=== PATIENT | female | born 1945 | race Caucasian/White ===

== ENCOUNTER 2019-05-30 10:25 | Inpatient (IN) | payer MEDICARE, SELFPAY ==
[2019-05-30] VITALS (12 sets, daily range): BP systolic 164–225; BP diastolic 81–156; PULSE 69–80; RESP 16–30; TEMP 36.3–36.6; O2SAT 94–100; BMI 28.5; BMI 28.8
--- NOTE | ~2019-05-30 | XR_ITS ---
EXAMINATION: XR chest 2V EXAM DATE: 05/30/2019 11:03 INDICATION: Shortness of breath. TECHNIQUE: Frontal and lateral projections of the chest obtained and reviewed. Comparison is made to prior examination from 11/21/2014. FINDINGS: Interval development of small left pleural effusion and bibasilar indistinct reticulation w hich could be pulmonary edema or possibly developing pneumonia. Please clinically correlate. The card iomediastinal silhouette is prominent but magnified on this AP technique. There is no pneumothorax [place] spected. There are no osseous abnormalities identified. IMPRESSION: 1. Findings consistent with mild CHF exacerbation. 2. Basilar pneumonia not excludable. Reviewed, dictated and finalized at location A. ERCIAL MORTGAGE BROKER
--- NOTE | ~2019-05-30 | CT_ITS ---
EXAMINATION: CT brain wo con DATE: 05/31/2019 12:20 INDICATION: Persistent headache after hypertensive episode. TECHNIQUE: Computed tomography (CT) of the head was performed without intravenous contrast. The dose- length product was 605.33 mGy-cm. The mA was adjusted according to patient size. Iterative reconstruc tion technique was employed. COMPARISON: CT dated 11/22/2014 FINDINGS: There are scattered mild periventricular and subcortical white matter changes, most likely related to small vessel ischemic disease (microangiopathy). No acute intracranial hemorrhage, infarct ion, mass or mass effect. No ventriculomegaly or midline shift. Basilar cisterns are patent. Paranasa l sinuses and mastoids are pneumatized. Midline sagittal images are unremarkable. IMPRESSION: 1. No acute intracranial abnormality. 2: Chronic age-related findings. Reviewed, dictated and finalized at location A. LANCE OPERATOR
--- NOTE | ~2019-05-30 | CT_ITS ---
EXAMINATION: CTA chest PE protocol EXAM DATE: 05/30/2019 12:18 INDICATION: Short of breath for 2 weeks. Epigastric pain. TECHNIQUE: Spiral CTA of the chest (pulmonary arteries) was performed with 100 cc Omnipaque 350 intr avenous contrast injection. Images were acquired during the pulmonary arterial phase. Coronal maxi mum intensity projection 3D-reconstructions were created by the technologist on dedicated workstation . Axial, coronal and sagittal reformatted images were reviewed. The dose-length product (DLP) for t his examination was 471.74 mGy-cm. The exposure was tailored according to patient size (auto mA exp osure control), and iterative reconstruction (ASIR) was used as additional dose reduction technique. There is no prior study for comparison. FINDINGS: Pulmonary arteries are well opacified and without intraluminal filling defects. No thora cic aortic dissection. Moderate right, small to moderate left pleural effusions which are nonlocula radhika given they were relatively inconspicuous for size on the chest x-ray obtained same date in subpul karly location. There is adjacent right lower lobe segmental, left lower lobe subsegmental atelectasi s. No confluent consolidation. Tracheobronchial tree is patent. There is no mediastinal, hilar or axillary lymphadenopathy. There is no pneumothorax. There is cardiomegaly. There is mild coronar y arterial calcification, arterial sclerosis. There is 1.5 cm left adrenal gland adenoma. There is thoracic spondylosis without osteoblastic or osteolytic lesions identified. IMPRESSION: 1. Cardiomegaly, moderate right and small to moderate left pleural effusions. Adjacent atelectasis. 2. No pulmonary emboli. Reviewed, dictated and finalized at location A. RWRITING INTERN
--- NOTE | 2019-05-30 10:38 | ECG_ITS ---
Measurements Intervals Baker Rate: 73 P: GA: 0 QRS: 59 QRSD: 89 T: 62 QT: 421 QTc: 466 Interpretive Statements SINUS RHYTHM BORDERLINE T WAVE ABNORMALITY- LATERAL LEADS BASELINE ARTIFACT- I, II, III, AVR, AVL, AVF, V4-V6 BORDERLINE ECG Electronically Signed On 05-30-2019 10:57:31 CHLORINE CELL TENDER by Marlon Baca D.O.
[2019-05-30 10:48] LABS: Basophils Absolute Auto 0.1 K/mm3 (0.0-0.1); Basophils Percent Auto 0.6 % (0.2-1.2); Eosinophils Percent Auto 0.3 % (0-4.4); Hematocrit 37.2 % (37.0-47.0); Hemoglobin 11.8 g/dL (12.0-15.0); Immature Granulocyte Absolute 0.03 K/mm3 (0.00-0.031); Immature Granulocyte Percent A 0.3 % (0-0.5); Lymphocytes Absolute Auto 3.32 K/mm3 (0.9-3.2); Lymphocytes Percent Auto 28.9 % (18.3-44.2); Mean Corpuscular HGB Conc 31.7 g/dl (32-36); Mean Corpuscular Hemoglobin 30.5 pg (26-34); Mean Corpuscular Volume 96.1 fl (80-100); Mean Platelet Volume 10.2 fl (7.4-10.4); Monocytes Absolute Auto 0.6 K/mm3 (0.1-0.6); Monocytes Percent Auto 5.3 % (2.6-8.5); Neutrophils Absolute Auto 7.4 K/mm3 (1.3-6.7); Neutrophils Percent Auto 64.6 % (45.5-73.1); Platelet Count Result 371 k/mm3 (150-375); Red Blood Count 3.87 M/mm3 (4.2-5.4); Red Cell Distribution Width 12.6 % (11.5-14.5); White Blood Count 11.5 K/mm3 (4.5-10.0)
--- NOTE | 2019-05-30 10:50 | ED.SOB ---
HPI - SOB/Dyspnea General Chief Complaint: Shortness of Breath/Dyspnea Stated Complaint: SOB Time Seen by Provider: 05/30/19 10:38 Source: patient and RN notes reviewed Mode of arrival: ambulatory Limitations: no limitations History of Present Illness HPI Narrative: Pt is a 73 y/o female presenting to the ED c/o SOB. Pt reports she started experiencing severe SOB over a month ago that recently worsened. Pt states her SOB is worsened with exertion and is alleviated with pursed lip breathing. Pt also reports back pain for 2 weeks, diaphoresis, mild cough, and occasional CP, but denies fever. Pt states she has not experienced any CP today. Pt notes she tried to see her PCP, Dr. Quiñones, about her SOB but he is on vacation. Pt notes she is prescribed Metoprolol, Olmesartan, and Benicar, but states she is not always compliant with these medications. Onset (ago): month(s) Severity: severe Exacerbating factors: exertion Relieving factors: other (Pursed lip breathing) Associated symptoms: chest pain (Occasional, none currently), cough (Mild), diaphoresis and other (Back pain) Related Data Home Medications Medication Instructions Recorded Confirmed alprazolam 05/30/19 bimatoprost [Lumigan] 05/30/19 hydrochlorothiazide 05/30/19 hydrocodone-acetaminophen 05/30/19 metoprolol tartrate 50 mg PO DAILY 05/30/19 05/30/19 olmesartan 05/30/19 Allergies Allergy/AdvReac Type Severity Reaction Status Date / Time No Known Allergies Allergy Verified 05/30/19 10:47 Review of Systems Review of Systems: Narrative: Constitutional: Negative for fever. Respiratory: Positive for dyspnea and mild cough. Cardiovascular: Positive for occasional chest pain, none currently and diaphoresis. Musculoskeletal: Positive for back pain. All systems reviewed & are unremarkable except as noted in HPI and below PMFSH Past Medical History Medical History Anemia Anxiety Arthritis Diverticulitis Diverticulosis Fibromyalgia History of blood transfusion HLD (hyperlipidemia) HTN (hypertension) Kidney stone Shingles Spinal stenosis TIA (transient ischemic attack) Ulcer UTI (urinary tract infection) Surgical History Surgical History H/O cardiac catheterization History of appendectomy History of cholecystectomy Social History Social History Smoking status: Unknown if ever smoked Gender identity (if verbalized by the patient): Female Exam Narrative: Exam Narrative: Constitutional: Appears well-developed. No distress. Nose: Nose normal. Eyes: Conjunctiva are normal. Neck: Normal range of motion. Neck supple. Cardiovascular: Normal rate and regular rhythm. Pulmonary/Chest: Tachypneic. Mild respiratory distress. Diminished breath sounds. Abdominal: Soft. There is no tenderness. Musculoskeletal: Normal range of motion. No edema. Neurological: Alert and oriented to person, place, and time. Skin: Skin is warm. No pallor. Psychiatric: Normal mood and affect. Course Consultations Consultation #1: Discussed case with Hospitalist NAIF Ott. Accepted the pt for admission. Date: 05/30/19 Time: 12:56 Vital Signs Vital signs: Vital Signs Temperature 36.3 C L 05/30/19 10:39 Pulse Rate 80 05/30/19 10:39 Respiratory Rate 30 H 05/30/19 10:39 Blood Pressure 225/138 H 05/30/19 10:39 Pulse Oximetry 97 05/30/19 10:39 Temperature 36.3 C L 05/30/19 10:39 Pulse Rate 69 05/30/19 12:48 Respiratory Rate 16 05/30/19 12:48 Blood Pressure 174/101 H 05/30/19 12:48 Pulse Oximetry 100 05/30/19 12:48 MDM - SOB/Dyspnea Lab Data Result diagrams: 05/30/19 10:43 05/30/19 10:43 Labs: Lab Results 05/30/19 05/30/19 05/30/19 Range/Units 10:41 10:41 10:43 WBC 11.5 H (4.5-10.0) K/mm3 RBC 3.87 L (4.2-5.4) M/mm3 Hgb 11.8 L (12.0-15.
[2019-05-30 10:59] LABS: Blood Urea Nitrogen 10 mg/dL (7-17); Calcium 9.6 mg/dL (8.4-10.2); Carbon Dioxide 22 mmol/L (22-30); Chloride 101 mmol/L (98-107); Estimated Glomerular Filt Rate > 60; Glucose 127 mg/dL (65-105); Potassium 3.9 mmol/L (3.4-5.0); Sodium 137 mmol/L (137-145)
[2019-05-30] MEDS: FUROSEMIDE INJ 40 MG/4 ML VIAL IV PUSH ×2 (11:26→22:37)
[2019-05-30] MEDS: LABETALOL HCL INJ 100 MG/20 ML VIAL 20 MG IV PUSH (11:27)
[2019-05-30 11:30] LABS: D Dimer 1.37 ug/mL (<0.48)
[2019-05-30 11:39] LABS: NT Pro B Type Natriuretic Pept 9910 PG/ML (5-100); Troponin I 0.052 ng/mL (0.000-0.034)
[2019-05-30] MEDS: AMLODIPINE BESYLATE 5 MG TABLET 10 MG PO (12:25)
[2019-05-30] MEDS: hydrALAZINE HCL 20 MG/ML VIAL IV PUSH (12:48)
--- NOTE | 2019-05-30 13:40 | ECHO_ITS ---
Patient Info Name: Karla Green Age: 73 years : 1945 Gender: Female Ht: 66 in Wt: 191 lbs BSA: 2.04 m2 HR: 75 bpm BP: 171 / 82 mmHg Heart Rhythm: Sinus Rhythm Technical Quality: Good Exam Date: 05/30/2019 2:17 PM Exam Location: [facility] Pulmonary Patient Status: Inpatient Admit Date: 05/30/2019 Staff Ordering Physician: Melissa Ott PA-C Warehouse Assembly Worker: Wilmer Burroughs RDCS Attending Provider: Robin Orozco MD Referring Physician: Namrata GAMINO; Exam Type: CA echo dop color flow w con Study Info Indications I51.7 - Cardiomegaly Complete two-dimensional, color flow and Doppler transthoracic echocardiogram is performed with contrast to opacify the left ventrical and to improve the deliniation of the left ventrical endocarial boarders. Contrast/Agitated Saline Contrast/Ag. Saline: Definity Amount: 2.00 ml Administered By: Pato Salmon RN History/Risk Factors Cardiomegaly, SOB, HTN, elevated trops, BNP 9910, CAD. Summary 1. Left ventricular chamber dimension is normal. 2. Left ventricular systolic function is normal, estimated at 55-60%. 3. There is moderate concentric increased left ventricular wall thickness. 4. There is mild aortic valve sclerosis. 5. There is mild posterior leaflet prolapse and mild MR. Left Ventricle Left ventricular chamber dimension is normal. Left ventricular systolic function is normal, estimated at 55-60%. There is moderate concentric increased left ventricular wall thickness. The left ventricular diastolic function is grade I diastolic dysfunction. Right Ventricle Right ventricular chamber dimension is normal. Left Atria Left atrial chamber dimension is mildly enlarged. Right Atria Right atrial chamber dimension is normal. Aortic Valve The aortic valve is trileaflet. There is mild aortic valve sclerosis. Pulmonic Valve The pulmonic valve is not well visualized. Mitral Valve The mitral valve has normal leaflets and posterior prolapse. There is mild mitral valve regurgitation. There is mild posterior leaflet prolapse and mild MR. Tricuspid Valve The tricuspid valve leaflets are normal. There is mild tricuspid valve regurgitation. Pericardium/Pleural The pericardium appears normal. Aorta The aortic root size at the sinus of Valsalva is normal. Left Ventricular Outflow Tract Name Value Normal LVOT 2D LVOT Diameter 1.80 cm LVOT Doppler LVOT VTI 20.50 cm LVOT VTI/AV VTI Ratio 0.68 LVOT Stroke Volume 52.14 ml Mitral Valve Name Value Normal MV Diastolic Function MV E Peak Velocity 1.15 cm/s MV A Peak Velocity 1.00 cm/s MV E/A 1.15 MV Annular TD
[2019-05-30 14:47] LABS: Troponin I 0.051 ng/mL (0.000-0.034)
--- NOTE | 2019-05-30 15:43 | ADMGEN ---
This patient, Karla Green, was admitted to IMU Room 206-01. Patient/family oriented to hospital policies and general routines including ID bracelet, bed and alarms, visiting hours, pain management, procedures, bathroom and other care routines, personal items, smoking policy, room service/diet, and visiting hours. Valuables list has been completed. Information on how to activate the Rapid Response Team has been discussed. Patient/Family are encouraged to report perceived risks to care and to ask questions if they do not understand what they are told or what they should do.
[2019-05-30 17:46] LABS: Troponin I 0.053 ng/mL (0.000-0.034)
--- NOTE | 2019-05-30 18:08 | PM.CNCAR ---
Assessment and Plan Additional Plan 73-year-old lady with chronic longstanding essential hypertension with the recent echocardiogram in our office demonstrating hypertensive heart disease with LVH, good systolic contractility and no significant valvular disease. She is normally on a 3 drug regimen for her hypertension and because she was feeling poorly for for 5 days stopped all of her medications resulting in significant hypertension upon presentation. Troponins were sampled for reasons that are not clear. As I mentioned above angiographically the this lady is known not to have any coronary artery disease. I would recommend resuming the Olmesartan, , metoprolol and amlodipine. I do not perceive there to be any clinical evidence to suggest an acute coronary problem and I do not believe an ischemic workup is necessary. As I mentioned above she has had a negative angiogram few years ago History of Present Illness History of Present Illness Consult date/time: Date of service: 05/30/19 18:08 Consult reason: hypertension Reason For Visit: CHF, Hypertensive Urgency Narrative: This 73-year-old lady apparently known to Dr. Travis of our practice with a longstanding history of hypertension. She entered the hospital through the emergency room earlier today reporting symptoms of coughing and wheezing for about 5 or 6 days. She does not describe any significant fever or sputum production. She does not have any history of shaking or chills. Because she was feeling poorly she indicates that she did not take any of her blood pressure medication for at least 3 possibly 4 days for reasons that were not logically explained. When she was seen in the emergency room for that reason she was markedly hypertensive she was given intravenous medications in the emergency room to urgently treat her blood pressure which was exceedingly high. For reasons that are not readily evident troponin levels were sampled and they are slightly elevated at 0.05 and for this reason we are prompted to see her in consultation. The patient is seated in her bed in room 206 and appears to be comfortable and I came in to see her. She states her only complaint currently is that of a throbbing headache and also she would like hydrocodone prescribed for this. The patient does not have any chest pain symptoms. 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 She states that she is aware that she sees Dr. daniel of our practice but can't really remember what sort of cardiac problem she might have had. I did go down to the office and retrieve the last office visit. The patient was seen by our office in February of 2019 and is apparently being seen at 6 month intervals for assistance with hypertension and left ventricular hypertrophy. She is not known to have any valvular heart disease nor any coronary disease she did have a negative coronary angiogram back in 2014 when my partner for saw the patient. Review of Systems Constitutional: Constitutional: Reports no additional constitutional complaints Eyes: Eyes: Reports no additional eye complaints ENT: Reports system reviewed and no additional complaints, except as documented Cardiovascular: Cardiovascular: Reports no additional cardiovascular complaints Respiratory: Respiratory: Reports chest congestion, Reports cough and Reports wheezing Gastrointestinal: Gastrointestinal: Reports no additional gastrointestinal complaints Genitourinary: Genitourinary: Reports no additional female genitourinary complaints Musculoskeletal: Musculoskeletal: Reports no additional musculoskeletal complaints Neurologic: Reports headache(s) Comments: Reports a history of migraine headaches currently having a significant throbbing headache as she describes above Ps
--- NOTE | 2019-05-30 20:00 | PM.IMHP ---
H&P: HPI History of Present Illness Chief complaint: Shortness of breath. Narrative: Karla Green is a 73 year old female with hypertension who presented to the emergency department earlier this morning from home for evaluation of shortness of breath. For about a week and a half she has had symptoms that she initially attributed to a cold or sinus infection, including rhinorrhea, cough rarely productive of clear sputum, shortness of breath with exertion, and wheezing. Her shortness of breath seemed to be worse over last couple of days, and wanted her to come in yesterday for evaluation but she declined as she had a routine appoint with Dr. Quiñones this afternoon. This morning, however, she appeared ?ashen and she seemed more short of breath and her insisted that she come in for evaluation. Blood pressure was 225/138 on arrival to the emergency department, and she appeared to be in respiratory distress, speaking in 1 to 2 word sentences with audible wheezing. SpO2 was 90% on room air. Chest CT was negative for pulmonary embolism but did show moderately sized bilateral pleural effusions. The patient admits that she is not always compliant with her antihypertensives for unclear reasons. 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 The only complaint she has at the time my evaluation is of a pounding headache, mainly in the occipital region. She denies having chest pain today but a couple of days ago she had left anterior chest discomfort radiating to the left arm. She was not active when this occurred, it did not seem to last too long. She has not had ongoing issues with chest pain. She denies pleuritic pain racing heart. No lower extremity edema, calf pain, or history of venous thromboembolism. She has slept on 2 pillows for many years, and this is unchanged. She denies dysphagia and concerns for aspiration. No fever or chills. Of note, patient did have a cardiac catheterization done in [place] [address] Cameron. No significant coronary artery disease was noted, with preserved left ventricular systolic function ejection fraction of 60 to 65%. Some tortuosity and minor luminal irregularities were noted. Left ventricular end-diastolic pressure was elevated 27 millimeters of mercury. Review of Systems Review of Systems: All systems reviewed & are unremarkable except as noted in HPI and below [facility] Past Medical History Medical History (Updated 05/30/19 @ 21:11 by Melissa Ott PA-C) Anemia Anxiety Arthritis Chronic back pain Diverticulitis Diverticulosis Fibromyalgia History of blood transfusion HLD (hyperlipidemia) HTN (hypertension) Kidney stone Shingles Short-term memory loss Spinal stenosis TIA (transient ischemic attack) Ulcer UTI (urinary tract infection) Surgical History Surgical History (Updated 05/30/19 @ 21:06 by Melissa Ott PA-C) H/O cardiac catheterization History of appendectomy History of cardiac catheterization cardiac catheterization done in November [address] Cameron. No significant coronary artery disease was noted, with preserved left ventricular systolic function ejection fraction of 60 to 65%. Some tortuosity and minor luminal irregularities were noted. Left ventricular end-diastolic pressure was elevated 27 millimeters of mercury. History of cholecystectomy Family History Family History (Updated 05/30/19 @ 21:07 by Melissa Ott PA-C) Mother Parkinsons Dementia Hypertension Father Congestive heart failure Cerebrovascular accident Sibling Acute myocardial infarction Social History Social History (Updated 05/30/19 @ 21:08 by Melissa Ott PA-C) Social History: The patient is lives with her in [place]. 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 She designates her , Jovani, as her surrogate decision maker and she wishes to be a full code. She is a former smoker an
[2019-05-30] MEDS: METOPROLOL TARTRATE 50 MG TAB PO (21:38)
[2019-05-30] MEDS: ALPRAZOLAM 0.5 MG TABLET PO (21:38)
[2019-05-31] VITALS (10 sets, daily range): BP systolic 139–161; BP diastolic 76–96; PULSE 63–90; RESP 16–18; TEMP 36.3–36.8; O2SAT 92–97
[2019-05-31 05:14] LABS: Hematocrit 39.2 % (37.0-47.0); Hemoglobin 13.1 g/dL (12.0-15.0); Mean Corpuscular HGB Conc 33.4 g/dl (32-36); Mean Corpuscular Hemoglobin 30.7 pg (26-34); Mean Corpuscular Volume 91.8 fl (80-100); Mean Platelet Volume 10.3 fl (7.4-10.4); Platelet Count Result 378 k/mm3 (150-375); Red Blood Count 4.27 M/mm3 (4.2-5.4); Red Cell Distribution Width 12.4 % (11.5-14.5); White Blood Count 12.2 K/mm3 (4.5-10.0)
[2019-05-31 05:26] LABS: Blood Urea Nitrogen 13 mg/dL (7-17); Carbon Dioxide 32 mmol/L (22-30); Chloride 88 mmol/L (98-107); Estimated CRCL calculation 44 ml/min; Estimated Glomerular Filt Rate 49; Glucose 99 mg/dL (65-105); Potassium 2.9 mmol/L (3.4-5.0); Sodium 137 mmol/L (137-145)
[2019-05-31] MEDS: METOPROLOL TARTRATE 50 MG TAB PO (05:27)
[2019-05-31] MEDS: ALPRAZOLAM 0.5 MG TABLET PO (05:28)
[2019-05-31 09:09] LABS: Blood Urea Nitrogen 14 mg/dL (7-17); Calcium 10.1 mg/dL (8.4-10.2); Carbon Dioxide 31 mmol/L (22-30); Chloride 87 mmol/L (98-107); Estimated CRCL calculation 48 ml/min; Estimated Glomerular Filt Rate 54; Glucose 116 mg/dL (65-105); Magnesium 1.7 mg/dL (1.6-2.3); Potassium 3.1 mmol/L (3.4-5.0); Sodium 137 mmol/L (137-145)
--- NOTE | 2019-05-31 10:44 | PM.IMPN ---
Progress Note: A&P Assessment and Plan (1) CHF exacerbation: Qualifiers: Heart failure type: diastolic Qualified Code(s): I50.33 - Acute on chronic diastolic (congestive) heart failure Code(s): I50.9 - Heart failure, unspecified Status: Acute Assessment and Plan: Patient with bilateral pleural effusions, right > left. Reduce furosemide to daily Replace KCL To medical floor PT/OT D/w pt and spouse importance of taking meds as directed with simplified regimen (2) Elevated troponin: Code(s): R79.89 - Other specified abnormal findings of blood chemistry Status: Acute Assessment and Plan: Likely due to uncontrolled hypertension. Flat response (3) Hypertensive urgency: Code(s): I16.0 - Hypertensive urgency Status: Acute Assessment and Plan: Due to essential HBP and medication noncompliance (4) Cognitive impairment: Code(s): R41.89 - Other symptoms and signs involving cognitive functions and awareness Status: Acute Assessment and Plan: Would likely benefit from complete neurocognitive evaluation Suspect that she may have early dementia (5) Hypokalemia: Code(s): E87.6 - Hypokalemia Status: Acute Assessment and Plan: Oral KCL Reduce furosemide F/u BMP, Mag (6) Headache: Qualifiers: Headache type: unspecified Headache chronicity pattern: acute headache Intractability: intractable Qualified Code(s): R51 - Headache Code(s): R51 - Headache Status: Acute Assessment and Plan: Neck is supple hx migraines CT brain w/o Subjective Date/time seen: 05/31/19 10:44 Interval history: Headache. Bitemporal. No weakness or numbness. Much less sob. Chronic LBP with DDD and lumbar spinal stenosis better with bedrest. Only mild now. No cp. No edema. No gi/gu c/o. Review of Systems Review of Systems: All systems reviewed & are unremarkable except as noted in HPI and below Exam Narrative: Exam Narrative: HEENT: EOMI, PERRL, pharyngeal mucosa pink and intact NECK: No JVD CHEST: Clear to auscultation. Normal effort. HEART: NL S1/S2, regular, no murmur ABDOMEN: BS+, soft, nontender, no mass, no bruits EXTREMITIES: No cyanosis, edema, or clubbing NEUROLOGIC: CN intact and symmetric to inspection. MUSCULOSKELETAL: Tone and strength symmetric. PSYCH: Alert. Oriented to person, place, but not to time (did not know year and thought month was September) Objective Data Vital Signs Vital Signs: Vital Signs - 24 hr 05/30/19 11:27 05/30/19 11:33 05/30/19 12:48 Temperature Pulse Rate 78 73 69 Respiratory Rate 25 H 20 16 Blood Pressure 203/156 H 182/140 H 174/101 H Pulse Oximetry 95 94 100 05/30/19 14:33 05/30/19 14:53 05/30/19 15:20 Temperature 97.3 F L Pulse Rate 69 69 72 Respiratory Rate 16 16 22 H Blood Pressure 164/91 H 172/81 H Pulse Oximetry 98 98 97 05/30/19 16:00 05/30/19 18:00 05/30/19 20:00 Temperature 98 F Pulse Rate 80 74 77 Respiratory Rate 16 Blood Pressure 172/82 H Pulse Oximetry 96 05/30/19 21:38 05/30/19 22:00 05/31/19 00:00 Temperature 97.4 F L Pulse Rate 73 79 70 Respiratory Rate 18 Blood Pressure 154/86 H Pulse Oximetry 95 05/31/19 02:00 05/31/19 04:00 05/31/19 05:27 Temperature 97.9 F Pulse Rate 63 67 69 Respiratory Rate 16 Blood Pressure 155/96 H Pulse Oximetry 92 05/31/19 06:00 05/31/19 07:50 Temperature 98.3 F Pulse Rate 63 64 Respiratory Rate 16 Blood Pressure 161/80 H Pulse Oximetry 95 Intake/Output Intake/Output: Intake & Output 05/28/19 05/29/19 05/30/19 05/31/19 23:59 23:59 23:59 23:59 Intake Total 250 500 Output Total 7827 1300 Balance -1008 -869 Meds/Results Medications: Active Medications Generic Name Dose Route Start Last Admin Trade Name Freq PRN Reason Stop Dose Admin Hydrocodone Bitart/Acetaminophen 1 tab 05/30/19 22:00 0
--- NOTE | 2019-05-31 11:53 | PM.PNCARD ---
Progress Note: A&P Additional Plan 73-year-old female with chronic longstanding essential hypertension with the recent echocardiogram in our office demonstrating hypertensive heart disease with LVH, good systolic contractility and no significant valvular disease. Patient presented with acute on chronic CHF with preserved ejection fraction in the setting of uncontrolled hypertension. Nonspecific troponin elevation in the setting of elevated blood pressure and CHF. Continue optimal blood pressure control. Continue amlodipine, beta-santana, ARB. Patient will need maintenance diuresis with furosemide. Start furosemide 40 mg p.o. daily. Patient was advised to monitor blood pressure at home and bring the blood pressure readings on her follow-up visit with her primary animal rehabilitator-Dr. Travis. Will sign off. Subjective Date/time seen: 05/31/19 11:53 Patient reports improvement in her shortness of breath. Denies any chest pain or palpitations. No lower extremity swelling. Interval history: Improvement in dyspnea Exam Const: General: no acute distress and uncomfortable Other: Pleasant somewhat overweight lady in mild distress because of a his significant headache. HENMT: Mouth: Yes moist mucous membranes Eyes: Sclera: sclerae normal Pupils: Equal, round and reactive pupils present Neck: Neck: supple and no JVD Thyroid: thyroid normal Resp: Effort & Inspection: normal respiratory effort Auscultation: clear to auscultation bilaterally Cardio: Rate: regular rate Rhythm: regular rhythm Other: No murmur S4 gallop is evident GI: Auscultation: normal bowel sounds Skin: General skin exam: normal color Neuro: Cranial nerves: Yes Equal, round and reactive pupils present Extrem: General: normal to inspection Objective Data Vital Signs Vital Signs: Vital Signs - 24 hr 05/30/19 12:48 05/30/19 14:33 05/30/19 14:53 Temperature Pulse Rate 69 69 69 Respiratory Rate 16 16 16 Blood Pressure 174/101 H 164/91 H Pulse Oximetry 100 98 98 05/30/19 15:20 05/30/19 16:00 05/30/19 18:00 Temperature 36.3 C L Pulse Rate 72 80 74 Respiratory Rate 22 H Blood Pressure 172/81 H Pulse Oximetry 97 05/30/19 20:00 05/30/19 21:38 05/30/19 22:00 Temperature 36.6 C Pulse Rate 77 73 79 Respiratory Rate 16 Blood Pressure 172/82 H Pulse Oximetry 96 05/31/19 00:00 05/31/19 02:00 05/31/19 04:00 Temperature 36.3 C L 36.6 C Pulse Rate 70 63 67 Respiratory Rate 18 16 Blood Pressure 154/86 H 155/96 H Pulse Oximetry 95 92 05/31/19 05:27 05/31/19 06:00 05/31/19 07:50 Temperature 36.8 C Pulse Rate 69 63 64 Respiratory Rate 16 Blood Pressure 161/80 H Pulse Oximetry 95 05/31/19 08:00 Temperature Pulse Rate 64 Respiratory Rate 16 Blood Pressure Pulse Oximetry 95 Intake/Output Intake/Output: Intake & Output 05/28/19 05/29/19 05/30/19 05/31/19 23:59 23:59 23:59 23:59 Intake Total 250 500 Output Total 2375 1300 Balance -8100 -800 Meds/Results Medications: Active Medications Generic Name Dose Route Start Last Admin Trade Name Freq PRN Reason Stop Dose Admin Hydrocodone Bitart/Acetaminophen 1 tab 05/30/19 22:00 05/31/19 05:28 [place] 7.5-325 Mg PO 1 tab Q8HR RHEA Administration Alprazolam 0.5 mg 05/31/19 11:01 Xanax PO Q8HR PRN Anxiety Amlodipine Besylate 10 mg 05/31/19 11:01 Norvasc PO QAM RHEA Furosemide 40 mg 06/01/19 09:00 Lasix Tablet PO DAILY RHEA Hydrochlorothiazide 25 mg 05/31/19 11:01 Hydrochlorothiazide PO DAILY [facility] Latanoprost 1 drop 05/30/19 21:00 05/30/19 21:39 Xalatan EACH EYE Not Given HS RHEA Losartan Potassium 100 mg 06/01/19 09:00 Cozaar PO DAILY RHEA Metoprolol Succinate 100 mg 05/31/19 18:00 Toprol Xl PO QPM RHEA Potassium Chloride 40 meq 05/31/19 12:00 Kcl Powder (For Liquid) PO 05/31/19 12:01 ONCE ONE Radiology Results: ITS Impress
--- NOTE | 2019-05-31 12:26 | PCOTNOTE ---
Patient of room for CT, will attempt tomorrow
[2019-05-31] MEDS: POTASSIUM CHLORIDE 20 MEQ PACKET (FOR LIQUID) 40 MEQ PO (13:21)
[2019-05-31] MEDS: AMLODIPINE BESYLATE 5 MG TABLET 10 MG PO (13:22)
[2019-05-31] MEDS: LOSARTAN POTASSIUM 100 MG TABLET PO (13:22)
[2019-05-31] MEDS: hydroCHLOROthiazide 25 MG TABLET PO (13:22)
--- NOTE | 2019-05-31 14:08 | PC.NURSE ---
This patient, Karla Green, was received from [[facility]] on 05/31/19 at 1405. Personal belongings list checked and signed. Patient/family oriented to unit policies and routines
[2019-05-31 15:22] LABS: Blood Urea Nitrogen 16 mg/dL (7-17); Calcium 9.6 mg/dL (8.4-10.2); Carbon Dioxide 30 mmol/L (22-30); Chloride 89 mmol/L (98-107); Estimated CRCL calculation 48 ml/min; Estimated Glomerular Filt Rate 54; Glucose 95 mg/dL (65-105); Magnesium 1.7 mg/dL (1.6-2.3); Potassium 3.7 mmol/L (3.4-5.0); Sodium 135 mmol/L (137-145)
[2019-05-31] MEDS: METOPROLOL SUCCINATE EXT REL 100 MG TABCR PO (18:56)
[2019-05-31] MEDS: LATANOPROST 0.005% OP SOLN 2.5 ML BTL 1 DROP EACH EYE (21:50)
[2019-06-01 06:00] VITALS: BP 137/78; PULSE 84; RESP 18; TEMP 36.7; O2SAT 94
[2019-06-01 08:40] VITALS: O2SAT 96
[2019-06-01 09:08] VITALS: O2SAT 92
[2019-06-01 09:56] VITALS: BP 153/78; PULSE 71; RESP 18; O2SAT 100
[2019-06-01] MEDS: AMLODIPINE BESYLATE 5 MG TABLET 10 MG PO (09:58)
[2019-06-01 10:34] LABS: Blood Urea Nitrogen 17 mg/dL (7-17); Calcium 9.6 mg/dL (8.4-10.2); Carbon Dioxide 30 mmol/L (22-30); Chloride 88 mmol/L (98-107); Estimated CRCL calculation 48 ml/min; Estimated Glomerular Filt Rate 54; Glucose 94 mg/dL (65-105); Magnesium 1.9 mg/dL (1.6-2.3); Potassium 3.3 mmol/L (3.4-5.0); Sodium 135 mmol/L (137-145)
--- NOTE | 2019-06-01 10:48 | PM.DS ---
DS: Diagnosis Admitting Diagnosis Admitting Diagnosis: Heart failure, unspecified Discharge Diagnosis (1) CHF exacerbation: Qualifiers: Heart failure type: diastolic Qualified Code(s): I50.33 - Acute on chronic diastolic (congestive) heart failure Code(s): I50.9 - Heart failure, unspecified Status: Acute Assessment and Plan: Patient with bilateral pleural effusions, right > left. D/w pt and spouse importance of taking meds as directed with simplified regimen Echo with EF 55%, mild MR (2) Elevated troponin: Code(s): R79.89 - Other specified abnormal findings of blood chemistry Status: Acute Assessment and Plan: Likely due to uncontrolled hypertension. Flat response (3) Hypertensive urgency: Code(s): I16.0 - Hypertensive urgency Status: Acute Assessment and Plan: Due to essential HBP and medication noncompliance (4) Cognitive impairment: Code(s): R41.89 - Other symptoms and signs involving cognitive functions and awareness Status: Acute Assessment and Plan: Would likely benefit from complete neurocognitive evaluation Suspect that she may have early dementia (5) Hypokalemia: Code(s): E87.6 - Hypokalemia Status: Acute Assessment and Plan: resolved (6) Headache: Qualifiers: Headache type: unspecified Headache chronicity pattern: acute headache Intractability: intractable Qualified Code(s): R51 - Headache Code(s): R51 - Headache Status: Acute Assessment and Plan: Neck is supple hx migraines CT brain w/o negative 06/01 resolved DS: Summary Hospital Course Reason for hospitalization: Dyspnea Hospital Course: Presented to emergency department with dyspnea. Found to have blood pressure to 20s over 130s. Treated with IV hydralazine. Furosemide. Was not compliant with medications. Seem to have significant memory issues. Was intermittently disoriented to time during hospitalization. Patient and spouse admitted to significant short-term memory issues at home. By day of discharge she was up and about without difficulty. Tolerating diet. Blood pressure 130s over 80s. Asymptomatic. Time Spent with Patient Time attestation: Total time spent providing and/or coordinating discharge services: 36 min Exam Narrative: Exam Narrative: HEENT: EOMI, PERRL, pharyngeal mucosa pink and intact NECK: No JVD CHEST: Clear to auscultation. Normal effort. HEART: NL S1/S2, regular, no murmur ABDOMEN: BS+, soft, nontender, no mass, no bruits EXTREMITIES: No cyanosis, edema, or clubbing NEUROLOGIC: CN intact and symmetric to inspection. MUSCULOSKELETAL: Tone and strength symmetric. PSYCH: Alert. Oriented to person, place DS: Data Data Completed and Pending Labs on day of discharge: Labs from last 24 hours 06/01/19 05/31/19 09:54 15:02 Sodium 135 L 135 L Potassium 3.3 L 3.7 Chloride 88 L 89 L Carbon Dioxide 30 30 BUN 17 16 Creatinine 1.00 1.00 Estim Creat Clear Calc 48 48 Estimated GFR 54 L 54 L Glucose 94 95 Calcium 9.6 9.6 Magnesium 1.9 1.7 Discharge Plan Discharge Attending physician on discharge: Francisco Talamantes Consulting providers: León Zapata Discharging Clinician: Francisco Talamantes Patient Disposition: Home, Self-Care Activity: no driving and as tolerated Diet: low sodium Patient Instructions: Antibiotic Form Stand Alone Forms: General Discharge Information Follow-up/Referrals: Ishmael,Ta Andrade MD [Primary Care Provider] - 1 Week (F/u BP. Consider cognitive evaluation. Consider reduction of benzodiazepine and opioid. ) Discharge Medications: New metoprolol succinate [Toprol XL] 100 mg Tablet Extended Release 24 Hr 100 mg PO QPM Qty: 30 RF: 0 hydrochlorothiazide 25 mg Tablet 25 mg PO DAILY Qty: 30 RF: 0 amlodipine 10 mg tablet 10 mg PO DAILY Qty: 30 RF: 0
[2019-06-01] MEDS: hydroCHLOROthiazide 25 MG TABLET PO (12:19)
[2019-06-01] MEDS: LOSARTAN POTASSIUM 100 MG TABLET PO (12:19)
--- NOTE | 2019-06-01 14:23 | PC.NURSE ---
Patient discharged @1310. Patient IV line removed, Patient discharge medications reviewed and family verbalized understanding of these medications. Patient left via wheel chair and POV.
== END 2019-06-01 13:10 | disposition home or self-care (01) | DRG 293 ==
LOC: ANHED 13:48 → ANHIMU 13:59 → ANH3MEDSUR 06-01 10:54 → ANHIMU 06-04 13:12
PROVIDERS: Physician Assistant; Admitting Provider Internal Medicine; Emergency Provider Emergency Medicine; PCP Internal Medicine; Visit Provider Internal Medicine
DX: I11.0 Hypertensive heart disease with heart failure (principal); I50.33 Acute on chronic diastolic (congestive) heart failure; I16.0 Hypertensive urgency; M79.7 Fibromyalgia; Z90.49 Acquired absence of other specified parts of digestive tract; R41.89 Other symptoms and signs involving cognitive functions and awareness; E87.6 Hypokalemia; R51 Headache; Z91.14 Patient's other noncompliance with medication regimen
CPT/HCPCS: 36415; 70450; 71046; 71275; 80048; 83735; 83880; 84484; 85025; 85027; 85380; 87804; 93005; 96374; 96375; 97161; 97165; 97535; 99285; A9270; C8929; J0360; J1940; Q9957; Q9967

== ENCOUNTER 2020-03-05 23:10 | Inpatient (IN) | payer MEDICARE, SELFPAY ==
--- NOTE | ~2020-03-05 | XR_ITS ---
EXAMINATION: XR hip RT 2V w AP pelvis DATE: 03/05/2020 23:47 INDICATION: Right hip pain. Fall. TECHNIQUE: An anteroposterior view of the pelvis and 2 views of right hip were obtained. COMPARISON: Pelvis CT 03/05/2020 FINDINGS: Bone alignment is normal. There is a nondisplaced subcapital fracture of right femoral neck . There is moderate right hip osteoarthritis and mild left hip osteoarthritis. There is severe lower lumbar spondylosis. IMPRESSION: 1. Subcapital fracture of right femoral neck. 2. Moderate right hip osteoarthritis and mild left hip osteoarthritis. Reviewed, dictated and finalized at location A. TIC TOY INVENTOR
--- NOTE | ~2020-03-05 | XR_ITS ---
EXAMINATION: XR shoulder LT min 2V DATE: 03/05/2020 23:47 INDICATION: Left shoulder pain. Fall. TECHNIQUE: 4 views of left shoulder were obtained. COMPARISON: None. FINDINGS: Bone alignment is normal. No fracture. Glenohumeral joint is normal. There is mild acromioc lavicular joint osteoarthritis. IMPRESSION: 1. Mild left acromioclavicular joint osteoarthritis. Reviewed, dictated and finalized at location A. TER DECORATOR
--- NOTE | ~2020-03-05 | CT_ITS ---
EXAMINATION: CT pelvis wo con DATE: 03/05/2020 23:49 INDICATION: Pelvis injury. TECHNIQUE: Computed tomography (CT) of the pelvis was performed without intravenous contrast. Automat ed exposure control and iterative reconstruction technique were employed. The dose-length product was 428.20 mGy-cm. COMPARISON: CT abdomen and pelvis 11/21/2014 FINDINGS: There are no pathologically enlarged lymph nodes. There is no ascites. There is a nondispla mery subcapital fracture of right femoral neck. There is moderate right hip osteoarthritis and mild le ft hip osteoarthritis. IMPRESSION: 1. Subcapital fracture of right femoral neck. 2. Moderate right hip osteoarthritis and mild left hip osteoarthritis. Reviewed, dictated and finalized at location A. LLER
--- NOTE | ~2020-03-05 | XR_ITS ---
XR surgery orthopedic DATE: 03/06/2020 13:00 INDICATION: Right hip fracture pinning TECHNIQUE: AP and lateral spot C-arm images 56.1 seconds fluoroscopy time 27.27 mGy COMPARISON: None FINDINGS: 3 pins are noted extending through the intertrochanteric area and femoral neck into the rig ht femoral head. There is anatomic position and alignment at the very subtle right subcapital femoral neck fracture. IMPRESSION: ORIF subtle nondisplaced right subcapital femoral neck fracture Reviewed, dictated and finalized at Location A. Reviewed, dictated and finalized at location A. ASSISTANT
--- NOTE | ~2020-03-05 | CT_ITS ---
EXAMINATION: CT lumbar spine wo con DATE: 03/05/2020 23:49 INDICATION: Low back pain. Fall. TECHNIQUE: Computed tomography (CT) of the lumbar spine was performed without intravenous contrast. A utomated exposure control and iterative reconstruction technique were employed. The dose-length produ ct was 805.56 mGy-cm. COMPARISON: None FINDINGS: There is 8 degrees dextrocurvature of lumbar spine. There is 3 mm anterolisthesis of L2 on L3 and L3 on L4 and 5 mm anterolisthesis of L4 on L5. There is 4 mm retrolisthesis of L5 on S1. Verte bral body heights are normal. There is mildly decreased disc height from L1-L2 through L3-L4 and sheri rely decreased disc height at L5-S1. There is interbody fusion at L5-S1. The following disc levels ar e specifically discussed: L1-L2: The disc is bulging. There is severe right and moderate left facet joint osteoarthritis. There is mild bilateral neural foraminal stenosis. There is mild central canal stenosis. L2-L3: The disc is bulging. There is severe bilateral facet joint osteoarthritis. There is mild bilat eral neural foraminal stenosis. There is mild central canal stenosis. L3-L4: The disc is bulging. There is severe bilateral facet joint osteoarthritis. There is mild bilat eral neural foraminal stenosis. There is mild central canal stenosis. L4-L5: The disc is bulging. There is severe bilateral facet joint osteoarthritis. There is mild bilat eral neural foraminal stenosis. There is mild central canal stenosis. L5-S1: There is severe bilateral facet joint osteoarthritis. There is moderate bilateral neural can inal stenosis. There is mild central canal stenosis. IMPRESSION: 1. No fracture. 2. Moderate lumbar spondylosis. Reviewed, dictated and finalized at location A. ER CUTTER
[2020-03-05 23:07] VITALS: BP 107/87; PULSE 88; RESP 17; TEMP 37.6; O2SAT 97
[2020-03-05 23:49] LABS: Basophils Absolute Auto 0.1 K/mm3 (0.0-0.1); Basophils Percent Auto 0.4 % (0.2-1.2); Eosinophils Absolute Auto 0.1 K/mm3 (0-0.3); Eosinophils Percent Auto 0.4 % (0-4.4); Hematocrit 36.7 % (37.0-47.0); Hemoglobin 12.6 g/dL (12.0-15.0); Immature Granulocyte Percent A 0.5 % (0-0.5); Lymphocytes Absolute Auto 3.05 K/mm3 (0.9-3.2); Lymphocytes Percent Auto 15.7 % (18.3-44.2); Mean Corpuscular HGB Conc 34.3 g/dl (32-36); Mean Corpuscular Hemoglobin 30.2 pg (26-34); Mean Platelet Volume 9.7 fl (7.4-10.4); Monocytes Absolute Auto 1.1 K/mm3 (0.1-0.6); Monocytes Percent Auto 5.5 % (2.6-8.5); Neutrophils Absolute Auto 15.1 K/mm3 (1.3-6.7); Neutrophils Percent Auto 77.5 % (45.5-73.1); Platelet Count Result 305 k/mm3 (150-375); Red Blood Count 4.17 M/mm3 (4.2-5.4); Red Cell Distribution Width 12.2 % (11.5-14.5); White Blood Count 19.4 K/mm3 (4.5-10.0)
[2020-03-06] VITALS (11 sets, daily range): BP systolic 124–150; BP diastolic 68–94; PULSE 84–117; RESP 15–18; TEMP 36.9–37.6; O2SAT 93–97; BMI 28.3
[2020-03-06 00:03] LABS: Alanine Aminotransferase 18 U/L (4-35); Albumin Level 4.5 g/dL (3.5-5.1); Alkaline Phosphatase 108 U/L (38-126); Anion Gap 12 mmol/L (8-16); Aspartate Amino Transferase 33 U/L (14-36); Bilirubin,Total 0.4 mg/dL (0.2-1.3); Blood Urea Nitrogen 14 mg/dL (7-17); Calcium 9.7 mg/dL (8.4-10.2); Carbon Dioxide 32 mmol/L (22-30); Chloride 95 mmol/L (98-107); Estimated Glomerular Filt Rate 40; Glucose 115 mg/dL (65-105); Sodium 139 mmol/L (137-145)
[2020-03-06] MEDS: MORPHINE SULFATE (*CRX) 4 MG/ML INJ IV PUSH (00:22)
[2020-03-06] MEDS: ONDANSETRON INJ 4 MG/2 ML VIAL IV PUSH (00:23)
--- NOTE | 2020-03-06 00:52 | ED.FALL ---
HPI - Fall General Chief Complaint: Fall Stated Complaint: fall/ hip pain Time Seen by Provider: 03/05/20 23:14 History of Present Illness HPI Narrative: Patient is a 74-year-old female who presents emerge department chief complaint of right hip pain. Patient reports that she got up and fell to the ground she had no loss of the lumbar spine area denies loss of consciousness denies head injury. Patient states pain is worse with movement and improved with rest Related Data Home Medications Medication Instructions Recorded Confirmed Lumigan 1 drp OPHTHALMIC (EYE) HS 05/30/19 05/30/19 hydrocodone-acetaminophen 1 tablet PO TID 05/30/19 05/30/19 Allergies Allergy/AdvReac Type Severity Reaction Status Date / Time No Known Allergies Allergy Verified 05/30/19 10:47 Review of Systems Review of Systems: Narrative: CONSTITUTIONAL: Denies fever, chills, or sweats. EYES: Denies visual changes, redness, or discharge. ENT: Denies rhinorrhea, congestion, sore throat, or otalgia. CARDIOVASCULAR: Denies chest pain, palpitations, or edema. RESPIRATORY: Denies cough or dyspnea. GASTROINTESTINAL: Denies abdominal pain, nausea, vomiting, or diarrhea. GENITOURINARY: Denies dysuria or hematuria. SKIN: Denies rash or itching. MUSCULOSKELETAL: Denies back pain, joint pain, or myalgia. NEUROLOGIC: Denies headache, numbness, or weakness. PSYCHIATRIC: Denies anxiety or depression. A 10 system review of systems was completed on the patient and is negative except for what is stated in the HPI. Nursing and ancillary documentation was reviewed. [facility] Past Medical History Medical History Anemia Anxiety Arthritis Chronic back pain Cognitive impairment Diverticulitis Diverticulosis Fibromyalgia History of blood transfusion HLD (hyperlipidemia) HTN (hypertension) Kidney stone Shingles Short-term memory loss Spinal stenosis TIA (transient ischemic attack) Ulcer UTI (urinary tract infection) Surgical History Surgical History H/O cardiac catheterization History of appendectomy History of cardiac catheterization cardiac catheterization done in November [address] Cameron. No significant coronary artery disease was noted, with preserved left ventricular systolic function ejection fraction of 60 to 65%. Some tortuosity and minor luminal irregularities were noted. Left ventricular end-diastolic pressure was elevated 27 millimeters of mercury. History of cholecystectomy Family History Family History Mother Parkinsons Dementia Hypertension Father Congestive heart failure Cerebrovascular accident Sibling Acute myocardial infarction Social History Social History Social History: The patient is lives with her in [place]. 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 She designates her , Jovani, as her surrogate decision maker and she wishes to be a full code. She is a former smoker and quit in the early . She denies alcohol and drug abuse. Smoking packs per day: 0.5 Smoking cigarettes per day: 10.0 Years smoked: 10 Smoking pack-years: 5.00 Smoking status: Former smoker Tobacco type: cigarettes Smoking end date: 04/09/84 Alcohol intake: never Substance use: never Gender identity (if verbalized by the patient): Female Spiritual care concerns: No Agree to blood products: Yes Exam Narrative: Exam Narrative: GENERAL: Well-appearing, well-nourished, and in no acute distress. HEAD: Normocephalic, atraumatic. EYES: PERRLA and EOMI. ENT: Nares clear, no rhinorrhea or epistaxis. Mucous membranes moist. NECK: Supple. CHEST: Clear to auscultation. No respiratory distress. HEART: Regular rate and rhythm. No murmur heard. Normal periphe
[2020-03-06 01:01] LABS: Add Urine Microscopic? YES; Appearance Urine Clear (Clear); Bilirubin Urine Negative (Negative); Blood Urine Negative (Negative); Color Urine Straw (Yellow); Glucose Urine UA Negative (Negative); Ketones Urine Negative (Negative); Leukocyte Esterase Ur Trace LEU/UL (Negative); Nitrate Urine Negative (Negative); Protein Urine Negative (Negative); RBC Urine 0-2 /hpf (0-2); Squamous Epithelial Cell Urine Occasional /hpf (Few); Urobilinogen Urine Negative mg/dL (<2.0); WBC Urine 0-3 /hpf
[2020-03-06] MEDS: HYDROmorphone HCL INJ (*CRX) 1 MG/ML SYR IV PUSH (01:04)
--- NOTE | 2020-03-06 02:03 | ADMGEN ---
This patient, Karla Green, was admitted to Medical Room [facility][id number] at 0200. Patient/family oriented to hospital policies and general routines including ID bracelet, bed and alarms, visiting hours, pain management, procedures, bathroom and other care routines, personal items, smoking policy, room service/diet, and visiting hours. Information on how to activate the Rapid Response Team has been discussed. Patient/Family are encouraged to report perceived risks to care and to ask questions if they do not understand what they are told or what they should do.
[2020-03-06] MEDS: SODIUM CHLORIDE 0.9% IV 1,000 ML 125 ML IV CONT (03:11)
--- NOTE | 2020-03-06 03:18 | PM.IMHP ---
H&P: HPI History of Present Illness Date/Time: 03/06/20 03:18 Chief complaint: right sub cap femur fracture Narrative: Karla Green is a 74 year old female with PMHx significant for HTN, Hyperlipidemia, TIA, Spinal stenosis, Anxiety, Chronic back pain, Fibromyalgia. Patient has been in her usual state of health up until last night when she had a fall while going up stairs landing on her R side was unable to get up, called 911 and she was brought to ED where she was found to have R hip fx. Patient denies any LOC, no n/v/abdominal pain, no fevers, rigors, or chills, no dizziness, no chest pain, no syncope or near syncope. Preliminary work up was significant for R hip fx. Review of Systems Review of Systems: Narrative: Patient had fall when going up stairs. Constitutional: Comments: no fevers, no rigors, no chills. Eyes: Comments: no vision changes. ENT: Comments: no ear ache, no nasal discharge or congestion. Cardiovascular: Comments: no chest pain. Respiratory: Comments: no sob, n cough, no sputum production. Gastrointestinal: Comments: no n/v/abdominal pain. Musculoskeletal: Comments: Fall, R hip pain with movement. Integumentary/Breasts: Comments: no rashes. Neurologic: Comments: no sensory motor deficit. [facility] Past Medical History Medical History Anemia Anxiety Arthritis Chronic back pain Cognitive impairment Diverticulitis Diverticulosis Fibromyalgia History of blood transfusion HLD (hyperlipidemia) HTN (hypertension) Kidney stone Shingles Short-term memory loss Spinal stenosis TIA (transient ischemic attack) Ulcer UTI (urinary tract infection) Surgical History Surgical History H/O cardiac catheterization History of appendectomy History of cardiac catheterization cardiac catheterization done in November [address] Cameron. No significant coronary artery disease was noted, with preserved left ventricular systolic function ejection fraction of 60 to 65%. Some tortuosity and minor luminal irregularities were noted. Left ventricular end-diastolic pressure was elevated 27 millimeters of mercury. History of cholecystectomy Family History Family History Mother Parkinsons Dementia Hypertension Father Congestive heart failure Cerebrovascular accident Sibling Acute myocardial infarction Social History Social History Social History: The patient is lives with her in [place]. 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 She designates her , Jovani, as her surrogate decision maker and she wishes to be a full code. She is a former smoker and quit in the early . She denies alcohol and drug abuse. Smoking packs per day: 0.5 Smoking cigarettes per day: 10.0 Years smoked: 10 Smoking pack-years: 5.00 Smoking status: Former smoker Tobacco type: cigarettes Smoking end date: 04/09/84 Alcohol intake: never Substance use: never Substance use type: does not use Gender identity (if verbalized by the patient): Female Spiritual care concerns: No Agree to blood products: Yes Meds Home Medications and Allergies Home Medications Medication Instructions Recorded Confirmed Type Lumigan 1 drp OPHTHALMIC (EYE) HS 05/30/19 03/06/20 History hydrocodone-acetaminophen 1 tablet PO TID 05/30/19 03/06/20 History alprazolam 0.5 mg PO TID PRN #0 tablet 06/01/19 03/06/20 Rx amlodipine 10 mg PO DAILY #30 tablet 06/01/19 03/06/20 Rx hydrochlorothiazide 25 mg PO DAILY #30 tablet 06/01/19 03/06/20 Rx losartan 100 mg PO DAILY #30 tablet 06/01/19 03/06/20 Rx metoprolol succinate [Toprol XL] 100 mg PO QPM #30 tablet 06/01/19 03/06/20 Rx Allergies Allergy/AdvReac Type Severity Reaction Status Date / Time No
[2020-03-06] MEDS: HYDROmorphone HCL INJ (*CRX) 1 MG/ML SYR 0.5 MG IV PUSH ×2 (06:09→10:32)
--- NOTE | 2020-03-06 08:05 | PM.CNOR ---
Assessment and Plan Assessment and plan (1) Subcapital fracture of neck of right femur: Qualifiers: Encounter type: initial encounter Fracture type: closed Qualified Code(s): S72.011A - Unspecified intracapsular fracture of right femur, initial encounter for closed fracture Code(s): S72.011A - Unspecified intracapsular fracture of right femur, initial encounter for closed fracture Status: Acute Assessment and Plan: 74-year-old female with a right subcapital femoral neck fracture. This is nondisplaced. I discussed with her the rationale for surgical stabilization with pinning in situ.Risks and potential complications were discussed in detail and questions answered. Plan on proceeding today. Thank you for the consultation. History of Present Illness HPI Consult date: 03/06/20 Consult reason: fracture Chief complaint: right sub cap femur fracture Narrative: 74-year-old female who fell yesterday suffering a nondisplaced right subcapital femoral neck fracture. No other significant injuries with this occurrence. She is complaining of pain in her right groin area. Review of Systems Review of Systems: All systems reviewed & are unremarkable except as noted in HPI and below PMFSH Past Medical History Medical History Anemia Anxiety Arthritis Chronic back pain Cognitive impairment Diverticulitis Diverticulosis Fibromyalgia History of blood transfusion HLD (hyperlipidemia) HTN (hypertension) Kidney stone Shingles Short-term memory loss Spinal stenosis TIA (transient ischemic attack) Ulcer UTI (urinary tract infection) Surgical History Surgical History H/O cardiac catheterization History of appendectomy History of cardiac catheterization cardiac catheterization done in November [address] Cameron. No significant coronary artery disease was noted, with preserved left ventricular systolic function ejection fraction of 60 to 65%. Some tortuosity and minor luminal irregularities were noted. Left ventricular end-diastolic pressure was elevated 27 millimeters of mercury. History of cholecystectomy Family History Family History Mother Parkinsons Dementia Hypertension Father Congestive heart failure Cerebrovascular accident Sibling Acute myocardial infarction Social History Social History Social History: The patient is lives with her in [place]. 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 She designates her , Jovani, as her surrogate decision maker and she wishes to be a full code. She is a former smoker and quit in the early . She denies alcohol and drug abuse. Smoking packs per day: 0.5 Smoking cigarettes per day: 10.0 Years smoked: 10 Smoking pack-years: 5.00 Smoking status: Former smoker Tobacco type: cigarettes Smoking end date: 04/09/84 Alcohol intake: never Substance use: never Substance use type: does not use Gender identity (if verbalized by the patient): Female Spiritual care concerns: No Agree to blood products: Yes Meds Home Medications and Allergies Home Medications Medication Instructions Recorded Confirmed Type Krystal 1 drp OPHTHALMIC (EYE) HS 05/30/19 03/06/20 History hydrocodone-acetaminophen 1 tablet PO TID 05/30/19 03/06/20 History alprazolam 0.5 mg PO TID PRN #0 tablet 06/01/19 03/06/20 Rx amlodipine 10 mg PO DAILY #30 tablet 06/01/19 03/06/20 Rx hydrochlorothiazide 25 mg PO DAILY #30 tablet 06/01/19 03/06/20 Rx losartan 100 mg PO DAILY #30 tablet 06/01/19 03/06/20 Rx metoprolol succinate [Toprol XL] 100 mg PO QPM #30 tablet 06/01/19 03/06/20 Rx Allergies Allergy/AdvReac Type Severity Reaction Status Date / Time No Known Allergies Allergy Verified 05/30/19 10:47 Vital Signs
[2020-03-06 10:35] LABS: Basophils Absolute Auto 0.1 K/mm3 (0.0-0.1); Basophils Percent Auto 0.5 % (0.2-1.2); Eosinophils Absolute Auto 0.3 K/mm3 (0-0.3); Eosinophils Percent Auto 2.6 % (0-4.4); Hematocrit 40.2 % (37.0-47.0); Hemoglobin 13.4 g/dL (12.0-15.0); Immature Granulocyte Absolute 0.04 K/mm3 (0.00-0.031); Immature Granulocyte Percent A 0.3 % (0-0.5); Lymphocytes Absolute Auto 1.97 K/mm3 (0.9-3.2); Mean Corpuscular HGB Conc 33.3 g/dl (32-36); Mean Corpuscular Hemoglobin 29.9 pg (26-34); Mean Corpuscular Volume 89.7 fl (80-100); Mean Platelet Volume 9.8 fl (7.4-10.4); Monocytes Absolute Auto 0.8 K/mm3 (0.1-0.6); Monocytes Percent Auto 6.4 % (2.6-8.5); Neutrophils Absolute Auto 9.2 K/mm3 (1.3-6.7); Neutrophils Percent Auto 74.2 % (45.5-73.1); Platelet Count Result 305 k/mm3 (150-375); Red Blood Count 4.48 M/mm3 (4.2-5.4); Red Cell Distribution Width 12.2 % (11.5-14.5); White Blood Count 12.4 K/mm3 (4.5-10.0)
--- NOTE | 2020-03-06 10:39 | WPDANESEPPF ---
Anes - Initial Pre Proc Eval Procedure: Operation Date: 03/06/20 10:30 Proposed Procedures p Intertrochanteric Nail(Right) - Reuben Thakkar MD Date/Time: 03/06/20 10:39 Surgeon: WILTON Fitzpatrick Pre Op Diagnosis: right sub cap femur fracture Patient Data Age: 74 Gender: F Height: 1.7 m Weight: 82 kg Last Vital Signs Temp 37.1 C 03/06/20 06:00 Pulse 85 03/06/20 06:00 Resp 18 03/06/20 06:00 BP 135/78 03/06/20 06:00 Pulse Ox 96 03/06/20 06:00 Allergies Allergy/AdvReac Type Severity Reaction Status Date / Time No Known Allergies Allergy Verified 05/30/19 10:47 Home Medications Medication Instructions Recorded Confirmed Type Lum[place] 1 drp OPHTHALMIC (EYE) HS 05/30/19 03/06/20 History hydrocodone-acetaminophen 1 tablet PO TID 05/30/19 03/06/20 History alprazolam 0.5 mg PO TID PRN #0 tablet 06/01/19 03/06/20 Rx amlodipine 10 mg PO DAILY #30 tablet 06/01/19 03/06/20 Rx hydrochlorothiazide 25 mg PO DAILY #30 tablet 06/01/19 03/06/20 Rx losartan 100 mg PO DAILY #30 tablet 06/01/19 03/06/20 Rx metoprolol succinate [Toprol XL] 100 mg PO QPM #30 tablet 06/01/19 03/06/20 Rx Laboratory Tests 03/05/20 03/05/20 03/06/20 23:24 23:24 00:26 WBC 19.4 K/mm3 H K/mm3 (4.5-10.0) RBC 4.17 M/mm3 L M/mm3 (4.2-5.4) Hgb 12.6 g/dL g/dL (12.0-15.0) Hct 36.7 % L % (37.0-47.0) MCV 88.0 fl fl (80-100) MCH 30.2 pg pg (26-34) MCHC 34.3 g/dl g/dl (32-36) RDW 12.2 % % (11.5-14.5) Plt Count 305 k/mm3 k/mm3 (150-375) MPV 9.7 fl fl (7.4-10.4) Immature Gran % (Auto) 0.5 % % (0-0.5) Neut % (Auto) 77.5 % H % (45.5-73.1) Lymph % (Auto) 15.7 % L % (18.3-44.2) [place] % (Auto) 5.5 % % (2.6-8.5) Eos % (Auto) 0.4 % % (0-4.4) Baso % (Auto) 0.4 % % (0.2-1.2) Lymph # (Auto) 3.05 K/mm3 K/mm3 (0.9-3.2) [place] # (Auto) 1.1 K/mm3 H K/mm3 (0.1-0.6) Eos # (Auto) 0.1 K/mm3 K/mm3 (0-0.3) Baso # (Auto) 0.1 K/mm3 K/mm3 (0.0-0.1) Abs Immat Gran (auto) 0.10 K/mm3 H K/mm3 (0.00-0.031) Absolute Neuts (auto) 15.1 K/mm3 H K/mm3 (1.3-6.7) Absolute Nucleated RBC 0.0 K/mm3 K/mm3 (0.0-0.012) Nucleated RBC % 0.0 % % (0.0-0.2) Sodium 139 mmol/L mmol/L (137-145) Potassium 3.0 mmol/L L mmol/L (3.4-5.0) Chloride 95 mmol/L L mmol/L (98-107) Carbon Dioxide 32 mmol/L H mmol/L (22-30) Anion Gap 12 mmol/L mmol/L (8-16) BUN 14 mg/dL mg/dL (7-17) Creatinine 1.30 mg/dL H mg/dL (0.7-1.0) Estim Creat Clear Calc Not Reportable Estimated GFR 40 L (59 - ) Glucose 115 mg/dL H mg/dL (65-105) Calcium 9.7 mg/dL mg/dL (8.4-10.2) Magnesium Total Bilirubin 0.4 mg/dL mg/dL (0.2-1.3) AST 33 U/L U/L (14-36) ALT 18 U/L U/L (4-35) Alkaline Phosphatase 108 U/L U/L (38-126) Total Protein 8.0 g/dL g/dL (6.3-8.2) Albumin 4.5 g/dL g/dL (3.5-5.1) Urine Color Straw (Yellow) Urine Appearance Clear (Clear) Urine pH 6.0 (5.0-9.0) Ur Specific [place] 1.010 (1.001-1.035) Urine Protein Negative mg/dL mg/dL (Negative) Urine Glucose (UA) Negative mg/dL mg/dL (Negative) Urine Ketones Negative mg/dL mg/dL (Negative) Ur Blood (Man) Negative (Negative) Urine Nitrate Negative (Negative) Urine Bilirubin Negative (Negative) Urine Urobilinogen Negative mg/dL mg/dL (<2.0) Leukocyte Esterase Rfl Trace JORY/UL H JORY/UL (Negative) Urine RBC 0-2 /hpf /hpf (0-2) Urine WBC 0-3 /hpf /hpf Ur Squamous Epith Cells Occasional /hpf /hpf
[2020-03-06 10:47] LABS: Anion Gap 8 mmol/L (8-16); Blood Urea Nitrogen 12 mg/dL (7-17); Calcium 9.6 mg/dL (8.4-10.2); Carbon Dioxide 34 mmol/L (22-30); Chloride 97 mmol/L (98-107); Estimated CRCL calculation 43 ml/min; Estimated Glomerular Filt Rate 48; Glucose 98 mg/dL (65-105); Potassium 3.2 mmol/L (3.4-5.0); Sodium 139 mmol/L (137-145)
--- NOTE | 2020-03-06 11:06 | PC.NURSE ---
To OR per bed, IV intact. Report given to JOE Rios.
[2020-03-06] MEDS: ceFAZolin 2 GM/D5W 50 ML 2 GM/50 ML BAG IVPB (11:48)
[2020-03-06] MEDS: LACTATED RINGERS 1,000 ML 30 ML IV CONT (13:01)
--- NOTE | 2020-03-06 13:19 | SUR.PHASEI ---
1301-PT AWAKE, YELLING, CURSING, WANTING B/P CUFF AND MONITORS REMOVED, UNCOOPERATIVE, UNABLE TO REASON WITH PT X SALES SECRETARY AND RN. 1315-REMAINS AGITATED, REMOVING AND THROWING B/P CUFF AND MONITOR LEADS. YELLING DON'T YOU TOUCH ME, I DON'T WANT THESE ON, I WILL ESTRELLA YOU, LEAVE ME ALONE UNABLE TO OBTAIN VS. COLOR PINK, RESPIRATIONS EVEN/NONLABORED.
--- NOTE | 2020-03-06 13:25 | PM.PROC ---
Procedure Note - Detailed Date of procedure: 03/06/20 Pre-op diagnosis: right sub cap femur fracture Post-op diagnosis: same Procedure performed: Pinning in situ right femoral neck fracture Description of procedure: The patient was identified and proper site identified. She was taken back to the operating room and transferred over to the fracture table position her supine taking care to pad her torso and extremities. She was administered IV sedation. The right hip and thigh area was prepped and draped in usual sterile fashion. 30 cc of 0.25% Marcaine and epinephrine solution was injected into the subcutaneous tissue all way down to the periosteum over the proximal aspect of the right femur. A short incision was made adjacent to the proximal femur. Subcutaneous tissue sharply dissected to the ITB band which was divided in line with the incision. Through this three 6.5 mm cannulated screws were placed over pins which had been position fluoroscopically and after the screws were in place, the pins were removed. The position was assessed fluoroscopically in the AP and lateral views and noted to be satisfactory. The wound was irrigated with sterile antibiotic solution. ITB band was reapproximated with 0 Vicryl suture as was the deeper layers of the subcu. Skin reapproximated with three 0 Monocryl and mirella. Sterile dressing was applied. She tolerated the procedure well was taken back to the recovery area in stable condition. There were no known intraoperative complications. Estimated blood loss was 10 mL. She received perioperative antibiotics. Anesthesia: MAC and local Surgeon: Reuben Thakkar MD Estimated blood loss (mL): 10 Drains: No Packing: No Pathology: none sent Complications: No immediate complications Condition: stable Disposition: PACU
--- NOTE | 2020-03-06 13:36 | SUR.PHASEI ---
1330-PT REMAINS UNCOOPERATIVE, ATTEMPTING TO PULL CATHETER OUT, CONTINUES TO YELL AT STAFF, UNABLE TO OBTAIN VS. DRESSING REMAINS DRY.
--- NOTE | 2020-03-06 13:50 | PC.NURSE ---
Returned from OR per bed. Report received from JOE Rios.
--- NOTE | 2020-03-06 14:44 | PM.IMPN ---
Progress Note: A&P Assessment and Plan (1) Closed fracture of right hip: Qualifiers: Encounter type: initial encounter Qualified Code(s): S72.001A - Fracture of unspecified part of neck of right femur, initial encounter for closed fracture Code(s): S72.001A - Fracture of unspecified part of neck of right femur, initial encounter for closed fracture Status: Deleted Assessment and Plan: XR showed subcapital fracture right femoral neck after a mechanical fall at home. Orthopedic surgery following - appreciate Dr Thakkar's recommendations. She is POD#0 s/p pinning R fem fracture this morning by Dr Thakkar. Wound care, pain control, DVT prophylaxis per Orthopedic surgery. (2) HTN (hypertension): Qualifiers: Hypertension type: unspecified Qualified Code(s): I10 - Essential (primary) hypertension Code(s): I10 - Essential (primary) hypertension Status: Acute Assessment and Plan: BP reasonably controlled, last 139/69. Resume her home antihypertensive regimen in AM to include Norvasc, metoprolol, losartan. Hold HCTZ in light of mild Cr elevation. (3) Hypokalemia: Code(s): E87.6 - Hypokalemia Status: Acute Assessment and Plan: Potassium 3.2 and replaced. Magnesium 2.0. Monitor and replace as needed. (4) CHF (congestive heart failure): Qualifiers: Heart failure chronicity: unspecified Heart failure type: unspecified Qualified Code(s): I50.9 - Heart failure, unspecified Code(s): I50.9 - Heart failure, unspecified Status: Chronic Assessment and Plan: Chronic diastolic CHF, appears well compensated at this time. Continue beta blockade and ARB. (5) KIRA (acute kidney injury): Code(s): N17.9 - Acute kidney failure, unspecified Status: Acute Assessment and Plan: Mild and already improved. Cr 1.1 this AM. Hold HCTZ and monitor renal function. Monitor urine output. Subjective Date/time seen: 03/06/20 14:00 Interval history: Ms. Green is a 74yo F admitted for right subcapital femoral neck fracture seen in follow-up this afternoon s/p pinning by Dr. Thakkar. She denies any chest pain, shortness of breath, palpitations, nausea, or vomiting. She has not yet eaten since coming back from PACU not long ago. She is anxious to get urinary catheter removed otherwise offers no complaints at this time. Review of Systems Review of Systems: All systems reviewed & are unremarkable except as noted in HPI and below Exam Narrative: Exam Narrative: General: Female resting supine in bed in no acute distress. HEENT: Normocephalic, EOMI, oral mucosa moist. Cardiovascular: Rate and rhythm are regular. Respiratory: Lungs clear to auscultation all patterson. Respirations even and nonlabored. Tolerating room air. Abdomen: Soft, non-tender, non-distended, bowel sounds present. Extremities: Peripheral pulses intact. Right hip dressing is clean, dry, intact. Right lower extremity is neurovascularly intact distal to the surgical site, no significant edema. Neuro: No focal neurological deficits noted. Speech is clear. Notified by nursing that she was a bit agitated coming out of anesthesia however she is cooperative from my exam. Hutton catheter intact draining clear yellow urine. Objective Data Vital Signs Vital Signs: Last Vital Signs Temp 98.5 F 03/06/20 14:15 Pulse 87 03/06/20 14:15 Resp 18 03/06/20 14:15 BP 139/69 03/06/20 14:15 Pulse Ox 93 03/06/20 14:15 Intake/Output Intake/Output: Intake & Output 11/25/03/04/20 03/05/20 03/06/20 23:59 23:59 23:59 23:59 Intake Total 125 Output Total 450 Balance -325 Meds/Results Medications: Active Medications Generic Name
[2020-03-06] MEDS: HYDROcodone/acetaminophen (*CRX) 5-325 MG TABLET 1 TAB PO (15:20)
[2020-03-06] MEDS: POTASSIUM CHLORIDE 20 MEQ TABLET 40 MEQ PO (16:09)
[2020-03-06] MEDS: HYDROcodone/acetaminophen (*CRX) 5-325 MG TABLET 2 TAB PO ×2 (18:00→23:57)
[2020-03-06] MEDS: ALPRAZolam (*CRX) 0.5 MG TABLET PO (18:00)
[2020-03-06] MEDS: DOCUSATE SODIUM 100 MG CAPSULE PO (18:41)
[2020-03-06] MEDS: ASPIRIN 325 MG ENTERIC TABLET PO (20:40)
[2020-03-06] MEDS: FAMOTIDINE 20 MG TABLET PO (20:40)
[2020-03-07 00:07] VITALS: BP 148/78; PULSE 91; RESP 16; TEMP 37.1; O2SAT 93
[2020-03-07] MEDS: ALPRAZolam (*CRX) 0.5 MG TABLET PO (02:44)
[2020-03-07] MEDS: HYDROcodone/acetaminophen (*CRX) 5-325 MG TABLET 2 TAB PO (05:40)
[2020-03-07 06:00] VITALS: BP 152/69; PULSE 99; RESP 16; TEMP 37.2; O2SAT 95
[2020-03-07 06:06] LABS: Basophils Absolute Auto 0.1 K/mm3 (0.0-0.1); Basophils Percent Auto 0.4 % (0.2-1.2); Eosinophils Absolute Auto 0.1 K/mm3 (0-0.3); Eosinophils Percent Auto 0.8 % (0-4.4); Hematocrit 35.5 % (37.0-47.0); Hemoglobin 11.9 g/dL (12.0-15.0); Immature Granulocyte Absolute 0.05 K/mm3 (0.00-0.031); Immature Granulocyte Percent A 0.3 % (0-0.5); Mean Corpuscular HGB Conc 33.5 g/dl (32-36); Mean Corpuscular Hemoglobin 29.5 pg (26-34); Mean Corpuscular Volume 88.1 fl (80-100); Monocytes Absolute Auto 0.7 K/mm3 (0.1-0.6); Monocytes Percent Auto 5.1 % (2.6-8.5); Neutrophils Absolute Auto 11.8 K/mm3 (1.3-6.7); Neutrophils Percent Auto 80.4 % (45.5-73.1); Red Blood Count 4.03 M/mm3 (4.2-5.4); Red Cell Distribution Width 12.3 % (11.5-14.5); White Blood Count 14.6 K/mm3 (4.5-10.0)
--- NOTE | 2020-03-07 07:19 | P.PNAN_ITS ---
Anes - Prog Note Post-Op Date/Time: 03/07/20 07:19 Cardiovascular status: normal Respiratory status: normal Airway patency: baseline Mental status: baseline (confused, baseline for patient) Post-Op hydration status: normal Vital Signs: Last Vital Signs Temp 37.1 C 03/07/20 00:07 Pulse 91 03/07/20 00:07 Resp 16 03/07/20 00:07 BP 148/78 H 03/07/20 00:07 Pulse Ox 93 03/07/20 00:07 Pain Score (VAS): 0 I/O: Intake & Output 03/06/20 03/06/20 03/07/20 15:59 23:59 07:59 Intake Total 625 880 50 Output Total 300 Balance 325 880 50 03/06/20 03/06/20 03/07/20 09:31 09:31 05:10 WBC 12.4 H Pending RBC 4.48 Pending Hgb 13.4 Pending Hct 40.2 Pending MCV 89.7 Pending MCH 29.9 Pending MCHC 33.3 Pending RDW 12.2 Pending Plt Count 305 Pending MPV 9.8 Pending Immature Gran % (Auto) 0.3 Pending Neut % (Auto) 74.2 H Pending Lymph % (Auto) 16.0 L Pending [place] % (Auto) 6.4 Pending Eos % (Auto) 2.6 Pending Baso % (Auto) 0.5 Pending Lymph # (Auto) 1.97 Pending [place] # (Auto) 0.8 H Pending Eos # (Auto) 0.3 Pending Baso # (Auto) 0.1 Pending Abs Immat Gran (auto) 0.04 H Pending Absolute Neuts (auto) 9.2 H Pending Absolute Nucleated RBC 0.0 Pending Nucleated RBC % 0.0 Pending Sodium 139 Potassium 3.2 L Chloride 97 L Carbon Dioxide 34 H Anion Gap 8 BUN 12 Creatinine 1.10 H Estim Creat Clear Calc 43 Estimated GFR 48 L Glucose 98 Calcium 9.6 Magnesium 2.0 03/07/20 05:10 WBC RBC Hgb Hct MCV MCH MCHC RDW Plt Count MPV Immature Gran % (Auto) Neut % (Auto) Lymph % (Auto) [place] % (Auto) Eos % (Auto) Baso % (Auto) Lymph # (Auto) [place] # (Auto) Eos # (Auto) Baso # (Auto) Abs Immat Gran (auto) Absolute Neuts (auto) Absolute Nucleated RBC Nucleated RBC % Sodium Pending Potassium Pending Chloride Pending Carbon Dioxide Pending Anion Gap Pending BUN Pending Creatinine Pending Estim Creat Clear Calc Pending Estimated GFR Pending Glucose Pending Calcium Pending Magnesium Post-procedural complaints: none Patient Feedback: Patient satisfied with anesthetic care.
--- NOTE | 2020-03-07 08:08 | PM.PNORT ---
Progress Note: A&P Assessment and Plan (1) Subcapital fracture of neck of right femur: Qualifiers: Encounter type: initial encounter Fracture type: closed Qualified Code(s): S72.011A - Unspecified intracapsular fracture of right femur, initial encounter for closed fracture Code(s): S72.011A - Unspecified intracapsular fracture of right femur, initial encounter for closed fracture Status: Acute Assessment and Plan: 74-year-old female postop day one right hip pinning in situ for subcapital femoral neck fracture. Overnight uneventful however she is confused this morning. We will try to decrease narcotics and treat mainly with scheduled Tylenol. Following. Subjective Subjective Date/Time Seen: 03/07/20 08:08 Post Op day: 1 Principal diagnosis: Right subcapital femoral neck fracture Interval history: 74-year-old female postop day one pinning in situ right subcapital femoral neck fracture. She does express that she has pain in her right hip and thigh. She is somewhat confused this morning. Review of Systems Cardiovascular: Cardiovascular: Denies chest pain Respiratory: Respiratory: Reports no additional respiratory complaints Gastrointestinal: Gastrointestinal: Denies abdominal pain Exam Const: General: cooperative, no acute distress and alert Nutritional Appearance: overweight and other HENMT: Head: normal to inspection Ears: hearing grossly normal bilaterally Face and sinus: face symmetric Mouth: Yes moist mucous membranes Teeth and gingiva: fair dentition Eyes: Alignment and Position: alignment normal and position normal Sclera: sclerae normal Neck: Neck: normal visual inspection and nontender Chest: Chest palpation & inspection: normal inspection of the chest Resp: Effort & Inspection: normal respiratory effort and able to speak in complete sentences GI: Inspection: other (Nondistended) Skin: General skin exam: normal color Rashes: no rashes Neuro: General: patient oriented x3 Cognition (Neuro): normal cognition Speech: normal speech Sensory Exam: normal sensation Extrem: General: normal to inspection and other Other: Exam of the right hip and thigh reveals dry incision. Minimal swelling in the thigh. Grossly motor and sensory function right upper extremity is intact but exam limited secondary to discomfort. Psych: Appearance: grossly normal Mental Status: mental status grossly normal Objective Data Vital Signs Vital Signs: Vital Signs - 24 hr 03/06/20 13:01 03/06/20 13:30 03/06/20 13:45 Temperature 99.6 F 99.2 F 99.1 F Pulse Rate 84 94 92 Respiratory Rate 16 18 18 Blood Pressure 132/89 136/68 150/77 H Pulse Oximetry 97 93 93 03/06/20 14:15 03/06/20 18:00 03/06/20 20:44 Temperature 98.5 F 98.8 F 98.7 F Pulse Rate 87 98 117 H Respiratory Rate 18 18 18 Blood Pressure 139/69 145/70 H 148/78 H Pulse Oximetry 93 95 95 03/07/20 00:07 03/07/20 06:00 Temperature 98.8 F 99.0 F Pulse Rate 91 99 Respiratory Rate 16 16 Blood Pressure 148/78 H 152/69 H Pulse Oximetry 93 95 Intake/Output Intake/Output: Intake & Output 03/04/20 03/05/20 03/06/20 03/07/20 23:59 23:59 23:59 23:59 Intake Total 1605 / 1605 50 / 50 Output Total 750 / 575.0 Balance 855 / 1030.0 50 / 50 Meds/Results Medications: Active Medications Generic Name Dose Route Start Last Admin Trade Name Freq PRN Reason Stop Dose Admin Hydrocodone Bitart/Acetaminophen 1 tab 03/06/20 13:49 03/06/20 15:20 Hydrocodone/Acetaminophen (*Crx) 5-325 Mg Tablet PO 1 tab Q3H PRN Administration Pain Rated 4-6 Hydrocodone Bitart/Acetaminophen 2 tab 03/06/20 13:49 03/07/20 05:40 Hydrocodone/Acetaminophen (*Crx) 5-325 Mg Tablet PO 03/07/20 13:50 2 tab Q6H PRN Administration Pain Rated 7-10 Alprazolam 0.5 mg 03/06/20 17:32 03/07/20 02:44 Alprazolam (*Crx) 0.5 Mg Tablet PO 0.5 mg TID PRN Administration Anxiety Amlodipine Besylate 10 mg 03/07/20
[2020-03-07] MEDS: ACETAMINOPHEN 325 MG TABLET 650 MG PO ×3 (09:41→21:39)
[2020-03-07] MEDS: ASPIRIN 325 MG ENTERIC TABLET PO ×2 (09:42→21:39)
[2020-03-07] MEDS: amLODIPine BESYLATE 5 MG TABLET 10 MG PO (09:42)
[2020-03-07] MEDS: LOSARTAN POTASSIUM 100 MG TABLET PO (09:42)
[2020-03-07] MEDS: FAMOTIDINE 20 MG TABLET PO ×2 (09:42→21:39)
[2020-03-07] MEDS: DOCUSATE SODIUM 100 MG CAPSULE PO ×2 (09:45→16:38)
[2020-03-07 09:57] VITALS: BP 136/72; PULSE 106; RESP 18; TEMP 36.7; O2SAT 97
[2020-03-07 10:52] LABS: Anion Gap 11 mmol/L (8-16); Blood Urea Nitrogen 11 mg/dL (7-17); Carbon Dioxide 30 mmol/L (22-30); Chloride 95 mmol/L (98-107); Estimated CRCL calculation 47 ml/min; Estimated Glomerular Filt Rate 54; Glucose 125 mg/dL (65-105); Potassium 3.7 mmol/L (3.4-5.0); Sodium 136 mmol/L (137-145)
--- NOTE | 2020-03-07 12:59 | PM.IMPN ---
Progress Note: A&P Assessment and Plan (1) Subcapital fracture of neck of right femur: Qualifiers: Encounter type: initial encounter Fracture type: closed Qualified Code(s): S72.011A - Unspecified intracapsular fracture of right femur, initial encounter for closed fracture Code(s): S72.011A - Unspecified intracapsular fracture of right femur, initial encounter for closed fracture Status: Acute Assessment and Plan: XR showed subcapital fracture right femoral neck after a mechanical fall at home. Orthopedic surgery following - appreciate recommendations. She is POD#1 s/p pinning R fem fracture 03/06/[address] Thakkar. Wound care, pain control, DVT prophylaxis per Orthopedic surgery. (2) HTN (hypertension): Qualifiers: Hypertension type: unspecified Qualified Code(s): I10 - Essential (primary) hypertension Code(s): I10 - Essential (primary) hypertension Status: Acute Assessment and Plan: BP reasonably controlled, last 140/83. Resume her home antihypertensive regimen in AM to include Norvasc, metoprolol, losartan. Resume HCTZ. Monitor BP and adjust treatment as needed. (3) Hypokalemia: Code(s): E87.6 - Hypokalemia Status: Acute Assessment and Plan: K+ stable today at 3.7. Monitor and replace as needed. (4) CHF (congestive heart failure): Qualifiers: Heart failure chronicity: unspecified Heart failure type: unspecified Qualified Code(s): I50.9 - Heart failure, unspecified Code(s): I50.9 - Heart failure, unspecified Status: Chronic Assessment and Plan: Chronic diastolic CHF, appears well compensated at this time. Continue beta blockade and ARB. (5) KIRA (acute kidney injury): Code(s): N17.9 - Acute kidney failure, unspecified Status: Resolved Assessment and Plan: Resolved. Monitor renal function and urine output. (6) Cognitive impairment: Code(s): R41.89 - Other symptoms and signs involving cognitive functions and awareness Status: Chronic Assessment and Plan: She is able to answer most questions appropriately but clearly has evidence of short term memory deficits. She describes she has known she'd had short term memory loss for quite some time. This is likely now exacerbated by hospital environment, surgery, and narcotic pain control. Avoid narcotics as possible and monitor. Subjective Date/time seen: 03/07/20 12:45 Interval history: Ms. Green is a 74yo F admitted for right subcapital femoral neck fracture now POD#1 s/p pinning by Dr. Thakkar. She denies any chest pain, shortness of breath, palpitations, nausea, or vomiting. Pain is well-controlled. Some confusion is noted. She is able to answer most of my questions appropriately then became confused unaware she had surgery yesterday. Review of Systems Review of Systems: All systems reviewed & are unremarkable except as noted in HPI and below Exam Narrative: Exam Narrative: General: Female resting sitting up in bed in no acute distress. HEENT: Normocephalic, EOMI, oral mucosa moist. Cardiovascular: Rate and rhythm are regular. Respiratory: Lungs clear to auscultation all patterson. Respirations even and nonlabored. Tolerating room air. Abdomen: Soft, non-tender, non-distended, bowel sounds present. Extremities: Peripheral pulses intact. Right hip dressing is clean, dry, intact. Right lower extremity is neurovascularly intact distal to the surgical site. Neuro: Awake, alert and oriented x3. No focal neurological deficits noted. Speech is clear. Short term memory deficits noted. Objective Data Vital Signs Vital Signs: Last Vital Signs Temp 98.2 F
[2020-03-07 13:58] VITALS: BP 140/83; PULSE 114; RESP 18; TEMP 36.8; O2SAT 99
[2020-03-07] MEDS: METOPROLOL SUCCINATE EXT REL 100 MG TABCR PO (16:38)
[2020-03-07 16:40] VITALS: BP 134/78; PULSE 100
[2020-03-07 22:00] VITALS: BP 144/81; PULSE 98; RESP 16; TEMP 36.3; O2SAT 94
[2020-03-08] MEDS: ACETAMINOPHEN 325 MG TABLET 650 MG PO ×4 (03:39→21:04)
[2020-03-08 05:31] VITALS: BP 146/90; PULSE 101; RESP 16; TEMP 36; O2SAT 98
[2020-03-08 05:52] LABS: Basophils Absolute Auto 0.1 K/mm3 (0.0-0.1); Basophils Percent Auto 0.4 % (0.2-1.2); Eosinophils Absolute Auto 0.4 K/mm3 (0-0.3); Eosinophils Percent Auto 2.8 % (0-4.4); Hematocrit 35.7 % (37.0-47.0); Immature Granulocyte Absolute 0.04 K/mm3 (0.00-0.031); Immature Granulocyte Percent A 0.3 % (0-0.5); Lymphocytes Absolute Auto 2.89 K/mm3 (0.9-3.2); Lymphocytes Percent Auto 21.8 % (18.3-44.2); Mean Corpuscular HGB Conc 33.6 g/dl (32-36); Mean Corpuscular Hemoglobin 30.2 pg (26-34); Mean Corpuscular Volume 89.9 fl (80-100); Monocytes Absolute Auto 0.9 K/mm3 (0.1-0.6); Monocytes Percent Auto 7.1 % (2.6-8.5); Neutrophils Absolute Auto 8.9 K/mm3 (1.3-6.7); Neutrophils Percent Auto 67.6 % (45.5-73.1); Platelet Count Result 272 k/mm3 (150-375); Red Blood Count 3.97 M/mm3 (4.2-5.4); Red Cell Distribution Width 12.5 % (11.5-14.5); White Blood Count 13.2 K/mm3 (4.5-10.0)
[2020-03-08 05:59] LABS: Anion Gap 9 mmol/L (8-16); Blood Urea Nitrogen 19 mg/dL (7-17); Calcium 9.3 mg/dL (8.4-10.2); Carbon Dioxide 30 mmol/L (22-30); Chloride 98 mmol/L (98-107); Estimated CRCL calculation 43 ml/min; Estimated Glomerular Filt Rate 48; Glucose 96 mg/dL (65-105); Magnesium 1.8 mg/dL (1.6-2.3); Potassium 3.6 mmol/L (3.4-5.0); Sodium 137 mmol/L (137-145)
[2020-03-08] MEDS: ASPIRIN 325 MG ENTERIC TABLET PO ×2 (08:51→21:04)
[2020-03-08] MEDS: amLODIPine BESYLATE 5 MG TABLET 10 MG PO (08:52)
[2020-03-08] MEDS: FAMOTIDINE 20 MG TABLET PO ×2 (08:52→21:04)
[2020-03-08] MEDS: hydroCHLOROthiazide 25 MG TABLET PO (08:52)
[2020-03-08] MEDS: LOSARTAN POTASSIUM 100 MG TABLET PO (08:52)
[2020-03-08] MEDS: DOCUSATE SODIUM 100 MG CAPSULE PO ×2 (08:52→16:45)
[2020-03-08] MEDS: MAGNESIUM OXIDE 400 MG TABLET PO (08:54)
[2020-03-08 09:03] VITALS: RESP 16; O2SAT 98
[2020-03-08 14:00] VITALS: BP 151/89; PULSE 103; RESP 18; TEMP 35.9; O2SAT 98
--- NOTE | 2020-03-08 14:18 | PM.IMPN ---
Progress Note: A&P Assessment and Plan (1) Subcapital fracture of neck of right femur: Qualifiers: Encounter type: initial encounter Fracture type: closed Qualified Code(s): S72.011A - Unspecified intracapsular fracture of right femur, initial encounter for closed fracture Code(s): S72.011A - Unspecified intracapsular fracture of right femur, initial encounter for closed fracture Status: Acute Assessment and Plan: XR showed subcapital fracture right femoral neck after a mechanical fall at home. Orthopedic surgery following - appreciate recommendations. She is POD#2 s/p pinning R fem fracture 03/06/[address] Thakkar. Wound care, pain control, DVT prophylaxis per Orthopedic surgery. Anticipate possible discharge in next 1 to 2 days if OK with Dr Thakkar, care coordination notes possibly [facility] [place]. (2) HTN (hypertension): Qualifiers: Hypertension type: unspecified Qualified Code(s): I10 - Essential (primary) hypertension Code(s): I10 - Essential (primary) hypertension Status: Acute Assessment and Plan: BPs a bit elevated may be secondary to pain, last 151/89. Continue her home Norvasc, metoprolol, losartan. Resume HCTZ. Monitor BP and adjust treatment as needed. (3) Hypokalemia: Code(s): E87.6 - Hypokalemia Status: Acute Assessment and Plan: K+ stable today at 3.6. Monitor and replace as needed. (4) CHF (congestive heart failure): Qualifiers: Heart failure chronicity: unspecified Heart failure type: unspecified Qualified Code(s): I50.9 - Heart failure, unspecified Code(s): I50.9 - Heart failure, unspecified Status: Chronic Assessment and Plan: Chronic diastolic CHF, appears well compensated at this time. Continue beta blockade and ARB. (5) KIRA (acute kidney injury): Code(s): N17.9 - Acute kidney failure, unspecified Status: Resolved Assessment and Plan: Resolved. Monitor renal function and urine output. (6) Cognitive impairment: Code(s): R41.89 - Other symptoms and signs involving cognitive functions and awareness Status: Chronic Assessment and Plan: She is able to answer most questions appropriately but clearly has evidence of short term memory deficits. She describes she has known she'd had short term memory loss for quite some time. This is likely now exacerbated by hospital environment, surgery, and narcotic pain control. Avoid narcotics and monitor. Subjective Date/time seen: 03/08/20 1315 Interval history: Ms. Green is a 74yo F admitted for right subcapital femoral neck fracture now POD#2 s/p pinning by Dr. Thakkar. She denies any chest pain, shortness of breath, palpitations, nausea, or vomiting. Pain is well-controlled. Some memory deficit is noted. Review of Systems Review of Systems: All systems reviewed & are unremarkable except as noted in HPI and below Exam Narrative: Exam Narrative: General: Female resting sitting up in bedside chair eating lunch in no acute distress. HEENT: Normocephalic, EOMI, oral mucosa moist. Cardiovascular: Rate and rhythm are regular. Respiratory: Lungs clear to auscultation all patterson. Respirations even and nonlabored. Tolerating room air. Abdomen: Soft, non-tender, non-distended, bowel sounds present. Extremities: Peripheral pulses intact. Right hip dressing is clean, dry, intact. Right lower extremity is neurovascularly intact distal to the surgical site. Neuro: Awake, alert and oriented x3. No focal neurological deficits noted. Speech is clear. Short term memory deficits noted. Objective Data Vital Signs Vital Signs: Last Vital Signs Temp 96.7 F L 03/08/20
[2020-03-08 17:21] VITALS: PULSE 113
[2020-03-08] MEDS: METOPROLOL SUCCINATE EXT REL 100 MG TABCR PO (17:21)
[2020-03-08 21:41] VITALS: BP 146/82; PULSE 103; RESP 16; TEMP 37; O2SAT 98
[2020-03-09 01:01] LABS: SARS-CoV-2 RNA PCR Negative
[2020-03-09] MEDS: ACETAMINOPHEN 325 MG TABLET 650 MG PO ×3 (03:42→16:51)
[2020-03-09 05:26] VITALS: BP 147/87; PULSE 93; RESP 16; TEMP 36.4; O2SAT 96
[2020-03-09] MEDS: DOCUSATE SODIUM 100 MG CAPSULE PO ×2 (09:31→16:51)
[2020-03-09] MEDS: ASPIRIN 325 MG ENTERIC TABLET PO (09:31)
[2020-03-09] MEDS: MAGNESIUM OXIDE 400 MG TABLET PO (09:31)
[2020-03-09] MEDS: FAMOTIDINE 20 MG TABLET PO (09:31)
[2020-03-09] MEDS: amLODIPine BESYLATE 5 MG TABLET 10 MG PO (09:31)
[2020-03-09] MEDS: LOSARTAN POTASSIUM 100 MG TABLET PO (09:32)
[2020-03-09] MEDS: hydroCHLOROthiazide 25 MG TABLET PO (09:33)
[2020-03-09 09:36] VITALS: RESP 16; O2SAT 95
[2020-03-09 14:00] VITALS: BP 145/83; PULSE 99; RESP 18; TEMP 36.2; O2SAT 93
[2020-03-09 17:21] VITALS: PULSE 92
[2020-03-09] MEDS: METOPROLOL SUCCINATE EXT REL 100 MG TABCR PO (17:21)
--- NOTE | 2020-03-10 19:12 | PM.DS ---
DS: Admitting Diagnosis Admitting Diagnosis Admitting Diagnosis: right sub cap femur fracture DS: Discharge Diagnosis Discharge Diagnosis (1) Subcapital fracture of neck of right femur: Qualifiers: Encounter type: initial encounter Fracture type: closed Qualified Code(s): S72.011A - Unspecified intracapsular fracture of right femur, initial encounter for closed fracture Code(s): S72.011A - Unspecified intracapsular fracture of right femur, initial encounter for closed fracture Status: Acute Assessment and Plan: Date of Admission 03/06/20 Date of Discharge 03/10/20 Ms. Green is a 74yo F with history of hypertension, CHF, and known short-term memory deficit to the ED for evaluation after a mechanical fall at home. Imaging demonstrated a subcapital fracture of the right femoral neck. She was evaluated by orthopedic surgery, Dr. Thakkar. She underwent pinning of the right femoral fracture on 03/06/[address] Thakkar without acute complications. She does remain a bit confused following the procedure but does know she is in the hospital, oriented to time and place. She is noted to have short memory deficits, which she was aware of prior to surgery and has been dealing with this for months. Blood pressures were a bit elevated, suspected secondary to pain and she was maintained on her home antihypertensive regimen with Norvasc, metoprolol, losartan, HCTZ. She was hemodynamically stable for discharge on 03/10/20 to SNF for continued therapy with follow-up instructions from Dr. Thakkar. XR showed subcapital fracture right femoral neck after a mechanical fall at home. Orthopedic surgery following - appreciate recommendations. Discharged on POD#3 S/p pinning R fem fracture 03/06/[address] Thakkar. Wound care, pain control, DVT prophylaxis (aspirin) per Orthopedic surgery. (2) HTN (hypertension): Qualifiers: Hypertension type: unspecified Qualified Code(s): I10 - Essential (primary) hypertension Code(s): I10 - Essential (primary) hypertension Status: Acute Assessment and Plan: BPs a bit elevated may be secondary to pain but stable at discharge, last 145/83. Continue her home Norvasc, metoprolol, losartan, HCTZ. (3) Hypokalemia: Code(s): E87.6 - Hypokalemia Status: Acute Assessment and Plan: K+ stable at 3.6. Monitor and replace as needed. (4) CHF (congestive heart failure): Qualifiers: Heart failure chronicity: unspecified Heart failure type: unspecified Qualified Code(s): I50.9 - Heart failure, unspecified Code(s): I50.9 - Heart failure, unspecified Status: Chronic Assessment and Plan: Chronic diastolic CHF, appears well compensated at this time. Continue beta blockade and ARB. (5) KIRA (acute kidney injury): Code(s): N17.9 - Acute kidney failure, unspecified Status: Resolved Assessment and Plan: Resolved. Monitor renal function and urine output. (6) Cognitive impairment: Code(s): R41.89 - Other symptoms and signs involving cognitive functions and awareness Status: Chronic Assessment and Plan: She is able to answer most questions appropriately but clearly has evidence of short term memory deficits. She describes she has known she'd had short term memory loss for quite some time. This is likely now exacerbated by hospital environment, surgery, and narcotic pain control. Avoid narcotics and monitor. DS: Summary Time Spent with Patient Time attestation: Total time spent providing and/or coordinating discharge services: 35 minutes Exam Narrative: Exam Narrative: General: Female resting
== END 2020-03-09 19:00 | DRG 481 ==
LOC: ANHED 03-06 01:05 → ANH2MED 03-06 01:38
PROVIDERS: Orthopaedic Surgery; Admitting Provider Internal Medicine; Emergency Provider Emergency Medicine; PCP Internal Medicine; Visit Provider Physician Assistant
PROC: 0QH634Z Insertion of Internal Fixation Device into Right Upper Femur, Percutaneous Approach (ICD-10-PCS; CPT 27245; principal; 2020-03-06 10:30)
DX: S72.011A Unspecified intracapsular fracture of right femur, initial encounter for closed fracture (principal); I50.32 Chronic diastolic (congestive) heart failure; N17.9 Acute kidney failure, unspecified; Z20.828 Contact with and (suspected) exposure to other viral communicable diseases; E78.5 Hyperlipidemia, unspecified; E87.6 Hypokalemia; I11.0 Hypertensive heart disease with heart failure; M48.00 Spinal stenosis, site unspecified; M79.7 Fibromyalgia; F41.9 Anxiety disorder, unspecified; K57.90 Diverticulosis of intestine, part unspecified, without perforation or abscess without bleeding; M19.90 Unspecified osteoarthritis, unspecified site; D64.9 Anemia, unspecified; I35.8 Other nonrheumatic aortic valve disorders; W19.XXXA Unspecified fall, initial encounter; R41.89 Other symptoms and signs involving cognitive functions and awareness; T40.695A Adverse effect of other narcotics, initial encounter; Z86.73 Personal history of transient ischemic attack (TIA), and cerebral infarction without residual deficits; Z90.49 Acquired absence of other specified parts of digestive tract; Z87.891 Personal history of nicotine dependence
CPT/HCPCS: 36415; 72131; 72192; 73030; 73502; 80048; 80053; 81001; 83735; 85025; 87635; 96374; 96375; 97110; 97116; 97161; 97165; 97530; 97535; 99285; A9270; C1713; C1769; C9803; J0131; J0690; J1170; J2270; J2405; J2704; J3010; J7030; J7120; U0003

== ENCOUNTER 2020-06-15 16:22 | Outpatient (CLI) | payer MEDICARE, SELFPAY | END 2020-06-15 16:23 | disposition home or self-care (01) | LOC: ANHCOVIDVC 16:22 | PROVIDERS: PCP Internal Medicine | DX: Z23 Encounter for immunization (principal) | CPT/HCPCS: 0001A; 91300 ==

== ENCOUNTER 2020-07-06 16:16 | Outpatient (CLI) | payer MEDICARE, SELFPAY | END 2020-07-06 16:17 | disposition home or self-care (01) | LOC: ANHCOVIDVC 16:16 | PROVIDERS: PCP Internal Medicine | DX: Z23 Encounter for immunization (principal) | CPT/HCPCS: 0002A; 91300 ==

== ENCOUNTER 2021-02-24 16:15 | Emergency (ER) | payer MEDICARE, SELFPAY ==
--- NOTE | ~2021-02-24 | XR_ITS ---
EXAMINATION: XR knee RT 3V, XR knee LT 3V DATE: 02/24/2021 17:53 INDICATION: Multiple recent falls with diffuse right knee pain TECHNIQUE: 1. Anteroposterior, oblique and crosstable lateral views of the right knee were obtained. 2. Anteroposterior, oblique and crosstable lateral views of the left knee were obtained. COMPARISON: None. FINDINGS: Alignment is normal at both knees. No fracture. Mild joint space narrowing at the medial compartment s of both knees which could be underestimated on nonweightbearing imaging. Small enthesophytes at the patellar insertions of the quadriceps and patellar tendons on the right and at the quadriceps 10 ins ertion on the left. No joint effusion/layering lipohemarthrosis at either knee. Soft tissues are unre markable. IMPRESSION: 1. Mild osteoarthritis at the medial compartments of both knees. No knee joint effusion or acute osse ous abnormality at either knee. Reviewed, dictated and finalized at location A. OW CLOSER IMPRESSION: 1. Mild osteoarthritis at the medial compartments of both knees. No knee joint effusion or acute osseous abnormality at either knee.
--- NOTE | ~2021-02-24 | XR_ITS ---
EXAMINATION: XR ankle RT min 3V DATE: 02/24/2021 17:22 INDICATION: Swelling and bruising at the right ankle post fall TECHNIQUE: Anteroposterior, oblique, mortise, and lateral views of the right ankle were obtained. COMPARISON: None. FINDINGS: Small avulsion fracture along the dorsal neck of the talus. There is also a small avulsion fracture a t the proximal tip at the lateral base of the fifth metatarsal. Both fractures are minimally displace d. Mild osteoarthritis at the first metatarsophalangeal joint. Small plantar calcaneal spur. No ankle joint effusion. Mild soft tissue swelling about the dorsal and lateral aspect of the right ankle and hindfoot. IMPRESSION: 1. Small minimally displaced avulsion fractures at the dorsal neck of the talus and at the proximal t ip at the lateral base of the fifth metatarsal. Reviewed, dictated and finalized at location A. OCOL OFFICER IMPRESSION: 1. Small minimally displaced avulsion fractures at the dorsal neck of the talus and at the proximal tip at the lateral base of the fifth metatarsal.
--- NOTE | ~2021-02-24 | XR_ITS ---
EXAMINATION: XR foot RT min 3V DATE: 02/24/2021 18:55 INDICATION: Right foot pain post fall TECHNIQUE: Dorsoplantar, two oblique and lateral views of the right foot were obtained. COMPARISON: None. FINDINGS: Again seen are small minimally distracted avulsion fracture at the dorsal neck of the talus and at th e proximal tip of the lateral base of the fifth metatarsal. In addition there is a small distracted f racture arising from the dorsal lateral corner of the anterior process of the calcaneus. No other fra ctures identified. Hallux valgus with mild osteoarthritis at the first metatarsophalangeal joint. Add itional mild osteoarthritis at a few of the interphalangeal joints. Prominent soft tissue swelling ab out the lateral malleolus, the dorsum of the foot most prominently at the dorsolateral aspect of the hindfoot. Small Achilles calcaneal spur. IMPRESSION: 1. Small mildly distracted avulsion fractures at the dorsal neck of the talus, the anterior process o f the calcaneus and base of the fifth metatarsal. Reviewed, dictated and finalized at location A. TING CLAY MINER IMPRESSION: 1. Small mildly distracted avulsion fractures at the dorsal neck of the talus, the anterior process of the calcaneus and base of the fifth metatarsal.
--- NOTE | ~2021-02-24 | XR_ITS ---
EXAMINATION: XR foot LT min 3V DATE: 02/24/2021 18:55 INDICATION: Left foot pain post fall TECHNIQUE: Dorsoplantar, two oblique and lateral views of the left foot were obtained. COMPARISON: None. FINDINGS: Diffuse osteopenia. Alignment is normal. No fracture. Mild polyarticular osteoarthritis at the first metatarsophalangeal and several interphalangeal joints. Small Achilles and plantar calcaneal spurs. S oft tissues are unremarkable. IMPRESSION: 1. No acute osseous abnormality. Reviewed, dictated and finalized at location A. APPLICATION SUPPORT SPECIALIST
--- NOTE | ~2021-02-24 | XR_ITS ---
EXAMINATION: XR ankle LT min 3V DATE: 02/24/2021 17:54 INDICATION: Diffuse left ankle pain post fall one day prior TECHNIQUE: Anteroposterior, oblique, mortise, and lateral views of the left ankle were obtained. COMPARISON: None. FINDINGS: Alignment is normal. No fracture. Joint spaces are well maintained. No ankle joint effusion. Achill es and plantar calcaneal spurs. The soft tissues are unremarkable. IMPRESSION: 1. No acute osseous abnormality. Reviewed, dictated and finalized at location A. RWATER ROBOTICIST
[2021-02-24 16:45] VITALS: BP 138/118; PULSE 91; RESP 18; TEMP 36.6; O2SAT 100
--- NOTE | 2021-02-24 19:46 | ED.GENADULT ---
HPI - General Adult General Chief complaint: Extremity Injury, Lower <Citlali Cardenas PA-C - Last Filed: 02/24/21 19:56> Stated complaint: R ANKLE INJ S/P FALL <Citlali Cardenas PA-C - Last Filed: 02/24/21 19:56> Time Seen by Provider: 02/24/21 17:12 <Citlali Cardenas PA-C - Last Filed: 02/24/21 19:56> Source: patient <Citlali Cardenas PA-C - Last Filed: 02/24/21 19:56> Mode of arrival: ambulatory <Citlali Cardenas PA-C - Last Filed: 02/24/21 19:56> Limitations: no limitations <Citlali Cardenas PA-C - Last Filed: 02/24/21 19:56> History of Present Illness HPI narrative: Patient is a 75-year-old female presenting with chief complaint of right ankle swelling and discomfort that began the night before last after falling. Patient states that she is not sure why she fell. She is not sure if the ankle was inverted or everted or how she landed. she denies head impact or loss of consciousness. She reports since that time she has had increasing swelling and bruising to the right ankle and a small amount of bruising to the left. She also reports abrasions to her left knee with some swelling and discomfort. Patient denies any other areas of injury or concern. <Citlali Cardenas PA-C - Last Filed: 02/24/21 19:56> Related Data Home medications: Home Medications Medication Instructions Recorded Confirmed Krystal 1 olaf OPHTHALMIC (EYE) HS 05/30/19 06/15/20 hydrocodone-acetaminophen 1 tablet PO TID 05/30/19 06/15/20 <Citlali Cardenas PA-C - Last Filed: 02/24/21 19:56> Allergies/adverse reactions: Allergies Allergy/AdvReac Type Severity Reaction Status Date / Time No Known Allergies Allergy Verified 05/30/19 10:47 <CONY La Last Filed: 02/24/21 19:56> Review of Systems Review of Systems: CONSTITUTIONAL: Denies fever, chills, or sweats. EYES: Denies visual changes, redness, or discharge. ENT: Denies rhinorrhea, congestion, sore throat, or otalgia. CARDIOVASCULAR: Denies chest pain, palpitations, or edema. RESPIRATORY: Denies cough or dyspnea. GASTROINTESTINAL: Denies abdominal pain, nausea, vomiting, or diarrhea. GENITOURINARY: Denies dysuria or hematuria. SKIN: Denies rash or itching. MUSCULOSKELETAL: Reports bilateral knee pain and ankle pain denies back pain, joint pain, or myalgia. NEUROLOGIC: Denies headache, numbness, dizziness, or weakness. PSYCHIATRIC: Denies anxiety or depression. <Citlali Cardenas PA-C - Last Filed: 02/24/21 19:56> [facility] Past Medical History Medical History: Medical History Anemia Anxiety Arthritis Chronic back pain Cognitive impairment Diverticulitis Diverticulosis Fibromyalgia History of blood transfusion HLD (hyperlipidemia) HTN (hypertension) Kidney stone Shingles Short-term memory loss Spinal stenosis TIA (transient ischemic attack) Ulcer UTI (urinary tract infection) <Citlali Cardenas PA-C - Last Filed: 02/24/21 19:56> Surgical History Surgical History: Surgical History H/O cardiac catheterization History of appendectomy History of cardiac catheterization cardiac catheterization done in November [address] Cameron. No significant coronary artery disease was noted, with preserved left ventricular systolic function ejection fraction of 60 to 65%. Some tortuosity and minor luminal irregularities were noted. Left ventricular end-diastolic pressure was elevated 27 millimeters of mercury. History of cholecystectomy Subcapital fracture of neck of right femur Pinning in situ February 2020 <Citlali Cardenas PA-C - Last Filed: 02/24/21 19:56> Family History Family History: Family History Mother Parkinsons Dementia Hypertension Father Congestive heart failure Cerebrovascular accident Sibling Acute myocardial infarction <CONY La
--- NOTE | 2021-02-24 19:46 | PC.NURSE ---
Pt prefers to use walker at home for ambulation, refuses crutches.
== END 2021-02-24 20:26 | disposition home or self-care (01) ==
PROVIDERS: Emergency Provider General Practice; PCP Internal Medicine
DX: S92.111A Displaced fracture of neck of right talus, initial encounter for closed fracture (principal); S92.351A Displaced fracture of fifth metatarsal bone, right foot, initial encounter for closed fracture; M17.0 Bilateral primary osteoarthritis of knee; W19.XXXA Unspecified fall, initial encounter
CPT/HCPCS: 73562; 73610; 73630; 99284

== ENCOUNTER 2021-12-24 17:51 | Emergency (ER) | payer MEDICARE, SELFPAY ==
--- NOTE | ~2021-12-24 | XR_ITS ---
EXAM: XR wrist LT min 3V DATE: 12/24/2021 18:19 HISTORY: fall TODAY, LATERAL POSTERIOR SWELLING, PAIN WITH MOVEMENT . COMPARISON: None available. FINDINGS: Decreased mineralization. Nondisplaced left radial styloid fracture with intra-articular e xtension. No lytic or blastic lesion. Joint spaces are maintained. No erosion or periosteal change. S oft tissues within normal limits. IMPRESSION: Nondisplaced left radial styloid fracture with intra-articular extension. Reviewed, dictated and finalized at location K. IMPRESSION: Nondisplaced left radial styloid fracture with intra-articular exte nsion.
[2021-12-24 17:53] VITALS: BP 161/108; PULSE 100; RESP 14; TEMP 37.3; O2SAT 96
--- NOTE | 2021-12-24 18:51 | ED.UPPEXIN ---
HPI - Extremity Injury (Upper) General Chief Complaint: Extremity Injury, Upper Stated Complaint: left wrist injury Time Seen by Provider: 12/24/21 18:05 History of Present Illness HPI narrative: 76-year-old female presents the emergency room for evaluation of left wrist pain following a ground-level fall. Patient states that she lost her footing and fell forward,. FOOSH injury. States pain is worse when attempting to move the wrist. Has not taken any medications to alleviate her symptoms. Related Data Home Medications Medication Instructions Recorded Confirmed bimatoprost 0.01 % eye drops 1 drp ophthalmic (eye) HS 05/30/19 06/15/20 (Lumigan) buspirone 15 mg tablet mg 12/24/21 evolocumab 140 mg/mL subcutaneous mg subcut 12/24/21 pen injector (Will Holland) gabapentin 300 mg capsule mg 12/24/21 gabapentin 300 mg tablet 300 mg PO TID 12/24/21 Allergies Allergy/AdvReac Type Severity Reaction Status Date / Time No Known Allergies Allergy Verified 05/30/19 10:47 Review of Systems Review of Systems: CONSTITUTIONAL: Denies fever, chills, or sweats. EYES: Denies visual changes, redness, or discharge. ENT: Denies rhinorrhea, congestion, sore throat, or otalgia. CARDIOVASCULAR: Denies chest pain, palpitations, or edema. RESPIRATORY: Denies cough or dyspnea. GASTROINTESTINAL: Denies abdominal pain, nausea, vomiting, or diarrhea. GENITOURINARY: Denies dysuria or hematuria. SKIN: Denies rash or itching. MUSCULOSKELETAL: Reports left wrist pain NEUROLOGIC: Denies headache, numbness, dizziness, or weakness. PSYCHIATRIC: Denies anxiety or depression. [facility] Past Medical History Medical History Anemia Anxiety Arthritis Chronic back pain Cognitive impairment Diverticulitis Diverticulosis Fibromyalgia History of blood transfusion HLD (hyperlipidemia) HTN (hypertension) Kidney stone Shingles Short-term memory loss Spinal stenosis TIA (transient ischemic attack) Ulcer UTI (urinary tract infection) Surgical History Surgical History H/O cardiac catheterization History of appendectomy History of cardiac catheterization cardiac catheterization done in November [address] Cameron. No significant coronary artery disease was noted, with preserved left ventricular systolic function ejection fraction of 60 to 65%. Some tortuosity and minor luminal irregularities were noted. Left ventricular end-diastolic pressure was elevated 27 millimeters of mercury. History of cholecystectomy Subcapital fracture of neck of right femur Pinning in situ February 2020 Family History Family History Mother Parkinsons Dementia Hypertension Father Congestive heart failure Cerebrovascular accident Sibling Acute myocardial infarction Social History Social History Social History: The patient is lives with her in [place]. 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 She designates her , Jovani, as her surrogate decision maker and she wishes to be a full code. She is a former smoker and quit in the early . She denies alcohol and drug abuse. Smoking packs per day: 0.5 Smoking cigarettes per day: 10.0 Years smoked: 10 Smoking pack-years: 5.00 Smoking status: Former smoker Tobacco type: cigarettes Smoking end date: 04/09/84 Alcohol intake: never Substance use: never Substance use type: does not use Gender identity (if verbalized by the patient): Female Spiritual care concerns: No Agree to blood products: Yes Exam Narrative: GENERAL: Well-appearing, well-nourished, no physical limitations, and in no acute distress. HEAD: Normocephalic, atraumatic. EYES: Conjunctivae normal, PERRLA and EOMI. ENT: External nose normal, Nares clear, no rhinorrhea or
[2021-12-24] MEDS: HYDROcodone/acetaminophen (*CRX) 5-325 MG TABLET 1 TAB PO (19:22)
--- NOTE | 2021-12-24 20:22 | PC.NURSE ---
miscommunication made with ERP and ulnar gutter splint was first placed on the arm. splint was then removed and sugar tongue was then placed on the left arm with sling. CMS intact at time of placement, will give 15 min for recheck.
[2021-12-24 20:40] VITALS: BP 218/116; PULSE 82; RESP 16; O2SAT 98
== END 2021-12-24 20:43 | disposition home or self-care (01) ==
PROVIDERS: Emergency Provider Nurse Practitioner Family; PCP Internal Medicine
DX: S52.515A Nondisplaced fracture of left radial styloid process, initial encounter for closed fracture (principal); W01.0XXA Fall on same level from slipping, tripping and stumbling without subsequent striking against object, initial encounter; I10 Essential (primary) hypertension; E78.5 Hyperlipidemia, unspecified; D64.9 Anemia, unspecified; M79.7 Fibromyalgia; F41.9 Anxiety disorder, unspecified; G31.84 Mild cognitive impairment of uncertain or unknown etiology; Z86.73 Personal history of transient ischemic attack (TIA), and cerebral infarction without residual deficits; Z87.891 Personal history of nicotine dependence
CPT/HCPCS: 29125; 73110; 99284; A4565; A9270

== ENCOUNTER 2022-02-08 13:27 | Outpatient (CLI) | payer MEDICARE, SELFPAY ==
--- NOTE | ~2022-02-08 | DEXA_ITS ---
Bone Density Report Name: KAVON CHANDLER Age: 76 Sex: Female Ethnicity: White Date of : 1945 Indication: postmenopausal; screening for osteoporosis; height loss; prior fracture; rheumatoid arthritis; Referring Provider: MARYAM, RASHIDA Andrade Study: Bone densitometry was performed. Exam Date: February 08, 2022 Accession number: [id number] Bone Density: Region BMD T-score Z-score Classification AP Spine(L1-L4) 0.957 -0.8 1.7 Normal Femoral Neck (Left) 0.569 -2.5 -0.3 Osteoporosis Total Hip (Left) 0.724 -1.8 0.1 Osteopenia World Health Organization criteria for BMD impression classify patients as: Normal (T-score at or above -1.0), Osteopenia (T-score between -1.0 and -2.5), or Osteoporosis (T-score at or below -2.5). 10-year Fracture Risk: FRAX not reported because: Some T-score for Spine Total or Hip Total or Femoral Neck at or below -2.5 Prior hip or vertebral fracture Treated for osteoporosis Clinical Information Provided by Patient: Have had a previous hip or vertebral fracture Has had a low trauma fracture Has rheumatoid arthritis Is being treated for osteoporosis Patient maximum height was 67.5 Menopause Age: 49 Drinks caffeinated beverages Onset of menses at age 13 Number of children 3 Impression: The patient has established osteoporosis, based on the Left Femoral Neck T-score and the existence of a prior fracture. The patient has risk factors, including: previous fracture. Discussion: It is important to ask patients whether they are taking their medications and to encourage continued and appropriate compliance with their osteoporosis therapies to reduce fracture risk. It is also important to review their risk factors and encourage appropriate calcium and vitamin D intakes, exercise, fall prevention and other lifestyle measures. Follow-Up: Consider a repeat BMD and Vertebral Fracture Assessment (VFA) exam in 2 years or sooner if medically necessary, to reassess this patient's status. Reported by: MICHAEL on 02/08/2022 2:00:00 PM. Reviewed, dictated and finalized at location AMarquise KESSLER
== END 2022-02-08 13:28 | disposition home or self-care (01) ==
PROVIDERS: PCP Internal Medicine; Visit Provider Internal Medicine
DX: M81.0 Age-related osteoporosis without current pathological fracture (principal); M85.852 Other specified disorders of bone density and structure, left thigh
CPT/HCPCS: 77080

== ENCOUNTER 2022-07-28 20:49 | Observation (INO) | payer MEDICARE, SELFPAY ==
[2022-07-28] VITALS (11 sets, daily range): BP systolic 142–155; BP diastolic 75–111; PULSE 82–92; RESP 15–16; TEMP 36.4; O2SAT 83–98
--- NOTE | ~2022-07-28 | MR_ITS ---
EXAMINATION: MR hip RT wo con DATE: 07/30/2022 14:35 INDICATION: Right hip pain. TECHNIQUE: Magnetic resonance imaging (MRI) of the right hip was performed without intravenous contra st. The patient terminated the exam after 4 sequences. COMPARISON: Right hip CT 07/28/2022, radiographs 07/28/2022 FINDINGS: There is lumbar dextrocurvature and moderate spondylosis. There is interbody fusion at L5-S1. There i s fixation of right femoral head/neck with 3 screws. There is a nondisplaced intertrochanteric fractu re of proximal right femur best seen on T1-weighted images. There is moderate osteoarthritis of right hip and mild osteoarthritis of left hip. IMPRESSION: 1. Nondisplaced intertrochanteric fracture of proximal right femur best seen on T1-weighted images. 2. Moderate osteoarthritis of right hip and mild osteoarthritis of left hip. Reviewed, dictated and finalized at location A.
--- NOTE | ~2022-07-28 | CT_ITS ---
EXAMINATION: CT hip RT wo con DATE: 07/28/2022 23:37 INDICATION: Right hip pain TECHNIQUE: Computed tomography (CT) of the right hip was performed without intravenous contrast. The dose-length product (DLP) was 390.11 mGy-cm. Automated exposure control and iterative reconstruction technique were employed. COMPARISON: 03/05/2020, hip radiographs from the same day FINDINGS: Orthopedic stabilization screws are present in the right femoral neck which appear to be in tact. There is a subtle lucency of the lesser trochanter. No definite CT correlate is identified for the suspected oblique fracture of the proximal femoral neck seen on the radiographs. The soft tissues are unremarkable. Calcified atherosclerosis is noted. The visualized pelvic viscera are otherwise un remarkable. IMPRESSION: 1. Possible nondisplaced fracture of the lesser trochanter of the right femur. Suspected oblique frac ture of the proximal femoral neck described on the comparison radiographs is not definitely visualize d however relatively convincing in appearance on the radiograph. Consider MRI. Reviewed, dictated and finalized at location A. IMPRESSION: 1. Possible nondisplaced fracture of the lesser trochanter of the right femur. Suspected oblique fracture of the proximal femoral neck described on the compar servando radiographs is not definitely visualized however relatively convincing in appearance on the radiograph. Consider MRI.
--- NOTE | ~2022-07-28 | CT_ITS ---
Noncontrast CT scan of the lumbar spine CLINICAL HISTORY: Status post fall TECHNIQUE: Axial noncontrast imaging of the lumbar spine was performed. Sagittal and coronal reformat radhika images were constructed. Dose reduction technique was used on this scan by utilizing automated ex posure control and iterative reconstruction technique. The dose-length product (DLP) was 1404.12 mGy- cm. COMPARISON: 03/05/2020 FINDINGS: No acute fracture or subluxation seen. Osseous alignment is unchanged. At L1-L2, there is minimal disc bulge and mild facet arthropathy. No central canal stenosis. Probable moderate left neural foraminal narrowing. Right neural foramen preserved. At L2-L3, there is mild disc bulge and advanced facet arthropathy. No coretta central canal stenosis. T here is mild right neural foraminal narrowing. Left neural foramen preserved. At L3-L4, there is disc bulge and advanced facet arthropathy. Possible minimal central canal stenosis . There is moderate to severe left neural foraminal narrowing and moderate right neural foraminal carlota rowing. At L4-L5, there is minimal disc bulge with advanced facet arthropathy. No central canal stenosis. The re is mild to moderate bilateral neural foraminal narrowing. At L5-S1, there is severe degenerative disc narrowing without significant bulge or herniation. There is advanced facet arthropathy. There is severe bilateral neural foraminal narrowing, right worse than left. Paravertebral soft tissues are unremarkable. Impression: No fracture or subluxation. Multilevel neural foraminal narrowing throughout the lumbar spine, as detailed above. Possible minimal central canal stenosis at L3-L4. Extensive facet arthropathy and lumbar spine, as detailed above. Reviewed, dictated and finalized at [facility]. Impression: No fracture or subluxation. Multilevel neural foraminal narrowing throughout the lumbar spine, as detailed above. Possible minimal central canal stenosis at L3-L4. Extensive facet arthropathy and lumbar spine, as detailed above.
--- NOTE | ~2022-07-28 | XR_ITS ---
Portable chest x-ray Comparison: 05/30/2019 Clinical History: Status post fall Findings: Lungs are clear, without focal consolidation or pleural effusion. Cardiomediastinal silho uette is stable. Bones and soft tissues are unremarkable. Impression: Normal chest. Reviewed, dictated and finalized at [facility]. Impression: Normal chest.
--- NOTE | ~2022-07-28 | XR_ITS ---
AP view of the pelvis and AP and lateral views of the bilateral hips Clinical history: Pain COMPARISON: 06/15/2020 Findings: There is a linear lucency extending from the intertrochanteric region to the lateral aspect of the proximal right femoral shaft, seen only on the oblique/lateral view of the right hip. No othe r acute osseous abnormality seen. 3 orthopedic screws are present in the right femoral neck. Osseous alignment is anatomic. Bilateral hip and SI joint spaces are preserved. Soft tissues are unremarkable . Impression: Linear lucency extending from the intertrochanteric region to the lateral aspect of the proximal righ t femoral shaft, only seen on a single image. Subtle nondisplaced fracture is suspected. Consider CT or MR to further evaluate for fracture given this abnormal linear lucency. 3 orthopedic screws in the right femoral neck are unchanged otherwise. Reviewed, dictated and finalized at [facility]. Impression: Linear lucency extending from the intertrochanteric region to the lateral aspec t of the proximal right femoral shaft, only seen on a single image. Subtle nond isplaced fracture is suspected. Consider CT or MR to further evaluate for fract ure given this abnormal linear lucency. 3 orthopedic screws in the right femoral neck are unchanged otherwise.
--- NOTE | ~2022-07-28 | XR_ITS ---
EXAMINATION: XR ankle RT min 3V INDICATION: Right ankle pain and swelling TECHNIQUE: Three views of the right ankle are obtained. COMPARISON: 02/24/2021 FINDINGS: There is lateral soft tissue swelling of ankle. Linear heterotopic ossification is seen dis sherman to the lateral malleolus. The bones are osteopenic. Posterior and plantar calcaneal enthesophytes are noted. An old healed fracture at the dorsal neck of the talus is noted. IMPRESSION: 1. Heterotopic ossification distal to the lateral malleolus, consistent with avulsion injury of the t alus or distal fibula. Reviewed, dictated and finalized at location B. IMPRESSION: 1. Heterotopic ossification distal to the lateral malleolus, consistent with av ulsion injury of the talus or distal fibula.
--- NOTE | ~2022-07-28 | CT_ITS ---
CT head without contrast Indication: Status post fall COMPARISON: 05/31/2019 Technique: Serial scans were obtained through the brain without the administration of contrast. Dose reduction technique was used on this scan by utilizing automated exposure control and iterative recon struction technique. The dose-length product (DLP) was 605.33 mGy-cm. Findings: There is no evidence of intracranial hemorrhage, mass lesion, or acute infarct. The ventri cles and subarachnoid spaces are dilated, consistent with mild atrophy. There is no evidence of phi a, mass effect or midline shift. The visualized paranasal sinuses and mastoid air cells are clear. Impression: No intracranial hemorrhage, mass, or acute infarct. Mild generalized atrophy. Reviewed, dictated and finalized at location . Impression: No intracranial hemorrhage, mass, or acute infarct. Mild generalized atrophy.
--- NOTE | 2022-07-28 21:31 | ED.FALL ---
HPI - Fall General Chief Complaint: Fall <Vanesa Cleaning PA-C - Last Filed: 07/29/22 03:14> Stated Complaint: fall, hip pain <CONY Thomsa Last Filed: 07/29/22 03:14> Time Seen by Provider: 07/28/22 21:08 <Vanesa Cleaning PA-C - Last Filed: 07/29/22 03:14> History of Present Illness HPI Narrative: 76-year-old female with a history of CVA, hypertension, CHF reports via EMS for evaluation of right left hip pain after she fell prior to arrival. Patient reports she was sitting in her basement, stood up and took a few steps then fell and landed on her right side. She denies chest pain, dizziness, vision changes or focal numbness or weakness prior to the fall. Her reports he believes she lost her footing. She did not hit her head or lose consciousness. Reports she was given 4 mg of morphine while in the ED with improvement of her hip pain. She is also complaining of chronic low back pain, however it is worse since the fall. Denies paresthesias, saddle anesthesia, bowel or bladder incontinence, syncope. She normally ambulated w/o cane or walker. <CONY Thomas Last Filed: 07/29/22 03:14> Related Data Home Medications: Home Medications Medication Instructions Recorded Confirmed buspirone 15 mg tablet 15 mg PO BID 12/24/21 07/29/22 evolocumab 140 mg/mL subcutaneous 140 mg subcut [id number] 12/24/21 07/29/22 pen injector (Will Holland) gabapentin 300 mg capsule 300 mg PO TID 07/29/22 07/29/22 rivaroxaban 20 mg tablet (Xarelto) 20 mg PO QPM 07/29/22 07/29/22 <CONY Thomas Last Filed: 07/29/22 03:14> Allergies/Adverse Reactions: Allergies Allergy/AdvReac Type Severity Reaction Status Date / Time No Known Allergies Allergy Verified 07/28/22 21:02 <CONY Thomas Last Filed: 07/29/22 03:14> Review of Systems Review of Systems: CONSTITUTIONAL: Denies fever, chills EYES: Denies visual changes, redness, or discharge. ENT: Denies rhinorrhea, congestion, sore throat, or otalgia. CARDIOVASCULAR: Denies chest pain, palpitations, or edema. RESPIRATORY: Denies cough or dyspnea. GASTROINTESTINAL: Denies abdominal pain, nausea, vomiting, or diarrhea. GENITOURINARY: Denies dysuria or hematuria. SKIN: Denies rash or itching. MUSCULOSKELETAL: See HPI NEUROLOGIC: Denies headache, numbness, dizziness, or weakness. PSYCHIATRIC: Denies anxiety or depression. <Vanesa Cleaning PA-C - Last Filed: 07/29/22 03:14> [facility] Past Medical History Medical History: Medical History (Updated 07/31/22 @ 14:48 by RALPH Beck) Anemia Ankle pain Anxiety Arthritis Chronic back pain Closed fracture of right hip Cognitive impairment Diverticulitis Diverticulosis Fibromyalgia History of blood transfusion HLD (hyperlipidemia) HTN (hypertension) Kidney stone Shingles Short-term memory loss Spinal stenosis TIA (transient ischemic attack) Ulcer UTI (urinary tract infection) <Vanesa Cleaning PA-C - Last Filed: 07/29/22 03:14> Surgical History Surgical History: Surgical History (Updated 07/30/22 @ 08:36 by Dmitriy Casarez MD) H/O cardiac catheterization History of appendectomy History of cardiac catheterization cardiac catheterization done in November [address] Cameron. No significant coronary artery disease was noted, with preserved left ventricular systolic function ejection fraction of 60 to 65%. Some tortuosity and minor luminal irregularities were noted. Left ventricular end-diastolic pressure was elevated 27 millimeters of mercury. History of cholecystectomy Subcapital fracture of neck of right femur Pinning in situ February 2020 <Vanesa Cleaning PA-C - Last Filed: 07/29/22 03:14> Family History Family History: Family History Mother Parkinsons Dementia Hypertension Father Congestive heart failure Cerebrovascular accident Sibling A
[2022-07-28 22:06] LABS: Appearance Urine Clear (Clear); Bilirubin Urine Negative (Negative); Blood Urine Negative (Negative); Color Urine Yellow (Yellow); Glucose Urine UA Negative (Negative); Ketones Urine Negative (Negative); Leukocyte Esterase Ur Negative LEU/UL (Negative); Nitrate Urine Negative (Negative); Protein Urine Negative (Negative); Specific Grav Ur 1.009 (1.001-1.035); Urobilinogen Urine 0.2 mg/dL (<2.0); pH Urine 5.5 (5.0-9.0)
[2022-07-28 22:13] LABS: Add Urine Microscopic? NO
[2022-07-28 22:39] LABS: Basophils Absolute Auto 0.1 K/mm3 (0.0-0.1); Basophils Percent Auto 0.5 % (0.2-1.2); Eosinophils Absolute Auto 0.1 K/mm3 (0-0.3); Hematocrit 41.8 % (37.0-47.0); Hemoglobin 13.5 g/dL (12.0-15.0); Immature Granulocyte Absolute 0.05 K/mm3 (0.00-0.031); Immature Granulocyte Percent A 0.5 % (0-0.5); Lymphocytes Percent Auto 19.1 % (18.3-44.2); Mean Corpuscular HGB Conc 32.3 g/dl (32-36); Mean Corpuscular Hemoglobin 29.9 pg (26-34); Mean Corpuscular Volume 92.5 fl (80-100); Mean Platelet Volume 8.9 fl (7.4-10.4); Monocytes Absolute Auto 0.7 K/mm3 (0.1-0.6); Monocytes Percent Auto 5.9 % (2.6-8.5); Neutrophils Absolute Auto 8.1 K/mm3 (1.3-6.7); Platelet Count Result 275 k/mm3 (150-375); Red Blood Count 4.52 M/mm3 (4.2-5.4); Red Cell Distribution Width 12.3 % (11.5-14.5)
[2022-07-28 22:59] LABS: Alanine Aminotransferase 18 U/L (6-35); Albumin Level 4.8 g/dL (3.5-5.1); Alkaline Phosphatase 87 U/L (38-126); Anion Gap 7 mmol/L (8-16); Aspartate Amino Transferase 31 U/L (14-36); Bilirubin,Total 0.6 mg/dL (0.2-1.3); Blood Urea Nitrogen 14 mg/dL (7-17); Calcium 9.3 mg/dL (8.4-10.2); Carbon Dioxide 25 mmol/L (22-30); Chloride 105 mmol/L (98-107); Estimated CRCL calculation 40 ml/min; Estimated Glomerular Filt Rate 54; Glucose 104 mg/dL (65-110); Potassium 4.6 mmol/L (3.4-5.0); Sodium 137 mmol/L (137-145)
[2022-07-28] MEDS: ACETAMINOPHEN 500 MG TABLET 1000 MG PO (23:02)
[2022-07-29] VITALS (16 sets, daily range): BP systolic 128–191; BP diastolic 84–102; PULSE 90–107; RESP 14–20; TEMP 36.2–37.2; O2SAT 90–97; BMI 27.7
[2022-07-29] MEDS: MORPHINE SULFATE (*CRX) 4 MG/ML INJ IV PUSH (01:28)
[2022-07-29] MEDS: ONDANSETRON INJ 4 MG/2 ML VIAL IV PUSH (02:34)
[2022-07-29] MEDS: KETOROLAC 30 MG/ML VIAL (*BKC) IV PUSH ×2 (02:44→21:02)
--- NOTE | 2022-07-29 04:22 | ADMGEN ---
This patient, Karla Green, was admitted to [facility] Surg Room 306-02. Patient/family oriented to hospital policies and general routines including ID bracelet, bed and alarms, visiting hours, pain management, procedures, bathroom and other care routines, personal items, smoking policy, room service/diet, and visiting hours. Information on how to activate the Rapid Response Team has been discussed. Patient/Family are encouraged to report perceived risks to care and to ask questions if they do not understand what they are told or what they should do.
--- NOTE | 2022-07-29 14:12 | PM.IMHP ---
H&P: HPI History of Present Illness Date/Time: 07/29/22 14:12 Chief Complaint: Fall Narrative: This is a 76-year-old female with history of CVA with right-sided weakness hypertension congestive heart failure presented after a fall and complained of right hip pain. She is not able to describe how she fell. She does not know if she fell at all. She was told that she fell by her . She denies hitting her head or hurting anywhere at all other than the right hip. Apparently she landed on her right hip and was brought to the ER for evaluation. She was given some morphine in the ED with improvement of the pain. She also has chronic low back pain which is not anything new no bladder or bowel incontinence. Unclear whether she had a syncopal episode or not. She normally ambulates with cane or walker. She had a initial x-ray of her left hip revealed linear lucency extending from the intertrochanteric region to the lateral aspect of the proximal right femoral shaft. CTA was further done to evaluate showed acute fracture. She did have 3 screws within the right femoral neck which was in position without any hardware complication. She still weak on her right leg and unable to lift it of which is unclear how much this is baseline status. She is planned to be admitted for physical therapy evaluation and further evaluation for placement Review of Systems Review of Systems: - CONSTITUTIONAL: Denies weight loss, fever and chills. - HEENT: Denies changes in vision and hearing - RESPIRATORY: Denies SOB and cough. - CV: Denies palpitations and CP. - GI: Denies abdominal pain, nausea, vomiting and diarrhea. - : Denies dysuria and urinary frequency. - MSK: Denies myalgia and joint pain. Reports right hip pain - SKIN: Denies rash and pruritus. - NEUROLOGICAL: Denies headache and syncope. - PSYCHIATRIC: Denies recent changes in mood. Denies anxiety and depression. [facility] Past Medical History Medical History Anemia Anxiety Arthritis Chronic back pain Cognitive impairment Diverticulitis Diverticulosis Fibromyalgia History of blood transfusion HLD (hyperlipidemia) HTN (hypertension) Kidney stone Shingles Short-term memory loss Spinal stenosis TIA (transient ischemic attack) Ulcer UTI (urinary tract infection) Surgical History Surgical History H/O cardiac catheterization History of appendectomy History of cardiac catheterization cardiac catheterization done in November [address] Cameron. No significant coronary artery disease was noted, with preserved left ventricular systolic function ejection fraction of 60 to 65%. Some tortuosity and minor luminal irregularities were noted. Left ventricular end-diastolic pressure was elevated 27 millimeters of mercury. History of cholecystectomy Subcapital fracture of neck of right femur Pinning in situ February 2020 Family History Family History Mother Parkinsons Dementia Hypertension Father Congestive heart failure Cerebrovascular accident Sibling Acute myocardial infarction Social History Social History Social History: The patient is lives with her in [place]. 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 She designates her , Jovani, as her surrogate decision maker and she wishes to be a full code. She is a former smoker and quit in the early 1980s. She denies alcohol and drug abuse. Smoking packs per day: 0.5 Smoking cigarettes per day: 10.0 Years smoked: 10 Smoking pack-years: 5.00 Smoking status: Former smoker Tobacco type: cigarettes Smoking end date: 04/09/84 Alcohol intake: never Substance use: never Substance use type: does not use Lack of Transportation: No Lack of Food: Never
[2022-07-29] MEDS: RIVAROXABAN 20 MG TABLET PO (17:03)
[2022-07-29] MEDS: busPIRone HCL 5 MG TABLET 15 MG PO (17:03)
[2022-07-29] MEDS: GABAPENTIN 300 MG CAPSULE PO (17:03)
[2022-07-29] MEDS: DOCUSATE SODIUM 100 MG CAPSULE PO (17:06)
[2022-07-29] MEDS: carvediloL 12.5 MG TABLET 25 MG PO (20:19)
[2022-07-29] MEDS: ACETAMINOPHEN 325 MG TABLET 650 MG PO (20:30)
[2022-07-30] VITALS (7 sets, daily range): BP systolic 140–174; BP diastolic 71–89; PULSE 90–92; RESP 18; TEMP 36.3–36.6; O2SAT 93–97
[2022-07-30] MEDS: KETOROLAC 30 MG/ML VIAL (*BKC) IV PUSH ×4 (04:51→22:33)
--- NOTE | 2022-07-30 05:46 | PC.NURSE ---
PT. has substantial bruising on right ankle at this time the ankle has not been evaluated.
[2022-07-30 06:13] LABS: Basophils Absolute Auto 0.1 K/mm3 (0.0-0.1); Basophils Percent Auto 0.5 % (0.2-1.2); Eosinophils Absolute Auto 0.5 K/mm3 (0-0.3); Eosinophils Percent Auto 4.6 % (0-4.4); Hematocrit 39.8 % (37.0-47.0); Hemoglobin 13.4 g/dL (12.0-15.0); Immature Granulocyte Absolute 0.04 K/mm3 (0.00-0.031); Immature Granulocyte Percent A 0.4 % (0-0.5); Lymphocytes Percent Auto 12.5 % (18.3-44.2); Mean Corpuscular HGB Conc 33.7 g/dl (32-36); Mean Corpuscular Hemoglobin 30.5 pg (26-34); Mean Corpuscular Volume 90.7 fl (80-100); Monocytes Absolute Auto 0.7 K/mm3 (0.1-0.6); Monocytes Percent Auto 6.8 % (2.6-8.5); Neutrophils Absolute Auto 7.8 K/mm3 (1.3-6.7); Neutrophils Percent Auto 75.2 % (45.5-73.1); Platelet Count Result 269 k/mm3 (150-375); Red Blood Count 4.39 M/mm3 (4.2-5.4); Red Cell Distribution Width 12.3 % (11.5-14.5); White Blood Count 10.4 K/mm3 (4.5-10.0)
[2022-07-30 06:26] LABS: Alanine Aminotransferase 24 U/L (6-35); Albumin Level 4.6 g/dL (3.5-5.1); Alkaline Phosphatase 95 U/L (38-126); Anion Gap 8 mmol/L (8-16); Aspartate Amino Transferase 40 U/L (14-36); Bilirubin,Total 0.8 mg/dL (0.2-1.3); Blood Urea Nitrogen 14 mg/dL (7-17); Calcium 9.5 mg/dL (8.4-10.2); Carbon Dioxide 29 mmol/L (22-30); Chloride 99 mmol/L (98-107); Estimated CRCL calculation 56 ml/min; Estimated Glomerular Filt Rate > 60; Glucose 113 mg/dL (65-110); Magnesium 1.9 mg/dL (1.6-2.3); Potassium 3.9 mmol/L (3.4-5.0); Sodium 136 mmol/L (137-145)
--- NOTE | 2022-07-30 08:32 | PM.CNOR ---
Assessment and Plan Assessment and plan (1) Hip pain: Qualifiers: Laterality: right Qualified Code(s): M25.551 - Pain in right hip Code(s): M25.559 - Pain in unspecified hip Status: Acute (2) Subcapital fracture of neck of right femur: Qualifiers: Encounter type: sequela Fracture type: closed Qualified Code(s): S72.011S - Unspecified intracapsular fracture of right femur, sequela Code(s): S72.011A - Unspecified intracapsular fracture of right femur, initial encounter for closed fracture Status: Resolved (3) Closed fracture of right hip: Qualifiers: Encounter type: initial encounter Qualified Code(s): S72.001A - Fracture of unspecified part of neck of right femur, initial encounter for closed fracture Code(s): S72.001A - Fracture of unspecified part of neck of right femur, initial encounter for closed fracture Status: Acute Assessment and Plan: 76-year-old with history of previous right fem neck fracture treated with internal fixation. Recent fall with right hip pain. Questionable lucency on emergency room radiographs. Follow-up CT scan does not demonstrate any intra-articular fracture associated with the lucency. There is a questionable lucency of the lesser trochanter which may be artifact or a possible nondisplaced avulsion. No evidence of displacement of fracture or fracture instability. No surgical indication. At this point pain control and try to mobilize the patient. PT/OT to assist with transfers and ambulation with weight-bearing as tolerated. Patient is a high fall risk. History of Present Illness HPI Consult date: 07/30/22 Requesting physician: Michael Pereira MD Chief complaint: hip pain, fall Narrative: 76-year-old with history of stroke, cognitive dysfunction, and right hip fracture February 2020 Treated with hip pinning. Admitted through the emergency room with right hip pain after fall at home. Questionable findings on radiographs. Patient complains of right hip pain. Review of Systems Constitutional: Constitutional: Denies fever(s) Eyes: Eyes: Denies blurry vision ENT: Reports Normal hearing present Cardiovascular: Cardiovascular: Denies chest pain and Denies dyspnea Respiratory: Respiratory: Denies dyspnea and Denies wheezing Gastrointestinal: Gastrointestinal: Denies abdominal pain Genitourinary: Genitourinary: Denies urinary urgency Musculoskeletal: Musculoskeletal: Reports as per HPI and Denies numbness Integumentary/Breasts: Skin/Breast: Denies changing lesions and Denies sores Neurologic: Reports Normal hearing present, Denies behavioral changes, Denies confusion, Denies numbness and Denies convulsions Psychiatric: Psychiatric: Denies behavioral changes, Denies confusion and Denies hallucinations Endocrine: Endocrine: Denies heat intolerance Hematologic/Lymphatic: Hematologic/Lymphatic: Denies easy bleeding Allergic/Immunologic: Allergic/Immunologic: Denies wheezing PMFSH Past Medical History Medical History (Updated 07/30/22 @ 08:37 by Dmitriy Casarez MD) Anemia Anxiety Arthritis Chronic back pain Closed fracture of right hip Cognitive impairment Diverticulitis Diverticulosis Fibromyalgia History of blood transfusion HLD (hyperlipidemia) HTN (hypertension) Kidney stone Shingles Short-term memory loss Spinal stenosis TIA (transient ischemic attack) Ulcer UTI (urinary tract infection) Surgical History Surgical History (Updated 07/30/22 @ 08:36 by Dmitriy Casarez MD) H/O cardiac catheterization History of appendectomy History of cardiac catheterization cardiac catheterization done in November [address] Cameron. No significant coronary artery disease was noted, with preserved left ventricular systolic function ejection fraction of 60 to 65%. Some tortuosity and minor luminal irregularities were noted. Left ventricular end-diastolic pressure was elevated 27 millimeters of
[2022-07-30] MEDS: ASPIRIN 325 MG ENTERIC TABLET PO (08:45)
[2022-07-30] MEDS: busPIRone HCL 5 MG TABLET 15 MG PO ×2 (08:45→17:03)
[2022-07-30] MEDS: GABAPENTIN 300 MG CAPSULE PO ×3 (08:45→17:03)
[2022-07-30] MEDS: PRAVASTATIN SODIUM 20 MG TABLET 40 MG PO (08:45)
[2022-07-30] MEDS: DOCUSATE SODIUM 100 MG CAPSULE PO ×2 (08:46→17:03)
[2022-07-30] MEDS: amLODIPine BESYLATE 5 MG TABLET 10 MG PO (08:46)
[2022-07-30] MEDS: carvediloL 12.5 MG TABLET 25 MG PO ×2 (08:46→21:00)
[2022-07-30] MEDS: LOSARTAN POTASSIUM 100 MG TABLET PO (08:46)
[2022-07-30] MEDS: ACETAMINOPHEN 325 MG TABLET 650 MG PO ×2 (08:47→21:36)
--- NOTE | 2022-07-30 13:15 | PM.IMPN ---
Progress Note: A&P Assessment and Plan (1) Fall: Qualifiers: Encounter type: initial encounter Qualified Code(s): W19.XXXA - Unspecified fall, initial encounter Code(s): W19.XXXA - Unspecified fall, initial encounter Status: Acute (2) CHF (congestive heart failure): Qualifiers: Heart failure chronicity: unspecified Heart failure type: unspecified Qualified Code(s): I50.9 - Heart failure, unspecified Code(s): I50.9 - Heart failure, unspecified Status: Chronic (3) Cognitive impairment: Code(s): R41.89 - Other symptoms and signs involving cognitive functions and awareness Status: Chronic (4) Hip pain: Qualifiers: Laterality: right Qualified Code(s): M25.551 - Pain in right hip Code(s): M25.559 - Pain in unspecified hip Status: Acute Plan Fall mechanical per Right hip pain x-ray initially with some lucency however CT preliminary negative for fracture. All visual read with possible nondisplaced fracture of lesser trochanter of the right femur. Suspected oblique fracture of the proximal femoral neck as described. Unable to bear weight on right side query pain related or weakness related. Ortho consulted area. As suggested/recommended MRI of right hip to further evaluate the suspected area Right ankle bruising will get x-ray to rule out any underlying bony injury from the fall History of CVA affecting her right side in February 2022 admitted [facility] with expressive aphasia and right-sided weakness MRI with scattered acute ischemic infarct within the left subcortical white matter of left insula left parietal occipital lobe and left centrum semiovale coronal radiata. History of right hip fracture with pinning February 2020 Hypertension Short-term memory loss/cognitive impairment Spinal stenosis DVT prophylaxis on rivaroxaban at home which will be continued Code status full code Subjective Date/time seen: 07/30/22 13:15 Interval history: No overnight events. Right ankle had some bruising noticed. Denies any pain in that area. Right hip still hurts. Unable to move. After stroke she recovered completely per her and was able to walk. Does have low back pain and spinal stenosis diagnosed before Review of Systems Review of Systems: All systems reviewed & are unremarkable except as noted in HPI and below Exam Narrative: GENERAL: The patient is well developed, not in acute distress HEENT: Nonicteric sclerae, PERRLA, EOMI. Oropharynx clear. Moist mucous membranes. Conjunctivae appear well perfused. CHEST: Chest wall is nontender. HEART: Regular rate and rhythm without murmur, rubs, or gallops LUNGS: Clear to auscultation bilaterally. no respiratory distress ABDOMEN: Soft, positive bowel sounds, non-tender, no organomegaly. SKIN: No rash, no excessive bruising, petechiae, or purpura. NEUROLOGIC: Cranial nerves II-XII intact, alert and oriented x 3, no gross motor deficits except right leg weakness unable to lift up EXTREMITIES: no edema, cyanosis or clubbing, right ankle with bruising and lateral malleolar area Right hip tenderness Objective Data Vital Signs Vital Signs: Vital Signs - 24 hr 07/29/22 14:00 07/29/22 22:00 07/30/22 05:22 Temperature 97.2 F L 98.9 F 97.8 F Pulse Rate 100 107 H 92 Respiratory Rate 20 16 18 Blood Pressure 171/87 H 191/96 H 174/89 H Pulse Oximetry 96 94 93 Oxygen Delivery 07/30/22 08:46 07/30/22 09:11 07/30/22 09:42 Temperature Pulse Rate 92 Respiratory Rate Blood Pressure Pulse Oximetry Oxygen Delivery Room Air Room Air 07/30/22 08:00 Temperature Pulse Rate Respiratory Rate Blood Pressure Pulse Oximetry Oxygen Delivery Room Air Intake/Output Intake/Output: Intake & Output 07/27/22 07/28/22 07/29/22 07/30/22 23:59 23:59 23:59 23:59 Intake Total 1230 660 Output Total 300 600 600 Balance -300 630 60 Meds/Results Me
[2022-07-30] MEDS: RIVAROXABAN 20 MG TABLET PO (17:03)
[2022-07-30] MEDS: HYDROmorphone HCL INJ (*CRX) 1 MG/ML SYR IV PUSH (23:56)
[2022-07-31] VITALS (7 sets, daily range): BP systolic 103–152; BP diastolic 63–97; PULSE 80–95; RESP 16–18; TEMP 35.8–36.6; O2SAT 94–96
[2022-07-31] MEDS: KETOROLAC 30 MG/ML VIAL (*BKC) IV PUSH ×3 (05:35→20:25)
[2022-07-31] MEDS: LOSARTAN POTASSIUM 100 MG TABLET PO (08:59)
[2022-07-31] MEDS: busPIRone HCL 5 MG TABLET 15 MG PO ×2 (08:59→17:24)
[2022-07-31] MEDS: carvediloL 12.5 MG TABLET 25 MG PO ×2 (09:00→20:11)
[2022-07-31] MEDS: PRAVASTATIN SODIUM 20 MG TABLET 40 MG PO (09:00)
[2022-07-31] MEDS: amLODIPine BESYLATE 5 MG TABLET 10 MG PO (09:01)
[2022-07-31] MEDS: GABAPENTIN 300 MG CAPSULE PO ×3 (09:01→17:24)
[2022-07-31] MEDS: ASPIRIN 325 MG ENTERIC TABLET PO (09:01)
[2022-07-31] MEDS: DOCUSATE SODIUM 100 MG CAPSULE PO ×2 (09:04→17:27)
--- NOTE | 2022-07-31 13:35 | PM.PNORT ---
Progress Note: A&P Assessment and Plan (1) Closed fracture of right hip: Qualifiers: Encounter type: initial encounter Qualified Code(s): S72.001A - Fracture of unspecified part of neck of right femur, initial encounter for closed fracture Code(s): S72.001A - Fracture of unspecified part of neck of right femur, initial encounter for closed fracture Status: Acute Assessment and Plan: Right hip radiographs and CT reviewed. Radiographs of the right hip revealed a linear lucency extending from the intertrochanteric region to the lateral aspect of the proximal right femoral shaft, only seen on a single image. CT scan of the right hip a possible nondisplaced fracture of the lesser trochanter of the right femur. Suspected oblique fracture of the proximal femoral neck described on the comparison radiographs was not definitely visualized. MRI then obtained. MRI of the right hip reveals a possible nondisplaced intertrochanteric fracture vs. stress fracture. Images reviewed in depth with Dr. Casarez. Discussed images in depth with the patient and her . Recommended initiating conservative treatment at this time with WBAT and PT. Patient will require d/c to SNF once medically cleared and pain controlled. Will then obtain new radiographs in 3 weeks for reevaluation. Will request radiographs to be performed at the SNF she discharges to in order to reevaluate. Discussed further decision making regarding surgical intervention at that time dependent on changes vs. continued conservative treatment. In the interim, pain control. PT/OT. WBAT. Walker. Ice. Dispo: SNF when medically cleared. New Radiographs in 3 weeks. (2) Acute ischemic cerebrovascular accident (CVA) involving anterior cerebral artery territory: Code(s): I63.529 - Cerebral infarction due to unspecified occlusion or stenosis of unspecified anterior cerebral artery Status: Acute (3) Subcapital fracture of neck of right femur: Qualifiers: Encounter type: sequela Fracture type: closed Qualified Code(s): S72.011S - Unspecified intracapsular fracture of right femur, sequela Code(s): S72.011A - Unspecified intracapsular fracture of right femur, initial encounter for closed fracture Status: Resolved Assessment and Plan: Right Hip fx in 2019. Dr. Thakkar previously cared for patient. (4) Cognitive impairment: Code(s): R41.89 - Other symptoms and signs involving cognitive functions and awareness Status: Chronic Assessment and Plan: at bedside for conversations regarding current plan of care. (5) Ankle pain: Qualifiers: Chronicity: acute Laterality: right Qualified Code(s): M25.571 - Pain in right ankle and joints of right foot Code(s): M25.579 - Pain in unspecified ankle and joints of unspecified foot Status: Acute Assessment and Plan: Patient with complaints of ankle pain today of the RLE. Radiographs obtained. Radiographs reveal heterotopic ossification distal to the lateral malleolus, consistent with avulsion injury. Okay to fit patient with fracture boot at this time. WBAT RLE. Walker. Ice/elevate. Okay to remove boot when in bed and for showering. Subjective Subjective Date/Time Seen: 07/31/22 13:35 Interval history: Patient laying in bed. at bedside. Complains of right lateral hip pain. Concerned about emesis with PT today. Feels it is likely due to the narcotics. Review of Systems Review of Systems: All systems reviewed & are unremarkable except as noted in HPI and below Exam Const: General: No confusion Orientation/consciousness: patient oriented x3 and No confusion HENMT: Head: normal to inspection, normocephalic and atraumatic Eyes: Conjunctivae: conjunctivae normal Sclera: sclerae normal Neck: Neck: supple and nontender Chest: Chest palpation & inspection: normal inspection of the chest Resp: Effort & Inspection: normal re
--- NOTE | 2022-07-31 16:21 | PM.IMPN ---
Progress Note: A&P Assessment and Plan (1) Fall: Qualifiers: Encounter type: initial encounter Qualified Code(s): W19.XXXA - Unspecified fall, initial encounter Code(s): W19.XXXA - Unspecified fall, initial encounter Status: Acute (2) CHF (congestive heart failure): Qualifiers: Heart failure chronicity: unspecified Heart failure type: unspecified Qualified Code(s): I50.9 - Heart failure, unspecified Code(s): I50.9 - Heart failure, unspecified Status: Chronic (3) Cognitive impairment: Code(s): R41.89 - Other symptoms and signs involving cognitive functions and awareness Status: Chronic (4) Hip pain: Qualifiers: Laterality: right Qualified Code(s): M25.551 - Pain in right hip Code(s): M25.559 - Pain in unspecified hip Status: Acute Plan Fall mechanical per Right hip pain x-ray initially with some lucency however CT preliminary negative for fracture. All visual read with possible nondisplaced fracture of lesser trochanter of the right femur. Suspected oblique fracture of the proximal femoral neck as described. Unable to bear weight on right side query pain related or weakness related. Ortho consulted area. As suggested/recommended MRI of right hip to further evaluate the suspected area which came back as intertrochanteric nondisplaced hip fracture. Discussed with Orthopedics. Still does not recommend any operative treatment and weight-bearing as tolerated. 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 History of right hip fracture with pinning February 2020 Hypertension Short-term memory loss/cognitive impairment Spinal stenosis DVT prophylaxis on rivaroxaban at home which will be continued Code status full code Subjective Date/time seen: 07/31/22 16:21 Interval history: Continues to right pain patient MRI reviewed. Discussed with Orthopedics. Right ankle is bruised. Awaiting x-ray. At some nausea and vomiting this morning but feeling okay currently. Review of Systems Review of Systems: All systems reviewed & are unremarkable except as noted in HPI and below Exam Narrative: GENERAL: The patient is well developed, not in acute distress HEENT: Nonicteric sclerae, PERRLA, EOMI. Oropharynx clear. Moist mucous membranes. Conjunctivae appear well perfused. CHEST: Chest wall is nontender. HEART: Regular rate and rhythm without murmur, rubs, or gallops LUNGS: Clear to auscultation bilaterally. no respiratory distress ABDOMEN: Soft, positive bowel sounds, non-tender, no organomegaly. SKIN: No rash, no excessive bruising, petechiae, or purpura. NEUROLOGIC: Cranial nerves II-XII intact, alert and oriented x 3, no gross motor deficits except right leg weakness unable to lift up EXTREMITIES: no edema, cyanosis or clubbing, right ankle with bruising and lateral malleolar area Right hip tenderness Objective Data Vital Signs Vital Signs: Vital Signs - 24 hr 07/30/22 19:57 07/30/22 21:00 07/30/22 22:00 Temperature 97.3 F L Pulse Rate 90 92 Respiratory Rate 18 Blood Pressure 171/80 H Pulse Oximetry 97 96 Oxygen Delivery Room Air 07/30/22 22:30 07/31/22 06:00 07/31/22 09:00 Temperature 96.5 F L Pulse Rate 95 80 Respiratory Rate 16 Blood Pressure 151/71 H 152/97 H Pulse Oximetry 95 Oxygen Delivery 07/31/22 09:00 07/31/22 14:00 Temperature 97.4 F L Pulse Rate 86 Respiratory Rate 16 Blood Pressure 103/63 Pulse Oximetry 96 Oxygen Delivery Room Air Intake/Output Intake/Output: Intake &
[2022-07-31] MEDS: RIVAROXABAN 20 MG TABLET PO (17:25)
[2022-07-31] MEDS: ACETAMINOPHEN 325 MG TABLET 650 MG PO (20:25)
[2022-07-31] MEDS: LORazepam INJ (*CRX) 2 MG/ML VIAL 0.5 MG IV PUSH (22:40)
[2022-08-01] MEDS: ACETAMINOPHEN 325 MG TABLET 650 MG PO (05:01)
[2022-08-01 06:00] VITALS: BP 144/83; PULSE 85; RESP 18; TEMP 35.5; O2SAT 96
[2022-08-01] MEDS: PRAVASTATIN SODIUM 20 MG TABLET 40 MG PO (08:55)
[2022-08-01] MEDS: busPIRone HCL 5 MG TABLET 15 MG PO ×2 (08:55→18:03)
[2022-08-01] MEDS: GABAPENTIN 300 MG CAPSULE PO ×2 (08:55→18:03)
[2022-08-01] MEDS: ASPIRIN 325 MG ENTERIC TABLET PO (08:55)
[2022-08-01] MEDS: amLODIPine BESYLATE 5 MG TABLET 10 MG PO (08:55)
[2022-08-01] MEDS: LOSARTAN POTASSIUM 100 MG TABLET PO (08:56)
[2022-08-01 09:02] VITALS: PULSE 84
[2022-08-01] MEDS: carvediloL 12.5 MG TABLET 25 MG PO ×2 (09:02→20:31)
[2022-08-01] MEDS: DOCUSATE SODIUM 100 MG CAPSULE PO ×2 (09:04→18:03)
[2022-08-01 09:33] VITALS: O2SAT 95
[2022-08-01] MEDS: KETOROLAC 30 MG/ML VIAL (*BKC) IV PUSH ×2 (11:55→18:04)
--- NOTE | 2022-08-01 12:27 | PM.PNORT ---
Progress Note: A&P Assessment and Plan (1) Closed fracture of right hip: Qualifiers: Encounter type: initial encounter Qualified Code(s): S72.001A - Fracture of unspecified part of neck of right femur, initial encounter for closed fracture Code(s): S72.001A - Fracture of unspecified part of neck of right femur, initial encounter for closed fracture Status: Acute Assessment and Plan: Right hip radiographs and CT reviewed. Radiographs of the right hip revealed a linear lucency extending from the intertrochanteric region to the lateral aspect of the proximal right femoral shaft, only seen on a single image. CT scan of the right hip a possible nondisplaced fracture of the lesser trochanter of the right femur. Suspected oblique fracture of the proximal femoral neck described on the comparison radiographs was not definitely visualized. MRI then obtained. MRI of the right hip reveals a possible nondisplaced intertrochanteric fracture vs. stress fracture. Images reviewed in depth with Dr. Casarez. Discussed images in depth with the patient and her . Recommended initiating conservative treatment at this time with WBAT and PT. Patient will require d/c to SNF once medically cleared and pain controlled. Will then obtain new radiographs in 3 weeks for reevaluation. Will request radiographs to be performed at the SNF she discharges to in order to reevaluate. Discussed further decision making regarding surgical intervention at that time dependent on changes vs. continued conservative treatment. In the interim, pain control. Initiated dose of [place] to assist with pain control. PT/OT. WBAT. Walker. Ice. Dispo: SNF when medically cleared. New Radiographs in 3 weeks. Order submitted to be performed at SNF. (2) Acute ischemic cerebrovascular accident (CVA) involving anterior cerebral artery territory: Code(s): I63.529 - Cerebral infarction due to unspecified occlusion or stenosis of unspecified anterior cerebral artery Status: Acute (3) Subcapital fracture of neck of right femur: Qualifiers: Encounter type: sequela Fracture type: closed Qualified Code(s): S72.011S - Unspecified intracapsular fracture of right femur, sequela Code(s): S72.011A - Unspecified intracapsular fracture of right femur, initial encounter for closed fracture Status: Resolved Assessment and Plan: Right Hip fx in 2019. Dr. Thakkar previously cared for patient. (4) Cognitive impairment: Code(s): R41.89 - Other symptoms and signs involving cognitive functions and awareness Status: Chronic Assessment and Plan: at bedside for conversations regarding current plan of care. (5) Ankle pain: Qualifiers: Chronicity: acute Laterality: right Qualified Code(s): M25.571 - Pain in right ankle and joints of right foot Code(s): M25.579 - Pain in unspecified ankle and joints of unspecified foot Status: Acute Assessment and Plan: Patient with complaints of ankle pain. Radiographs obtained. Radiographs reveal heterotopic ossification distal to the lateral malleolus, consistent with avulsion injury. Okay to fit patient with fracture boot at this time. WBAT RLE. Walker. Ice/elevate. Okay to remove boot when in bed and for showering. Subjective Subjective Date/Time Seen: 08/01/22 12:27 Interval history: Patient up in chair. No new complaints today. Fitted with fracture boot for the right ankle. Review of Systems Review of Systems: All systems reviewed & are unremarkable except as noted in HPI and below Exam Const: General: No confusion Orientation/consciousness: patient oriented x3 and No confusion HENMT: Head: normal to inspection, normocephalic and atraumatic Eyes: Conjunctivae: conjunctivae normal Sclera: sclerae normal Neck: Neck: supple and nontender Chest: Chest palpation & inspection: normal inspection of the chest Resp: Effort & Inspectio
[2022-08-01 14:00] VITALS: BP 102/70; PULSE 73; RESP 18; TEMP 36.1; O2SAT 100
--- NOTE | 2022-08-01 14:41 | PM.IMPN ---
Progress Note: A&P Assessment and Plan (1) Fall: Qualifiers: Encounter type: initial encounter Qualified Code(s): W19.XXXA - Unspecified fall, initial encounter Code(s): W19.XXXA - Unspecified fall, initial encounter Status: Acute (2) CHF (congestive heart failure): Qualifiers: Heart failure chronicity: unspecified Heart failure type: unspecified Qualified Code(s): I50.9 - Heart failure, unspecified Code(s): I50.9 - Heart failure, unspecified Status: Chronic (3) Cognitive impairment: Code(s): R41.89 - Other symptoms and signs involving cognitive functions and awareness Status: Chronic (4) Hip pain: Qualifiers: Laterality: right Qualified Code(s): M25.551 - Pain in right hip Code(s): M25.559 - Pain in unspecified hip Status: Acute Plan # Fall mechanical per # Right hip pain x-ray initially with some lucency however CT preliminary negative for fracture. actual read with possible nondisplaced fracture of lesser trochanter of the right femur. Suspected oblique fracture of the proximal femoral neck as described. Unable to bear weight on right side query pain related or weakness related. Ortho consulted. As suggested/recommended MRI of right hip to further evaluate the suspected area which came back as intertrochanteric nondisplaced hip fracture. Discussed with Orthopedics. Does not recommend any operative treatment and weight-bearing as tolerated. And follow-up in short period time with Orthopedics # Right ankle bruising xray with heterotopic ossification distal to thelateral malleolus consistent with avulsion injury of the talus or distal fibula. fractrue boot for her ankle when ambulating. 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 # History of right hip fracture with pinning February 2020 # Hypertension # Short-term memory loss/cognitive impairment # Spinal stenosis # DVT prophylaxis on rivaroxaban at home which will be continued # Code status full code Subjective Date/time seen: 08/01/22 14:41 Interval history: Feels well. Right hip still hurts. Ankle walk therapy today. Pain chest pain. Awaiting insurance authorization for rehab placement. Review of Systems Review of Systems: All systems reviewed & are unremarkable except as noted in HPI and below Exam Narrative: GENERAL: The patient is well developed, not in acute distress HEENT: Nonicteric sclerae, PERRLA, EOMI. Oropharynx clear. Moist mucous membranes. Conjunctivae appear well perfused. CHEST: Chest wall is nontender. HEART: Regular rate and rhythm without murmur, rubs, or gallops LUNGS: Clear to auscultation bilaterally. no respiratory distress ABDOMEN: Soft, positive bowel sounds, non-tender, no organomegaly. SKIN: No rash, no excessive bruising, petechiae, or purpura. NEUROLOGIC: Cranial nerves II-XII intact, alert and oriented x 3, no gross motor deficits except right leg weakness unable to lift up EXTREMITIES: no edema, cyanosis or clubbing, right ankle with bruising and lateral malleolar area Right hip tenderness Objective Data Vital Signs Vital Signs: Vital Signs - 24 hr 07/31/22 19:40 07/31/22 20:09 07/31/22 20:11 Temperature 97.1 F L Pulse Rate 94 94 Respiratory Rate 18 Blood Pressure 130/64 Pulse Oximetry 96 94 Oxygen Delivery Room Air 07/31/22 22:00 08/01/22 06:00 08/01/22 09:02 Temperature 97.9 F 96 F L Pulse Rate 92 85 84 Respiratory Rate 16 18 Blood Pressure 147/93 H 144/83 H Pulse Oximetry 96 96 Oxygen Delivery 08/01/22 09:33 08/01/22 08:00 08/01/22 14:00 Temperature 97 F L Pulse Rate 73 Respiratory Rate 18 Blood Pressure 102/70 Pulse
[2022-08-01] MEDS: RIVAROXABAN 20 MG TABLET PO (18:03)
[2022-08-01 20:00] VITALS: PULSE 72; RESP 14; O2SAT 98
[2022-08-01 22:00] VITALS: BP 139/80; PULSE 72; RESP 14; TEMP 35.9; O2SAT 98
[2022-08-01] MEDS: HYDROcodone/acetaminophen (*CRX) 5-325 MG TABLET 1 TAB PO (22:10)
[2022-08-02 06:00] VITALS: BP 151/74; PULSE 74; RESP 18; TEMP 36.1; O2SAT 98
[2022-08-02] MEDS: busPIRone HCL 5 MG TABLET 15 MG PO (08:35)
[2022-08-02] MEDS: ASPIRIN 325 MG ENTERIC TABLET PO (08:35)
[2022-08-02] MEDS: amLODIPine BESYLATE 5 MG TABLET 10 MG PO (08:35)
[2022-08-02] MEDS: HYDROcodone/acetaminophen (*CRX) 5-325 MG TABLET 1 TAB PO (08:35)
[2022-08-02 08:36] VITALS: PULSE 78
[2022-08-02] MEDS: carvediloL 12.5 MG TABLET 25 MG PO (08:36)
[2022-08-02] MEDS: LOSARTAN POTASSIUM 100 MG TABLET PO (08:36)
[2022-08-02] MEDS: PRAVASTATIN SODIUM 20 MG TABLET 40 MG PO (08:36)
[2022-08-02] MEDS: GABAPENTIN 300 MG CAPSULE PO (08:36)
[2022-08-02] MEDS: DOCUSATE SODIUM 100 MG CAPSULE PO (08:37)
--- NOTE | 2022-08-02 09:36 | PCOTNOTE ---
Attempted to see Patient this A.M. Patient refused to participate with any activities at this time. Patient complaining of severe nausea and she is very sick right now. RN notified and aware. Will attempt back at a later time.
[2022-08-02] MEDS: ONDANSETRON INJ 4 MG/2 ML VIAL IV PUSH (10:28)
--- NOTE | 2022-08-02 10:41 | PM.DS ---
DS: Admitting Diagnosis Discharge Date 08/02/22 Admitting Diagnosis Fall with hip pain DS: Discharge Diagnosis Discharge Diagnosis (1) Fall: Qualifiers: Encounter type: initial encounter Qualified Code(s): W19.XXXA - Unspecified fall, initial encounter Code(s): W19.XXXA - Unspecified fall, initial encounter Status: Acute (2) Cognitive impairment: Code(s): R41.89 - Other symptoms and signs involving cognitive functions and awareness Status: Chronic (3) Closed fracture of right hip: Qualifiers: Encounter type: initial encounter Qualified Code(s): S72.001A - Fracture of unspecified part of neck of right femur, initial encounter for closed fracture Code(s): S72.001A - Fracture of unspecified part of neck of right femur, initial encounter for closed fracture Status: Acute (4) Ankle pain: Qualifiers: Chronicity: acute Laterality: right Qualified Code(s): M25.571 - Pain in right ankle and joints of right foot Code(s): M25.579 - Pain in unspecified ankle and joints of unspecified foot Status: Acute (5) CHF (congestive heart failure): Qualifiers: Heart failure chronicity: unspecified Heart failure type: unspecified Qualified Code(s): I50.9 - Heart failure, unspecified Code(s): I50.9 - Heart failure, unspecified Status: Chronic DS: Summary Hospital Course Hospital Course: Patient had a mechanical fall per . Right hip pain x-ray initially with some lucency however CT preliminary negative for fracture but actual read with possible nondisplaced fracture of lesser trochanter of the right femur. Suspected oblique fracture of the proximal femoral neck as described. Unable to bear weight on right side. Ortho consulted. MRI of right hip intertrochanteric nondisplaced proximal femur fracture. Discussed with Orthopedics who did not recommend any operative treatment and felt patient could do weight-bearing as tolerated. She was also having ankle pain. Right ankle bruising noted. Xray with heterotopic ossification distal to the lateral malleolus consistent with avulsion injury of the talus or distal fibula. Fracture boot for her ankle ordered when ambulating. She has a history of CVA affecting her right side in February 2022. She was admitted [facility] with expressive aphasia and right-sided weakness. MRI with scattered acute ischemic infarct within the left subcortical white matter of left insula left parietal occipital lobe and left centrum semiovale coronal radiata. CT brain here showing no acute findings. Patient worked with therapy. She has been accepted at skilled facility. She overall did well to discharge home for 08/02/2022. No answer at the phone number listed for . Status at Discharge Cognitive/behavioral status at discharge: Stable Time Spent with Patient Time attestation: Total time spent providing and/or coordinating discharge services: 38 minutes Time spent: Greater than 30 minutes Exam Narrative: AF 97.0 151/74 78 18 98% ra Gen - NARD Chest - CTA bilaterally, nml RR CV - RRR S1/S2 Abd - Soft, NT/ND, Positive BS Ext - No pedal edema Neuro - Alert and oriented. Nonfocal exam. Psych - Nml mood and affect Skin - Warm and dry Discharge Plan Discharge Attending physician on discharge: Robin Orozco Consulting providers: Dmitriy Casarez; Vanesa Cleaning Discharging Clinician: Robin Orozco Anticipated Discharge Date/Time: 08/02/22 10:53 Patient Disposition: SNF Activity: may shower, no driving and follow weight bearing status Diet: heart healthy Discharge Instructions: Orthopedic Recommendations Dr. Dmitriy Casarez [phone] Weight bearing as tolerated right lower extremity. Fracture boot to the right foot for pain control. May remove for hygiene, while in bed to rest/elevate. Walker. High Fall Risk. New radiographs o
[2022-08-02 11:19] LABS: EDCOVIDSCREEN Negative (Negative)
--- NOTE | 2022-08-02 11:28 | PM.PNORT ---
Progress Note: A&P Assessment and Plan (1) Closed fracture of right hip: Qualifiers: Encounter type: initial encounter Qualified Code(s): S72.001A - Fracture of unspecified part of neck of right femur, initial encounter for closed fracture Code(s): S72.001A - Fracture of unspecified part of neck of right femur, initial encounter for closed fracture Status: Acute Assessment and Plan: RIGHT INTRATROCHANTERIC FEMUR FRACTURE WITH RETAINED SCREWS AND GOOD POSITION. SHE WILL TRANSFER TO SNF TODAY. SHE WILL F/U WITH DR DIAZ IN 3 WEEKS FOR REPEAT XRAYS. Subjective Subjective Date/Time Seen: 08/02/22 11:28 right non displaced intertroc fracture doing well. she has no calf pain. getting up with pt. Exam Extrem: Other: VSS AFEBRILE CALF SOFT NON TENDER NEG HOMANS SIGN THIGH SOFT NON TENDER.NO PAIN WITH PASSIVE MOTION RIGHT HIP. NO PAIN WITH ACTIVE HIP FLEXION. Objective Data Vital Signs Vital Signs: Vital Signs - 24 hr 08/01/22 14:00 08/01/22 22:00 08/01/22 20:00 Temperature 36.1 C L 35.9 C L Pulse Rate 73 72 72 Respiratory Rate 18 14 14 Blood Pressure 102/70 139/80 Pulse Oximetry 100 98 98 Oxygen Delivery Room Air 08/02/22 06:00 08/02/22 08:00 08/02/22 08:36 Temperature 36.1 C L Pulse Rate 74 78 Respiratory Rate 18 Blood Pressure 151/74 H Pulse Oximetry 98 Oxygen Delivery Room Air Intake/Output Intake/Output: Intake & Output 07/30/22 07/31/22 08/01/22 08/02/22 23:59 23:59 23:59 23:59 Intake Total 1020 2417 1700 450 Output Total 660 1050 450 Balance 360 2417 650 0 Meds/Results Medications: Active Medications Generic Name Dose Route Start Last Admin Trade Name Freq PRN Reason Stop Dose Admin Acetaminophen 650 mg 07/29/22 14:20 08/01/22 05:01 Acetaminophen 325 Mg Tablet PO 650 mg Q6H PRN Administration fever or pain 1-3 Hydrocodone Bitart/Acetaminophen 1 tab 08/01/22 12:53 08/02/22 08:35 Hydrocodone/Acetaminophen (*Crx) 5-325 Mg Tablet PO 1 tab Q6H PRN Administration Pain Rated 4-6 Amlodipine Besylate 10 mg 07/30/22 09:00 08/02/22 08:35 Amlodipine Besylate 5 Mg Tablet PO 10 mg QAM RHEA Administration Aspirin 325 mg 07/30/22 09:00 08/02/22 08:35 Aspirin 325 Mg Enteric Tablet PO 325 mg QAM RHEA Administration Buspirone HCl 15 mg 07/29/22 17:00 08/02/22 08:35 Buspirone Hcl 5 Mg Tablet PO 15 mg BID RHEA Administration Carvedilol 25 mg 07/29/22 21:00 08/02/22 08:36 Carvedilol 12.5 Mg Tablet PO 25 mg Q12HR RHEA Administration Docusate Sodium 100 mg 07/29/22 17:00 08/02/22 08:37 Docusate Sodium 100 Mg Capsule PO 100 mg BID RHEA Administration Gabapentin 300 mg 07/29/22 17:00 08/02/22 08:36 Gabapentin 300 Mg Capsule PO 300 mg TID RHEA Administration Ketorolac Tromethamine 30 mg 07/29/22 02:37 08/01/22 18:04 Ketorolac 30 Mg/Ml Vial (*[facility]) IV PUSH 08/03/22 02:36 30 mg Q6H PRN Administration Pain Rated 4-6 Losartan Potassium 100 mg 07/30/22 09:00 08/02/22 08:36 Losartan Potassium 100 Mg Tablet PO 100 mg DAILY RHEA Administration Miscellaneous Information 1 each 07/29/22 14:30 Repath Sureclick Nonformulary. Can Patient Use From Home? XX 08/28/22 14:29 CLARIFY [facility] Non-Formulary Medication 140 mg 08/09/22 09:00 Evolocumab [Repatha Gwendolyn] SUB-Q 09/08/22 08:59 Q14D [facility] Ondansetron HCl 4 mg 08/02/22 10:15 08/02/22 10:28 Ondansetron Inj 4 Mg/2 Ml Vial IV PUSH 4 mg Q6H PRN Administration Nausea And Vomiting Pravastatin Sodium 40 mg 07/30/22 09:00 08/02/22 08:36 Pravastatin Sodium 20 Mg Tablet PO 40 mg DAILY RHEA Administration Rivaroxaban 20 mg 07/29/22 18:00 08/01/22 18:03 Rivaroxaban 20 Mg Tablet PO 20 mg QPM RHEA Administration Radiology Results: ITS Impressions Head CT 07/28/22 22:25 Impression: No intracranial hemorrhage, mass, or acute infarct.
== END 2022-08-02 13:20 ==
LOC: ANHED 07-29 02:40 → ANH3MEDSUR 07-29 08:46
PROVIDERS: Admitting Provider Internal Medicine; Emergency Provider Physician Assistant; PCP Internal Medicine; Visit Provider Internal Medicine
DX: S72.011A Unspecified intracapsular fracture of right femur, initial encounter for closed fracture (principal); W19.XXXA Unspecified fall, initial encounter; R41.89 Other symptoms and signs involving cognitive functions and awareness; I63.529 Cerebral infarction due to unspecified occlusion or stenosis of unspecified anterior cerebral artery; I11.0 Hypertensive heart disease with heart failure; I50.9 Heart failure, unspecified; D64.9 Anemia, unspecified; F41.9 Anxiety disorder, unspecified; G89.29 Other chronic pain; Z20.822 Contact with and (suspected) exposure to COVID-19; M54.9 Dorsalgia, unspecified; M25.571 Pain in right ankle and joints of right foot; R60.9 Edema, unspecified; G31.9 Degenerative disease of nervous system, unspecified; M16.11 Unilateral primary osteoarthritis, right hip; M48.061 Spinal stenosis, lumbar region without neurogenic claudication; M47.816 Spondylosis without myelopathy or radiculopathy, lumbar region; M79.7 Fibromyalgia; E78.5 Hyperlipidemia, unspecified; I69.351 Hemiplegia and hemiparesis following cerebral infarction affecting right dominant side; R41.3 Other amnesia; Z79.1 Long term (current) use of non-steroidal anti-inflammatories (NSAID); Z79.82 Long term (current) use of aspirin; Z79.01 Long term (current) use of anticoagulants; Z79.899 Other long term (current) drug therapy; Z87.81 Personal history of (healed) traumatic fracture; Z87.891 Personal history of nicotine dependence; Z82.49 Family history of ischemic heart disease and other diseases of the circulatory system; Z82.3 Family history of stroke
CPT/HCPCS: 36415; 70450; 71045; 72131; 73521; 73610; 73700; 73721; 80053; 81003; 83735; 85025; 87426; 96374; 96375; 96376; 97110; 97161; 97165; 97530; 97535; 99285; A9270; C9803; G0378; J1170; J1885; J2060; J2270; J2405

== ENCOUNTER 2022-08-03 07:12 | Inpatient (IN) | payer MEDICARE, SELFPAY ==
[2022-08-03] VITALS (19 sets, daily range): BP systolic 121–174; BP diastolic 51–122; PULSE 81–87; RESP 14–20; TEMP 36–36.6; O2SAT 95–99
--- NOTE | ~2022-08-03 | XR_ITS ---
EXAMINATION: XR surgery orthopedic DATE: 08/04/2022 15:33 INDICATION: Right femoral intratrochanteric nailing. TECHNIQUE: 4 fluoroscopic images of the right femur were obtained during procedure performed by Dr. Jolene nguyen. Images include AP and lateral views of the proximal end of the distal femur. Radiologist was not present for the imaging or procedure. The amount of fluoroscopy time used during this procedure w as 32.8 minutes. COMPARISON: Radiographs dated 08/03/2022 FINDINGS: Interval removal of the 3 prior cannulated lag screws at the right femoral head and neck. Reduction o f the previously displaced and angulated subtrochanteric fracture of the proximal right femur and fix ation with an antegrade intramedullary brad. There are a pair of femoral neck dynamic compression scre ws as well as a pair of interlocking screws at the supracondylar distal right femur. Alignment appear s near-anatomic. Expected small amount of postoperative lucent intra-articular and soft tissue gas at the right hip. No new fractures identified. IMPRESSION: 1. Near-anatomic alignment post open reduction internal fixation of a subtrochanteric fracture of the proximal right femur including removal of prior fractures at the femoral head neck. See procedure no te for further detail. Reviewed, dictated and finalized at location A. IMPRESSION: 1. Near-anatomic alignment post open reduction internal fixation of a subtrocha nteric fracture of the proximal right femur including removal of prior fracture s at the femoral head neck. See procedure note for further detail.
--- NOTE | ~2022-08-03 | XR_ITS ---
Portable chest x-ray Comparison: 07/28/2022 Clinical History: Preoperative clearance Findings: Lungs are clear, without focal consolidation or pleural effusion. Cardiomediastinal silho uette is stable. Bones and soft tissues are unremarkable. Impression: Normal chest. Reviewed, dictated and finalized at [facility]. Impression: Normal chest.
--- NOTE | ~2022-08-03 | XR_ITS ---
EXAMINATION: XR hip RT 2V w AP pelvis DATE: 08/03/2022 08:56 INDICATION: Right hip fracture with worsening right hip pain TECHNIQUE: Anteroposterior view of the pelvis and anteroposterior and cross-table lateral views of th e right hip were obtained. COMPARISON: Right hip CT dated 07/28/2022 FINDINGS: There are 3 cannulated lag screws extending across the right femoral neck for reported fixation of an old now healed fracture. Caudal to the level of the screws is an acute oblique subtrochanteric fract ure of the proximal right femur which extends from posterior superiorly to anteroinferiorly. There is 30 degree varus and 15 degree posterior angulation along with one cortical width posterior displacem ent and 4 cm proximal migration. No other fractures identified. Femoral head remains normally centere d in the right acetabulum. Mild bilateral hip and sacroiliac osteoarthritis. Anterior fusion at L5-S1 but appreciated on prior CT. IMPRESSION: 1. Displaced and angulated subtrochanteric fracture of the proximal right femur. Reviewed, dictated and finalized at location A. IMPRESSION: 1. Displaced and angulated subtrochanteric fracture of the proximal right femur .
--- NOTE | 2022-08-03 08:47 | ED.GENADULT ---
HPI - General Adult General Chief complaint: Recheck/Abnormal Lab/Rx Stated complaint: recent hip fx Time Seen by Provider: 08/03/22 07:41 History of Present Illness HPI narrative: 76-year-old female presented emergency department for evaluation of right hip pain. Patient had a ground-level fall and was previously diagnosed with a nondisplaced intertrochanteric right hip fracture. Patient had been admitted and was evaluated by orthopedics and they felt that there was no surgical intervention needed. Patient is allowed to do weightbearing as tolerated. Patient also has an injury to her right foot and is prescribed a walking boot. Patient presents to the emergency department today complaining of worsening right hip pain. Patient was discharged to the [facility] with Tylenol for pain control. Patient denies any new falls or injuries. Upon arrival patient is complaining of some nausea and increased hip pain. Related Data Allergies Allergy/AdvReac Type Severity Reaction Status Date / Time No Known Allergies Allergy Verified 08/03/22 07:24 Review of Systems Review of Systems: All systems reviewed & are unremarkable except as noted in HPI and below PMFSH Past Medical History Medical History (Updated 08/03/22 @ 13:01 by Melissa Ott PA-C) Dyslipidemia Hypertension Social History Social History (Updated 08/03/22 @ 12:59 by Melissa Ott PA-C) Social History: Surrogate medical decision maker: Jovani Green, spouse. Code status: Full code. Smoking status: Never smoker Second hand tobacco smoke exposure: No Alcohol intake: never Substance use: never Spiritual care concerns: No Exam Narrative: APPEARANCE: Uncomfortable due to hip pain HEAD: normocephalic, atraumatic. EYES: PERRLA/EOMI, conjunctivae clear. NOSE: Normal no drainage NECK: Supple. No adenopathy, no masses. RESPIRATORY: Airway patent, respirations nonlabored. Clear to auscultation bilaterally, no rales, rhonchi, wheezing. CARDIOVASCULAR: Regular rate and rhythm without murmurs rubs or gallops. ABDOMINAL: Soft, nontender, nondistended, normal bowel sounds MUSCULOSKELETAL: Right hip pain with decreased range of motion. Neurovascular intact. NEURO: Alert. Cranial nerves II through XII intact. Good gait. Good coordination SKIN: Warm, dry. Normal Color Course Course Emergency Course: 76-year-old female presented to the ED for evaluation of worsening right hip pain. Patient's x-ray is significantly changed compared to her x-ray at time of discharge. Case was discussed with orthopedics and they will see the patient as consult. Case discussed with the hospitalist and patient was except for admission. Both patient and were updated on the results of the work-up and plan for admission. All question concerns were addressed. At time of reevaluation patient states she does feel improved. Vital Signs Vital signs: Vital Signs Temperature 97.3 F L 08/03/22 07:14 Pulse Rate 81 08/03/22 07:14 Respiratory Rate 20 08/03/22 07:14 Blood Pressure 162/108 H 08/03/22 07:14 Pulse Oximetry 99 08/03/22 07:14 Oxygen Delivery Room Air 08/03/22 07:14 Temperature 96.8 F L 08/03/22 14:00 Pulse Rate 85 08/03/22 14:00 Respiratory Rate 18 08/03/22 14:00 Blood Pressure 173/72 H 08/03/22 14:00 Pulse Oximetry 95 08/03/22 14:00 Oxygen Delivery Room Air 08/03/22 13:34 Medical Decision Making Differential Diagnosis Differential Diagnosis: Hip fracture, hip dislocation, uncontrolled pain Vital Signs Vital Signs: Vital Signs Temperature 97.3 F L 08/03/22 07:14 Pulse Rate 81 08/03/22 07:14 Respiratory Rate 20 08/03/22 07:14 Blood Pressure 162/108 H 08/03/22 07:14 Pulse Oximetry 99 08/03/22 07:14 Oxygen Delivery Room Air 08/03/22 07:14 Temperature 96.8 F L 08/03/22 14:00 Pulse Rate 85 08/03/22 14:00 Respiratory Rate 18 08/03/22 14:00 Blood Pressure 173/72 H
[2022-08-03] MEDS: CYCLOBENZAPRINE HCL 10 MG TABLET PO (08:56)
[2022-08-03] MEDS: ONDANSETRON INJ 4 MG/2 ML VIAL IV PUSH (09:22)
[2022-08-03] MEDS: HYDROmorphone HCL INJ (*CRX) 1 MG/ML SYR 0.5 MG IV PUSH (09:22)
[2022-08-03] MEDS: SODIUM CHLORIDE 0.9% IV 1,000 ML 75 ML IV CONT ×2 (10:41→21:44)
--- NOTE | 2022-08-03 11:28 | PC.NURSE ---
Report received from Sabrina DIAZ at this time
[2022-08-03] MEDS: MORPHINE SULFATE (*CRX) 2 MG/ML INJ IV PUSH ×2 (12:15→15:37)
--- NOTE | 2022-08-03 12:55 | PM.IMHP ---
H&P: HPI History of Present Illness Date/Time: 08/03/22 12:55 Chief Complaint: Right hip pain. Narrative: This is a 76-year-old female with dementia, hypertension, dyslipidemia, and history of stroke with aphasia and right-sided weakness to presented to the emergency department via EMS from [facility] for evaluation of right hip pain. The patient is not a great historian and a majority of the following history is supplemented via a review of her electronic medical records. She was seen in the emergency department on the evening of 07/28/2022 with right hip pain after a fall in her basement. X-ray showed a questionable fracture of the right hip and she was admitted for further evaluation and orthopedic consultation. CT scan showed a previous right femoral neck fracture treated with internal fixation; no intra-articular fracture was noted and thus no surgery was indicated. She is to be weight-bearing as tolerated with pain control and was discharged to [facility] yesterday while this fracture heals. She has apparently been complaining of nearly constant pain in the right hip and came back in today for evaluation. At the time my evaluation she is resting comfortably. She does not recall why she was brought to the hospital today and had to be reminded several times that she was here for hip fracture. She has no significant pain at this time. FORMERLY [facility], [facility] Past Medical History Medical History (Updated 08/03/22 @ 22:22 by Melissa Ott PA-C) Anemia Anxiety Cerebrovascular accident Residual aphasia and right-sided weakness. Chronic back pain Dementia Dyslipidemia Hypertension Kidney stones Spinal stenosis Surgical History Surgical History (Updated 08/03/22 @ 22:22 by Melissa Ott PA-C) History of appendectomy History of cardiac catheterization (11/2014) No significant coronary artery disease. History of cholecystectomy History of open reduction and internal fixation (ORIF) procedure Pending right femoral neck fracture. Family History Family History (Updated 08/03/22 @ 22:23 by Melissa Ott PA-C) Mother Parkinsons disease Hypertension Dementia Father Cerebrovascular accident Congestive heart failure Sibling Acute myocardial infarction Social History Social History (Updated 08/03/22 @ 22:23 by Melissa Ott PA-C) Social History: Surrogate medical decision maker: Jovani Norma, spouse. Code status: Full code. Smoking packs per day: 0.5 Smoking cigarettes per day: 10.0 Years smoked: 10 Smoking pack-years: 5.00 Smoking status: Former smoker Second hand tobacco smoke exposure: No Alcohol intake: never Substance use: never Additional living arrangements comments: Lives with spouse. 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are concerns: No Meds Home Medications and Allergies Allergies Allergy/AdvReac Type Severity Reaction Status Date / Time No Known Allergies Allergy Verified 08/03/22 07:24 Vital Signs Vital Signs - 24 hr 08/03/22 07:14 08/03/22 07:31 08/03/22 07:32 Temperature 97.3 F L Pulse Rate 81 Respiratory Rate 20 Blood Pressure 162/108 H 121/90 Pulse Oximetry 99 97 98 Oxygen Delivery Room Air 08/03/22 07:45 08/03/22 07:47 08/03/22 08:05 Temperature Pulse Rate Respiratory Rate Blood Pressure 149/122 H Pulse Oximetry 97 99 98 Oxygen Delivery 08/03/22 08:21 08/03/22 08:30 08/03/22 09:01 Temperature Pulse Rate Respiratory Rate Blood Pressure Pulse Oximetry 98 98 96 Oxygen Delivery 08/03/22 09:22 08/03/22 09:36 08/03/22 09:51 Temperature Pulse Rate Respiratory Rate Blood Pressure Pulse Oximetry 98 97 95 Oxygen Delivery 08/03/22 10:03 08/03/22 10:17 08/03/22 10:32 Temperature Pulse Rate Respiratory Rate Blood Pressure 129/101 H 137/51 L Pulse Oximetry 95 Oxygen Delivery 08/03/22 10:33
--- NOTE | 2022-08-03 13:01 | ECG_ITS ---
Measurements Intervals [place] Rate: 81 P: 56 [place]: 161 QRS: 21 QRSD: 100 T: 88 QT: 397 QTc: 461 Interpretive Statements SINUS RHYTHM NO PREVIOUS ECG AVAILABLE FOR COMPARISON Electronically Signed On 08-03-2022 16:04:19 CDT by Page Higgins M.D.
[2022-08-03 18:02] LABS: Hematocrit 30.9 % (37.0-47.0); Hemoglobin 10.7 g/dL (12.0-15.0); Mean Corpuscular HGB Conc 34.6 g/dl (32-36); Mean Corpuscular Hemoglobin 30.3 pg (26-34); Mean Corpuscular Volume 87.5 fl (80-100); Mean Platelet Volume 9.3 fl (7.4-10.4); Platelet Count Result 284 k/mm3 (150-375); Red Blood Count 3.53 M/mm3 (4.2-5.4); Red Cell Distribution Width 12.3 % (11.5-14.5); White Blood Count 14.8 K/mm3 (4.5-10.0)
[2022-08-03 18:08] LABS: Alanine Aminotransferase 22 U/L (6-35); Albumin Level 4.2 g/dL (3.5-5.1); Alkaline Phosphatase 99 U/L (38-126); Anion Gap 8 mmol/L (8-16); Aspartate Amino Transferase 33 U/L (14-36); Bilirubin,Total 0.7 mg/dL (0.2-1.3); Blood Urea Nitrogen 16 mg/dL (7-17); Calcium 8.9 mg/dL (8.4-10.2); Carbon Dioxide 26 mmol/L (22-30); Chloride 97 mmol/L (98-107); Estimated CRCL calculation 63 ml/min; Estimated Glomerular Filt Rate > 60; Glucose 108 mg/dL (65-110); Sodium 131 mmol/L (137-145)
[2022-08-03 18:14] LABS: INR 1.4; Prothrombin Time 17.3 Seconds (11.1-14.7)
[2022-08-03 18:15] LABS: Partial Thromboplastin Time 42.4 SECONDS (22.3-36.8)
[2022-08-04] VITALS (10 sets, daily range): BP systolic 88–160; BP diastolic 40–80; PULSE 50–108; RESP 14–20; TEMP 35.8–37.2; O2SAT 92–100
[2022-08-04] MEDS: MORPHINE SULFATE (*CRX) 2 MG/ML INJ IV PUSH (02:39)
[2022-08-04 06:03] LABS: Hematocrit 29.2 % (37.0-47.0); Mean Corpuscular HGB Conc 34.2 g/dl (32-36); Mean Corpuscular Hemoglobin 30.4 pg (26-34); Mean Corpuscular Volume 88.8 fl (80-100); Mean Platelet Volume 9.4 fl (7.4-10.4); Platelet Count Result 280 k/mm3 (150-375); Red Blood Count 3.29 M/mm3 (4.2-5.4); Red Cell Distribution Width 12.4 % (11.5-14.5); White Blood Count 15.7 K/mm3 (4.5-10.0)
[2022-08-04 06:23] LABS: Anion Gap 8 mmol/L (8-16); Blood Urea Nitrogen 17 mg/dL (7-17); Calcium 8.9 mg/dL (8.4-10.2); Carbon Dioxide 26 mmol/L (22-30); Chloride 98 mmol/L (98-107); Estimated CRCL calculation 65 ml/min; Estimated Glomerular Filt Rate > 60; Glucose 104 mg/dL (65-110); Potassium 3.7 mmol/L (3.4-5.0); Sodium 132 mmol/L (137-145)
--- NOTE | 2022-08-04 07:16 | WPDHPUPDATE1 ---
History and Physical Update Update Date/Time: 08/04/22 07:16 History and Physical has been reviewed, including an updated exam of the patient. There are NO changes in the patient's condition. Risks, benefits, and alternatives have been discussed and questions answered. Patient agrees to proceed with procedure.
--- NOTE | 2022-08-04 07:19 | PM.CNOR ---
Assessment and Plan Assessment and plan (1) Subtrochanteric fracture of right femur: Code(s): S72.21XA - Displaced subtrochanteric fracture of right femur, initial encounter for closed fracture Status: Acute Assessment and Plan: RIGHT SUB TROCHANTERIC FEMUR FRACTURE WITH RETAINED HARDWARE. PLAN IS FOR REMOVAL OF HARDWARE AND INSERTION OF FEMORAL NADER WITH HIP SCREW. DISCUSSED NONOPERATIVE AND OPERATIVE TREATMENT OPTIONS WITH THE PATIENT. THE PATIENT'S QUESTIONS WERE ANSWERED. THE PATIENT DESIRES OPERATIVE TREATMENT. RISKS OF SURGERY INCLUDING BUT NOT LIMITED TO NEUROVASCULAR DAMAGE, WOUND COMPLICATIONS, BLOOD CLOT, PULMONARY EMBOLUS, STROKE, ME, ANESTHETIC RISKS UP TO AND INCLUDING WERE REVIEWED. CONTINUED PAIN AND POSSIBLE DYSFUNCTION WERE EXPLAINED. NO GUARANTEES WERE OFFERED. THE PATIENT UNDERSTANDS AND WISHES TO PROCEED. History of Present Illness HPI Consult date: 08/04/22 Chief complaint: Right Hip Fracture Narrative: KAVON RETURNS FOR INCREASED PAIN IN THE RIGHT HIP. SHE UNDERWENT RIGHT HIP PERCUTANEOUS PINNING A FEW YEARS AGO FOR A FEMORAL NECK FRACTURE. SHE RECENTLY FELL ON TO HER RIGHT HIP AND SUSTAINED A RIGHT INTRATROCHANTERIC FEMUR FRACTURE WHICH WAS NONDISPLACED AND DIAGNOSED ON MRI. SHE WAS ABLE TO AMBULATE WITH MINIMAL DISCOMFORT. SHE WAS DISCHARGED HOME. ONE DAY LATER SHE FELT PAIN IN THE RIGHT HIP AND WAS SEEN AGAIN IN THE ED. SHE WAS DIAGNOSED WITH A COMPLETE SUBTROCHANTERIC FEMUR FRACTURE. SHE IS HERE FOR INSERTION OF FEMORAL NADER WITH HIP SCREW RIGHT FEMUR. HISTORY, EXAM AND RADIOGRAPHS REVIEWED WITH THE PATIENT. REFERRING PHYSICIAN RECORDS AND IMAGES REVIEWED. CONDITION, NATURE, ETIOLOGY AND COURSE OF NATURAL HISTORY REVIEWED. CONSERVATIVE AND OPERATIVE TREATMENT OPTIONS REVIEWED WELL THE RISKS AND BENEFITS OF EACH. Review of Systems Review of Systems: All systems reviewed & are unremarkable except as noted in HPI and below PMFSH Past Medical History Medical History Anemia Anxiety Cerebrovascular accident Residual aphasia and right-sided weakness. Chronic back pain Dementia Dyslipidemia Hypertension Kidney stones Spinal stenosis Surgical History Surgical History History of appendectomy History of cardiac catheterization (11/2014) No significant coronary artery disease. History of cholecystectomy History of open reduction and internal fixation (ORIF) procedure Pending right femoral neck fracture. Family History Family History Mother Parkinsons disease Hypertension Dementia Father Cerebrovascular accident Congestive heart failure Sibling Acute myocardial infarction Social History Social History Social History: Surrogate medical decision maker: Jovani Green, spouse. Code status: Full code. Smoking packs per day: 0.5 Smoking cigarettes per day: 10.0 Years smoked: 10 Smoking pack-years: 5.00 Smoking status: Former smoker Second hand tobacco smoke exposure: No Alcohol intake: never Substance use: never Additional living arrangements comments: Lives with spouse. 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
--- NOTE | 2022-08-04 07:30 | WPDANESEPPF ---
Anes - Initial Pre Proc Eval Procedure: Operation Date: 08/04/22 09:00 Proposed Procedures p Intertrochanteric Nail Right Hip, - Dani Currie MD s Removal Hardware Right Hip - Dani Currie MD Date/Time: 08/04/22 07:30 Surgeon: Mary Jaquez PA-C Pre Op Diagnosis: Right Hip Fracture Patient Data Age: 76 Gender: F Height: 1.68 m Weight: 87.7 kg Last Vital Signs Temp 37.2 C 08/04/22 05:27 Pulse 102 H 08/04/22 05:27 Resp 14 08/04/22 05:27 BP 160/73 H 08/04/22 05:27 Pulse Ox 96 08/04/22 05:27 O2 Del Method Room Air 08/03/22 20:00 Allergies Allergy/AdvReac Type Severity Reaction Status Date / Time No Known Allergies Allergy Verified 08/04/22 08:28 Laboratory Tests 08/03/22 08/04/22 17:50 05:47 WBC 14.8 H K/mm3 15.7 H K/mm3 (4.5-10.0) (4.5-10.0) RBC 3.53 L M/mm3 3.29 L M/mm3 (4.2-5.4) (4.2-5.4) Hgb 10.7 L g/dL 10.0 L g/dL (12.0-15.0) (12.0-15.0) Hct 30.9 L % 29.2 L % (37.0-47.0) (37.0-47.0) MCV 87.5 fl 88.8 fl (80-100) (80-100) MCH 30.3 pg 30.4 pg (26-34) (26-34) MCHC 34.6 g/dl 34.2 g/dl (32-36) (32-36) RDW 12.3 % 12.4 % (11.5-14.5) (11.5-14.5) Plt Count 284 k/mm3 280 k/mm3 (150-375) (150-375) MPV 9.3 fl 9.4 fl (7.4-10.4) (7.4-10.4) PT 17.3 H Seconds (11.1-14.7) INR 1.4 APTT 42.4 H SECONDS (22.3-36.8) Sodium 131 L mmol/L 132 L mmol/L (137-145) (137-145) Potassium 4.0 mmol/L 3.7 mmol/L (3.4-5.0) (3.4-5.0) Chloride 97 L mmol/L 98 mmol/L (98-107) (98-107) Carbon Dioxide 26 mmol/L 26 mmol/L (22-30) (22-30) Anion Gap 8 mmol/L 8 mmol/L (8-16) (8-16) BUN 16 mg/dL 17 mg/dL (7-17) (7-17) Creatinine 0.70 mg/dL 0.70 mg/dL (0.7-1.0) (0.7-1.0) Estim Creat Clear Calc 63 ml/min 65 ml/min Estimated GFR > 60 > 60 (59 - ) (59 - ) Glucose 108 mg/dL 104 mg/dL (65-110) (65-110) Calcium 8.9 mg/dL 8.9 mg/dL (8.4-10.2) (8.4-10.2) Magnesium 2.0 mg/dL 2.0 mg/dL (1.6-2.3) (1.6-2.3) Total Bilirubin 0.7 mg/dL (0.2-1.3) AST 33 U/L (14-36) ALT 22 U/L (6-35) Alkaline Phosphatase 99 U/L (38-126) Total Protein 7.0 g/dL (6.3-8.2) Albumin 4.2 g/dL (3.5-5.1) Patient hx anesthesia problems: none Family hx anesthesia problems: none Results Review: All pre-operative results and documents have been reviewed as part of the pre-operative evaluation. [facility] Past Medical History Medical History Anemia Anxiety Cerebrovascular accident Residual aphasia and right-sided weakness. Chronic back pain Dementia Dyslipidemia Hypertension Kidney stones Spinal stenosis Surgical History Surgical History History of appendectomy History of cardiac catheterization (11/2014) No significant coronary artery disease. History of cholecystectomy History of open reduction and internal fixation (ORIF) procedure Pending right femoral neck fracture. Family History Family History Mother Parkinsons disease Hypertension Dementia Father Cerebrovascular accident Congestive heart failure Sibling Acute myocardial infarction Social History Social History Social History: Surrogate medical decision maker: Jovani Patlester, spouse. Code status: Full code. Smoking packs per day: 0.5 Smoking cigarettes per day: 10.0 Years smoked: 10 Smoking pack-years: 5.00 Smoking status: Former smoker Second hand tobacco smoke exposure: No Alcohol intake: never Substance use: never Additional living arrangements comments: Lives with spouse. 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
[2022-08-04] MEDS: TRANEXAMIC ACID 1,000MG/ISO100 1,000 MG/100 ML BAG 200 MG IVPB (08:23)
[2022-08-04] MEDS: ceFAZolin 2 GM/D5W 50 ML 2 GM/50 ML BAG IVPB ×2 (09:39→17:51)
[2022-08-04] MEDS: BUPivacaine HCL 0.25% PF 10 ML VIAL 30 ML INFILTRATE (10:52)
--- NOTE | 2022-08-04 11:07 | SUR.OPER ---
Sent Type & Screen with CARLEY Alas and received by Dionne
[2022-08-04] MEDS: TRANEXAMIC ACID 1,000 MG/10 ML AMPUL 1000 MG IV PUSH (11:12)
--- NOTE | 2022-08-04 11:27 | SUR.OPER ---
Redrawn Type & Screen sent with CARLEY Alas, and received by Dionne
[2022-08-04] MEDS: ceFAZolin SODIUM 1 GM VIAL IV PUSH (13:00)
--- NOTE | 2022-08-04 15:20 | SUR.PREOP ---
pt case was cx, pt made aware and so was family. pt taken back to floor until further evaluation of or schedual.
--- NOTE | 2022-08-04 15:23 | PM.IMPN ---
Progress Note: A&P Assessment and Plan (1) Subtrochanteric fracture of right femur: Code(s): S72.21XA - Displaced subtrochanteric fracture of right femur, initial encounter for closed fracture Status: Acute Assessment and Plan: Radiographs showed a displaced and angulated subtrochanteric fracture of the proximal right femur. she has been seen in consultation by Orthopedic surgery and was taken to the operating room today for plans for removal of hardware and insertion of femoral brad with hip screw. Patient remains in the OR at time of dictation. Appreciate orthopedic surgery recommendations. Continue with supportive care, analgesics as needed. She will need postoperative PT/OT (2) Hypertension: Code(s): I10 - Essential (primary) hypertension Status: Acute Assessment and Plan: Blood pressures obtained preoperatively were elevated, last documented BP 160/73. Likely running high due to pain. patient is not on any oral antihypertensives at home. Monitor BP trends postoperatively (3) Leukocytosis: Code(s): D72.829 - Elevated white blood cell count, unspecified Status: Acute Assessment and Plan: WBC elevated at 15.7. Suspect reactive secondary to acute fracture. Continue to monitor CBC with differential Subjective Date/time seen: 08/04/22 15:23 Interval history: Date of service: 08/04/22 Karla Green is a 76 year old female with a history of hypertension, hyperlipidemia, dementia, CVA, and anemia who is being seen in follow-up for right hip fracture. several attempts made to see the patient, however she remained in the OR from approximately 0900 until the time of this dictation therefore was unable to examine the patient today. Review of Systems Review of Systems: ROS unobtainable: Yes other Exam Narrative: Not able to examine patient - patient remains in OR Objective Data Vital Signs Vital Signs: Vital Signs - 24 hr 08/03/22 20:00 08/03/22 21:36 08/04/22 05:27 Temperature 97.8 F 98.9 F Pulse Rate 87 102 H Respiratory Rate 14 14 Blood Pressure 174/77 H 160/73 H Pulse Oximetry 96 96 Oxygen Delivery Room Air Intake/Output Intake/Output: Intake & Output 08/01/22 08/02/22 08/03/22 08/04/22 23:59 23:59 23:59 23:59 Intake Total 1000 50 Output Total 700 Balance 1000 -650 Meds/Results Medications: Active Medications Generic Name Dose Route Start Last Admin Trade Name Margoth PRN Reason Stop Dose Admin Acetaminophen 650 mg 08/03/22 22:30 Acetaminophen 325 Mg Tablet PO Q6H PRN Mild Pain (1-3) or Fever Sodium Chloride 1,000 mls @ 75 mls/hr 08/03/22 10:30 08/03/22 21:44 Normal Saline Iv IV CONT 75 mls/hr .[id number] RHEA Administration Vancomycin HCl 1,500 mg in 500 mls @ 250 mls/hr 08/04/22 14:04 Vancomycin 1,500 Mg/D5w 500 Ml IVPB 08/04/22 16:03 ONCE STA Morphine Sulfate 2 mg 08/03/22 10:27 08/04/22 02:39 Morphine Sulfate (*Crx) 2 Mg/Ml Inj IV PUSH 2 mg Q2H PRN Administration Pain Rated 7-10 Ondansetron HCl 4 mg 08/03/22 10:27 Ondansetron Inj 4 Mg/2 Ml Vial IV PUSH Q4H PRN Nausea Radiology Results: ITS Impressions Hip/Pelvis X-Ray 08/03/22 09:02 IMPRESSION: 1. Displaced and angulated subtrochanteric fracture of the proximal right femur. Chest X-Ray 08/03/22 13:57 Impression: Normal chest. Labs Labs: Laboratory Results - last 24 hr 08/03/22 08/04/22 08/04/22 17:50 05:47 11:14 WBC 14.8 H 15.7 H RBC 3.53 L 3.29 L Hgb 10.7 L 10.0 L Hct 30.9 L 29.2 L MCV 87.5 88.8 MCH 30.3 30.4 MCHC 34.6 34.2 RDW 12.3 12.4 Plt Count 284 280 MPV 9.3 9.4 PT 17.3 H INR 1.4 APTT 42.4 H Sodium 131 L 132 L Potassium 4.0 3.7 Chloride 97 L 98 Carbon Dioxide 26 26 Anion Gap 8 8 BUN 16 17 Creatinine 0.70 0.70 Estim Creat Clear Calc 63 65 Estimated G
--- NOTE | 2022-08-04 16:19 | P.OP_ITS ---
Procedure Note - Detailed Date of Procedure 08/04/22 Pre-op Diagnosis RIGHT SUBTROCHANTERIC FEMUR FRACTURE, RETAINED HARDWARE Post-op Diagnosis Same Procedure Performed INSERTION FEMORAL NADER RIGHT SUBTROCHANTERIC FEMUR FRACTURE, REMOVAL OF HARDWARE- CANNULATED SCREWS RIGHT FEMORAL NECK Surgeon Dani Currie MD Anesthesia General Description of Procedure THE PATIENT WAS TAKEN TO THE OPERATING ROOM AND PLACED ON A FRACTURE TABLE AFTER GIVEN GENERAL ANESTHESIA. THE RIGHT LOWER EXTREMITY WAS PLACED IN A TRACTION BOOT AND USING SOME TRACTION AND INTERNAL ROTATION THE SUB TROCHANTERIC FEMUR FRACTURE WAS REDUCED TO GOOD ALIGNMENT. NEXT THE RIGHT LOWER EXTREMITY WAS PREPPED AND DRAPED IN THE STERILE FASHION. AN INCISION WAS MADE OVER THE OLD INCISION USED TO PLACE PERCUTANEOUS SCREWS. DISSECTION CONTINUED UNTIL THE DEEP FASCIA WAS INCISED AND THE LATERAL CORTEX OF THE FEMUR WAS IDENTIFIED. THREE CANNULATED SCREWS WERE THEN IDENTIFIED AND REMOVED. NEXT AN INCISION PROXIMAL TO THE TIP OF THE GREATER TROCHANTER WAS PREFORMED AND DISSECTION CONTINUED TILL THE TIP OF THE GREATER TROCHANTER WAS PALPATED. A GUIDE PIN WAS PLACED DOWN THE FEMORAL CANAL AND PAST THE FRACTURE SITE. THIS WAS CHECKED ON FLUOROSCOPY AND FOUND TO BE IN GOOD POSITION. AN INITIAL REAMER WAS USED TO REAM THE FEMORAL CANAL. NEXT A GUIDE WIRE WAS PLACED DOWN THE FEMORAL CANAL JUST PAST THE SUPERIOR POLE OF THE PATELLA. REAMING OF THE FEMORAL CANAL WAS PREFORMED TO 12 MM. NEXT A 11 BY 390 MM TROCHANTERIC LONG NAIL WAS INSERTED. THE POSITION WAS CHECKED IN BOTH THE AP AND LATERAL PLANES AND FOUND TO BE IN GOOD POSITION. THE NECK ANGLE WAS 130 DEG. A GUIDE PIN WAS INSERTED THROUGH THE FEMORAL NECK AT 130 DEG ANGLE TILL IT REACHED THE TIP OF THE SUB CHONDRAL BONE SEEN ON XRAY. AFTER REAMING, THE LAG SCREW WAS INSERTED MEASURING 115 MM. A DEROTATIONAL SCREW WAS ALSO INSERTED MEASURING 100 MM. XRAYS SHOWED SCREWS TO BE IN GOOD POSITION. THE LAG SCREW WAS LOCKED PROXIMALLY. NEXT 2 DISTAL LOCKING SCREWS WERE INSERTED AT THE DISTAL NADER SECURING THE NADER TO THE DISTAL FEMUR AND WAS IN GOOD POSITION ON XRAY. THE TRACTION WAS RELEASED. THE WOUNDS WERE WASHED WITH STERILE BETADINE AND WATER. THE DEEP FASCIA WAS REPAIRED WITH #1 VICRYL SUTURE, THE SUB CUTANEOUS LAYER WITH 2-0 VICRYL, AND THE SKIN WITH GURJIT. THE WOUNDS WERE WASHED AND THEN STERILE DRESSING WAS APPLIED. PATIENT WAS EXTUBATED AND SENT TO RECOVERY ROOM. Estimated Blood Loss -500.0 Urine Output 150 Complications No immediate complications Condition Stable Disposition PACU
[2022-08-04] MEDS: LACTATED RINGERS 1,000 ML 30 ML IV CONT (16:34)
[2022-08-04] MEDS: SODIUM CHLORIDE 0.9% IV 1,000 ML 125 ML IV CONT (17:33)
--- NOTE | 2022-08-04 17:38 | PC.NURSE ---
pt back on floor at 1730.
--- NOTE | 2022-08-04 17:44 | PC.NURSE ---
Jovani Patlester is taking patient wedding band set home with him at this time.
[2022-08-04] MEDS: SENNA/DOCUSATE SODIUM TABLET 2 TAB PO (17:51)
[2022-08-04] MEDS: RIVAROXABAN 10 MG TABLET PO (17:51)
[2022-08-04] MEDS: MORPHINE SULFATE (*CRX) 4 MG/ML INJ 3 MG IV PUSH (19:54)
[2022-08-04] MEDS: FAMOTIDINE 20 MG TABLET PO (20:00)
[2022-08-05] VITALS (14 sets, daily range): BP systolic 106–164; BP diastolic 59–92; PULSE 68–110; RESP 16–18; TEMP 35.9–36.7; O2SAT 94–100
[2022-08-05] MEDS: ceFAZolin 2 GM/D5W 50 ML 2 GM/50 ML BAG IVPB ×2 (01:16→08:29)
[2022-08-05] MEDS: HYDROcodone/acetaminophen (*CRX) 7.5-325 MG TABLET 1 TAB PO ×2 (01:16→22:18)
[2022-08-05] MEDS: SODIUM CHLORIDE 0.9% IV 1,000 ML 125 ML IV CONT ×3 (01:17→20:21)
[2022-08-05 07:14] LABS: Basophils Percent Auto 0.2 % (0.2-1.2); Immature Granulocyte Absolute 0.09 K/mm3 (0.00-0.031); Immature Granulocyte Percent A 0.6 % (0-0.5); Lymphocytes Absolute Auto 2.23 K/mm3 (0.9-3.2); Lymphocytes Percent Auto 13.9 % (18.3-44.2); Mean Corpuscular HGB Conc 32.2 g/dl (32-36); Mean Corpuscular Hemoglobin 29.8 pg (26-34); Mean Corpuscular Volume 92.4 fl (80-100); Mean Platelet Volume 9.6 fl (7.4-10.4); Monocytes Absolute Auto 1.9 K/mm3 (0.1-0.6); Monocytes Percent Auto 11.7 % (2.6-8.5); Neutrophils Absolute Auto 11.8 K/mm3 (1.3-6.7); Neutrophils Percent Auto 73.6 % (45.5-73.1); Nucleated Red Blood Cells Perc 0.2 % (0.0-0.2); Platelet Count Result 231 k/mm3 (150-375); Red Blood Count 1.98 M/mm3 (4.2-5.4); Red Cell Distribution Width 12.8 % (11.5-14.5); White Blood Count 16.1 K/mm3 (4.5-10.0)
[2022-08-05 07:18] LABS: Hematocrit 18.3 % (37.0-47.0); Hemoglobin 5.9 g/dL (12.0-15.0)
[2022-08-05 07:26] LABS: Anion Gap 6 mmol/L (8-16); Blood Urea Nitrogen 24 mg/dL (7-17); Calcium 7.9 mg/dL (8.4-10.2); Carbon Dioxide 23 mmol/L (22-30); Chloride 102 mmol/L (98-107); Estimated CRCL calculation 47 ml/min; Estimated Glomerular Filt Rate 54; Glucose 103 mg/dL (65-110); Potassium 3.7 mmol/L (3.4-5.0); Sodium 131 mmol/L (137-145)
[2022-08-05 08:00] LABS: Hemoglobin 5.8 g/dL (12.0-15.0)
[2022-08-05] MEDS: polyethylene glycoL 3350 17 GM POWD.PACK PO (08:31)
[2022-08-05] MEDS: CELECOXIB 200 MG CAPSULE PO (08:31)
[2022-08-05] MEDS: SENNA/DOCUSATE SODIUM TABLET 2 TAB PO ×2 (08:31→16:24)
[2022-08-05] MEDS: FAMOTIDINE 20 MG TABLET PO ×2 (08:31→20:20)
[2022-08-05] MEDS: MORPHINE SULFATE (*CRX) 4 MG/ML INJ 3 MG IV PUSH ×2 (08:34→13:55)
--- NOTE | 2022-08-05 08:48 | PCPTNOTE ---
Patient getting blood transfusion, having HgB of 5.8. Will check on patient this afternoon or tomorrow basewd on HgB
[2022-08-05] MEDS: SODIUM CHLORIDE 0.9% IV 250 ML 30 ML IV CONT (09:56)
[2022-08-05] MEDS: TUBING, BLOOD PLUM PUMP TUBING 1 EACH XX ×2 (09:57→13:55)
--- NOTE | 2022-08-05 10:42 | WPDPN ---
Progress Note: A&P Assessment and Plan (1) Subtrochanteric fracture of right femur: Code(s): S72.21XA - Displaced subtrochanteric fracture of right femur, initial encounter for closed fracture Status: Acute Assessment and Plan: POD 1 DOING WELL. POSTOP ANEMIA NOW RECEIVING PRBCs. CONTINUE CURRENT MANAGEMENT. WILL GET UP TO CHAIR ONCE STABLE. Subjective Date/time seen: 08/05/22 10:42 POD 1 DOING WELL. NO SOB OR CHEST PAIN, NO CALF PAIN. RECEIVING PRBCS, DOING WELL. Exam Extrem: Other: VSS AFEBRILE DRESSING WITH MINIMAL DRAINAGE SEROSANGUINEOUS, NV INTACT, CALF SOFT, THIGH SOFT Objective Data Vital Signs Vital Signs: Vital Signs - 24 hr 08/04/22 16:00 08/04/22 16:15 08/04/22 16:30 Temperature 36.6 C Pulse Rate 88 95 108 H Respiratory Rate 16 20 16 Blood Pressure 88/43 L 107/75 100/69 Pulse Oximetry 100 100 99 Oxygen Delivery Simple Face Mask Simple Face Mask Room Air Oxygen Flow Rate 10 10 08/04/22 16:45 08/04/22 17:00 08/04/22 17:00 Temperature Pulse Rate 101 H 102 H 106 H Respiratory Rate 16 20 20 Blood Pressure 115/80 100/60 99/64 L Pulse Oximetry 95 95 99 Oxygen Delivery Room Air Room Air Room Air Oxygen Flow Rate 08/04/22 17:39 08/04/22 18:09 08/04/22 19:09 Temperature 36.0 C L 36.0 C L 35.8 C L Pulse Rate 50 L 97 99 Respiratory Rate 20 20 19 Blood Pressure 94/40 L 96/52 L 102/70 Pulse Oximetry 97 100 98 Oxygen Delivery Oxygen Flow Rate 08/04/22 20:00 08/04/22 23:09 08/05/22 06:40 Temperature 36.6 C 35.9 C L Pulse Rate 102 H 103 H Respiratory Rate 18 16 Blood Pressure 115/63 137/92 H Pulse Oximetry 92 97 Oxygen Delivery Room Air Oxygen Flow Rate 08/05/22 03:10 08/05/22 09:00 08/05/22 09:50 Temperature 36.1 C L 36.3 C L Pulse Rate 98 101 H Respiratory Rate 18 16 Blood Pressure 121/77 114/77 Pulse Oximetry 94 95 Oxygen Delivery Room Air Oxygen Flow Rate 08/05/22 10:09 Temperature 36.4 C L Pulse Rate 98 Respiratory Rate 16 Blood Pressure 106/59 L Pulse Oximetry 97 Oxygen Delivery Oxygen Flow Rate Intake/Output Intake/Output: Intake & Output 08/02/22 08/03/22 08/04/22 08/05/22 23:59 23:59 23:59 23:59 Intake Total 6623 956 2444 Output Total 850 400 Balance 1000 -350 1650 Meds/Results Medications: Active Medications Generic Name Dose Route Start Last Admin Trade Name Freq PRN Reason Stop Dose Admin Acetaminophen 650 mg 08/04/22 17:24 Acetaminophen 325 Mg Tablet PO Q6H PRN Mild Pain (1-3) or Fever Hydrocodone Bitart/Acetaminophen 1 tab 08/04/22 17:24 08/05/22 01:16 Hydrocodone/Acetaminophen (*Crx) 7.5-325 Mg Tablet PO 1 tab Q3H PRN Administration Pain Rated 4-6 Celecoxib 200 mg 08/05/22 08:00 08/05/22 08:31 Celecoxib 200 Mg Capsule PO 200 mg DAILY@0800 [facility] Administration Diazepam 5 mg 08/04/22 17:24 Diazepam (*Crx) 5 Mg Tablet PO Q8H PRN Muscle Spasm Famotidine 20 mg 08/04/22 21:00 08/05/22 08:31 Famotidine 20 Mg Tablet PO 20 mg Q12HR [facility] Administration Hydroxyzine Pamoate 50 mg 08/04/22 17:24 Hydroxyzine Pamoate 25 Mg Capsule PO Q4H PRN Itching Sodium Chloride 1,000 mls @ 125 mls/hr 08/04/22 17:24 08/05/22 09:57 Normal Saline Iv IV CONT 125 mls/hr .Q8H [facility] Administration Sodium Chloride 250 mls @ 30 mls/hr 08/05/22 07:47 08/05/22 09:56 Normal Saline Iv IV CONT 08/05/22 16:06 30 mls/hr .[id number] [facility] Administration Magnesium Hydroxide 30 ml 08/04/22 17:24 Magnesium Hydroxide Susp 30 Ml Udc PO BID PRN Constipation Morphine Sulfate 3 mg 08/04/22 17:24 08/05/22 08:34 Morphine Sulfate (*Crx) 4 Mg/Ml Inj IV PUSH 3 mg Q3H PRN Administration Pain Rated 7-10 Naloxone HCl 0.1 mg 08/04/22 17:24 Naloxone Hcl 0.4 Mg/Ml Vial IV PUSH Q2M PRN Opiate Reversal Ondansetron HCl 4 mg 08/04/22 17:24 Ondansetron Inj 4 Mg/2 Ml Vial IV PU
--- NOTE | 2022-08-05 11:26 | PM.IMPN ---
Progress Note: A&P Assessment and Plan (1) Subtrochanteric fracture of right femur: Code(s): S72.21XA - Displaced subtrochanteric fracture of right femur, initial encounter for closed fracture Status: Acute Assessment and Plan: Radiographs showed a displaced and angulated subtrochanteric fracture of the proximal right femur. Appreciate orthopedic surgery consultation Underwent surgical repair yesterday and tolerated the procedure well Wound care deferred to Orthopedic surgery Started on Xarelto for DVT prophylaxis per Orthopedic surgery, on hold at this time given anemia. See below Appreciate PT/OT eval Patient will require rehab following discharge. Appreciate care coordination recommendations Supportive care. Analgesics as needed (2) Anemia: Code(s): D64.9 - Anemia, unspecified Status: Acute Assessment and Plan: Sharp decline in hemoglobin postoperatively from 10.0 preoperatively to 5.8 this morning Suspect acute blood loss anemia secondary to fracture and surgery Operative notes reviewed with 500 cc blood loss noted Patient did receive 1 dose of tranexamic acid intraoperatively Xarelto on hold No signs of active bleeding at this time Two units packed RBCs ordered. Transfusing at this time Recheck H&H 1 hour following completion of transfusion and trend q.6 to ensure remaining stable (3) Hypertension: Code(s): I10 - Essential (primary) hypertension Status: Acute Assessment and Plan: Blood pressures are remaining stable at this time. Last BP 130/60 Patient is not on any p.o. antihypertensives Monitor blood pressure trends (4) Leukocytosis: Code(s): D72.829 - Elevated white blood cell count, unspecified Status: Acute Assessment and Plan: WBC elevated at 16.1. Suspect reactive secondary to acute fracture and surgery. Continue to monitor CBC with differential No evidence of infectious etiology Plan Hutton catheter removed this morning. Voiding trial underway. Monitor urine output. Bladder scan as needed Subjective Date/time seen: 08/05/22 11:26 Interval history: Date of service: 08/05/22 Karla Green is a 76 year old female with a history of hypertension, hyperlipidemia, dementia, CVA, and anemia who is seen in follow-up for right hip fracture. Patient appears to be doing well today. She has a history of dementia and is a poor historian. She is oriented to self and location only. She is in good spirits. When asked about hip pain, the patient responds ?I don't know. She denies shortness of breath or chest pain. No pain. Her Hutton catheter was removed this morning. She did not eat her breakfast this morning Review of Systems Review of Systems: ROS unobtainable: Yes unobtainable due to mental status Exam Narrative: General: Well-nourished, well-appearing 76-year-old female, sitting up in bed, comfortable, NARD Neuro: awake, alert and oriented x4, speech clear, pleasantly confused, no focal neuro deficits noted HEENMT: normocephalic, atraumatic, EOMI, sclerae anicteric Respiratory: clear to auscultation bilaterally, nonlabored breathing Cardio: regular rate, regular rhythm with S1-S2 Abdomen: nondistended, normoactive bowel sounds, soft, nontender to palpation Extremities: right hip covered with dressing that is clean and dry, nontender to palpation, dressing on right lateral knee is clean and dry, able to wiggle toes bilaterally Skin: no rashes or lesions, warm and dry Psych: Pleasantly confused, judgment and insight poor Objective Data Vital Signs Vital Signs: Vital Signs - 24 hr 08/04/22 16:00 08/04/22 16:15 08/04/22 16:30 Temperature 97.9 F Pulse Rate 88 95 108 H Respiratory Rate 16 20 16 Blood Pressure 88/43 L 107/75 100/69 Pulse Oximetry 100 100 99 Oxygen Delivery Simple Face Mask Simple Face Mask Room Air Oxygen Flow Rate 10 10 08/04/22 16:45 08/04/22 17
--- NOTE | 2022-08-05 12:36 | PCOTNOTE ---
Patient was getting a blood transfusion this AM, will follow up this afternoon for OT evaluation.
--- NOTE | 2022-08-05 14:17 | PCPTNOTE ---
Patient recieving her second unit of blood, needing to keep her arm straight. Will check on her tomorrow AM and see if improved HgB.
[2022-08-05 18:17] LABS: Hematocrit 30.4 % (37.0-47.0); Hemoglobin 10.4 g/dL (12.0-15.0)
[2022-08-05] MEDS: diazePAM (*CRX) 5 MG TABLET PO (22:18)
[2022-08-06 00:58] LABS: Hematocrit 27.1 % (37.0-47.0); Hemoglobin 9.5 g/dL (12.0-15.0)
[2022-08-06 01:15] VITALS: BP 163/65; PULSE 52; RESP 16; TEMP 36.6; O2SAT 96
[2022-08-06 01:21] VITALS: BP 154/78
[2022-08-06] MEDS: MORPHINE SULFATE (*CRX) 4 MG/ML INJ 3 MG IV PUSH (01:27)
[2022-08-06 05:30] VITALS: PULSE 96; RESP 18; TEMP 35.9; O2SAT 96
[2022-08-06 07:55] LABS: Hematocrit 28.9 % (37.0-47.0); Hemoglobin 9.8 g/dL (12.0-15.0); Mean Corpuscular HGB Conc 33.9 g/dl (32-36); Mean Corpuscular Hemoglobin 29.9 pg (26-34); Mean Corpuscular Volume 88.1 fl (80-100); Mean Platelet Volume 9.4 fl (7.4-10.4); Platelet Count Result 252 k/mm3 (150-375); Red Blood Count 3.28 M/mm3 (4.2-5.4); Red Cell Distribution Width 13.5 % (11.5-14.5)
[2022-08-06 08:11] LABS: Anion Gap 6 mmol/L (8-16); Blood Urea Nitrogen 16 mg/dL (7-17); Calcium 8.3 mg/dL (8.4-10.2); Carbon Dioxide 27 mmol/L (22-30); Chloride 98 mmol/L (98-107); Estimated CRCL calculation 65 ml/min; Estimated Glomerular Filt Rate > 60; Glucose 100 mg/dL (65-110); Potassium 3.3 mmol/L (3.4-5.0); Sodium 131 mmol/L (137-145)
[2022-08-06] MEDS: SENNA/DOCUSATE SODIUM TABLET 2 TAB PO ×2 (08:12→17:24)
[2022-08-06] MEDS: CELECOXIB 200 MG CAPSULE PO (08:12)
[2022-08-06] MEDS: polyethylene glycoL 3350 17 GM POWD.PACK PO (08:12)
[2022-08-06] MEDS: FAMOTIDINE 20 MG TABLET PO ×2 (08:12→20:13)
[2022-08-06] MEDS: HYDROcodone/acetaminophen (*CRX) 7.5-325 MG TABLET 1 TAB PO ×2 (08:13→20:12)
[2022-08-06 08:15] VITALS: BMI 11.0
--- NOTE | 2022-08-06 13:58 | PM.PNORT ---
Progress Note: A&P Assessment and Plan (1) Subtrochanteric fracture of right femur: Code(s): S72.21XA - Displaced subtrochanteric fracture of right femur, initial encounter for closed fracture Status: Acute Assessment and Plan: POD 2 DOING WELL. WILL PLAN FOR SNF ONCE PATIENT IS STABLE Subjective Subjective Date/Time Seen: 08/06/22 13:58 Interval history: POD 2 STABLE, HGB STABLE. SLOW PROGRESS WITH PT, NO CALF PAIN Exam Extrem: Other: VSS AFEBRILE DRESSING DRY NV INTACT NEG HOMANS SIGN CALF AND THIGH SOFT Objective Data Vital Signs Vital Signs: Vital Signs - 24 hr 08/05/22 15:18 08/05/22 14:02 08/05/22 15:02 Temperature 36.7 C 36.3 C L 36.7 C Pulse Rate 68 97 68 Respiratory Rate 18 18 18 Blood Pressure 160/80 H 126/74 160/70 H Pulse Oximetry 96 98 98 Oxygen Delivery 08/05/22 16:02 08/05/22 20:00 08/05/22 19:09 Temperature 36.5 C 36.6 C Pulse Rate 70 70 104 H Respiratory Rate 18 18 18 Blood Pressure 140/70 164/74 H Pulse Oximetry 98 98 95 Oxygen Delivery Room Air 08/06/22 01:21 08/06/22 01:15 08/06/22 05:30 Temperature 36.6 C 35.9 C L Pulse Rate 52 L 96 Respiratory Rate 16 18 Blood Pressure 154/78 H 163/65 H Pulse Oximetry 96 96 Oxygen Delivery 08/06/22 08:50 08/06/22 08:15 Temperature Pulse Rate Respiratory Rate Blood Pressure Pulse Oximetry Oxygen Delivery Room Air Room Air Intake/Output Intake/Output: Intake & Output 08/03/22 08/04/22 08/05/22 08/06/22 23:59 23:59 23:59 23:59 Intake Total 4577 276 6455 270 Output Total 850 400 200 Balance 1000 -350 3400 70 Meds/Results Medications: Active Medications Generic Name Dose Route Start Last Admin Trade Name Freq PRN Reason Stop Dose Admin Acetaminophen 650 mg 08/04/22 17:24 Acetaminophen 325 Mg Tablet PO Q6H PRN Mild Pain (1-3) or Fever Hydrocodone Bitart/Acetaminophen 1 tab 08/04/22 17:24 08/06/22 08:13 Hydrocodone/Acetaminophen (*Crx) 7.5-325 Mg Tablet PO 1 tab Q3H PRN Administration Pain Rated 4-6 Celecoxib 200 mg 08/05/22 08:00 08/06/22 08:12 Celecoxib 200 Mg Capsule PO 200 mg DAILY@0800 [facility] Administration Diazepam 5 mg 08/04/22 17:24 08/05/22 22:18 Diazepam (*Crx) 5 Mg Tablet PO 5 mg Q8H PRN Administration Muscle Spasm Famotidine 20 mg 08/04/22 21:00 08/06/22 08:12 Famotidine 20 Mg Tablet PO 20 mg Q12HR [facility]HE[facility] Administration Hydroxyzine Pamoate 50 mg 08/04/22 17:24 Hydroxyzine Pamoate 25 Mg Capsule PO Q4H PRN Itching Sodium Chloride 1,000 mls @ 75 mls/hr 08/04/22 17:24 08/06/22 12:45 Normal Saline Iv IV CONT Not Given .[id number] [facility] Magnesium Hydroxide 30 ml 08/04/22 17:24 Magnesium Hydroxide Susp 30 Ml Udc PO BID PRN Constipation Morphine Sulfate 3 mg 08/04/22 17:24 08/06/22 01:27 Morphine Sulfate (*Crx) 4 Mg/Ml Inj IV PUSH 3 mg Q3H PRN Administration Pain Rated 7-10 Naloxone HCl 0.1 mg 08/04/22 17:24 Naloxone Hcl 0.4 Mg/Ml Vial IV PUSH Q2M PRN Opiate Reversal Ondansetron HCl 4 mg 08/04/22 17:24 Ondansetron Inj 4 Mg/2 Ml Vial IV PUSH Q4H PRN Nausea And Vomiting Polyethylene Glycol 17 gm 08/05/22 09:00 08/06/22 08:12 Polyethylene Glycol 3350 17 Gm Powd.Pack PO 17 gm QAM [facility] Administration Rivaroxaban 10 mg 08/04/22 17:24 08/04/22 17:51 Rivaroxaban 10 Mg Tablet PO 10 mg DAILY@17 [facility] Administration Senna/Docusate Sodium 2 tab 08/04/22 17:24 08/06/22 08:12 Senna/Docusate Sodium Tablet PO 2 tab BID [facility] Administration Radiology Results: ITS Impressions Hip/Pelvis X-Ray 08/03/22 09:02 IMPRESSION: 1. Displaced and angulated subtrochanteric fracture of the proximal right femur. Chest X-Ray 08/03/22 13:57 Impression: Normal chest. Intraoperative X-Ray 08/04/22 15:38 IMPRESSION: 1. Near-anatomic alignment post open reduction internal fixa
--- NOTE | 2022-08-06 15:31 | P.PNIM_ITS ---
Progress Note: A&P Assessment and Plan (1) Subtrochanteric fracture of right femur: Code(s): S72.21XA - Displaced subtrochanteric fracture of right femur, initial encounter for closed fracture Status: Acute Assessment and Plan: Radiographs showed a displaced and angulated subtrochanteric fracture of the proximal right femur. * Appreciate orthopedic surgery consultation * Underwent surgical repair on 08/04 and tolerated the procedure well * Wound care deferred to Orthopedic surgery * Started on Xarelto for DVT prophylaxis per Orthopedic surgery, on hold at this time given anemia. See below * Appreciate PT/OT eval * Patient will require rehab following discharge. Appreciate care coordination recommendations * Supportive care. Analgesics as needed (2) Anemia: Code(s): D64.9 - Anemia, unspecified Status: Acute Assessment and Plan: Sharp decline in hemoglobin postoperatively from 10.0 preoperatively to 5.8 on 08/05 * Suspect acute blood loss anemia secondary to fracture and surgery * Operative notes reviewed with 500 cc blood loss noted * Patient did receive 1 dose of tranexamic acid intraoperatively * Xarelto on hold * No signs of active bleeding at this time * patient was transfused 2 units packed RBC with improvement in hemoglobin * remaining stable today. Recheck this afternoon to ensure remaining stable * can resume Xarelto for DVT prophylaxis if H&H remaining stable tomorrow (3) Hypertension: Code(s): I10 - Essential (primary) hypertension Status: Acute Assessment and Plan: Blood pressures are remaining stable * Patient is not on any p.o. antihypertensives * Monitor blood pressure trends (4) Leukocytosis: Code(s): D72.829 - Elevated white blood cell count, unspecified Status: Acute Assessment and Plan: WBC elevated at 18.0. * Suspect reactive secondary to acute fracture and surgery. * Continue to monitor CBC with differential * No evidence of infectious etiology Subjective Date/time seen: 08/06/22 15:31 Interval history: Date of service: 08/06/22 Karla Green is a 76 year old female with a history of hypertension, hyperlipidemia, dementia, CVA, and anemia who is seen in follow-up for right hip fracture. Patient appears to be doing well today. She has a history of dementia and is a poor historian. She is oriented to self and location only. she is not able to provide any reliable history. Remains in good spirits. Review of Systems Review of Systems: ROS unobtainable: Yes unobtainable due to mental status and other Exam Narrative: General: Well-nourished, well-appearing 76-year-old female, sitting up in bed, comfortable, NARD Neuro: awake, alert and oriented x2, speech clear, pleasantly confused, no focal neuro deficits noted HEENMT: normocephalic, atraumatic, EOMI, sclerae anicteric Respiratory: clear to auscultation bilaterally, nonlabored breathing Cardio: regular rate, regular rhythm with S1-S2 Abdomen: nondistended, normoactive bowel sounds, soft, nontender to palpation Extremities: right hip covered with dressing that is clean and dry, nontender to palpation, able to wiggle toes bilaterally Skin: no rashes or lesions, warm and dry Psych: Pleasantly confused, judgment and insight poor Objective Data Vital Signs Vital Signs: Vital Signs - 24 hr 08/05/22 16:02 08/05/22 20:00 08/05/22 19:09 Temperature 97
--- NOTE | 2022-08-06 15:31 | PM.IMPN ---
Progress Note: A&P Assessment and Plan (1) Subtrochanteric fracture of right femur: Code(s): S72.21XA - Displaced subtrochanteric fracture of right femur, initial encounter for closed fracture Status: Acute Assessment and Plan: Radiographs showed a displaced and angulated subtrochanteric fracture of the proximal right femur. Appreciate orthopedic surgery consultation Underwent surgical repair on 08/04 and tolerated the procedure well Wound care deferred to Orthopedic surgery Started on Xarelto for DVT prophylaxis per Orthopedic surgery, on hold at this time given anemia. See below Appreciate PT/OT eval Patient will require rehab following discharge. Appreciate care coordination recommendations Supportive care. Analgesics as needed (2) Anemia: Code(s): D64.9 - Anemia, unspecified Status: Acute Assessment and Plan: Sharp decline in hemoglobin postoperatively from 10.0 preoperatively to 5.8 on 08/05 Suspect acute blood loss anemia secondary to fracture and surgery Operative notes reviewed with 500 cc blood loss noted Patient did receive 1 dose of tranexamic acid intraoperatively Xarelto on hold No signs of active bleeding at this time patient was transfused 2 units packed RBC with improvement in hemoglobin remaining stable today. Recheck this afternoon to ensure remaining stable can resume Xarelto for DVT prophylaxis if H&H remaining stable tomorrow (3) Hypertension: Code(s): I10 - Essential (primary) hypertension Status: Acute Assessment and Plan: Blood pressures are remaining stable Patient is not on any p.o. antihypertensives Monitor blood pressure trends (4) Leukocytosis: Code(s): D72.829 - Elevated white blood cell count, unspecified Status: Acute Assessment and Plan: WBC elevated at 18.0. Suspect reactive secondary to acute fracture and surgery. Continue to monitor CBC with differential No evidence of infectious etiology Subjective Date/time seen: 08/06/22 15:31 Interval history: Date of service: 08/06/22 Karla Green is a 76 year old female with a history of hypertension, hyperlipidemia, dementia, CVA, and anemia who is seen in follow-up for right hip fracture. Patient appears to be doing well today. She has a history of dementia and is a poor historian. She is oriented to self and location only. she is not able to provide any reliable history. Remains in good spirits. Review of Systems Review of Systems: ROS unobtainable: Yes unobtainable due to mental status and other Exam Narrative: General: Well-nourished, well-appearing 76-year-old female, sitting up in bed, comfortable, NARD Neuro: awake, alert and oriented x2, speech clear, pleasantly confused, no focal neuro deficits noted HEENMT: normocephalic, atraumatic, EOMI, sclerae anicteric Respiratory: clear to auscultation bilaterally, nonlabored breathing Cardio: regular rate, regular rhythm with S1-S2 Abdomen: nondistended, normoactive bowel sounds, soft, nontender to palpation Extremities: right hip covered with dressing that is clean and dry, nontender to palpation, able to wiggle toes bilaterally Skin: no rashes or lesions, warm and dry Psych: Pleasantly confused, judgment and insight poor Objective Data Vital Signs Vital Signs: Vital Signs - 24 hr 08/05/22 16:02 08/05/22 20:00 08/05/22 19:09 Temperature 97.7 F 97.9 F Pulse Rate 70 70 104 H Respiratory Rate 18 18 18 Blood Pressure 140/70 164/74 H Pulse Oximetry 98 98 95 Oxygen Delivery Room Air 08/06/22 01:21 08/06/22 01:15 08/06/22 05:30 Temperature 98 F 96.7 F L Pulse Rate 52 L 96 Respiratory Rate 16 18 Blood Pressure 154/78 H 163/65 H Pulse Oximetry 96 96 Oxygen Delivery 08/06/22 08:50 08/06/22 08:15 Temperature Pulse Rate Respiratory Rate Blood Pressure Pulse Oximetry Oxygen Delivery Room Air Room Air Intake/Ou
[2022-08-06 15:45] VITALS: BP 150/60; PULSE 84; RESP 17; TEMP 36.2; O2SAT 96
[2022-08-06 16:00] LABS: Hematocrit 27.6 % (37.0-47.0); Hemoglobin 9.5 g/dL (12.0-15.0)
[2022-08-06] MEDS: POTASSIUM CHLORIDE 20 MEQ PACKET (FOR LIQUID) 40 MEQ PO (17:25)
[2022-08-06 20:00] VITALS: PULSE 78; RESP 19; O2SAT 97
[2022-08-06] MEDS: SODIUM CHLORIDE 0.9% IV 1,000 ML 75 ML IV CONT (20:13)
[2022-08-06 22:00] VITALS: BP 156/89; PULSE 100; RESP 18; TEMP 36.4; O2SAT 97
[2022-08-07] MEDS: HYDROcodone/acetaminophen (*CRX) 7.5-325 MG TABLET 1 TAB PO ×3 (05:02→21:45)
[2022-08-07 06:23] VITALS: BP 153/97; PULSE 103; RESP 18; TEMP 35.8; O2SAT 98
[2022-08-07 06:37] LABS: Hematocrit 26.8 % (37.0-47.0); Hemoglobin 9.1 g/dL (12.0-15.0); Mean Corpuscular Volume 88.4 fl (80-100); Mean Platelet Volume 9.5 fl (7.4-10.4); Platelet Count Result 290 k/mm3 (150-375); Red Blood Count 3.03 M/mm3 (4.2-5.4); Red Cell Distribution Width 13.4 % (11.5-14.5); White Blood Count 15.3 K/mm3 (4.5-10.0)
[2022-08-07 06:47] LABS: Anion Gap 4 mmol/L (8-16); Blood Urea Nitrogen 14 mg/dL (7-17); Calcium 8.2 mg/dL (8.4-10.2); Carbon Dioxide 28 mmol/L (22-30); Chloride 97 mmol/L (98-107); Estimated CRCL calculation 74 ml/min; Estimated Glomerular Filt Rate > 60; Glucose 94 mg/dL (65-110); Potassium 3.3 mmol/L (3.4-5.0); Sodium 129 mmol/L (137-145)
[2022-08-07] MEDS: FAMOTIDINE 20 MG TABLET PO ×2 (08:15→20:23)
[2022-08-07] MEDS: polyethylene glycoL 3350 17 GM POWD.PACK PO (08:15)
[2022-08-07] MEDS: CELECOXIB 200 MG CAPSULE PO (08:15)
[2022-08-07] MEDS: SENNA/DOCUSATE SODIUM TABLET 2 TAB PO (08:15)
[2022-08-07 09:57] VITALS: O2SAT 95
[2022-08-07] MEDS: POTASSIUM CHLORIDE 20 MEQ PACKET (FOR LIQUID) PO (10:07)
--- NOTE | 2022-08-07 11:22 | PCOTNOTE ---
Attempted to see patient for OT, patient and present in room. 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 Patient's attempted to participate in OT, patient continued to refuse. Patient educated over importance of participating in therapy for improved mobility and independence. Patient continued to refuse. Patient not seen this AM for OT.
[2022-08-07 12:25] LABS: Sodium 128 mmol/L (137-145)
[2022-08-07 14:00] VITALS: BP 143/94; PULSE 96; RESP 18; TEMP 35.7; O2SAT 100
--- NOTE | 2022-08-07 14:39 | PCOTNOTE ---
Attempted for third time today to see patient. Patient's niece present in room with patient. Patient continued to refuse OT session I'll do it tomorrow. Patient's niece attempted to encourage patient to get out of bed, patient continued to refuse despite education over importance of participating in therapy. Ortho MD Hassan entered room as this therapist exited. Mo notified patient not participating. patient not seen for OT this date.
--- NOTE | 2022-08-07 15:37 | WPDPN ---
Progress Note: A&P Assessment and Plan (1) Subtrochanteric fracture of femur: Code(s): S72.23XA - Displaced subtrochanteric fracture of unspecified femur, initial encounter for closed fracture Status: Acute Assessment and Plan: POD 3 IMPROVING. SHE WILL MOST LIKELY REQUIRE REHAB VS SNF FOR DISCHARGE PLANNING. SHE WILL CONTINUE PT FOR NOW. Subjective Date/time seen: 08/07/22 15:37 Interval history: POD 3 IMPROVING. STILL WITH SLOW PROGRESS WITH PT. HER PAIN CONTROL HAS IMPROVED. NO CALF PAIN Exam Extrem: Other: VSS AFEBRILE DRESSING DRY NV INTACT NEG HOMANS SIGN, CALF AND THIGH ARE SOFT, FLEXES AND EXTENDS RIGHT KNEE WHILE IN BED Objective Data Vital Signs Vital Signs: Vital Signs - 24 hr 08/06/22 15:45 08/06/22 20:00 08/06/22 22:00 Temperature 36.2 C L 36.4 C L Pulse Rate 84 78 100 Respiratory Rate 17 19 18 Blood Pressure 150/60 H 156/89 H Pulse Oximetry 96 97 97 Oxygen Delivery Room Air 08/07/22 06:23 08/07/22 09:57 08/07/22 08:15 Temperature 35.8 C L Pulse Rate 103 H Respiratory Rate 18 Blood Pressure 153/97 H Pulse Oximetry 98 95 Oxygen Delivery Room Air Room Air Intake/Output Intake/Output: Intake & Output 08/04/22 08/05/22 08/06/22 08/07/22 23:59 23:59 23:59 23:59 Intake Total 500 3800 1630 780 Output Total 850 400 200 600 Balance -350 3400 1430 180 Meds/Results Medications: Active Medications Generic Name Dose Route Start Last Admin Trade Name Freq PRN Reason Stop Dose Admin Acetaminophen 650 mg 08/04/22 17:24 Acetaminophen 325 Mg Tablet PO Q6H PRN Mild Pain (1-3) or Fever Hydrocodone Bitart/Acetaminophen 1 tab 08/04/22 17:24 08/07/22 11:45 Hydrocodone/Acetaminophen (*Crx) 7.5-325 Mg Tablet PO 1 tab Q3H PRN Administration Pain Rated 4-6 Celecoxib 200 mg 08/05/22 08:00 08/07/22 08:15 Celecoxib 200 Mg Capsule PO 200 mg DAILY@0800 [facility] Administration Diazepam 5 mg 08/04/22 17:24 04/29/23 22:18 Diazepam (*Crx) 5 Mg Tablet PO 5 mg Q8H PRN Administration Muscle Spasm Famotidine 20 mg 08/04/22 21:00 08/07/22 08:15 Famotidine 20 Mg Tablet PO 20 mg Q12HR [facility] Administration Hydroxyzine Pamoate 50 mg 08/04/22 17:24 Hydroxyzine Pamoate 25 Mg Capsule PO Q4H PRN Itching Magnesium Hydroxide 30 ml 08/04/22 17:24 Magnesium Hydroxide Susp 30 Ml Udc PO BID PRN Constipation Morphine Sulfate 3 mg 08/04/22 17:24 08/06/22 01:27 Morphine Sulfate (*Crx) 4 Mg/Ml Inj IV PUSH 3 mg Q3H PRN Administration Pain Rated 7-10 Naloxone HCl 0.1 mg 08/04/22 17:24 Naloxone Hcl 0.4 Mg/Ml Vial IV PUSH Q2M PRN Opiate Reversal Ondansetron HCl 4 mg 08/04/22 17:24 Ondansetron Inj 4 Mg/2 Ml Vial IV PUSH Q4H PRN Nausea And Vomiting Polyethylene Glycol 17 gm 08/05/22 09:00 08/07/22 08:15 Polyethylene Glycol 3350 17 Gm Powd.Pack PO 17 gm QAM [facility] Administration Rivaroxaban 10 mg 08/04/22 17:24 08/04/22 17:51 Rivaroxaban 10 Mg Tablet PO 10 mg DAILY@17 [facility] Administration Senna/Docusate Sodium 2 tab 08/04/22 17:24 08/07/22 08:15 Senna/Docusate Sodium Tablet PO 2 tab BID [facility] Administration Radiology Results: ITS Impressions Hip/Pelvis X-Ray 08/03/22 09:02 IMPRESSION: 1. Displaced and angulated subtrochanteric fracture of the proximal right femur. Chest X-Ray 08/03/22 13:57 Impression: Normal chest. Intraoperative X-Ray 08/04/22 15:38 IMPRESSION: 1. Near-anatomic alignment post open reduction internal fixation of a subtrochanteric fracture of the proximal right femur including removal of prior fractures at the femoral head neck. See procedure note for further detail. Labs Labs: Laboratory Results - last 24 hr 08/06/22 08/07/22 08/07/22 15:54 06:06 12:14 WBC 15.3 H RBC 3.03 L Hgb 9.5 L 9.1 L Hct 27.6 L 26.8 L MCV 88.4 MCH 30.0 MC
--- NOTE | 2022-08-07 16:15 | P.PNIM_ITS ---
Progress Note: A&P Assessment and Plan (1) Subtrochanteric fracture of right femur: Code(s): S72.21XA - Displaced subtrochanteric fracture of right femur, initial encounter for closed fracture Status: Acute Assessment and Plan: Radiographs showed a displaced and angulated subtrochanteric fracture of the proximal right femur. * Appreciate orthopedic surgery consultation * Underwent surgical repair on 08/04 and tolerated the procedure well * Wound care deferred to Orthopedic surgery * resume Xarelto for DVT prophylaxis. Previously on hold due to anemia * Appreciate PT/OT eval * Patient will require rehab following discharge. Appreciate care coordination recommendations * Supportive care. Analgesics as needed (2) Anemia: Code(s): D64.9 - Anemia, unspecified Status: Acute Assessment and Plan: Sharp decline in hemoglobin postoperatively from 10.0 preoperatively to 5.8 on 08/05 * Suspect acute blood loss anemia secondary to fracture and surgery * Operative notes reviewed with 500 cc blood loss noted * Patient did receive 1 dose of tranexamic acid intraoperatively * patient was transfused 2 units packed RBC with improvement in hemoglobin * no signs of active bleeding. H&H remaining stable * will resume Xarelto (3) Hypertension: Code(s): I10 - Essential (primary) hypertension Status: Acute Assessment and Plan: Blood pressures are remaining stable * Patient is not on any p.o. antihypertensives * Monitor blood pressure trends (4) Leukocytosis: Code(s): D72.829 - Elevated white blood cell count, unspecified Status: Acute Assessment and Plan: WBC elevated at 18.0. * Suspect reactive secondary to acute fracture and surgery. * trending down to 15.3 today * Continue to monitor CBC with differential * No evidence of infectious etiology (5) Hyponatremia: Code(s): E87.1 - Hypo-osmolality and hyponatremia Status: Acute Assessment and Plan: Slight decline in sodium to 129 today * possibly SIADH secondary to pain * awaiting urine electrolytes * implement fluid restriction diet and monitor sodium levels q6 Subjective Date/time seen: 08/07/22 16:15 Interval history: Date of service: 08/06/22 Karla Green is a 76 year old female with a history of hypertension, hyperlipidemia, dementia, CVA, and anemia who is seen in follow-up for right hip fracture. she is comfortable today. She offers no complaints. She is a poor historian due to her dementia Review of Systems Review of Systems: ROS unobtainable: Yes unobtainable due to mental status and other Exam Narrative: General: Well-nourished, well-appearing 76-year-old female, sitting up in bed, comfortable, NARD Neuro: awake, alert and oriented x2, speech clear, pleasantly confused, no focal neuro deficits noted HEENMT: normocephalic, atraumatic, EOMI, sclerae anicteric Respiratory: clear to auscultation bilaterally, nonlabored breathing Cardio: regular rate, regular rhythm with S1-S2 Abdomen: nondistended, normoactive bowel sounds, soft, nontender to palpation Extremities: right hip covered with dressing that is clean and dry, nontender to palpation, able to wiggle toes bilaterally Skin: no rashes or lesions, warm and dry Psych: Pleasantly confused, judgment and insight poor Objective Data Vital Signs Vital Signs: Vital Signs - 24 hr 08/06/22
--- NOTE | 2022-08-07 16:15 | PM.IMPN ---
Progress Note: A&P Assessment and Plan (1) Subtrochanteric fracture of right femur: Code(s): S72.21XA - Displaced subtrochanteric fracture of right femur, initial encounter for closed fracture Status: Acute Assessment and Plan: Radiographs showed a displaced and angulated subtrochanteric fracture of the proximal right femur. Appreciate orthopedic surgery consultation Underwent surgical repair on 08/04 and tolerated the procedure well Wound care deferred to Orthopedic surgery resume Xarelto for DVT prophylaxis. Previously on hold due to anemia Appreciate PT/OT eval Patient will require rehab following discharge. Appreciate care coordination recommendations Supportive care. Analgesics as needed (2) Anemia: Code(s): D64.9 - Anemia, unspecified Status: Acute Assessment and Plan: Sharp decline in hemoglobin postoperatively from 10.0 preoperatively to 5.8 on 08/05 Suspect acute blood loss anemia secondary to fracture and surgery Operative notes reviewed with 500 cc blood loss noted Patient did receive 1 dose of tranexamic acid intraoperatively patient was transfused 2 units packed RBC with improvement in hemoglobin no signs of active bleeding. H&H remaining stable will resume Xarelto (3) Hypertension: Code(s): I10 - Essential (primary) hypertension Status: Acute Assessment and Plan: Blood pressures are remaining stable Patient is not on any p.o. antihypertensives Monitor blood pressure trends (4) Leukocytosis: Code(s): D72.829 - Elevated white blood cell count, unspecified Status: Acute Assessment and Plan: WBC elevated at 18.0. Suspect reactive secondary to acute fracture and surgery. trending down to 15.3 today Continue to monitor CBC with differential No evidence of infectious etiology (5) Hyponatremia: Code(s): E87.1 - Hypo-osmolality and hyponatremia Status: Acute Assessment and Plan: Slight decline in sodium to 129 today possibly SIADH secondary to pain awaiting urine electrolytes implement fluid restriction diet and monitor sodium levels q6 Subjective Date/time seen: 08/07/22 16:15 Interval history: Date of service: 08/06/22 Karla Green is a 76 year old female with a history of hypertension, hyperlipidemia, dementia, CVA, and anemia who is seen in follow-up for right hip fracture. she is comfortable today. She offers no complaints. She is a poor historian due to her dementia Review of Systems Review of Systems: ROS unobtainable: Yes unobtainable due to mental status and other Exam Narrative: General: Well-nourished, well-appearing 76-year-old female, sitting up in bed, comfortable, NARD Neuro: awake, alert and oriented x2, speech clear, pleasantly confused, no focal neuro deficits noted HEENMT: normocephalic, atraumatic, EOMI, sclerae anicteric Respiratory: clear to auscultation bilaterally, nonlabored breathing Cardio: regular rate, regular rhythm with S1-S2 Abdomen: nondistended, normoactive bowel sounds, soft, nontender to palpation Extremities: right hip covered with dressing that is clean and dry, nontender to palpation, able to wiggle toes bilaterally Skin: no rashes or lesions, warm and dry Psych: Pleasantly confused, judgment and insight poor Objective Data Vital Signs Vital Signs: Vital Signs - 24 hr 08/06/22 20:00 08/06/22 22:00 08/07/22 06:23 Temperature 97.5 F L 96.4 F L Pulse Rate 78 100 103 H Respiratory Rate 19 18 18 Blood Pressure 156/89 H 153/97 H Pulse Oximetry 97 97 98 Oxygen Delivery Room Air 08/07/22 09:57 08/07/22 08:15 08/07/22 14:00 Temperature 96.2 F L Pulse Rate 96 Respiratory Rate 18 Blood Pressure 143/94 H Pulse Oximetry 95 100 Oxygen Delivery Room Air Room Air Intake/Output Intake/Output: Intake & Output 08/04/22 08/05/22 08/06/22 08/07/22 23:59 23:59 23:59 23:59 Inta
[2022-08-07 19:20] LABS: Sodium 129 mmol/L (137-145)
[2022-08-07 20:00] VITALS: PULSE 103; RESP 14; O2SAT 98
[2022-08-07 22:00] VITALS: BP 161/87; PULSE 103; RESP 14; TEMP 37.4; O2SAT 98
[2022-08-08 00:35] LABS: Sodium 129 mmol/L (137-145)
[2022-08-08 03:36] LABS: Sodium Urine Random 47 meq/L
[2022-08-08 05:39] VITALS: BP 141/86; PULSE 94; RESP 14; TEMP 37.1; O2SAT 98
[2022-08-08 06:18] LABS: Hematocrit 26.5 % (37.0-47.0); Hemoglobin 8.9 g/dL (12.0-15.0); Mean Corpuscular HGB Conc 33.6 g/dl (32-36); Mean Corpuscular Hemoglobin 30.2 pg (26-34); Mean Corpuscular Volume 89.8 fl (80-100); Platelet Count Result 322 k/mm3 (150-375); Red Blood Count 2.95 M/mm3 (4.2-5.4); Red Cell Distribution Width 13.5 % (11.5-14.5); White Blood Count 12.5 K/mm3 (4.5-10.0)
[2022-08-08 06:30] LABS: Anion Gap 1 mmol/L (8-16); Blood Urea Nitrogen 14 mg/dL (7-17); Calcium 8.2 mg/dL (8.4-10.2); Carbon Dioxide 31 mmol/L (22-30); Chloride 97 mmol/L (98-107); Estimated CRCL calculation 74 ml/min; Estimated Glomerular Filt Rate > 60; Glucose 92 mg/dL (65-110); Potassium 3.4 mmol/L (3.4-5.0); Sodium 129 mmol/L (137-145)
[2022-08-08] MEDS: CELECOXIB 200 MG CAPSULE PO (08:57)
[2022-08-08] MEDS: FAMOTIDINE 20 MG TABLET PO ×2 (08:57→20:43)
[2022-08-08] MEDS: polyethylene glycoL 3350 17 GM POWD.PACK PO (08:58)
[2022-08-08] MEDS: SENNA/DOCUSATE SODIUM TABLET 2 TAB PO ×2 (08:58→16:11)
--- NOTE | 2022-08-08 09:52 | PM.PNORT ---
Progress Note: A&P Assessment and Plan (1) Subtrochanteric fracture of femur: Qualifiers: Encounter type: initial encounter Fracture type: closed Fracture alignment: displaced Laterality: right Qualified Code(s): S72.21XA - Displaced subtrochanteric fracture of right femur, initial encounter for closed fracture Code(s): S72.23XA - Displaced subtrochanteric fracture of unspecified femur, initial encounter for closed fracture Status: Acute Assessment and Plan: POD #4: INSERTION FEMORAL NADER RIGHT SUBTROCHANTERIC FEMUR FRACTURE, REMOVAL OF HARDWARE-CANNULATED SCREWS RIGHT FEMORAL NECK Continue PT/OT. NWB RLE. Walker. HIGH FALL RISK. Continue pain control. Ice hip, knee, ankle. Protect skin. DVT prophylaxis with resumed Xarelto/Aspirin (home doses). SCDs. Incentive Spirometry. Monitor dressing. Mepilex silver dressing in place at hip/knee. Bowel Regimen. Dispo: SNF vs [facility] pending progress with PT/OT and medical clearance (2) Cognitive impairment: Code(s): R41.89 - Other symptoms and signs involving cognitive functions and awareness Status: Chronic Assessment and Plan: Pleasantly confused. (3) Acute ischemic cerebrovascular accident (CVA) involving anterior cerebral artery territory: Code(s): I63.529 - Cerebral infarction due to unspecified occlusion or stenosis of unspecified anterior cerebral artery Status: Acute (4) Subcapital fracture of neck of right femur: Qualifiers: Encounter type: sequela Fracture type: closed Qualified Code(s): S72.011S - Unspecified intracapsular fracture of right femur, sequela Code(s): S72.011A - Unspecified intracapsular fracture of right femur, initial encounter for closed fracture Status: Resolved Assessment and Plan: Right Hip fx in 2020. Dr. Thakkar previously cared for patient. (5) Ankle pain: Qualifiers: Chronicity: acute Laterality: right Qualified Code(s): M25.571 - Pain in right ankle and joints of right foot Code(s): M25.579 - Pain in unspecified ankle and joints of unspecified foot Status: Acute Assessment and Plan: Patient with complaints of right ankle pain during previous admission. Previous radiographs obtained. Radiographs reveal heterotopic ossification distal to the lateral malleolus, consistent with avulsion injury. Patient with ecchymosis/swelling. Improved. Patient is NWB of the RLE at this time due to recent surgery. Okay to do ankle brace/ANGEL LUIS wrap if needed for pain relief. Ice, elevate. Subjective Subjective Date/Time Seen: 08/08/22 09:52 Post Op day: 4 Interval history: POD #4: INSERTION FEMORAL NADER RIGHT SUBTROCHANTERIC FEMUR FRACTURE, REMOVAL OF HARDWARE-CANNULATED SCREWS RIGHT FEMORAL NECK Patient pleasant. Sitting up in bed at time of exam. Awaiting PT evaluation this AM. No complaints of pain at rest. Some complaints with physical exam of right lateral sided hip pain. No concerns however, patient is mildly confused at baseline. Review of Systems Review of Systems: All systems reviewed & are unremarkable except as noted in HPI and below Exam Const: General: comfortable and no acute distress Resp: Effort & Inspection: normal respiratory effort Cardio: Rate: regular rate Rhythm: regular rhythm GI: Inspection: non-distended Skin: General skin exam: normal color Other: Incision right hip and right knee c/d/i. Surrounding tissue without redness/warmth. Mild swelling consistent with recent surgery. No drainage. Neuro: Speech: normal speech Extrem: Right lower extremity: normal to inspection, normal capillary refill, hip/thigh Details: tenderness Location: of the hip (Thigh soft ) Location: laterally and anteriorly, swelling Location: at the hip, abnormal ROM (limited consistent with recent surgery ) Details: pain with active ROM during and pain with passive ROM during and other (Incision c/d/i. ); no deformity and no unusual
[2022-08-08 09:55] VITALS: BMI 10.0
[2022-08-08] MEDS: HYDROcodone/acetaminophen (*CRX) 7.5-325 MG TABLET 1 TAB PO ×2 (13:59→20:43)
[2022-08-08 14:00] VITALS: BP 149/93; PULSE 89; RESP 20; TEMP 35.8; O2SAT 99
[2022-08-08] MEDS: RIVAROXABAN 10 MG TABLET PO (16:11)
--- NOTE | 2022-08-08 16:26 | P.PNIM_ITS ---
Progress Note: A&P Assessment and Plan (1) Subtrochanteric fracture of right femur: Code(s): S72.21XA - Displaced subtrochanteric fracture of right femur, initial encounter for closed fracture Status: Acute Assessment and Plan: Radiographs showed a displaced and angulated subtrochanteric fracture of the proximal right femur. * Appreciate orthopedic surgery consultation * Underwent surgical repair on 08/04 and tolerated the procedure well * Wound care deferred to Orthopedic surgery * Continue xarelto for DVT prophylaxis * Appreciate PT/OT eval * Patient will require rehab following discharge. Appreciate care coordination recommendations * Supportive care. Analgesics as needed (2) Anemia: Code(s): D64.9 - Anemia, unspecified Status: Acute Assessment and Plan: Sharp decline in hemoglobin postoperatively from 10.0 preoperatively to 5.8 on 08/05 * Suspect acute blood loss anemia secondary to fracture and surgery * Operative notes reviewed with 500 cc blood loss noted * Patient did receive 1 dose of tranexamic acid intraoperatively * patient was transfused 2 units packed RBC with improvement in hemoglobin * no signs of active bleeding. H&H remaining stable following transfusion * Xarelto has been resumed (3) Hypertension: Code(s): I10 - Essential (primary) hypertension Status: Acute Assessment and Plan: Blood pressures are remaining stable * Patient is not on any p.o. antihypertensives * Monitor blood pressure trends (4) Leukocytosis: Code(s): D72.829 - Elevated white blood cell count, unspecified Status: Acute Assessment and Plan: WBC elevated at 18.0. * Suspect reactive secondary to acute fracture and surgery. * trending down to 12.5 today * Continue to monitor CBC with differential * No evidence of infectious etiology (5) Hyponatremia: Code(s): E87.1 - Hypo-osmolality and hyponatremia Status: Acute Assessment and Plan: Sodium remaining stable around 129 * Possibly SIADH secondary to pain * Fluid restriction diet implemented and sodium remaining stable on this * Urine sodium is 47 * Continue to monitor sodium levels. Recheck this evening to ensure remaining stable Subjective Date/time seen: 08/08/22 16:26 Interval history: Date of service: 08/08/2022 Karla Green is a 76 year old female with a history of? hypertension, hyperlipidemia, dementia,? CVA, and anemia who is seen in follow-up for right hip fracture. She reports that she is doing well today. She is not in any discomfort at this time. States she wants to go home. Not able to provide any additional reliable history given her dementia. Review of Systems Review of Systems: ROS unobtainable: Yes unobtainable due to mental status and other Exam Narrative: General: Well-nourished, well-appearing 76-year-old female, sitting up in bed, comfortable, NARD Neuro: awake, alert and oriented x2, speech clear, pleasantly confused, no focal neuro deficits noted HEENMT: normocephalic, atraumatic, EOMI, sclerae anicteric Respiratory: clear to auscultation bilaterally, nonlabored breathing Cardio: regular rate, regular rhythm with S1-S2 Abdomen: nondistended, normoactive bowel sounds, soft, nontender to palpation Extremities: right hip covered with dressing that is clean and dry, nontender to palpation, able to wiggle toes bilaterally Skin: no rashes or lesions, warm and dry Psych: Pleasantly confused, judgment and
--- NOTE | 2022-08-08 16:26 | PM.IMPN ---
Progress Note: A&P Assessment and Plan (1) Subtrochanteric fracture of right femur: Code(s): S72.21XA - Displaced subtrochanteric fracture of right femur, initial encounter for closed fracture Status: Acute Assessment and Plan: Radiographs showed a displaced and angulated subtrochanteric fracture of the proximal right femur. Appreciate orthopedic surgery consultation Underwent surgical repair on 08/04 and tolerated the procedure well Wound care deferred to Orthopedic surgery Continue xarelto for DVT prophylaxis Appreciate PT/OT eval Patient will require rehab following discharge. Appreciate care coordination recommendations Supportive care. Analgesics as needed (2) Anemia: Code(s): D64.9 - Anemia, unspecified Status: Acute Assessment and Plan: Sharp decline in hemoglobin postoperatively from 10.0 preoperatively to 5.8 on 08/05 Suspect acute blood loss anemia secondary to fracture and surgery Operative notes reviewed with 500 cc blood loss noted Patient did receive 1 dose of tranexamic acid intraoperatively patient was transfused 2 units packed RBC with improvement in hemoglobin no signs of active bleeding. H&H remaining stable following transfusion Xarelto has been resumed (3) Hypertension: Code(s): I10 - Essential (primary) hypertension Status: Acute Assessment and Plan: Blood pressures are remaining stable Patient is not on any p.o. antihypertensives Monitor blood pressure trends (4) Leukocytosis: Code(s): D72.829 - Elevated white blood cell count, unspecified Status: Acute Assessment and Plan: WBC elevated at 18.0. Suspect reactive secondary to acute fracture and surgery. trending down to 12.5 today Continue to monitor CBC with differential No evidence of infectious etiology (5) Hyponatremia: Code(s): E87.1 - Hypo-osmolality and hyponatremia Status: Acute Assessment and Plan: Sodium remaining stable around 129 Possibly SIADH secondary to pain Fluid restriction diet implemented and sodium remaining stable on this Urine sodium is 47 Continue to monitor sodium levels. Recheck this evening to ensure remaining stable Subjective Date/time seen: 08/08/22 16:26 Interval history: Date of service: 08/08/2022 Karla Green is a 76 year old female with a history of? hypertension, hyperlipidemia, dementia,? CVA, and anemia who is seen in follow-up for right hip fracture. She reports that she is doing well today. She is not in any discomfort at this time. States she wants to go home. Not able to provide any additional reliable history given her dementia. Review of Systems Review of Systems: ROS unobtainable: Yes unobtainable due to mental status and other Exam Narrative: General: Well-nourished, well-appearing 76-year-old female, sitting up in bed, comfortable, NARD Neuro: awake, alert and oriented x2, speech clear, pleasantly confused, no focal neuro deficits noted HEENMT: normocephalic, atraumatic, EOMI, sclerae anicteric Respiratory: clear to auscultation bilaterally, nonlabored breathing Cardio: regular rate, regular rhythm with S1-S2 Abdomen: nondistended, normoactive bowel sounds, soft, nontender to palpation Extremities: right hip covered with dressing that is clean and dry, nontender to palpation, able to wiggle toes bilaterally Skin: no rashes or lesions, warm and dry Psych: Pleasantly confused, judgment and insight poor Objective Data Vital Signs Vital Signs: Vital Signs - 24 hr 08/07/22 22:00 08/07/22 20:00 08/08/22 05:39 Temperature 99.4 F 98.7 F Pulse Rate 103 H 103 H 94 Respiratory Rate 14 14 14 Blood Pressure 161/87 H 141/86 H Pulse Oximetry 98 98 98 Oxygen Delivery Room Air 08/08/22 08:58 08/08/22 14:00 Temperature 96.5 F L Pulse Rate 89 Respiratory Rate 20 Blood Pressure 149/93 H Pulse Oximetry 99 Oxygen Delivery R
[2022-08-08 17:58] LABS: Sodium 130 mmol/L (137-145)
[2022-08-08 20:00] VITALS: PULSE 89; RESP 20; O2SAT 99
[2022-08-08 21:54] VITALS: BP 150/73; PULSE 94; RESP 16; TEMP 35.9; O2SAT 98
[2022-08-09 06:00] VITALS: BP 144/91; PULSE 91; RESP 18; TEMP 35.9; O2SAT 98
[2022-08-09 06:21] LABS: Hematocrit 29.3 % (37.0-47.0); Hemoglobin 9.9 g/dL (12.0-15.0); Mean Corpuscular HGB Conc 33.8 g/dl (32-36); Mean Corpuscular Hemoglobin 30.7 pg (26-34); Mean Corpuscular Volume 90.7 fl (80-100); Mean Platelet Volume 8.9 fl (7.4-10.4); Platelet Count Result 366 k/mm3 (150-375); Red Blood Count 3.23 M/mm3 (4.2-5.4); Red Cell Distribution Width 13.4 % (11.5-14.5); White Blood Count 11.4 K/mm3 (4.5-10.0)
[2022-08-09 06:34] LABS: Potassium 3.5 mmol/L (3.4-5.0)
[2022-08-09 06:37] LABS: Anion Gap 4 mmol/L (8-16); Blood Urea Nitrogen 13 mg/dL (7-17); Calcium 8.4 mg/dL (8.4-10.2); Carbon Dioxide 30 mmol/L (22-30); Chloride 97 mmol/L (98-107); Estimated CRCL calculation 64 ml/min; Estimated Glomerular Filt Rate > 60; Glucose 98 mg/dL (65-110); Sodium 131 mmol/L (137-145)
[2022-08-09 08:28] VITALS: RESP 18; O2SAT 98
[2022-08-09] MEDS: polyethylene glycoL 3350 17 GM POWD.PACK PO (08:28)
[2022-08-09] MEDS: FAMOTIDINE 20 MG TABLET PO ×2 (08:28→20:34)
[2022-08-09] MEDS: CELECOXIB 200 MG CAPSULE PO (08:28)
[2022-08-09] MEDS: SENNA/DOCUSATE SODIUM TABLET 2 TAB PO ×2 (08:28→16:28)
--- NOTE | 2022-08-09 11:08 | PCOTNOTE ---
Attempted to see Patient for A.M. OT treatment session. Patient refused to participate in any activities at this time. Patient having some increased confusion and becoming increasingly frustrated. Patient verbalized, I said, NO, I hurt to bad and I'm exhausted . Patient unable to tell me where she is at this time, and why she is here.
[2022-08-09] MEDS: HYDROcodone/acetaminophen (*CRX) 7.5-325 MG TABLET 1 TAB PO ×2 (13:26→20:34)
[2022-08-09 14:00] VITALS: BP 148/97; PULSE 81; RESP 16; TEMP 35.9; O2SAT 98
--- NOTE | 2022-08-09 15:26 | PM.PNORT ---
Progress Note: A&P Assessment and Plan (1) Subtrochanteric fracture of femur: Qualifiers: Encounter type: initial encounter Fracture type: closed Fracture alignment: displaced Laterality: right Qualified Code(s): S72.21XA - Displaced subtrochanteric fracture of right femur, initial encounter for closed fracture Code(s): S72.23XA - Displaced subtrochanteric fracture of unspecified femur, initial encounter for closed fracture Status: Acute Assessment and Plan: POD 6 IMPROVING. WE ARE AWAITING PLACEMENT FOR SNF VS REHAB. SHE WILL F/U IN [facility]THO IN 2 MOS. SHE WILL REMAIN NON WEIGHT BEARING FOR THAT PERIOD OF TIME. SHE SHOULD CONTINUE WITH DVT PROPHYLAXIS FOR A MINIMUM OF 4 WEEKS. Subjective Subjective Date/Time Seen: 08/09/22 15:26 Interval history: POD 6 DOING WELL. MUCH IMPROVED. HAVING PT. STILL WITH SLOW PROGRESS. NO CALF PAIN Exam Extrem: Other: VSS AFEBRILE DRESSING DRY NV INTACT NEG HOMANS SIGN, CALF AND THIGH SOFT Objective Data Vital Signs Vital Signs: Vital Signs - 24 hr 08/08/22 20:00 08/08/22 21:54 08/09/22 06:00 Temperature 35.9 C L 35.9 C L Pulse Rate 89 94 91 Respiratory Rate 20 16 18 Blood Pressure 150/73 H 144/91 H Pulse Oximetry 99 98 98 Oxygen Delivery Room Air 08/09/22 08:28 08/09/22 14:00 Temperature 35.9 C L Pulse Rate 81 Respiratory Rate 18 16 Blood Pressure 148/97 H Pulse Oximetry 98 98 Oxygen Delivery Room Air Intake/Output Intake/Output: Intake & Output 08/06/22 08/07/22 08/08/22 08/09/22 23:59 23:59 23:59 23:59 Intake Total 1630 1620 1760 320 Output Total 200 1300 500 700 Balance 0949 227 6243 -380 Meds/Results Medications: Active Medications Generic Name Dose Route Start Last Admin Trade Name Freq PRN Reason Stop Dose Admin Acetaminophen 650 mg 08/04/22 17:24 Acetaminophen 325 Mg Tablet PO Q6H PRN Mild Pain (1-3) or Fever Hydrocodone Bitart/Acetaminophen 1 tab 08/04/22 17:24 08/09/22 13:26 Hydrocodone/Acetaminophen (*Crx) 7.5-325 Mg Tablet PO 1 tab Q3H PRN Administration Pain Rated 4-6 Celecoxib 200 mg 04/29/23 08:00 08/09/22 08:28 Celecoxib 200 Mg Capsule PO 200 mg DAILY@0800 [facility] Administration Diazepam 5 mg 08/04/22 17:24 08/05/22 22:18 Diazepam (*Crx) 5 Mg Tablet PO 5 mg Q8H PRN Administration Muscle Spasm Famotidine 20 mg 08/04/22 21:00 08/09/22 08:28 Famotidine 20 Mg Tablet PO 20 mg Q12HR [facility] Administration Hydroxyzine Pamoate 50 mg 08/04/22 17:24 Hydroxyzine Pamoate 25 Mg Capsule PO Q4H PRN Itching Magnesium Hydroxide 30 ml 08/04/22 17:24 Magnesium Hydroxide Susp 30 Ml Udc PO BID PRN Constipation Morphine Sulfate 3 mg 08/04/22 17:24 08/06/22 01:27 Morphine Sulfate (*Crx) 4 Mg/Ml Inj IV PUSH 3 mg Q3H PRN Administration Pain Rated 7-10 Naloxone HCl 0.1 mg 08/04/22 17:24 Naloxone Hcl 0.4 Mg/Ml Vial IV PUSH Q2M PRN Opiate Reversal Ondansetron HCl 4 mg 08/04/22 17:24 Ondansetron Inj 4 Mg/2 Ml Vial IV PUSH Q4H PRN Nausea And Vomiting Polyethylene Glycol 17 gm 08/05/22 09:00 08/09/22 08:28 Polyethylene Glycol 3350 17 Gm Powd.Pack PO 17 gm QAM [facility] Administration Rivaroxaban 10 mg 08/04/22 17:24 08/08/22 16:11 Rivaroxaban 10 Mg Tablet PO 10 mg DAILY@17 [facility] Administration Senna/Docusate Sodium 2 tab 08/04/22 17:24 08/09/22 08:28 Senna/Docusate Sodium Tablet PO 2 tab BID [facility] Administration Radiology Results: ITS Impressions Hip/Pelvis X-Ray 08/03/22 09:02 IMPRESSION: 1. Displaced and angulated subtrochanteric fracture of the proximal right femur. Chest X-Ray 08/03/22 13:57 Impression: Normal chest. Intraoperative X-Ray 08/04/22 15:38 IMPRESSION: 1. Near-anatomic alignment post open reduction internal fixation of a subtrochanteric fracture of the proximal right femur including removal of prior
--- NOTE | 2022-08-09 16:00 | P.PNIM_ITS ---
Progress Note: A&P Assessment and Plan (1) Subtrochanteric fracture of right femur: Qualifiers: Encounter type: initial encounter Fracture type: closed Fracture alignment: nondisplaced Qualified Code(s): S72.24XA - Nondisplaced subtrochanteric fracture of right femur, initial encounter for closed fracture Code(s): S72.21XA - Displaced subtrochanteric fracture of right femur, initial encounter for closed fracture Status: Acute Assessment and Plan: Radiographs showed a displaced and angulated subtrochanteric fracture of the proximal right femur. * Appreciate orthopedic surgery consultation * Underwent surgical repair on 08/04 and tolerated the procedure well * Wound care deferred to Orthopedic surgery * Continue xarelto for DVT prophylaxis * Appreciate PT/OT eval * Patient will require rehab following discharge. Appreciate care coordination recommendations * Supportive care. Analgesics as needed. (2) Anemia: Qualifiers: Anemia type: other cause Other causes of anemia: other cause, not classified Qualified Code(s): D64.89 - Other specified anemias Code(s): D64.9 - Anemia, unspecified Status: Acute Assessment and Plan: Sharp decline in hemoglobin postoperatively from 10.0 preoperatively to 5.8 on 08/05 * Suspect acute blood loss anemia secondary to fracture and surgery * Operative notes reviewed with 500 cc blood loss noted * Patient did receive 1 dose of tranexamic acid intraoperatively * transfused 2 units packed RBC with improvement in hemoglobin 08/05 * no signs of active bleeding. H&H remaining stable following transfusion * Xarelto continued (3) Hypertension: Qualifiers: Hypertension type: primary hypertension Qualified Code(s): I10 - Essential (primary) hypertension Code(s): I10 - Essential (primary) hypertension Status: Chronic Assessment and Plan: Chronic, BP 148/97, heart rate 81 * Medications reconciled. Continue amlodipine, Coreg, and losartan at home doses. * Adjust if needed for blood pressure trend. (4) Leukocytosis: Qualifiers: Leukocytosis type: unspecified Qualified Code(s): D72.829 - Elevated white blood cell count, unspecified Code(s): D72.829 - Elevated white blood cell count, unspecified Status: Acute Assessment and Plan: WBC elevated at 18.0. * May be reactive secondary to acute fracture and surgery. * trending down then 11.4 today 08/09. * Afebrile * Continue to monitor CBC with differential * No respiratory complaints, surgical incision without s/s infection. Check UA given suprapubic tenderness. (5) Hyponatremia: Code(s): E87.1 - Hypo-osmolality and hyponatremia Status: Acute Assessment and Plan: Sodium 136-137 preop. Decreased to 128 on 08/07/22. * Possibly SIADH secondary to pain. * She currently taking opioid medications, but this is chronic. * Fluid restriction 1500 mL initiated. * Urine sodium is 47 on 08/08. * check urine osmolality with repeat urine sodium and potassium. * Asymptomatic. Does not appear volume overloaded. (6) Chronic back pain: Qualifiers: Back pain location: low back pain Back pain laterality: midline Sciatica presence: with sciatica Sciatica laterality: bilateral sciatica Chiki lified Code(s): M54.41 - Lumbago with sciatica, right side; M54.42 - Lumbago with sciatica, left side; G89.29 - Other chronic pain Code(s): M54.9 - Dorsalgia, unspecified; G89.29 - Other chronic pain Status: Chronic Asses
--- NOTE | 2022-08-09 16:00 | PM.IMPN ---
Progress Note: A&P Assessment and Plan (1) Subtrochanteric fracture of right femur: Qualifiers: Encounter type: initial encounter Fracture type: closed Fracture alignment: nondisplaced Qualified Code(s): S72.24XA - Nondisplaced subtrochanteric fracture of right femur, initial encounter for closed fracture Code(s): S72.21XA - Displaced subtrochanteric fracture of right femur, initial encounter for closed fracture Status: Acute Assessment and Plan: Radiographs showed a displaced and angulated subtrochanteric fracture of the proximal right femur. Appreciate orthopedic surgery consultation Underwent surgical repair on 08/04 and tolerated the procedure well Wound care deferred to Orthopedic surgery Continue xarelto for DVT prophylaxis Appreciate PT/OT eval Patient will require rehab following discharge. Appreciate care coordination recommendations Supportive care. Analgesics as needed. (2) Anemia: Qualifiers: Anemia type: other cause Other causes of anemia: other cause, not classified Qualified Code(s): D64.89 - Other specified anemias Code(s): D64.9 - Anemia, unspecified Status: Acute Assessment and Plan: Sharp decline in hemoglobin postoperatively from 10.0 preoperatively to 5.8 on 08/05 Suspect acute blood loss anemia secondary to fracture and surgery Operative notes reviewed with 500 cc blood loss noted Patient did receive 1 dose of tranexamic acid intraoperatively transfused 2 units packed RBC with improvement in hemoglobin 08/05 no signs of active bleeding. H&H remaining stable following transfusion Xarelto continued (3) Hypertension: Qualifiers: Hypertension type: primary hypertension Qualified Code(s): I10 - Essential (primary) hypertension Code(s): I10 - Essential (primary) hypertension Status: Chronic Assessment and Plan: Chronic, BP 148/97, heart rate 81 Medications reconciled. Continue amlodipine, Coreg, and losartan at home doses. Adjust if needed for blood pressure trend. (4) Leukocytosis: Qualifiers: Leukocytosis type: unspecified Qualified Code(s): D72.829 - Elevated white blood cell count, unspecified Code(s): D72.829 - Elevated white blood cell count, unspecified Status: Acute Assessment and Plan: WBC elevated at 18.0. May be reactive secondary to acute fracture and surgery. trending down then 11.4 today 08/09. Afebrile Continue to monitor CBC with differential No respiratory complaints, surgical incision without s/s infection. Check UA given suprapubic tenderness. (5) Hyponatremia: Code(s): E87.1 - Hypo-osmolality and hyponatremia Status: Acute Assessment and Plan: Sodium 136-137 preop. Decreased to 128 on 08/07/22. Possibly SIADH secondary to pain. She currently taking opioid medications, but this is chronic. Fluid restriction 1500 mL initiated. Urine sodium is 47 on 08/08. check urine osmolality with repeat urine sodium and potassium. Asymptomatic. Does not appear volume overloaded. 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 Continue analgesics PRN Add cyclobenzaprine 5 mg Q12 hours PRN muscle spasms. Hold gabapentin for now due to hyponatremia. (7) Dementia: Qualifiers: Dementia type: Alzheimer's Alzheimer's disease onset: unspecified onset Dementia severity: unspecified severity Dementia behavioral or psychological
[2022-08-09] MEDS: RIVAROXABAN 10 MG TABLET PO (16:28)
[2022-08-09] MEDS: busPIRone HCL 5 MG TABLET 15 MG PO (16:28)
[2022-08-09] MEDS: CYCLOBENZAPRINE HCL 5 MG TABLET PO (16:56)
[2022-08-09 18:45] LABS: Appearance Urine Cloudy (Clear); Bacteria Urine Rare /hpf; Bilirubin Urine Negative (Negative); Color Urine Yellow (Yellow); Glucose Urine UA Negative (Negative); Ketones Urine Negative (Negative); Leukocyte Esterase Ur Negative LEU/UL (Negative); Nitrate Urine Negative (Negative); Non Pathogenic Casts 0-2; Protein Urine Negative (Negative); Specific Grav Ur 1.012 (1.001-1.035); Squamous Epithelial Cell Urine Occasional /hpf (Few); WBC Urine 0-5 /hpf; pH Urine 7.5 (5.0-9.0)
[2022-08-09 18:50] LABS: Add Urine Microscopic? YES
[2022-08-09 20:00] VITALS: PULSE 105; RESP 16; O2SAT 98
[2022-08-09 20:12] LABS: Potassium Urine Random 13.4 meq/L; Sodium Urine Random 69 meq/L
[2022-08-09 20:30] VITALS: BP 137/83; PULSE 96; RESP 18; TEMP 35.8; O2SAT 99
[2022-08-09] MEDS: diazePAM (*CRX) 5 MG TABLET PO (20:34)
[2022-08-09] MEDS: carvediloL 12.5 MG TABLET 25 MG PO (20:35)
[2022-08-09 21:15] VITALS: BP 146/94; PULSE 105; RESP 16; TEMP 35.7; O2SAT 98
[2022-08-10 05:56] VITALS: BP 128/72; PULSE 90; RESP 16; TEMP 35.7; O2SAT 98
[2022-08-10 06:54] LABS: Basophils Absolute Auto 0.1 K/mm3 (0.0-0.1); Basophils Percent Auto 0.4 % (0.2-1.2); Eosinophils Absolute Auto 0.4 K/mm3 (0-0.3); Eosinophils Percent Auto 3.3 % (0-4.4); Hematocrit 28.7 % (37.0-47.0); Hemoglobin 9.4 g/dL (12.0-15.0); Immature Granulocyte Absolute 0.08 K/mm3 (0.00-0.031); Immature Granulocyte Percent A 0.7 % (0-0.5); Lymphocytes Absolute Auto 1.83 K/mm3 (0.9-3.2); Lymphocytes Percent Auto 16.4 % (18.3-44.2); Mean Corpuscular HGB Conc 32.8 g/dl (32-36); Mean Corpuscular Volume 91.7 fl (80-100); Mean Platelet Volume 8.9 fl (7.4-10.4); Monocytes Absolute Auto 1.1 K/mm3 (0.1-0.6); Monocytes Percent Auto 10.1 % (2.6-8.5); Neutrophils Absolute Auto 7.7 K/mm3 (1.3-6.7); Neutrophils Percent Auto 69.1 % (45.5-73.1); Platelet Count Result 390 k/mm3 (150-375); Red Blood Count 3.13 M/mm3 (4.2-5.4); Red Cell Distribution Width 13.5 % (11.5-14.5); White Blood Count 11.2 K/mm3 (4.5-10.0)
[2022-08-10 07:12] LABS: Anion Gap 2 mmol/L (8-16); Blood Urea Nitrogen 14 mg/dL (7-17); Calcium 8.4 mg/dL (8.4-10.2); Carbon Dioxide 32 mmol/L (22-30); Chloride 98 mmol/L (98-107); Estimated CRCL calculation 64 ml/min; Estimated Glomerular Filt Rate > 60; Glucose 98 mg/dL (65-110); Potassium 3.6 mmol/L (3.4-5.0); Sodium 132 mmol/L (137-145)
[2022-08-10 07:53] LABS: Procalcitonin 0.1 ng/mL
--- NOTE | 2022-08-10 08:04 | PM.PNORT ---
Progress Note: A&P Assessment and Plan (1) Subtrochanteric fracture of femur: Qualifiers: Encounter type: initial encounter Fracture type: closed Fracture alignment: displaced Laterality: right Qualified Code(s): S72.21XA - Displaced subtrochanteric fracture of right femur, initial encounter for closed fracture Code(s): S72.23XA - Displaced subtrochanteric fracture of unspecified femur, initial encounter for closed fracture Status: Acute Assessment and Plan: POD #6: INSERTION FEMORAL NADER RIGHT SUBTROCHANTERIC FEMUR FRACTURE, REMOVAL OF HARDWARE-CANNULATED SCREWS RIGHT FEMORAL NECK Continue PT/OT. NWB RLE. Walker. HIGH FALL RISK. Continue pain control. Ice hip, knee, ankle. Protect skin. DVT prophylaxis with resumed Xarelto/Aspirin (home doses). SCDs. Incentive Spirometry. Monitor dressing. Mepilex silver dressing in place at hip/knee. Bowel Regimen. Dispo: SNF vs [facility] pending progress with PT/OT and medical clearance (2) Cognitive impairment: Code(s): R41.89 - Other symptoms and signs involving cognitive functions and awareness Status: Chronic Assessment and Plan: Pleasantly confused. (3) Acute ischemic cerebrovascular accident (CVA) involving anterior cerebral artery territory: Status: Acute (4) Subcapital fracture of neck of right femur: Status: Resolved Assessment and Plan: Right Hip fx in 2020. Dr. Thakkar previously cared for patient. (5) Ankle pain: Status: Acute Assessment and Plan: Patient with complaints of right ankle pain during previous admission. Previous radiographs obtained. Radiographs reveal heterotopic ossification distal to the lateral malleolus, consistent with avulsion injury. Patient with ecchymosis/swelling. Improved. Patient is NWB of the RLE at this time due to recent surgery. Okay to do ankle brace/ANGEL LUIS wrap if needed for pain relief. Ice, elevate. Subjective Subjective Date/Time Seen: 08/10/22 08:04 Post Op day: 6 Interval history: POD #6: INSERTION FEMORAL NADER RIGHT SUBTROCHANTERIC FEMUR FRACTURE, REMOVAL OF HARDWARE-CANNULATED SCREWS RIGHT FEMORAL NECK Patient reports feeling fatigued today. Laying in bed at time of exam. No complaints of pain of the RLE while at rest. No concerns aside from feeling fatigued. Review of Systems Review of Systems: All systems reviewed & are unremarkable except as noted in HPI and below Exam Const: General: comfortable and no acute distress Resp: Effort & Inspection: normal respiratory effort Cardio: Rate: regular rate Rhythm: regular rhythm GI: Inspection: non-distended Skin: General skin exam: normal color Other: Incision right hip and right knee c/d/i. Surrounding tissue without redness/warmth. Mild swelling consistent with recent surgery. No drainage. Neuro: Speech: normal speech Extrem: Right lower extremity: normal to inspection, normal capillary refill, hip/thigh Details: tenderness Location: of the hip (Thigh soft ) Location: laterally and anteriorly, swelling Location: at the hip, abnormal ROM (limited consistent with recent surgery ) Details: pain with active ROM during and pain with passive ROM during and other (Incision c/d/i. ); no deformity and no unusual warmth, knee Details: normal to inspection and tenderness (lateral, dressing c/d/i ); no swelling, lower leg (Negative James's Sign ) Details: normal to inspection and no edema; no tenderness, ankle (+ankle dorsiflexion/plantarflexion) Details: normal to inspection, tenderness Location: of the lateral malleolus, swelling Details: laterally, no edema and ecchymosis (lateral aspect ) and foot Details: normal capillary refill, toes with normal ROM, vascular exam Details: dorsalis pedis pulse present and motor-sensory exam Details: light-touch normal; no tenderness Objective Data Vital Signs Vital Signs: Vital Signs - 24 hr 08/09/22 08:28 08/09/22 14:00 08/09/22 20:30 Temperature 35.9 C L 35.8
[2022-08-10] MEDS: CELECOXIB 200 MG CAPSULE PO (09:51)
[2022-08-10] MEDS: carvediloL 12.5 MG TABLET 25 MG PO ×2 (09:51→20:34)
[2022-08-10] MEDS: amLODIPine BESYLATE 5 MG TABLET 10 MG PO (09:51)
[2022-08-10] MEDS: LOSARTAN POTASSIUM 100 MG TABLET PO (09:51)
[2022-08-10] MEDS: busPIRone HCL 5 MG TABLET 15 MG PO ×2 (09:51→16:08)
[2022-08-10] MEDS: PRAVASTATIN SODIUM 20 MG TABLET 40 MG PO (09:51)
[2022-08-10] MEDS: FAMOTIDINE 20 MG TABLET PO ×2 (09:52→20:35)
[2022-08-10] MEDS: HYDROcodone/acetaminophen (*CRX) 7.5-325 MG TABLET 1 TAB PO ×3 (09:54→20:35)
[2022-08-10] MEDS: diazePAM (*CRX) 5 MG TABLET PO ×2 (11:55→20:35)
[2022-08-10 14:00] VITALS: BP 112/67; PULSE 86; RESP 16; TEMP 35.9; O2SAT 97
--- NOTE | 2022-08-10 14:18 | P.PNIM_ITS ---
Progress Note: A&P Assessment and Plan (1) Subtrochanteric fracture of right femur: Qualifiers: Encounter type: initial encounter Fracture alignment: nondisplaced Fracture type: closed Qualified Code(s): S72.24XA - Nondisplaced subtrochanteric fracture of right femur, initial encounter for closed fracture Code(s): S72.21XA - Displaced subtrochanteric fracture of right femur, initial encounter for closed fracture Status: Acute Assessment and Plan: Radiographs showed a displaced and angulated subtrochanteric fracture of the proximal right femur. * Appreciate orthopedic surgery consultation * s/p insertion of femoral brad right subtrochanteric femur fracture, removal of hardware-cannulated screws right femoral neck on 08/04/22 * Wound care deferred to Orthopedic surgery * Continue xarelto for DVT prophylaxis * Appreciate PT/OT eval * Supportive care. Analgesics as needed. * Awaiting SNF rehab placement (2) Anemia: Qualifiers: Anemia type: other cause Other causes of anemia: other cause, not classified Qualified Code(s): D64.89 - Other specified anemias Code(s): D64.9 - Anemia, unspecified Status: Acute Assessment and Plan: Sharp decline in hemoglobin postoperatively from 10.0 preoperatively to 5.8 on 08/05. Secondary to acute blood loss anemia secondary to fracture and surgery * EBL 500 cc blood loss noted * Given 1 dose of tranexamic acid intraoperatively * transfused 2 units packed RBC with improvement in hemoglobin 08/05. H&H remaining stable following transfusion * no signs of active bleeding. * Xarelto resumed 08/07/22 and hemoglobin stable. * Will add ferrous sulfate 325 mg PO daily x 6 weeks. (3) Hypertension: Qualifiers: Hypertension type: primary hypertension Qualified Code(s): I10 - Essential (primary) hypertension Code(s): I10 - Essential (primary) hypertension Status: Chronic Assessment and Plan: Chronic, BP 148/97, heart rate 81 * Medications reconciled. Continue amlodipine, Coreg, and losartan at home doses. * Adjust medications as BP tolerates. (4) Leukocytosis: Qualifiers: Leukocytosis type: unspecified Qualified Code(s): D72.829 - Elevated white blood cell count, unspecified Code(s): D72.829 - Elevated white blood cell count, unspecified Status: Acute Assessment and Plan: WBC elevated at 18.0. * May be reactive secondary to acute fracture and surgery. * trending down then 11.4 today 08/09. * Afebrile * Continue to monitor CBC with differential * No respiratory complaints, surgical incision without s/s infection. UA negative for acute infection. (5) Hyponatremia: Code(s): E87.1 - Hypo-osmolality and hyponatremia Status: Acute Assessment and Plan: Sodium 136-137 preop. Decreased to 128 on 08/07/22. * Possibly SIADH secondary to pain. * She currently taking opioid medications, but this is chronic. * Fluid restriction 1500 mL initiated. * Urine sodium is 47 on 08/08. * urine osmolality pending. * repeat urine sodium 69 and potassium 13.4 * Asymptomatic. Does not appear volume overloaded. * 08/10/22 sodium 132 (6) Chronic back pain: Qualifiers: Back pain laterality: midline Back pain location: low back pain Sciatica laterality: bilateral sciatica Sciatica presence: with sciatica Qualified Code(s): M54.41 - Lumbago with sciatica, right side; M54.42 - Lumbago with sciatica, left side; G89.29 - Other chronic pain Code(s): M54.9 - Dorsalgia, uns
--- NOTE | 2022-08-10 14:18 | PM.IMPN ---
Progress Note: A&P Assessment and Plan (1) Subtrochanteric fracture of right femur: Qualifiers: Encounter type: initial encounter Fracture alignment: nondisplaced Fracture type: closed Qualified Code(s): S72.24XA - Nondisplaced subtrochanteric fracture of right femur, initial encounter for closed fracture Code(s): S72.21XA - Displaced subtrochanteric fracture of right femur, initial encounter for closed fracture Status: Acute Assessment and Plan: Radiographs showed a displaced and angulated subtrochanteric fracture of the proximal right femur. Appreciate orthopedic surgery consultation s/p insertion of femoral brad right subtrochanteric femur fracture, removal of hardware-cannulated screws right femoral neck on 08/04/22 Wound care deferred to Orthopedic surgery Continue xarelto for DVT prophylaxis Appreciate PT/OT eval Supportive care. Analgesics as needed. Awaiting SNF rehab placement (2) Anemia: Qualifiers: Anemia type: other cause Other causes of anemia: other cause, not classified Qualified Code(s): D64.89 - Other specified anemias Code(s): D64.9 - Anemia, unspecified Status: Acute Assessment and Plan: Sharp decline in hemoglobin postoperatively from 10.0 preoperatively to 5.8 on 08/05. Secondary to acute blood loss anemia secondary to fracture and surgery EBL 500 cc blood loss noted Given 1 dose of tranexamic acid intraoperatively transfused 2 units packed RBC with improvement in hemoglobin 08/05. H&H remaining stable following transfusion no signs of active bleeding. Xarelto resumed 08/07/22 and hemoglobin stable. Will add ferrous sulfate 325 mg PO daily x 6 weeks. (3) Hypertension: Qualifiers: Hypertension type: primary hypertension Qualified Code(s): I10 - Essential (primary) hypertension Code(s): I10 - Essential (primary) hypertension Status: Chronic Assessment and Plan: Chronic, BP 148/97, heart rate 81 Medications reconciled. Continue amlodipine, Coreg, and losartan at home doses. Adjust medications as BP tolerates. (4) Leukocytosis: Qualifiers: Leukocytosis type: unspecified Qualified Code(s): D72.829 - Elevated white blood cell count, unspecified Code(s): D72.829 - Elevated white blood cell count, unspecified Status: Acute Assessment and Plan: WBC elevated at 18.0. May be reactive secondary to acute fracture and surgery. trending down then 11.4 today 08/09. Afebrile Continue to monitor CBC with differential No respiratory complaints, surgical incision without s/s infection. UA negative for acute infection. (5) Hyponatremia: Code(s): E87.1 - Hypo-osmolality and hyponatremia Status: Acute Assessment and Plan: Sodium 136-137 preop. Decreased to 128 on 08/07/22. Possibly SIADH secondary to pain. She currently taking opioid medications, but this is chronic. Fluid restriction 1500 mL initiated. Urine sodium is 47 on 08/08. urine osmolality pending. repeat urine sodium 69 and potassium 13.4 Asymptomatic. Does not appear volume overloaded. 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 Continue analgesics PRN Added cyclobenzaprine 5 mg Q12 hours PRN muscle spasms. Resume gabapentin at lower dose and adjust if needed for pain and stable electrolytes (7) Dementia: Qualifiers: Alzheimer's disease onset: unspecified onse
[2022-08-10] MEDS: RIVAROXABAN 10 MG TABLET PO (16:09)
[2022-08-10] MEDS: GABAPENTIN 100 MG CAPSULE PO (17:24)
[2022-08-10] MEDS: CYCLOBENZAPRINE HCL 5 MG TABLET PO (17:24)
[2022-08-10 20:00] VITALS: PULSE 90; RESP 18; O2SAT 100
[2022-08-10 20:39] VITALS: BP 129/76; PULSE 90; RESP 18; TEMP 37; O2SAT 100
[2022-08-10 22:00] VITALS: BP 127/66; PULSE 85; RESP 16; TEMP 35.8; O2SAT 99
[2022-08-11 06:00] VITALS: BP 112/76; PULSE 78; RESP 14; TEMP 35.5; O2SAT 97
[2022-08-11 06:50] LABS: Anion Gap 4 mmol/L (8-16); Blood Urea Nitrogen 18 mg/dL (7-17); Calcium 8.2 mg/dL (8.4-10.2); Carbon Dioxide 29 mmol/L (22-30); Chloride 99 mmol/L (98-107); Estimated CRCL calculation 57 ml/min; Estimated Glomerular Filt Rate > 60; Glucose 99 mg/dL (65-110); Potassium 3.6 mmol/L (3.4-5.0); Sodium 132 mmol/L (137-145)
[2022-08-11 08:17] VITALS: PULSE 70
[2022-08-11] MEDS: LOSARTAN POTASSIUM 100 MG TABLET PO (08:17)
[2022-08-11] MEDS: CELECOXIB 200 MG CAPSULE PO (08:17)
[2022-08-11] MEDS: polyethylene glycoL 3350 17 GM POWD.PACK PO (08:17)
[2022-08-11] MEDS: GABAPENTIN 100 MG CAPSULE PO ×3 (08:17→16:30)
[2022-08-11] MEDS: PRAVASTATIN SODIUM 20 MG TABLET 40 MG PO (08:17)
[2022-08-11] MEDS: carvediloL 12.5 MG TABLET 25 MG PO ×2 (08:17→20:44)
[2022-08-11] MEDS: FAMOTIDINE 20 MG TABLET PO ×2 (08:17→20:44)
[2022-08-11] MEDS: SENNA/DOCUSATE SODIUM TABLET 2 TAB PO ×2 (08:17→16:30)
[2022-08-11] MEDS: amLODIPine BESYLATE 5 MG TABLET 10 MG PO (08:17)
[2022-08-11] MEDS: FERROUS SULFATE 324 MG TABLET PO (08:17)
[2022-08-11] MEDS: busPIRone HCL 5 MG TABLET 15 MG PO ×2 (08:17→16:30)
[2022-08-11] MEDS: HYDROcodone/acetaminophen (*CRX) 7.5-325 MG TABLET 1 TAB PO ×3 (08:23→20:44)
--- NOTE | 2022-08-11 08:48 | PM.PNORT ---
Progress Note: A&P Assessment and Plan (1) Subtrochanteric fracture of femur: Qualifiers: Encounter type: initial encounter Fracture type: closed Fracture alignment: displaced Laterality: right Qualified Code(s): S72.21XA - Displaced subtrochanteric fracture of right femur, initial encounter for closed fracture Code(s): S72.23XA - Displaced subtrochanteric fracture of unspecified femur, initial encounter for closed fracture Status: Acute Assessment and Plan: POD #7: INSERTION FEMORAL NADER RIGHT SUBTROCHANTERIC FEMUR FRACTURE, REMOVAL OF HARDWARE-CANNULATED SCREWS RIGHT FEMORAL NECK Continue PT/OT. NWB RLE. Walker. HIGH FALL RISK. Continue pain control. Ice hip, knee, ankle. Protect skin. DVT prophylaxis with resumed Xarelto/Aspirin (home doses). SCDs. Incentive Spirometry. Monitor dressing. Mepilex silver dressing in place at hip/knee. Bowel Regimen. Dispo: SNF vs [facility] pending progress with PT/OT and medical clearance (2) Cognitive impairment: Code(s): R41.89 - Other symptoms and signs involving cognitive functions and awareness Status: Chronic Assessment and Plan: Pleasantly confused. (3) Acute ischemic cerebrovascular accident (CVA) involving anterior cerebral artery territory: Code(s): I63.529 - Cerebral infarction due to unspecified occlusion or stenosis of unspecified anterior cerebral artery Status: Acute (4) Subcapital fracture of neck of right femur: Qualifiers: Encounter type: sequela Fracture type: closed Qualified Code(s): S72.011S - Unspecified intracapsular fracture of right femur, sequela Code(s): S72.011A - Unspecified intracapsular fracture of right femur, initial encounter for closed fracture Status: Resolved Assessment and Plan: Right Hip fx in 2020. Dr. Thakkar previously cared for patient. (5) Ankle pain: Qualifiers: Chronicity: acute Laterality: right Qualified Code(s): M25.571 - Pain in right ankle and joints of right foot Code(s): M25.579 - Pain in unspecified ankle and joints of unspecified foot Status: Acute Assessment and Plan: Patient with complaints of right ankle pain during previous admission. Previous radiographs obtained. Radiographs reveal heterotopic ossification distal to the lateral malleolus, consistent with avulsion injury. Patient with ecchymosis/swelling. Improved. Patient is NWB of the RLE at this time due to recent surgery. Okay to do ankle brace/ANGEL LUIS wrap if needed for pain relief. Ice, elevate. Subjective Subjective Date/Time Seen: 08/11/22 08:48 Post Op day: 7 Interval history: POD #7: INSERTION FEMORAL NADER RIGHT SUBTROCHANTERIC FEMUR FRACTURE, REMOVAL OF HARDWARE-CANNULATED SCREWS RIGHT FEMORAL NECK Patient reports improvement in fatigue today. Complains of thigh pain. Pain controlled while at rest. No other concerns. Review of Systems Review of Systems: All systems reviewed & are unremarkable except as noted in HPI and below Exam Const: General: comfortable and no acute distress Resp: Effort & Inspection: normal respiratory effort Cardio: Rate: regular rate Rhythm: regular rhythm GI: Inspection: non-distended Skin: General skin exam: normal color Other: Incision right hip and right knee c/d/i. Surrounding tissue without redness/warmth. Mild swelling consistent with recent surgery. No drainage. Neuro: Speech: normal speech Extrem: Right lower extremity: normal to inspection, normal capillary refill, hip/thigh Details: tenderness Location: of the hip (Thigh soft ) Location: laterally and anteriorly, swelling Location: at the hip, abnormal ROM (limited consistent with recent surgery ) Details: pain with active ROM during and pain with passive ROM during and other (Incision c/d/i. ); no deformity and no unusual warmth, knee Details: normal to inspection and tenderness (lateral, dressing c/d/i ); no swelling, lower leg (Negative Jennifer
[2022-08-11] MEDS: ONDANSETRON INJ 4 MG/2 ML VIAL IV PUSH (08:58)
--- NOTE | 2022-08-11 12:02 | PCNWS ---
Weekly nutritional screen. Patient is tolerating current regular diet with adequate intake, noted eating some things brought in from family due to preferences. Pt does not want any supplements. No weight loss reported. No nutritional recommendations at this time.
[2022-08-11 13:51] VITALS: BP 111/58; PULSE 85; RESP 20; TEMP 36.2; O2SAT 99
[2022-08-11] MEDS: RIVAROXABAN 10 MG TABLET PO (16:30)
--- NOTE | 2022-08-11 16:45 | P.PNIM_ITS ---
Progress Note: A&P Assessment and Plan (1) Subtrochanteric fracture of right femur: Qualifiers: Encounter type: initial encounter Fracture type: closed Fracture alignment: nondisplaced Qualified Code(s): S72.24XA - Nondisplaced subtrochanteric fracture of right femur, initial encounter for closed fracture Code(s): S72.21XA - Displaced subtrochanteric fracture of right femur, initial encounter for closed fracture Status: Acute Assessment and Plan: Radiographs showed a displaced and angulated subtrochanteric fracture of the proximal right femur. * Appreciate orthopedic surgery consultation * s/p insertion of femoral brad right subtrochanteric femur fracture, removal of hardware-cannulated screws right femoral neck on 08/04/22 * Wound care deferred to Orthopedic surgery * Continue xarelto for DVT prophylaxis * Appreciate PT/OT eval * Supportive care. Analgesics as needed. * Awaiting SNF rehab placement * Stable (2) Anemia: Qualifiers: Anemia type: other cause Other causes of anemia: other cause, not classified Qualified Code(s): D64.89 - Other specified anemias Code(s): D64.9 - Anemia, unspecified Status: Acute Assessment and Plan: Sharp decline in hemoglobin postoperatively from 10.0 preoperatively to 5.8 on 08/05. Secondary to acute blood loss anemia secondary to fracture and surgery * EBL 500 cc blood loss noted * Given 1 dose of tranexamic acid intraoperatively * transfused 2 units packed RBC with improvement in hemoglobin 08/05. H&H remaining stable following transfusion * no signs of active bleeding. * Xarelto resumed 08/07/22 and hemoglobin stable. * Will add ferrous sulfate 325 mg PO daily x 6 weeks. * Check H&H tomorrow morning (3) Hypertension: Qualifiers: Hypertension type: primary hypertension Qualified Code(s): I10 - Essential (primary) hypertension Code(s): I10 - Essential (primary) hypertension Status: Chronic Assessment and Plan: Chronic, BP 148/97, heart rate 81 * Medications reconciled. Continue amlodipine, Coreg, and losartan at home doses. * Adjust medications as BP tolerates. * Stable (4) Leukocytosis: Qualifiers: Leukocytosis type: unspecified Qualified Code(s): D72.829 - Elevated white blood cell count, unspecified Code(s): D72.829 - Elevated white blood cell count, unspecified Status: Acute Assessment and Plan: WBC elevated at 18.0. Likely reactive. * May be reactive secondary to acute fracture and surgery. * trending down then 11.4 today 08/09. * Afebrile * Continue to monitor CBC with differential * No respiratory complaints, surgical incision without s/s infection. UA negative for acute infection. (5) Hyponatremia: Code(s): E87.1 - Hypo-osmolality and hyponatremia Status: Acute Assessment and Plan: Sodium 136-137 preop. Decreased to 128 on 08/07/22. * Possibly SIADH secondary to pain. * She currently taking opioid medications, but this is chronic. * Fluid restriction 1500 mL initiated. * Urine sodium is 47 on 08/08. * urine osmolality pending. * repeat urine sodium 69 and potassium 13.4 * Asymptomatic. Does not appear volume overloaded. * 08/10/22 sodium 132 * Stable (6) Chronic back pain: Qualifiers: Back pain location: low back pain Back pain laterality: midline Sciatica presence: with sciatica Sciatica laterality: bilateral sciatica Qualified Code(s): M54.41 - Lumbago with sciatica, right side; M54.42 - Lumbago with scia
--- NOTE | 2022-08-11 16:45 | PM.IMPN ---
Progress Note: A&P Assessment and Plan (1) Subtrochanteric fracture of right femur: Qualifiers: Encounter type: initial encounter Fracture type: closed Fracture alignment: nondisplaced Qualified Code(s): S72.24XA - Nondisplaced subtrochanteric fracture of right femur, initial encounter for closed fracture Code(s): S72.21XA - Displaced subtrochanteric fracture of right femur, initial encounter for closed fracture Status: Acute Assessment and Plan: Radiographs showed a displaced and angulated subtrochanteric fracture of the proximal right femur. Appreciate orthopedic surgery consultation s/p insertion of femoral brad right subtrochanteric femur fracture, removal of hardware-cannulated screws right femoral neck on 08/04/22 Wound care deferred to Orthopedic surgery Continue xarelto for DVT prophylaxis Appreciate PT/OT eval Supportive care. Analgesics as needed. Awaiting SNF rehab placement Stable (2) Anemia: Qualifiers: Anemia type: other cause Other causes of anemia: other cause, not classified Qualified Code(s): D64.89 - Other specified anemias Code(s): D64.9 - Anemia, unspecified Status: Acute Assessment and Plan: Sharp decline in hemoglobin postoperatively from 10.0 preoperatively to 5.8 on 08/05. Secondary to acute blood loss anemia secondary to fracture and surgery EBL 500 cc blood loss noted Given 1 dose of tranexamic acid intraoperatively transfused 2 units packed RBC with improvement in hemoglobin 08/05. H&H remaining stable following transfusion no signs of active bleeding. Xarelto resumed 08/07/22 and hemoglobin stable. Will add ferrous sulfate 325 mg PO daily x 6 weeks. Check H&H tomorrow morning (3) Hypertension: Qualifiers: Hypertension type: primary hypertension Qualified Code(s): I10 - Essential (primary) hypertension Code(s): I10 - Essential (primary) hypertension Status: Chronic Assessment and Plan: Chronic, BP 148/97, heart rate 81 Medications reconciled. Continue amlodipine, Coreg, and losartan at home doses. Adjust medications as BP tolerates. Stable (4) Leukocytosis: Qualifiers: Leukocytosis type: unspecified Qualified Code(s): D72.829 - Elevated white blood cell count, unspecified Code(s): D72.829 - Elevated white blood cell count, unspecified Status: Acute Assessment and Plan: WBC elevated at 18.0. Likely reactive. May be reactive secondary to acute fracture and surgery. trending down then 11.4 today 08/09. Afebrile Continue to monitor CBC with differential No respiratory complaints, surgical incision without s/s infection. UA negative for acute infection. (5) Hyponatremia: Code(s): E87.1 - Hypo-osmolality and hyponatremia Status: Acute Assessment and Plan: Sodium 136-137 preop. Decreased to 128 on 08/07/22. Possibly SIADH secondary to pain. She currently taking opioid medications, but this is chronic. Fluid restriction 1500 mL initiated. Urine sodium is 47 on 08/08. urine osmolality pending. repeat urine sodium 69 and potassium 13.4 Asymptomatic. Does not appear volume overloaded. 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 Continue analgesics PRN Added cyclobenzaprine 5 mg Q12 hours PRN muscle spasms. Resume gabapentin at lower dose and adjust if needed for pain and stable electrolytes (7) Dementia:
[2022-08-11 20:00] VITALS: PULSE 82; RESP 18; O2SAT 99
[2022-08-11] MEDS: diazePAM (*CRX) 5 MG TABLET PO (20:44)
[2022-08-11 20:45] VITALS: BP 145/75; PULSE 82; RESP 18; TEMP 35.9; O2SAT 99
[2022-08-12 05:12] VITALS: BP 136/69; PULSE 80; RESP 16; TEMP 36.9; O2SAT 96
[2022-08-12] MEDS: HYDROcodone/acetaminophen (*CRX) 7.5-325 MG TABLET 1 TAB PO ×3 (06:26→18:43)
[2022-08-12 06:36] LABS: Hematocrit 30.6 % (37.0-47.0); Hemoglobin 9.8 g/dL (12.0-15.0)
[2022-08-12] MEDS: amLODIPine BESYLATE 5 MG TABLET 10 MG PO (08:13)
[2022-08-12] MEDS: SENNA/DOCUSATE SODIUM TABLET 2 TAB PO ×2 (08:13→16:55)
[2022-08-12] MEDS: polyethylene glycoL 3350 17 GM POWD.PACK PO (08:13)
[2022-08-12] MEDS: PRAVASTATIN SODIUM 20 MG TABLET 40 MG PO (08:13)
[2022-08-12 08:14] VITALS: PULSE 84
[2022-08-12] MEDS: carvediloL 12.5 MG TABLET 25 MG PO ×2 (08:14→21:05)
[2022-08-12] MEDS: busPIRone HCL 5 MG TABLET 15 MG PO ×2 (08:14→16:55)
[2022-08-12] MEDS: LOSARTAN POTASSIUM 100 MG TABLET PO (08:14)
[2022-08-12] MEDS: CELECOXIB 200 MG CAPSULE PO (08:14)
[2022-08-12] MEDS: FERROUS SULFATE 324 MG TABLET PO (08:14)
[2022-08-12] MEDS: FAMOTIDINE 20 MG TABLET PO ×2 (08:14→21:05)
[2022-08-12] MEDS: GABAPENTIN 100 MG CAPSULE PO ×3 (08:14→16:58)
[2022-08-12] MEDS: ONDANSETRON INJ 4 MG/2 ML VIAL IV PUSH (11:58)
[2022-08-12 14:00] VITALS: BP 114/72; PULSE 90; RESP 16; TEMP 36.2; O2SAT 99
--- NOTE | 2022-08-12 16:38 | P.PNIM_ITS ---
Progress Note: A&P Assessment and Plan (1) Subtrochanteric fracture of right femur: Qualifiers: Encounter type: initial encounter Fracture type: closed Fracture alignment: nondisplaced Qualified Code(s): S72.24XA - Nondisplaced subtrochanteric fracture of right femur, initial encounter for closed fracture Code(s): S72.21XA - Displaced subtrochanteric fracture of right femur, initial encounter for closed fracture Status: Acute Assessment and Plan: Radiographs showed a displaced and angulated subtrochanteric fracture of the proximal right femur. * Appreciate orthopedic surgery consultation * s/p insertion of femoral brad right subtrochanteric femur fracture, removal of hardware-cannulated screws right femoral neck on 08/04/22 * Wound care deferred to Orthopedic surgery * Continue xarelto for DVT prophylaxis * Appreciate PT/OT eval * Supportive care. Analgesics as needed. * Awaiting SNF rehab placement * Stable (2) Anemia: Qualifiers: Anemia type: other cause Other causes of anemia: other cause, not classified Qualified Code(s): D64.89 - Other specified anemias Code(s): D64.9 - Anemia, unspecified Status: Acute Assessment and Plan: Sharp decline in hemoglobin postoperatively from 10.0 preoperatively to 5.8 on 08/05. Secondary to acute blood loss anemia secondary to fracture and surgery * EBL 500 cc blood loss noted * Given 1 dose of tranexamic acid intraoperatively * transfused 2 units packed RBC with improvement in hemoglobin 08/05. H&H remaining stable following transfusion * no signs of active bleeding. * Xarelto resumed 08/07/22 and hemoglobin stable. * Will add ferrous sulfate 325 mg PO daily x 6 weeks. * 08/12/22 H/H 9.8/30.6 (3) Hypertension: Qualifiers: Hypertension type: primary hypertension Qualified Code(s): I10 - Essential (primary) hypertension Code(s): I10 - Essential (primary) hypertension Status: Chronic Assessment and Plan: Chronic, BP 148/97, heart rate 81 * Medications reconciled. Continue amlodipine, Coreg, and losartan at home doses. * Adjust medications as BP tolerates. * Stable (4) Leukocytosis: Qualifiers: Leukocytosis type: unspecified Qualified Code(s): D72.829 - Elevated white blood cell count, unspecified Code(s): D72.829 - Elevated white blood cell count, unspecified Status: Acute Assessment and Plan: WBC elevated at 18.0. Likely reactive. * May be reactive secondary to acute fracture and surgery. * trending down then 11.4 today 08/09. * Afebrile * Continue to monitor CBC with differential * No respiratory complaints, surgical incision without s/s infection. UA negative for acute infection. (5) Hyponatremia: Code(s): E87.1 - Hypo-osmolality and hyponatremia Status: Acute Assessment and Plan: Sodium 136-137 preop. Decreased to 128 on 08/07/22. * Possibly SIADH secondary to pain. * She currently taking opioid medications, but this is chronic. * Fluid restriction 1500 mL initiated. * Urine sodium is 47 on 08/08. * urine osmolality pending. * repeat urine sodium 69 and potassium 13.4 * Asymptomatic. Does not appear volume overloaded. * 08/10/22 sodium 132 * Stable (6) Chronic back pain: Qualifiers: Back pain location: low back pain Back pain laterality: midline Scia madeleine presence: with sciatica Sciatica laterality: bilateral sciatica Qualified Code(s): M54.41 - Lumbago with sciatica, right side; M54.42 - Lumbago with sciatica, le
[2022-08-12] MEDS: RIVAROXABAN 10 MG TABLET PO (16:56)
[2022-08-12 20:00] VITALS: PULSE 90; RESP 16; O2SAT 98
[2022-08-12] MEDS: diazePAM (*CRX) 5 MG TABLET PO (21:05)
[2022-08-12 21:36] LABS: Osmolality, Urine 401 mOsm/kg (50-1200)
[2022-08-12 21:49] VITALS: BP 135/70; PULSE 90; RESP 16; TEMP 36.4; O2SAT 98
[2022-08-13 06:00] VITALS: BP 120/57; PULSE 88; RESP 16; TEMP 36.6; O2SAT 93
[2022-08-13] MEDS: busPIRone HCL 5 MG TABLET 15 MG PO ×2 (07:59→16:09)
[2022-08-13] MEDS: polyethylene glycoL 3350 17 GM POWD.PACK PO (07:59)
[2022-08-13 08:00] VITALS: PULSE 86
[2022-08-13] MEDS: carvediloL 12.5 MG TABLET 25 MG PO ×2 (08:00→20:43)
[2022-08-13] MEDS: LOSARTAN POTASSIUM 100 MG TABLET PO (08:00)
[2022-08-13] MEDS: amLODIPine BESYLATE 5 MG TABLET 10 MG PO (08:00)
[2022-08-13] MEDS: CELECOXIB 200 MG CAPSULE PO (08:00)
[2022-08-13] MEDS: SENNA/DOCUSATE SODIUM TABLET 2 TAB PO ×2 (08:00→16:09)
[2022-08-13] MEDS: PRAVASTATIN SODIUM 20 MG TABLET 40 MG PO (08:00)
[2022-08-13] MEDS: FAMOTIDINE 20 MG TABLET PO ×2 (08:00→20:43)
[2022-08-13] MEDS: FERROUS SULFATE 324 MG TABLET PO (08:00)
[2022-08-13] MEDS: GABAPENTIN 100 MG CAPSULE PO ×2 (08:01→12:13)
[2022-08-13] MEDS: ONDANSETRON INJ 4 MG/2 ML VIAL IV PUSH (08:23)
[2022-08-13] MEDS: HYDROcodone/acetaminophen (*CRX) 7.5-325 MG TABLET 1 TAB PO ×4 (09:24→20:43)
--- NOTE | 2022-08-13 09:26 | PCPTNOTE ---
Attempted physical therapy session at 0818, pt declined at this time stating she felt nauseous. RN notified.
--- NOTE | 2022-08-13 13:09 | PCOTNOTE ---
Attempted to see pt 2x this AM for Occupational Therapy treatment. At 1st attempt, pt was returning back to bed with [employer] due to nausea and lightheadedness complaint. At 2nd attempt, pt was sitting up in the bed eating. Pt refused to get out of bed to eat her lunch. Therapist educated on the importance of sitting upright in chair to decrease aspiration and improve digestion, however, pt continues to refuse stating I know what I am doing...I going to raise the head of the bed up more.
[2022-08-13 14:00] VITALS: BP 115/64; PULSE 86; RESP 20; TEMP 36.3; O2SAT 99
[2022-08-13] MEDS: GABAPENTIN 100 MG CAPSULE 200 MG PO (16:08)
[2022-08-13] MEDS: RIVAROXABAN 10 MG TABLET PO (16:09)
[2022-08-13] MEDS: CYCLOBENZAPRINE HCL 5 MG TABLET PO (16:10)
[2022-08-13 20:00] VITALS: PULSE 86; RESP 20; O2SAT 99
[2022-08-13] MEDS: diazePAM (*CRX) 5 MG TABLET PO (20:43)
[2022-08-13 21:38] VITALS: BP 137/72; PULSE 91; RESP 16; TEMP 36.3; O2SAT 97
[2022-08-14 06:00] VITALS: BP 126/69; PULSE 86; RESP 16; TEMP 36.2; O2SAT 94
[2022-08-14 06:50] LABS: Anion Gap 5 mmol/L (8-16); Blood Urea Nitrogen 20 mg/dL (7-17); Calcium 8.5 mg/dL (8.4-10.2); Carbon Dioxide 28 mmol/L (22-30); Chloride 99 mmol/L (98-107); Estimated CRCL calculation 57 ml/min; Estimated Glomerular Filt Rate > 60; Glucose 93 mg/dL (65-110); Potassium 4.3 mmol/L (3.4-5.0); Sodium 132 mmol/L (137-145)
[2022-08-14] MEDS: busPIRone HCL 5 MG TABLET 15 MG PO ×2 (08:32→16:27)
[2022-08-14] MEDS: LOSARTAN POTASSIUM 100 MG TABLET PO (08:33)
[2022-08-14] MEDS: PRAVASTATIN SODIUM 20 MG TABLET 40 MG PO (08:33)
[2022-08-14] MEDS: GABAPENTIN 100 MG CAPSULE 200 MG PO ×3 (08:34→16:31)
[2022-08-14] MEDS: SENNA/DOCUSATE SODIUM TABLET 2 TAB PO ×2 (08:34→16:28)
[2022-08-14] MEDS: FERROUS SULFATE 324 MG TABLET PO (08:34)
[2022-08-14 08:35] VITALS: PULSE 97
[2022-08-14] MEDS: CELECOXIB 200 MG CAPSULE PO (08:35)
[2022-08-14] MEDS: amLODIPine BESYLATE 5 MG TABLET 10 MG PO (08:35)
[2022-08-14] MEDS: FAMOTIDINE 20 MG TABLET PO ×2 (08:35→22:00)
[2022-08-14] MEDS: carvediloL 12.5 MG TABLET 25 MG PO ×2 (08:35→22:01)
[2022-08-14] MEDS: HYDROcodone/acetaminophen (*CRX) 7.5-325 MG TABLET 1 TAB PO ×3 (09:15→16:31)
[2022-08-14 14:00] VITALS: BP 96/52; PULSE 85; RESP 20; TEMP 35.9; O2SAT 98
[2022-08-14 15:33] VITALS: BP 105/83
[2022-08-14] MEDS: RIVAROXABAN 10 MG TABLET PO (16:28)
[2022-08-14 20:00] VITALS: PULSE 90; RESP 18; O2SAT 95
[2022-08-14 21:52] VITALS: BP 158/71; PULSE 90; RESP 18; TEMP 36.7; O2SAT 95
[2022-08-14] MEDS: CYCLOBENZAPRINE HCL 5 MG TABLET PO (22:00)
[2022-08-14] MEDS: ACETAMINOPHEN 325 MG TABLET 650 MG PO (22:00)
[2022-08-15 06:00] VITALS: BP 160/87; PULSE 87; RESP 18; TEMP 36.6; O2SAT 98
[2022-08-15] MEDS: FERROUS SULFATE 324 MG TABLET PO (07:57)
[2022-08-15] MEDS: CELECOXIB 200 MG CAPSULE PO (07:58)
[2022-08-15] MEDS: busPIRone HCL 5 MG TABLET 15 MG PO ×2 (08:01→17:11)
[2022-08-15] MEDS: amLODIPine BESYLATE 5 MG TABLET 10 MG PO (08:01)
[2022-08-15] MEDS: SENNA/DOCUSATE SODIUM TABLET 2 TAB PO ×2 (08:01→17:09)
[2022-08-15 08:02] VITALS: PULSE 94
[2022-08-15] MEDS: FAMOTIDINE 20 MG TABLET PO ×2 (08:02→21:29)
[2022-08-15] MEDS: carvediloL 12.5 MG TABLET 25 MG PO ×2 (08:02→21:29)
[2022-08-15] MEDS: PRAVASTATIN SODIUM 20 MG TABLET 40 MG PO (08:02)
[2022-08-15] MEDS: LOSARTAN POTASSIUM 100 MG TABLET PO (08:02)
[2022-08-15] MEDS: GABAPENTIN 100 MG CAPSULE 200 MG PO ×3 (08:04→17:13)
--- NOTE | 2022-08-15 11:48 | PCOTNOTE ---
Patient refused treatment this session due to stating she did not sleep last night, so tired. Patient requested therapy come back this afternoon.
[2022-08-15] MEDS: ACETAMINOPHEN 325 MG TABLET 650 MG PO ×2 (13:31→19:37)
[2022-08-15 14:00] VITALS: BP 118/72; PULSE 101; RESP 20; TEMP 36.3; O2SAT 97
[2022-08-15] MEDS: CYCLOBENZAPRINE HCL 5 MG TABLET PO (14:48)
[2022-08-15] MEDS: RIVAROXABAN 10 MG TABLET PO (17:11)
[2022-08-15 21:29] VITALS: PULSE 101
[2022-08-15 22:00] VITALS: BP 153/80; PULSE 95; RESP 18; TEMP 36.7; O2SAT 98
[2022-08-16 06:00] VITALS: BP 125/72; PULSE 99; RESP 16; TEMP 36.4; O2SAT 97
--- NOTE | 2022-08-16 07:07 | PC.NURSE ---
[facility] downtime beginning 08/15/22 at 2145 through 08/16/22 at 0615.
[2022-08-16] MEDS: GABAPENTIN 100 MG CAPSULE 200 MG PO ×3 (08:50→17:16)
[2022-08-16] MEDS: PRAVASTATIN SODIUM 20 MG TABLET 40 MG PO (09:41)
[2022-08-16] MEDS: busPIRone HCL 5 MG TABLET 15 MG PO ×2 (09:42→17:14)
[2022-08-16] MEDS: FAMOTIDINE 20 MG TABLET PO ×2 (09:42→20:58)
[2022-08-16] MEDS: CELECOXIB 200 MG CAPSULE PO (09:42)
[2022-08-16] MEDS: FERROUS SULFATE 324 MG TABLET PO (09:42)
[2022-08-16] MEDS: SENNA/DOCUSATE SODIUM TABLET 2 TAB PO ×2 (09:42→17:13)
[2022-08-16] MEDS: amLODIPine BESYLATE 5 MG TABLET 10 MG PO (09:42)
[2022-08-16 09:43] VITALS: PULSE 100
[2022-08-16] MEDS: carvediloL 12.5 MG TABLET 25 MG PO ×2 (09:43→20:58)
[2022-08-16] MEDS: LOSARTAN POTASSIUM 100 MG TABLET PO (09:43)
[2022-08-16] MEDS: CYCLOBENZAPRINE HCL 5 MG TABLET PO ×2 (10:22→22:32)
[2022-08-16 14:00] VITALS: BP 118/72; PULSE 83; RESP 20; TEMP 35.7; O2SAT 100
--- NOTE | 2022-08-16 15:55 | P.PNIM_ITS ---
Progress Note: A&P Assessment and Plan (1) Subtrochanteric fracture of right femur: Qualifiers: Encounter type: initial encounter Fracture type: closed Fracture alignment: nondisplaced Qualified Code(s): S72.24XA - Nondisplaced subtrochanteric fracture of right femur, initial encounter for closed fracture Code(s): S72.21XA - Displaced subtrochanteric fracture of right femur, initial encounter for closed fracture Status: Acute Assessment and Plan: Radiographs showed a displaced and angulated subtrochanteric fracture of the proximal right femur. * Appreciate orthopedic surgery consultation * s/p insertion of femoral brad right subtrochanteric femur fracture, removal of hardware-cannulated screws right femoral neck on 08/04/22 * Wound care deferred to Orthopedic surgery * Continue xarelto for DVT prophylaxis * Appreciate PT/OT eval * Supportive care. Analgesics as needed. * Awaiting SNF rehab placement * Stable (2) Anemia: Qualifiers: Anemia type: other cause Other causes of anemia: other cause, not classified Qualified Code(s): D64.89 - Other specified anemias Code(s): D64.9 - Anemia, unspecified Status: Acute Assessment and Plan: Sharp decline in hemoglobin postoperatively from 10.0 preoperatively to 5.8 on 08/05. Secondary to acute blood loss anemia secondary to fracture and surgery * EBL 500 cc blood loss noted * Given 1 dose of tranexamic acid intraoperatively * transfused 2 units packed RBC with improvement in hemoglobin 08/05. H&H remaining stable following transfusion * no signs of active bleeding. * Xarelto resumed 08/07/22 and hemoglobin stable. * Will add ferrous sulfate 325 mg PO daily x 6 weeks. * 08/12/22 H/H 9.8/30.6 stable (3) Hypertension: Qualifiers: Hypertension type: primary hypertension Qualified Code(s): I10 - Essential (primary) hypertension Code(s): I10 - Essential (primary) hypertension Status: Chronic Assessment and Plan: Chronic, BP 148/97, heart rate 81 * Medications reconciled. Continue amlodipine, Coreg, and losartan at home doses. * Adjust medications as BP tolerates. * Stable (4) Leukocytosis: Qualifiers: Leukocytosis type: unspecified Qualified Code(s): D72.829 - Elevated white blood cell count, unspecified Code(s): D72.829 - Elevated white blood cell count, unspecified Status: Acute Assessment and Plan: WBC elevated at 18.0. Likely reactive. * May be reactive secondary to acute fracture and surgery. * trending down then 11.4 today 08/09. * Afebrile * Continue to monitor CBC with differential * No respiratory complaints, surgical incision without s/s infection. UA negative for acute infection. (5) Hyponatremia: Code(s): E87.1 - Hypo-osmolality and hyponatremia Status: Acute Assessment and Plan: Sodium 136-137 preop. Decreased to 128 on 08/07/22. * Possibly SIADH secondary to pain. * She currently taking opioid medications, but this is chronic. * Fluid restriction 1500 mL initiated. * Urine sodium is 47 on 08/08. * urine osmolality pending. * repeat urine sodium 69 and potassium 13.4 * Asymptomatic. Does not appear volume overloaded. * 08/10/22 sodium 132 * 08/13/22 repeat BMP, cortisol, TSH, acth morning. Urine Osmo from 08/09 greater than 400, urine sodium 69. Patient does appear euvolemic (6) Chronic back pain: Qualifiers: Back pain location: low back pain Back pain laterality: midline Sciatica presence: with sciatica Sciat
--- NOTE | 2022-08-16 15:55 | PM.IMPN ---
Progress Note: A&P Assessment and Plan (1) Subtrochanteric fracture of right femur: Qualifiers: Encounter type: initial encounter Fracture type: closed Fracture alignment: nondisplaced Qualified Code(s): S72.24XA - Nondisplaced subtrochanteric fracture of right femur, initial encounter for closed fracture Code(s): S72.21XA - Displaced subtrochanteric fracture of right femur, initial encounter for closed fracture Status: Acute Assessment and Plan: Radiographs showed a displaced and angulated subtrochanteric fracture of the proximal right femur. Appreciate orthopedic surgery consultation s/p insertion of femoral brad right subtrochanteric femur fracture, removal of hardware-cannulated screws right femoral neck on 08/04/22 Wound care deferred to Orthopedic surgery Continue xarelto for DVT prophylaxis Appreciate PT/OT eval Supportive care. Analgesics as needed. Awaiting SNF rehab placement Stable (2) Anemia: Qualifiers: Anemia type: other cause Other causes of anemia: other cause, not classified Qualified Code(s): D64.89 - Other specified anemias Code(s): D64.9 - Anemia, unspecified Status: Acute Assessment and Plan: Sharp decline in hemoglobin postoperatively from 10.0 preoperatively to 5.8 on 08/05. Secondary to acute blood loss anemia secondary to fracture and surgery EBL 500 cc blood loss noted Given 1 dose of tranexamic acid intraoperatively transfused 2 units packed RBC with improvement in hemoglobin 08/05. H&H remaining stable following transfusion no signs of active bleeding. Xarelto resumed 08/07/22 and hemoglobin stable. Will add ferrous sulfate 325 mg PO daily x 6 weeks. 08/12/22 H/H 9.8/30.6 stable (3) Hypertension: Qualifiers: Hypertension type: primary hypertension Qualified Code(s): I10 - Essential (primary) hypertension Code(s): I10 - Essential (primary) hypertension Status: Chronic Assessment and Plan: Chronic, BP 148/97, heart rate 81 Medications reconciled. Continue amlodipine, Coreg, and losartan at home doses. Adjust medications as BP tolerates. Stable (4) Leukocytosis: Qualifiers: Leukocytosis type: unspecified Qualified Code(s): D72.829 - Elevated white blood cell count, unspecified Code(s): D72.829 - Elevated white blood cell count, unspecified Status: Acute Assessment and Plan: WBC elevated at 18.0. Likely reactive. May be reactive secondary to acute fracture and surgery. trending down then 11.4 today 08/09. Afebrile Continue to monitor CBC with differential No respiratory complaints, surgical incision without s/s infection. UA negative for acute infection. (5) Hyponatremia: Code(s): E87.1 - Hypo-osmolality and hyponatremia Status: Acute Assessment and Plan: Sodium 136-137 preop. Decreased to 128 on 08/07/22. Possibly SIADH secondary to pain. She currently taking opioid medications, but this is chronic. Fluid restriction 1500 mL initiated. Urine sodium is 47 on 08/08. urine osmolality pending. repeat urine sodium 69 and potassium 13.4 Asymptomatic. Does not appear volume overloaded. 08/10/22 sodium 132 08/13/22 repeat BMP, cortisol, TSH, acth morning. Urine Osmo from 08/09 greater than 400, urine sodium 69. 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 Continue analgesics PRN Continue cyclobenzaprine 5 mg Q12 hour
[2022-08-16] MEDS: RIVAROXABAN 10 MG TABLET PO (17:14)
[2022-08-16] MEDS: hydrOXYzine pamoate 25 MG CAPSULE 50 MG PO (18:12)
[2022-08-16] MEDS: ACETAMINOPHEN 325 MG TABLET 650 MG PO (18:12)
[2022-08-16 20:58] VITALS: PULSE 108
[2022-08-16 21:25] VITALS: BP 135/60; PULSE 92; RESP 18; TEMP 37.3; O2SAT 98
[2022-08-16] MEDS: HYDROcodone/acetaminophen (*CRX) 5-325 MG TABLET 1 TAB PO (23:53)
[2022-08-17] MEDS: ACETAMINOPHEN 325 MG TABLET 650 MG PO ×2 (05:16→10:46)
[2022-08-17 06:00] VITALS: BP 144/75; PULSE 94; RESP 18; TEMP 36.4; O2SAT 98
[2022-08-17 06:43] LABS: Hematocrit 28.9 % (37.0-47.0); Hemoglobin 9.2 g/dL (12.0-15.0); Mean Corpuscular HGB Conc 31.8 g/dl (32-36); Mean Corpuscular Hemoglobin 30.2 pg (26-34); Mean Corpuscular Volume 94.8 fl (80-100); Mean Platelet Volume 8.9 fl (7.4-10.4); Platelet Count Result 423 k/mm3 (150-375); Red Blood Count 3.05 M/mm3 (4.2-5.4); Red Cell Distribution Width 14.1 % (11.5-14.5); White Blood Count 8.4 K/mm3 (4.5-10.0)
[2022-08-17 06:52] LABS: Anion Gap 4 mmol/L (8-16); Blood Urea Nitrogen 12 mg/dL (7-17); Calcium 8.3 mg/dL (8.4-10.2); Carbon Dioxide 28 mmol/L (22-30); Chloride 101 mmol/L (98-107); Estimated CRCL calculation 57 ml/min; Estimated Glomerular Filt Rate > 60; Glucose 89 mg/dL (65-110); Potassium 3.8 mmol/L (3.4-5.0); Sodium 133 mmol/L (137-145)
[2022-08-17] MEDS: CELECOXIB 200 MG CAPSULE PO (08:35)
[2022-08-17] MEDS: FERROUS SULFATE 324 MG TABLET PO (08:35)
[2022-08-17] MEDS: amLODIPine BESYLATE 5 MG TABLET 10 MG PO (08:35)
[2022-08-17 08:36] VITALS: PULSE 88
[2022-08-17] MEDS: busPIRone HCL 5 MG TABLET 15 MG PO (08:36)
[2022-08-17] MEDS: carvediloL 12.5 MG TABLET 25 MG PO (08:36)
[2022-08-17] MEDS: SENNA/DOCUSATE SODIUM TABLET 2 TAB PO (08:37)
[2022-08-17] MEDS: PRAVASTATIN SODIUM 20 MG TABLET 40 MG PO (08:38)
[2022-08-17] MEDS: LOSARTAN POTASSIUM 100 MG TABLET PO (08:38)
[2022-08-17] MEDS: FAMOTIDINE 20 MG TABLET PO (08:38)
[2022-08-17] MEDS: GABAPENTIN 100 MG CAPSULE 200 MG PO ×2 (08:39→12:12)
--- NOTE | 2022-08-17 09:27 | PCNWS ---
Weekly nutritional screen. Patient is tolerating current Regular diet with adequate intake 50-100% most meals. No weight loss reported. Pt just waiting for placement. No nutritional needs at this time.
[2022-08-17] MEDS: CYCLOBENZAPRINE HCL 5 MG TABLET PO (10:27)
--- NOTE | 2022-08-17 12:26 | P.DS_ITS ---
DS: Admitting Diagnosis Discharge Date 08/17/22 Admitting Diagnosis Right hip fracture DS: Discharge Diagnosis Discharge Diagnosis (1) Subtrochanteric fracture of right femur: Qualifiers: Encounter type: initial encounter Fracture alignment: nondisplaced Fracture type: closed Qualified Code(s): S72.24XA - Nondisplaced subtrochanteric fracture of right femur, initial encounter for closed fracture Code(s): S72.21XA - Displaced subtrochanteric fracture of right femur, initial encounter for closed fracture Status: Acute Assessment and Plan: Radiographs showed a displaced and angulated subtrochanteric fracture of the proximal right femur. * Appreciate orthopedic surgery consultation * s/p insertion of femoral brad right subtrochanteric femur fracture, removal of hardware-cannulated screws right femoral neck on 08/04/22 * Wound care deferred to Orthopedic surgery * Continue xarelto for DVT prophylaxis * Appreciate PT/OT eval * Supportive care. Analgesics as needed. * Awaiting SNF rehab placement * Stable (2) Anemia: Qualifiers: Anemia type: other cause Other causes of anemia: other cause, not classified Qualified Code(s): D64.89 - Other specified anemias Code(s): D64.9 - Anemia, unspecified Status: Acute Assessment and Plan: Sharp decline in hemoglobin postoperatively from 10.0 preoperatively to 5.8 on 08/05. Secondary to acute blood loss anemia secondary to fracture and surgery * EBL 500 cc blood loss noted * Given 1 dose of tranexamic acid intraoperatively * transfused 2 units packed RBC with improvement in hemoglobin 08/05. H&H remaining stable following transfusion * no signs of active bleeding. * Xarelto resumed 08/07/22 and hemoglobin stable. * Will add ferrous sulfate 325 mg PO daily x 6 weeks. * 08/12/22 H/H 9.8/30.6 stable (3) Hypertension: Qualifiers: Hypertension type: primary hypertension Qualified Code(s): I10 - Essential (primary) hypertension Code(s): I10 - Essential (primary) hypertension Status: Chronic Assessment and Plan: Chronic, BP 148/97, heart rate 81 * Medications reconciled. Continue amlodipine, Coreg, and losartan at home doses. * Adjust medications as BP tolerates. * Stable (4) Leukocytosis: Qualifiers: Leukocytosis type: unspecified Qualified Code(s): D72.829 - Elevated white blood cell count, unspecified Code(s): D72.829 - Elevated white blood cell count, unspecified Status: Acute Assessment and Plan: WBC elevated at 18.0. Likely reactive. * May be reactive secondary to acute fracture and surgery. * trending down then 11.4 today 08/09. * Afebrile * Continue to monitor CBC with differential * No respiratory complaints, surgical incision without s/s infection. UA negative for acute infection. stable (5) Hyponatremia: Code(s): E87.1 - Hypo-osmolality and hyponatremia Status: Acute Assessment and Plan: Sodium 136-137 preop. Decreased to 128 on 08/07/22. * Possibly SIADH secondary to pain. * She currently taking opioid medications, but this is chronic. * Fluid restriction 1500 mL initiated. * Urine sodium is 47 on 08/08. * urine osmolality pending. * repeat urine sodium 69 and potassium 13.4 * Asymptomatic. Does not appear volume overloaded. * 08/10/22 sodium 132 * 08/13/22 repeat BMP, cortisol, TSH, acth morning. Urine Osmo from 08/09 greater than 400, urine sodium 69. Patient does appear euvolemic stable (6) Chronic back pain:
--- NOTE | 2022-08-17 12:26 | PM.DS ---
DS: Admitting Diagnosis Discharge Date 08/17/22 Admitting Diagnosis Right hip fracture DS: Discharge Diagnosis Discharge Diagnosis (1) Subtrochanteric fracture of right femur: Qualifiers: Encounter type: initial encounter Fracture alignment: nondisplaced Fracture type: closed Qualified Code(s): S72.24XA - Nondisplaced subtrochanteric fracture of right femur, initial encounter for closed fracture Code(s): S72.21XA - Displaced subtrochanteric fracture of right femur, initial encounter for closed fracture Status: Acute Assessment and Plan: Radiographs showed a displaced and angulated subtrochanteric fracture of the proximal right femur. Appreciate orthopedic surgery consultation s/p insertion of femoral brad right subtrochanteric femur fracture, removal of hardware-cannulated screws right femoral neck on 08/04/22 Wound care deferred to Orthopedic surgery Continue xarelto for DVT prophylaxis Appreciate PT/OT eval Supportive care. Analgesics as needed. Awaiting SNF rehab placement Stable (2) Anemia: Qualifiers: Anemia type: other cause Other causes of anemia: other cause, not classified Qualified Code(s): D64.89 - Other specified anemias Code(s): D64.9 - Anemia, unspecified Status: Acute Assessment and Plan: Sharp decline in hemoglobin postoperatively from 10.0 preoperatively to 5.8 on 08/05. Secondary to acute blood loss anemia secondary to fracture and surgery EBL 500 cc blood loss noted Given 1 dose of tranexamic acid intraoperatively transfused 2 units packed RBC with improvement in hemoglobin 08/05. H&H remaining stable following transfusion no signs of active bleeding. Xarelto resumed 08/07/22 and hemoglobin stable. Will add ferrous sulfate 325 mg PO daily x 6 weeks. 08/12/22 H/H 9.8/30.6 stable (3) Hypertension: Qualifiers: Hypertension type: primary hypertension Qualified Code(s): I10 - Essential (primary) hypertension Code(s): I10 - Essential (primary) hypertension Status: Chronic Assessment and Plan: Chronic, BP 148/97, heart rate 81 Medications reconciled. Continue amlodipine, Coreg, and losartan at home doses. Adjust medications as BP tolerates. Stable (4) Leukocytosis: Qualifiers: Leukocytosis type: unspecified Qualified Code(s): D72.829 - Elevated white blood cell count, unspecified Code(s): D72.829 - Elevated white blood cell count, unspecified Status: Acute Assessment and Plan: WBC elevated at 18.0. Likely reactive. May be reactive secondary to acute fracture and surgery. trending down then 11.4 today 08/09. Afebrile Continue to monitor CBC with differential No respiratory complaints, surgical incision without s/s infection. UA negative for acute infection. stable (5) Hyponatremia: Code(s): E87.1 - Hypo-osmolality and hyponatremia Status: Acute Assessment and Plan: Sodium 136-137 preop. Decreased to 128 on 08/07/22. Possibly SIADH secondary to pain. She currently taking opioid medications, but this is chronic. Fluid restriction 1500 mL initiated. Urine sodium is 47 on 08/08. urine osmolality pending. repeat urine sodium 69 and potassium 13.4 Asymptomatic. Does not appear volume overloaded. 08/10/22 sodium 132 08/13/22 repeat BMP, cortisol, TSH, acth morning. Urine Osmo from 08/09 greater than 400, urine sodium 69. Patient does appear euvolemic stable (6) Chronic back pain: Qualifiers: Back pain laterality: midline Back pain location: low back pain Sciatica laterality: bilateral sciatica Sciatica presence: with sciatica Qualified Code(s): M54.41 - Lumbago with sciatica, right side; M54.42 - Lumbago with sciatica, left side; G89.29 - Other chronic pain Code(s): M54.9 - Dorsalgia, unspecified; G89.29 - Other chronic pain Status: Chronic Assessment and Plan: Chronic, CT lumbar
[2022-08-17 12:35] LABS: EDCOVIDSCREEN Negative (Negative)
[2022-08-17 13:46] VITALS: BP 100/67; PULSE 81; RESP 20; TEMP 36.6; O2SAT 97
[2022-08-19 03:26] LABS: Adrenocorticotropic Hormone 22 pg/mL (6-50)
== END 2022-08-17 14:10 | DRG 481 ==
LOC: ANHED 11:18 → ANH3MEDSUR 12:07
PROVIDERS: Internal Medicine Critical Care Medicine; Nurse Practitioner Family; Orthopaedic Surgery; Physician Assistant; Admitting Provider Internal Medicine; Emergency Provider Emergency Medicine; PCP Internal Medicine; Visit Provider Internal Medicine
PROC: 0QSB36Z Reposition Right Lower Femur with Intramedullary Internal Fixation Device, Percutaneous Approach (ICD-10-PCS; CPT 27245; principal; 2022-08-04 09:00)
PROC: 0QSB36Z Reposition Right Lower Femur with Intramedullary Internal Fixation Device, Percutaneous Approach (ICD-10-PCS; 2022-08-04 09:00)
DX: S72.21XA Displaced subtrochanteric fracture of right femur, initial encounter for closed fracture (principal); D62 Acute posthemorrhagic anemia; E87.1 Hypo-osmolality and hyponatremia; I69.351 Hemiplegia and hemiparesis following cerebral infarction affecting right dominant side; I69.320 Aphasia following cerebral infarction; I10 Essential (primary) hypertension; E78.5 Hyperlipidemia, unspecified; M48.00 Spinal stenosis, site unspecified; M54.41 Lumbago with sciatica, right side; S82.61XA Displaced fracture of lateral malleolus of right fibula, initial encounter for closed fracture; W19.XXXA Unspecified fall, initial encounter; G89.29 Other chronic pain; F03.90 Unspecified dementia, unspecified severity, without behavioral disturbance, psychotic disturbance, mood disturbance, and anxiety; Z20.822 Contact with and (suspected) exposure to COVID-19; Z87.442 Personal history of urinary calculi
CPT/HCPCS: 36415; 36430; 71045; 73502; 80048; 80053; 81001; 82024; 82533; 82570; 83735; 83935; 84133; 84145; 84295; 84300; 84443; 85014; 85018; 85025; 85027; 85610; 85730; 86850; 86900; 86901; 86923; 87426; 93005; 96361; 96374; 96375; 96376; 97110; 97161; 97165; 97530; 97535; 99199; 99285; A9270; C1713; C9803; G0378; J0690; J1170; J2270; J2405; J2704; J3010; J7030; J7050; J7120; P9016

== ENCOUNTER → 2022-09-20 09:43 | Emergency (ER) | payer MEDICARE, SELFPAY | END | disposition left against medical advice (07) | LOC: ANHED 16:27 | PROVIDERS: PCP Internal Medicine | DX: Z53.21 Procedure and treatment not carried out due to patient leaving prior to being seen by health care provider (principal) | CPT/HCPCS: 99199 ==

== ENCOUNTER 2022-11-24 12:51 | Emergency (ER) | payer MEDICARE, SELFPAY ==
[2022-11-24 12:53] VITALS: BP 176/90; PULSE 101; RESP 14; TEMP 36.8; O2SAT 100
[2022-11-24 13:14] LABS: Basophils Absolute Auto 0.1 K/mm3 (0.0-0.1); Basophils Percent Auto 0.5 % (0.2-1.2); Eosinophils Percent Auto 0.2 % (0-4.4); Hematocrit 40.2 % (37.0-47.0); Hemoglobin 12.9 g/dL (12.0-15.0); Immature Granulocyte Absolute 0.06 K/mm3 (0.00-0.031); Immature Granulocyte Percent A 0.4 % (0-0.5); Lymphocytes Absolute Auto 2.96 K/mm3 (0.9-3.2); Lymphocytes Percent Auto 21.9 % (18.3-44.2); Mean Corpuscular HGB Conc 32.1 g/dl (32-36); Mean Corpuscular Hemoglobin 26.9 pg (26-34); Mean Corpuscular Volume 83.8 fl (80-100); Monocytes Absolute Auto 0.6 K/mm3 (0.1-0.6); Monocytes Percent Auto 4.6 % (2.6-8.5); Neutrophils Absolute Auto 9.8 K/mm3 (1.3-6.7); Neutrophils Percent Auto 72.4 % (45.5-73.1); Platelet Count Result 393 k/mm3 (150-375); Red Cell Distribution Width 13.6 % (11.5-14.5); White Blood Count 13.5 K/mm3 (4.5-10.0)
[2022-11-24 13:24] LABS: Albumin Level 4.6 g/dL (3.5-5.1); Alkaline Phosphatase 147 U/L (38-126); Anion Gap 15 mmol/L (8-16); Aspartate Amino Transferase 35 U/L (14-36); Bilirubin,Total 0.5 mg/dL (0.2-1.3); Blood Urea Nitrogen 5 mg/dL (7-17); Calcium 9.5 mg/dL (8.4-10.2); Carbon Dioxide 21 mmol/L (22-30); Chloride 96 mmol/L (98-107); Estimated Glomerular Filt Rate > 60; Glucose 135 mg/dL (65-110); Lipase 127 U/L (23-300); Potassium 3.7 mmol/L (3.4-5.0); Sodium 132 mmol/L (137-145)
--- NOTE | 2022-11-24 13:25 | PC.NURSE ---
patient came to desk and stated she was going to go home and will come back if symptoms get worse. patient alert and oriented x4.
[2022-11-24 13:39] LABS: Alanine Aminotransferase 34 U/L (6-35)
== END 2022-11-24 13:25 | disposition left against medical advice (07) ==
PROVIDERS: Emergency Provider Emergency Medicine; PCP Internal Medicine
DX: R11.2 Nausea with vomiting, unspecified (principal)
CPT/HCPCS: 36415; 80053; 83690; 85025; 99199

== ENCOUNTER 2023-01-16 13:15 | Outpatient (RCR) | payer MEDICARE, SELFPAY ==
--- NOTE | 2022-11-20 13:42 | OPREHPOC ---
Outpatient Therapy Plan of Care This is a Multidisciplinary Plan of Care that may contain components documented by all disciplines (PT, OT, and ST.) PT Problem 1 PT Problem #1 Knowledge Deficit PT Goal 1 Goal 1* indep with HEP PT Problem 2 PT Problem #2 Pain PT Goal 1 Goal 1* pt report pain of 4/10 at worst PT Problem 3 PT Problem #3 Impaired Strength PT Goal 1 Goal pt perform 20 reps R LE: 1*supine SLR 2* supine bridge 3* sitting knee extension to 0' 4* sitting hip flexion to 100' PT Problem 4 PT Problem #4 Impaired Functional Mobil PT Goal 1 Goal 1* sit to stand with use of 1 UE 2* supine/sit without use of ue's 3* pt ambulate R 50% WB 100', CGA for safety, with wheeled walker
--- NOTE | 2022-11-20 13:42 | PTOPEVAL1 ---
Assessment and note entered by Lesli Roche, PT Evaluation Information Assessment Status Evaluation Diagnosis R femur ORIF, due to fall Onset 08-04-22 Subjective Information initially after surgery, was NWB, then touch down; at last visit to - 50% WB R LE and have orders to come to threrapy; using w/c for mobility, has not been walking since surgery; [place] is doing all home chores; have not had any therapy since surgery; moving leg some but did not get any exercises from anyone; she is doing sponge baths from her w/c; indep with sponge bathing and dressing; at home: have wheeled walker, rollator, cane and w/c; live in 2 story home, but she is now staying on the main level; Activity: prior to surgery, active, did not use assistive device; Reported Pain Level Pain Score Self Report Additional Pain Score Comments at rest, sitting is 0/10; with moving leg 8/10-- lateral hip; taking gabapentin, tramadol PRN-- 3-4x/wk with increase pain; not using heat or ice- instruct can use PRN report swelling in legs-- caramel candy maker gave her lasix to help it; educated that due to decreased muscle and activity- can cause swelling also Assessment PT Clinical Summary Karla has the diagnosis of S/P R ORIF femur in July. Orders are for R LE 50%, strengthening and ROM to hip. At home, she has not been walking, using the w/c for mobility, doing sponge bathing and is doing all home tasks. She has some dementia, was cooperative and followed simple commands. She does report pain in her back and R hip, which stopped her from moving leg. With the evaluation, she has decreased strength of R hip, 2+/5 and knee 3-/5; uses arms to move her R leg in/out bed and walking 10' with the walker and constant cuing for 50% WB and gait pattern. Skilled PT services are indicated to increase R LE strength, bed mobility, transfer and gait skills, with modalities PRN and education for home exercises, gait pattern.
--- NOTE | 2022-12-12 13:37 | PCPTNOTE ---
Pt. canceled 12/12/22 appointment as appointment times got mixed up.
--- NOTE | 2022-12-21 10:42 | PCPTNOTE ---
Pt. canceled appointment on 12/21/22 noting that she was sick.
--- NOTE | 2022-12-25 13:18 | OPREHPOC ---
Outpatient Therapy Plan of Care This is a Multidisciplinary Plan of Care that may contain components documented by all disciplines (PT, OT, and ST.) PT Problem 1 PT Problem #1 Knowledge Deficit PT Goal 1 Goal 1* indep with HEP Progress Partially Met Comment 12-25-22 progress met goal continue to progress HEP PT Problem 2 PT Problem #2 Pain PT Goal 1 Goal 1* pt report pain of 4/10 at worst Progress Not Met Comment 12-25-22 progress goal not met, pain at 10/10 at worst NEW GOAL: 1* pain rating at worst of 6/10 PT Problem 3 PT Problem #3 Impaired Strength PT Goal 1 Goal pt perform 20 reps R LE: 1*supine SLR 2* supine bridge 3* sitting knee extension to 0' 4* sitting hip flexion to 100' Progress Partially Met Comment 12-25-22 progress met goal 3 continue towards goals PT Problem 4 PT Problem #4 Impaired Functional Mobil PT Goal 1 Goal 1* sit to stand with use of 1 UE 2* supine/sit without use of ue's 3* pt ambulate R 50% WB 100', CGA for safety, with wheeled walker Progress Partially Met Comment 12-25-22 progress met goal 1 continue towards goals
--- NOTE | 2022-12-25 13:18 | PTOPPROG ---
Assessment and note entered by Lesli Roche, PT Evaluation Information Assessment Status Progress Diagnosis R femur ORIF, due to fall Onset 08-04-22 Subjective Information feel like she is stronger and better; reports she is getting in/out of bed without any help; cannot get her to walk with him at home with the walker- states she is afraid of falling; she is holding onto railing of porch and walking holding onto it; PAIN: range 5-10/10 in R leg; increase with walking and moving; decrease with pain pills, sit/rest, lie down; take tramadol 2-3x/wk; also has back pain Assessment PT Clinical Summary Karla has received 8 PT sessions. Limited activity due to pain increase. Compared to the initial evaluation: pain continues to be high rating of 10/10 at worst; sit/stand, pivot transfer and supine/sit transfers have improved; slight increase in distance of walking and R LE strength; at home, does not want to walk with her due to pain in her R hip and fear of falling--is using the w/c for mobility. The goals were partially achieved. Continue PT to further increase her strength, mobility and indep with activity. Progression of HEP. Plan of Care Interventions Gait Training,Hot Pack/Cold Pack,Manual Therapy, Neuro Re-education,Patient/Caregiver Education, Therapeutic Activities,Therapeutic Exercise Other Interventions ZAKIYA roy PT Services Indicated Yes Treatment Frequency and 2x/wk for 3 weeks Duration These treatments will address the objective and functional deficits as defined above. The patient will be advanced safely and appropriately in order for the patient to progress towards his/her prior level of function. Additional exercises will be introduced and as well as a comprehensive home exercise program upon discharge, if needed, ?to ensure carryover of functional gains achieved in the clinic. This treatment plan has been reviewed and agreement upon by the patient.
--- NOTE | 2023-01-16 13:58 | PTOPDC ---
Assessment and note entered by Lesli Roche, PT Evaluation Information Assessment Status Discharge Diagnosis R femur ORIF, due to fall Onset 08-04-22 Reported Pain Level Pain Score Self Report R hip Additional Pain Score Comments with walking, pain in hip -lateral aspect to 0-8/10; Assessment PT Clinical Summary Karla has received 13 PT sessions. Compared to the last progress report: continues to have pain in R hip that limits her activity level is now able to perform supine/sit transfer without using her arms to move her R leg; strength of R leg with sitting and supine exercises is about the same; walking with the wheeled walker TDWB R LE, distance increased from 20 to 30' with SBA for safety; she uses the wheelchair for mobility in home and community, is able to propel herself in the w/c; she continues to require verbal cues for safe transfer technique sit/stand. Education completed for HEP and gait with walker. Karla has memory issues and does not want her hip to hurt, so she does not want to move or walk. Progress was limited. Her assists her at home PRN. The goals were partially met. Discharge PT services. Plan of Care PT Services Indicated No
== END 2023-01-16 14:53 | disposition home or self-care (01) ==
LOC: ANHPT 13:15
PROVIDERS: PCP Internal Medicine; Visit Provider Orthopaedic Surgery
DX: S72.001A Fracture of unspecified part of neck of right femur, initial encounter for closed fracture (principal)
CPT/HCPCS: 97110; 97116; 97161; 97530; 99199

== ENCOUNTER 2023-01-29 10:39 | Emergency (ER) | payer MEDICARE, SELFPAY ==
[2023-01-29 10:43] VITALS: PULSE 79; RESP 16; TEMP 36.8; O2SAT 98
[2023-01-29 11:00] VITALS: BP 164/91; PULSE 87; RESP 18; O2SAT 98
[2023-01-29 11:34] LABS: Basophils Absolute Auto 0.1 K/mm3 (0.0-0.1); Basophils Percent Auto 0.5 % (0.2-1.2); Eosinophils Percent Auto 0.4 % (0-4.4); Hematocrit 40.2 % (37.0-47.0); Hemoglobin 13.2 g/dL (12.0-15.0); Immature Granulocyte Absolute 0.03 K/mm3 (0.00-0.031); Immature Granulocyte Percent A 0.3 % (0-0.5); Lymphocytes Absolute Auto 2.94 K/mm3 (0.9-3.2); Lymphocytes Percent Auto 27.9 % (18.3-44.2); Mean Corpuscular HGB Conc 32.8 g/dl (32-36); Mean Corpuscular Hemoglobin 28.3 pg (26-34); Mean Corpuscular Volume 86.1 fl (80-100); Mean Platelet Volume 9.4 fl (7.4-10.4); Monocytes Absolute Auto 0.8 K/mm3 (0.1-0.6); Monocytes Percent Auto 7.5 % (2.6-8.5); Neutrophils Absolute Auto 6.7 K/mm3 (1.3-6.7); Neutrophils Percent Auto 63.4 % (45.5-73.1); Platelet Count Result 324 k/mm3 (150-375); Red Blood Count 4.67 M/mm3 (4.2-5.4); Red Cell Distribution Width 14.2 % (11.5-14.5); White Blood Count 10.5 K/mm3 (4.5-10.0)
[2023-01-29 12:00] VITALS: BP 184/96; PULSE 88; RESP 18; O2SAT 98
[2023-01-29 12:10] LABS: Appearance Urine Cloudy (Clear); Bacteria Urine Rare /hpf; Bilirubin Urine Negative (Negative); Blood Urine 1+ (Negative); Color Urine Yellow (Yellow); Glucose Urine UA Negative (Negative); Ketones Urine Negative (Negative); Leukocyte Esterase Ur 2+ LEU/UL (Negative); Nitrate Urine Negative (Negative); Non Pathogenic Casts 0-2; Protein Urine Negative (Negative); RBC Urine 0-2 /hpf (0-2); Specific Grav Ur 1.005 (1.001-1.035); Squamous Epithelial Cell Urine Few /hpf (Few); Urobilinogen Urine 0.2 mg/dL (<2.0); pH Urine 6.5 (5.0-9.0)
--- NOTE | 2023-01-29 12:11 | ED.NAVMDI ---
HPI - Nausea/Vomiting/Diarrhea General Chief complaint: Nausea/Vomiting/Diarrhea Stated complaint: I'm sick Time Seen by Provider: 01/29/23 12:00 History of Present Illness HPI Narrative: Patient is a 77-year-old female presenting with nausea. is at bedside and helps with the history. States that she has had several episodes off and on over the last month. She states that last night she was unable to fall asleep and she kept feeling like she was going to throw up even though she never did. Denies any pain. No fevers or chills. No cough or shortness of breath. Currently she feels well and would like to go home. Related Data Home Medications Medication Instructions Recorded Confirmed buspirone 15 mg tablet 15 mg PO BID 12/24/21 11/06/22 evolocumab 140 mg/mL subcutaneous 140 mg subcut [id number] 12/24/21 11/06/22 pen injector (Will Holland) gabapentin 300 mg capsule 300 mg PO TID 07/29/22 11/06/22 tramadol 50 mg tablet 50 mg PO Q6H PRN pain 09/22/22 11/06/22 tramadol 50 mg tablet 50 mg PO Q6H PRN pain 11/07/22 Allergies Allergy/AdvReac Type Severity Reaction Status Date / Time No Known Allergies Allergy Verified 11/24/22 12:57 Review of Systems Review of Systems: All systems reviewed & are unremarkable except as noted in HPI and below PMFSH Past Medical History Medical History Anemia Anemia Ankle pain Anxiety Anxiety Arthritis Cerebrovascular accident Residual aphasia and right-sided weakness. Chronic back pain Chronic back pain Closed fracture of right hip Cognitive impairment Dementia Diverticulitis Diverticulosis Dyslipidemia Fibromyalgia History of blood transfusion HLD (hyperlipidemia) HTN (hypertension) Hypertension Kidney stone Kidney stones Shingles Short-term memory loss Spinal stenosis Spinal stenosis TIA (transient ischemic attack) Ulcer UTI (urinary tract infection) Surgical History Surgical History H/O cardiac catheterization History of appendectomy History of appendectomy History of cardiac catheterization (11/2014) No significant coronary artery disease. History of cardiac catheterization cardiac catheterization done in November [address] Cameron. No significant coronary artery disease was noted, with preserved left ventricular systolic function ejection fraction of 60 to 65%. Some tortuosity and minor luminal irregularities were noted. Left ventricular end-diastolic pressure was elevated 27 millimeters of mercury. History of cholecystectomy History of cholecystectomy History of open reduction and internal fixation (ORIF) procedure Pending right femoral neck fracture. Subcapital fracture of neck of right femur Pinning in situ February 2020 Family History Family History Mother Parkinsons disease Hypertension Dementia Father Cerebrovascular accident Congestive heart failure Sibling Acute myocardial infarction Mother Parkinsons disease Dementia Hypertension Father Congestive heart failure Cerebrovascular accident Sibling Acute myocardial infarction Social History Social History Social History: Surrogate medical decision maker: Jovani Green, spouse. Code status: Full code. Smoking packs per day: 0.5 Smoking cigarettes per day: 10.0 Years smoked: 10 Smoking pack-years: 5.00 Smoking status: Former smoker Tobacco type: cigarettes Second hand tobacco smoke exposure: No Smoking end date: 04/09/84 Alcohol intake: never Substance use: never Substance use type: does not use Lack of Transportation: No Lack of Food: Never True Current Housing: I Do Not Have Housing Concerned About Future Housing: No Difficulty Paying Gas/Electric Bills: No Difficulty Paying for Meds: No Cur
[2023-01-29 12:12] LABS: Add Urine Microscopic? YES
[2023-01-29 12:29] LABS: Alanine Aminotransferase 15 U/L (6-35); Albumin Level 4.3 g/dL (3.5-5.1); Alkaline Phosphatase 160 U/L (38-126); Anion Gap 12 mmol/L (8-16); Aspartate Amino Transferase 22 U/L (14-36); Bilirubin,Total 0.5 mg/dL (0.2-1.3); Blood Urea Nitrogen 2 mg/dL (7-17); Calcium 9.5 mg/dL (8.4-10.2); Carbon Dioxide 25 mmol/L (22-30); Chloride 97 mmol/L (98-107); Estimated CRCL calculation 64 ml/min; Estimated Glomerular Filt Rate > 60; Glucose 101 mg/dL (65-110); Lipase 154 U/L (23-300); Potassium 2.7 mmol/L (3.4-5.0); Sodium 134 mmol/L (137-145)
[2023-01-29 12:31] VITALS: BP 167/79; PULSE 87; RESP 18; O2SAT 99
[2023-01-29] MEDS: POTASSIUM CHLORIDE 20 MEQ ER TABLET 40 MEQ PO (12:42)
[2023-01-29] MEDS: CEPHALEXIN 500 MG CAPSULE PO (12:42)
[2023-01-29 13:18] VITALS: BP 174/80; PULSE 78; RESP 18; O2SAT 100
== END 2023-01-29 13:19 | disposition home or self-care (01) ==
PROVIDERS: Emergency Medicine; Emergency Provider Emergency Medicine; PCP Internal Medicine
DX: N39.0 Urinary tract infection, site not specified (principal); E87.6 Hypokalemia; R11.0 Nausea; I69.920 Aphasia following unspecified cerebrovascular disease; I69.951 Hemiplegia and hemiparesis following unspecified cerebrovascular disease affecting right dominant side; F03.90 Unspecified dementia, unspecified severity, without behavioral disturbance, psychotic disturbance, mood disturbance, and anxiety; E78.5 Hyperlipidemia, unspecified; I10 Essential (primary) hypertension; M79.7 Fibromyalgia; F41.9 Anxiety disorder, unspecified; Z86.2 Personal history of diseases of the blood and blood-forming organs and certain disorders involving the immune mechanism; Z87.442 Personal history of urinary calculi; Z87.891 Personal history of nicotine dependence; Z90.49 Acquired absence of other specified parts of digestive tract
CPT/HCPCS: 36415; 80053; 81001; 83690; 85025; 87077; 87086; 87088; 99283; A9270

== ENCOUNTER 2023-02-10 17:31 | Emergency (ER) | payer MEDICARE, SELFPAY ==
[2023-02-10 17:33] VITALS: BP 171/78; PULSE 91; RESP 16; TEMP 36.1; O2SAT 100
[2023-02-10 18:01] LABS: Basophils Absolute Auto 0.1 K/mm3 (0.0-0.1); Basophils Percent Auto 0.4 % (0.2-1.2); Eosinophils Absolute Auto 0.1 K/mm3 (0-0.3); Eosinophils Percent Auto 0.6 % (0-4.4); Hematocrit 40.5 % (37.0-47.0); Hemoglobin 13.2 g/dL (12.0-15.0); Immature Granulocyte Absolute 0.02 K/mm3 (0.00-0.031); Immature Granulocyte Percent A 0.2 % (0-0.5); Lymphocytes Absolute Auto 2.91 K/mm3 (0.9-3.2); Lymphocytes Percent Auto 25.2 % (18.3-44.2); Mean Corpuscular HGB Conc 32.6 g/dl (32-36); Mean Corpuscular Hemoglobin 28.1 pg (26-34); Mean Corpuscular Volume 86.2 fl (80-100); Mean Platelet Volume 8.6 fl (7.4-10.4); Monocytes Absolute Auto 0.7 K/mm3 (0.1-0.6); Monocytes Percent Auto 5.7 % (2.6-8.5); Neutrophils Absolute Auto 7.8 K/mm3 (1.3-6.7); Neutrophils Percent Auto 67.9 % (45.5-73.1); Platelet Count Result 385 k/mm3 (150-375); White Blood Count 11.5 K/mm3 (4.5-10.0)
--- NOTE | 2023-02-10 18:08 | PC.NURSE ---
pt left d/t wait time, stated that she feels improved
[2023-02-10 18:09] LABS: Appearance Urine Clear (Clear); Bacteria Urine None Seen /hpf; Bilirubin Urine Negative (Negative); Blood Urine Negative (Negative); Color Urine Yellow (Yellow); Glucose Urine UA Negative (Negative); Ketones Urine Negative (Negative); Leukocyte Esterase Ur 1+ LEU/UL (Negative); Nitrate Urine Negative (Negative); Non Pathogenic Casts 0-2; Protein Urine Negative (Negative); RBC Urine 0-2 /hpf (0-2); Specific Grav Ur 1.004 (1.001-1.035); Squamous Epithelial Cell Urine Occasional /hpf (Few); Urobilinogen Urine 0.2 mg/dL (<2.0); pH Urine 6.5 (5.0-9.0)
[2023-02-10 18:10] LABS: Alanine Aminotransferase 14 U/L (6-35); Alkaline Phosphatase 139 U/L (38-126); Anion Gap 13 mmol/L (8-16); Aspartate Amino Transferase 19 U/L (14-36); Bilirubin,Total 0.4 mg/dL (0.2-1.3); Blood Urea Nitrogen 7 mg/dL (7-17); Calcium 9.3 mg/dL (8.4-10.2); Carbon Dioxide 25 mmol/L (22-30); Chloride 95 mmol/L (98-107); Estimated CRCL calculation 53 ml/min; Estimated Glomerular Filt Rate > 60; Glucose 124 mg/dL (65-110); Lipase 192 U/L (23-300); Potassium 2.9 mmol/L (3.4-5.0); Sodium 133 mmol/L (137-145)
[2023-02-10 18:12] LABS: Add Urine Microscopic? YES
[2023-02-10 18:37] LABS: Influenza A QL RT-PCR Negative (Negative); Influenza B QL RT-PCR Negative (Negative); SARS-CoV-2 RNA PCR Negative (Negative)
== END 2023-02-10 18:14 | disposition left against medical advice (07) ==
LOC: ANHED 18:11
PROVIDERS: Emergency Provider Emergency Medicine; PCP Internal Medicine
DX: R11.0 Nausea (principal)
CPT/HCPCS: 36415; 80053; 81001; 83690; 85025; 87077; 87086; 87088; 87636; 99199

== ENCOUNTER 2023-12-06 17:39 | Inpatient (IN) | payer MEDICARE, SELFPAY ==
--- NOTE | ~2023-12-06 | CT_ITS ---
EXAMINATION: CT brain wo con DATE: 12/06/2023 21:10 INDICATION: Altered mental status. TECHNIQUE: Computed tomography (CT) of the head was performed without intravenous contrast. The mA wa s adjusted according to patient size. Iterative reconstruction technique was employed. The dose-lengt h product was 605.33 mGy-cm. COMPARISON: Head CT 07/28/2022 FINDINGS: There is diffuse brain volume loss. There are scattered areas of low attenuation in the cer ebral white matter, which is within normal limits for the patient's age. There is no intracranial hem orrhage, acute infarction, or abnormal intracranial mass lesion. The ventricles are normal in size. T here is mild mucosal thickening in the paranasal sinuses. The mastoid air cells are normal. There are likely changes of ocular lens replacement surgeries. IMPRESSION: 1. Normal aging brain. Reviewed, dictated and finalized at location A. IMPRESSION: 1. Normal aging brain.
--- NOTE | ~2023-12-06 | XR_ITS ---
EXAMINATION: XR chest 1V portable DATE: 12/06/2023 20:06 INDICATION: Altered mental status. TECHNIQUE: A single frontal view of the chest was obtained. COMPARISON: Chest single view 08/03/2022 FINDINGS: There is no pneumonia, pleural effusion, or pneumothorax. The heart size is normal. IMPRESSION: 1. No acute cardiopulmonary disease. Reviewed, dictated and finalized at location A.
[2023-12-06 17:42] VITALS: BP 113/94; PULSE 95; RESP 18; TEMP 36.6; O2SAT 97
[2023-12-06 19:09] VITALS: RESP 18
--- NOTE | 2023-12-06 19:17 | ECG_ITS ---
Test Date: 2023-12-06 21:46:35 Measurements Intervals [place] Rate: 98 P: 0 [place]: 0 QRS: 38 QRSD: 98 T: 15 QT: 373 QTc: 476 Interpretive Statements ATRIAL FIBRILLATION WITH ABERRANT CONDUCTION OR VENTRICULAR PREMATURE COMPLEXES LOW QRS VOLTAGE ABNORMAL RHYTHM ECG No previous ECG available for comparison Electronically Signed On 12-07-2023 07:35:26 CDT by León Zapata M.D.
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
[2023-12-06 20:07] LABS: Basophils Absolute Auto 0.1 K/mm3 (0.0-0.1); Basophils Percent Auto 0.7 % (0.2-1.2); Eosinophils Absolute Auto 0.2 K/mm3 (0-0.3); Eosinophils Percent Auto 1.3 % (0-4.4); Hematocrit 37.5 % (37.0-47.0); Hemoglobin 11.9 g/dL (12.0-15.0); Immature Granulocyte Absolute 0.04 K/mm3 (0.00-0.031); Immature Granulocyte Percent A 0.3 % (0-0.5); Lymphocytes Absolute Auto 3.19 K/mm3 (0.9-3.2); Lymphocytes Percent Auto 26.3 % (18.3-44.2); Mean Corpuscular HGB Conc 31.7 g/dl (32-36); Mean Corpuscular Hemoglobin 28.3 pg (26-34); Mean Corpuscular Volume 89.3 fl (80-100); Mean Platelet Volume 9.5 fl (7.4-10.4); Monocytes Absolute Auto 0.9 K/mm3 (0.1-0.6); Monocytes Percent Auto 7.6 % (2.6-8.5); Neutrophils Absolute Auto 7.8 K/mm3 (1.3-6.7); Neutrophils Percent Auto 63.8 % (45.5-73.1); Platelet Count Result 345 k/mm3 (150-375); Red Cell Distribution Width 13.1 % (11.5-14.5); White Blood Count 12.2 K/mm3 (4.5-10.0)
[2023-12-06 20:18] LABS: Alanine Aminotransferase 12 U/L (6-35); Albumin Level 4.4 g/dL (3.5-5.1); Alkaline Phosphatase 109 U/L (38-126); Anion Gap 12 mmol/L (4-12); Aspartate Amino Transferase 23 U/L (14-36); Bilirubin,Total 0.4 mg/dL (0.2-1.3); Blood Urea Nitrogen 8 mg/dL (7-17); Calcium 9.3 mg/dL (8.4-10.2); Carbon Dioxide 25 mmol/L (22-30); Chloride 99 mmol/L (98-107); Estimated CRCL calculation 42 ml/min; Estimated Glomerular Filt Rate > 60; Glucose 102 mg/dL (65-110); Magnesium 1.9 mg/dL (1.6-2.3); Potassium 3.4 mmol/L (3.4-5.0); Sodium 136 mmol/L (137-145)
[2023-12-06 20:18] LABS: Add Urine Microscopic? YES; Appearance Urine Clear (Clear); Bacteria Urine None Seen /hpf; Bilirubin Urine Negative (Negative); Blood Urine 1+ (Negative); Color Urine Yellow (Yellow); Glucose Urine UA Negative (Negative); Ketones Urine Negative (Negative); Leukocyte Esterase Ur 3+ LEU/UL (Negative); Need Manual Microscopic Reviewed; Nitrate Urine Negative (Negative); Non Pathogenic Casts 0-2; Protein Urine Negative (Negative); RBC Urine 0-2 /hpf (0-2); Specific Grav Ur 1.003 (1.001-1.035); Squamous Epithelial Cell Urine None Seen /hpf (Few); Urobilinogen Urine 0.2 mg/dL (<2.0); WBC Urine >100 /hpf (0-3); pH Urine 6.5 (5.0-9.0)
[2023-12-06 20:56] LABS: Influenza A QL RT-PCR Negative (Negative); Influenza B QL RT-PCR Negative (Negative); SARS-CoV-2 RNA PCR Negative (Negative)
[2023-12-06] MEDS: SODIUM CHLORIDE 0.9% IV 1,000 ML 999 ML IV CONT (22:43)
[2023-12-07] VITALS (11 sets, daily range): BP systolic 137–175; BP diastolic 68–96; PULSE 73–109; RESP 14–18; TEMP 36.1–36.6; O2SAT 95–97; BMI 29.2
--- NOTE | 2023-12-07 01:11 | ADMGEN ---
This patient, Karla Green, was admitted to 2 Medical Room 254-01. Patient/family oriented to hospital policies and general routines including ID bracelet, bed and alarms, visiting hours, pain management, procedures, bathroom and other care routines, personal items, smoking policy, room service/diet, and visiting hours. Information on how to activate the Rapid Response Team has been discussed. Patient/Family are encouraged to report perceived risks to care and to ask questions if they do not understand what they are told or what they should do. Report received by JOE Villaseñor in ED.
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
[2023-12-07] MEDS: ASPIRIN 81 MG ENTERIC TABLET PO (08:25)
[2023-12-07] MEDS: LOSARTAN POTASSIUM 100 MG TABLET PO (08:26)
[2023-12-07] MEDS: RIVAROXABAN 20 MG TABLET PO (08:26)
[2023-12-07] MEDS: busPIRone HCL 5 MG TABLET 15 MG PO ×2 (08:26→17:17)
[2023-12-07] MEDS: FUROSEMIDE 20 MG TABLET PO (08:26)
[2023-12-07] MEDS: PRAVASTATIN SODIUM 20 MG TABLET 40 MG PO (08:26)
[2023-12-07] MEDS: carvediloL 12.5 MG TABLET 25 MG PO ×2 (08:26→20:23)
[2023-12-07 08:55] LABS: Hematocrit 33.4 % (37.0-47.0); Hemoglobin 10.9 g/dL (12.0-15.0); Mean Corpuscular HGB Conc 32.6 g/dl (32-36); Mean Corpuscular Volume 88.8 fl (80-100); Mean Platelet Volume 10.3 fl (7.4-10.4); Platelet Count Result 288 k/mm3 (150-375); Red Blood Count 3.76 M/mm3 (4.2-5.4); Red Cell Distribution Width 13.1 % (11.5-14.5); White Blood Count 10.5 K/mm3 (4.5-10.0)
[2023-12-07 09:11] LABS: Alanine Aminotransferase 11 U/L (6-35); Albumin Level 3.7 g/dL (3.5-5.1); Alkaline Phosphatase 105 U/L (38-126); Anion Gap 10 mmol/L (4-12); Aspartate Amino Transferase 22 U/L (14-36); Bilirubin,Total 0.5 mg/dL (0.2-1.3); Blood Urea Nitrogen 7 mg/dL (7-17); Calcium 8.6 mg/dL (8.4-10.2); Carbon Dioxide 23 mmol/L (22-30); Chloride 103 mmol/L (98-107); Estimated CRCL calculation 64 ml/min; Estimated Glomerular Filt Rate > 60; Glucose 102 mg/dL (65-110); Potassium 3.3 mmol/L (3.4-5.0); Sodium 136 mmol/L (137-145)
[2023-12-07] MEDS: POTASSIUM CHLORIDE 20 MEQ ER TABLET 40 MEQ PO (11:50)
--- NOTE | 2023-12-07 12:48 | P.PNCROSS_ITS ---
Event Note Event Note Event Note: Patient seen and assessed by previous provider same day. Followed up with vicky oro she is alert and can answer questions but is confused still thinks she is working and not fully aware of where she is more flight of ideas. Patient had no complaints at time of assessment and is currently back in sinus rhythm has history of AFIB resumed her coreg and Xarelto will get a TSH. Patient has worsening dementia and has been aggressive with her who states he can no longer care for her at home. CC consulted for placement needs. Labs unremarkable and vitals stable mildly hypertensive. PT/OT ordered pending rec's.
--- NOTE | 2023-12-07 15:52 | PCPTNOTE ---
On 12/07/23, the student, [Kim Mckeon], provided care and completed [facility] documentation on this patient. I have reviewed the student's documentation and agree with the findings.
[2023-12-07] MEDS: traMADol HCL (*CRX) 50 MG TABLET PO (18:32)
[2023-12-07] MEDS: LATANOPROST 0.005% OP SOLN 2.5 ML BTL 1 DROP EACH EYE (20:23)
[2023-12-08] VITALS (16 sets, daily range): BP systolic 100–180; BP diastolic 71–95; PULSE 75–107; RESP 16–18; TEMP 36.2–36.7; O2SAT 92–98
[2023-12-08 06:22] LABS: Hematocrit 34.2 % (37.0-47.0); Hemoglobin 10.7 g/dL (12.0-15.0); Mean Corpuscular HGB Conc 31.3 g/dl (32-36); Mean Corpuscular Hemoglobin 28.4 pg (26-34); Mean Corpuscular Volume 90.7 fl (80-100); Platelet Count Result 276 k/mm3 (150-375); Red Blood Count 3.77 M/mm3 (4.2-5.4); Red Cell Distribution Width 13.1 % (11.5-14.5); White Blood Count 8.7 K/mm3 (4.5-10.0)
[2023-12-08 06:44] LABS: Alanine Aminotransferase 13 U/L (6-35); Albumin Level 3.7 g/dL (3.5-5.1); Alkaline Phosphatase 92 U/L (38-126); Anion Gap 11 mmol/L (4-12); Aspartate Amino Transferase 42 U/L (14-36); Bilirubin,Total 0.4 mg/dL (0.2-1.3); Blood Urea Nitrogen 11 mg/dL (7-17); Carbon Dioxide 22 mmol/L (22-30); Chloride 102 mmol/L (98-107); Estimated CRCL calculation 56 ml/min; Estimated Glomerular Filt Rate > 60; Glucose 99 mg/dL (65-110); Potassium 4.1 mmol/L (3.4-5.0); Sodium 135 mmol/L (137-145)
[2023-12-08] MEDS: LOSARTAN POTASSIUM 100 MG TABLET PO (09:10)
[2023-12-08] MEDS: RIVAROXABAN 20 MG TABLET PO (09:10)
[2023-12-08] MEDS: carvediloL 12.5 MG TABLET 25 MG PO ×2 (09:10→20:40)
[2023-12-08] MEDS: ASPIRIN 81 MG ENTERIC TABLET PO (09:10)
[2023-12-08] MEDS: FUROSEMIDE 20 MG TABLET PO (09:10)
[2023-12-08] MEDS: PRAVASTATIN SODIUM 20 MG TABLET 40 MG PO (09:10)
[2023-12-08] MEDS: busPIRone HCL 5 MG TABLET 15 MG PO ×2 (09:10→17:43)
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
[2023-12-08] MEDS: HYDROcodone/acetaminophen (*CRX) 5-325 MG TABLET 1 TAB PO (12:55)
--- NOTE | 2023-12-08 17:45 | PC.NURSE ---
asked if patient's can bring home dose Rexulti. patient's will bring tomorrow
[2023-12-08] MEDS: LATANOPROST 0.005% OP SOLN 2.5 ML BTL 1 DROP EACH EYE (20:41)
--- NOTE | 2023-12-08 21:29 | ECG_ITS ---
Test Date: 2023-12-08 21:49:35 Measurements Intervals [place] Rate: 86 P: 0 MN: 0 QRS: 56 QRSD: 94 T: 68 QT: 388 QTc: 466 Interpretive Statements ATRIAL FIBRILLATION WITH ABERRANT CONDUCTION OR VENTRICULAR PREMATURE COMPLEXES CANNOT R/O SEPTAL INFARCT, AGE INDETERMINATE BASELINE ARTIFACT- I, II, III, AVR, AVL, AVF, V1-V6 ABNORMAL ECG Compared to ECG 12/06/2023 21:46:35 NO SIGNIFICANT CHANGE Electronically Signed On 12-11-2023 12:05:49 CDT by Marlon Baca D.O.
[2023-12-08] MEDS: METOPROLOL TARTRATE INJ 5 MG/5 ML VIAL IV PUSH (21:32)
[2023-12-08] MEDS: traMADol HCL (*CRX) 50 MG TABLET PO (21:58)
[2023-12-08 22:16] LABS: Troponin I < 0.012 ng/mL (0.000-0.034)
[2023-12-09] VITALS (12 sets, daily range): BP systolic 129–184; BP diastolic 60–74; PULSE 76–91; RESP 12–18; TEMP 36.2–36.9; O2SAT 96–97
[2023-12-09] MEDS: METOPROLOL TARTRATE INJ 5 MG/5 ML VIAL IV PUSH (06:31)
[2023-12-09 06:35] LABS: Hematocrit 33.8 % (37.0-47.0); Hemoglobin 10.8 g/dL (12.0-15.0); Mean Corpuscular Hemoglobin 28.5 pg (26-34); Mean Corpuscular Volume 89.2 fl (80-100); Mean Platelet Volume 10.3 fl (7.4-10.4); Platelet Count Result 278 k/mm3 (150-375); Red Blood Count 3.79 M/mm3 (4.2-5.4); Red Cell Distribution Width 13.2 % (11.5-14.5); White Blood Count 10.8 K/mm3 (4.5-10.0)
[2023-12-09 06:58] LABS: Alanine Aminotransferase 17 U/L (6-35); Albumin Level 3.8 g/dL (3.5-5.1); Alkaline Phosphatase 86 U/L (38-126); Anion Gap 12 mmol/L (4-12); Aspartate Amino Transferase 57 U/L (14-36); Bilirubin,Total 0.4 mg/dL (0.2-1.3); Blood Urea Nitrogen 9 mg/dL (7-17); Calcium 8.9 mg/dL (8.4-10.2); Carbon Dioxide 25 mmol/L (22-30); Chloride 97 mmol/L (98-107); Estimated CRCL calculation 56 ml/min; Estimated Glomerular Filt Rate > 60; Glucose 88 mg/dL (65-110); Potassium 3.4 mmol/L (3.4-5.0); Sodium 134 mmol/L (137-145)
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
[2023-12-09] MEDS: carvediloL 12.5 MG TABLET 25 MG PO ×2 (09:18→21:04)
[2023-12-09] MEDS: ASPIRIN 81 MG ENTERIC TABLET PO (09:18)
[2023-12-09] MEDS: FUROSEMIDE 20 MG TABLET PO (09:18)
[2023-12-09] MEDS: busPIRone HCL 5 MG TABLET 15 MG PO ×2 (09:18→17:52)
[2023-12-09] MEDS: LOSARTAN POTASSIUM 100 MG TABLET PO (09:18)
[2023-12-09] MEDS: RIVAROXABAN 20 MG TABLET PO (09:18)
[2023-12-09] MEDS: amLODIPine BESYLATE 5 MG TABLET PO (09:18)
[2023-12-09] MEDS: AMOXICILLIN/CLAVULANATE K 875-125 MG TAB 1 TABLET PO ×2 (09:18→21:05)
[2023-12-09] MEDS: PRAVASTATIN SODIUM 20 MG TABLET 40 MG PO (09:18)
--- NOTE | 2023-12-09 10:56 | PCOTNOTE ---
Attempted to see pt for OT treatment this AM. Pt is currently sick to her stomach, clammy feeling, and nauseous. Pt was provided with white soda, saltine crackers, and emesis bag at pt's request. RN was notified of pt not feeling good. Will attempt at a later time.
--- NOTE | 2023-12-09 12:00 | PC.NURSE ---
1200 telemetry; rate- 78, QRS- 0.08, A-fib
[2023-12-09] MEDS: ONDANSETRON INJ 4 MG/2 ML VIAL IV PUSH (12:58)
--- NOTE | 2023-12-09 16:00 | PC.NURSE ---
1600 telemetry; QRS- 0.06, pulse rate- 70, rhythm- a-fib
--- NOTE | 2023-12-09 17:32 | PHAR ---
RX [id number] IDENTIFIED TO CONTAIN Drug Name: Chacha Ingredients: Brexpiprazole -- 1 MG Color: Light Yellow Shape: [place] Imprint: BRX 1 Form: Oral Tablet 1 TABLET DAILY
[2023-12-09] MEDS: HOME MED (Brexpiprazole [Rexulti] 1 mg tablet) 1 EACH PO (17:52)
[2023-12-09] MEDS: LATANOPROST 0.005% OP SOLN 2.5 ML BTL 1 DROP EACH EYE (21:05)
[2023-12-10 04:25] VITALS: BP 135/70; PULSE 78; RESP 18; TEMP 36.6; O2SAT 98
[2023-12-10 04:59] LABS: Hematocrit 34.3 % (37.0-47.0); Hemoglobin 10.9 g/dL (12.0-15.0); Mean Corpuscular HGB Conc 31.8 g/dl (32-36); Mean Corpuscular Hemoglobin 28.5 pg (26-34); Mean Corpuscular Volume 89.6 fl (80-100); Platelet Count Result 254 k/mm3 (150-375); Red Blood Count 3.83 M/mm3 (4.2-5.4); Red Cell Distribution Width 13.1 % (11.5-14.5); White Blood Count 7.6 K/mm3 (4.5-10.0)
[2023-12-10 05:14] LABS: Alanine Aminotransferase 20 U/L (6-35); Albumin Level 3.8 g/dL (3.5-5.1); Alkaline Phosphatase 84 U/L (38-126); Anion Gap 9 mmol/L (4-12); Aspartate Amino Transferase 47 U/L (14-36); Bilirubin,Total 0.6 mg/dL (0.2-1.3); Blood Urea Nitrogen 10 mg/dL (7-17); Calcium 8.7 mg/dL (8.4-10.2); Carbon Dioxide 26 mmol/L (22-30); Chloride 98 mmol/L (98-107); Estimated CRCL calculation 56 ml/min; Estimated Glomerular Filt Rate > 60; Glucose 98 mg/dL (65-110); Potassium 3.1 mmol/L (3.4-5.0); Sodium 133 mmol/L (137-145)
[2023-12-10] MEDS: RIVAROXABAN 20 MG TABLET PO (08:19)
[2023-12-10] MEDS: POTASSIUM CHLORIDE 20 MEQ PACKET (FOR LIQUID) 40 MEQ PO (08:19)
[2023-12-10] MEDS: FUROSEMIDE 20 MG TABLET PO (08:19)
[2023-12-10] MEDS: ASPIRIN 81 MG ENTERIC TABLET PO (08:19)
[2023-12-10 08:20] VITALS: PULSE 76
[2023-12-10] MEDS: busPIRone HCL 5 MG TABLET 15 MG PO ×2 (08:20→16:25)
[2023-12-10] MEDS: amLODIPine BESYLATE 5 MG TABLET PO (08:20)
[2023-12-10] MEDS: carvediloL 12.5 MG TABLET 25 MG PO ×2 (08:20→21:23)
[2023-12-10] MEDS: LOSARTAN POTASSIUM 100 MG TABLET PO (08:20)
[2023-12-10] MEDS: PRAVASTATIN SODIUM 20 MG TABLET 40 MG PO (08:20)
[2023-12-10 08:21] VITALS: RESP 18; O2SAT 98
[2023-12-10] MEDS: HOME MED (Brexpiprazole [Rexulti] 1 mg tablet) 1 EACH PO (08:21)
[2023-12-10] MEDS: AMOXICILLIN/CLAVULANATE K 875-125 MG TAB 1 TABLET PO ×2 (08:21→21:24)
[2023-12-10] MEDS: HYDROcodone/acetaminophen (*CRX) 5-325 MG TABLET 1 TAB PO (09:55)
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
[2023-12-10 14:00] VITALS: BP 131/65; PULSE 68; RESP 14; TEMP 36.1; O2SAT 97
[2023-12-10] MEDS: ACETAMINOPHEN 325 MG TABLET 650 MG PO (18:00)
[2023-12-10] MEDS: ONDANSETRON INJ 4 MG/2 ML VIAL IV PUSH (18:00)
[2023-12-10 19:40] VITALS: BP 148/69; PULSE 79; RESP 18; TEMP 36.3; O2SAT 97
[2023-12-10] MEDS: LATANOPROST 0.005% OP SOLN 2.5 ML BTL 1 DROP EACH EYE (21:24)
[2023-12-10] MEDS: traMADol HCL (*CRX) 50 MG TABLET PO (21:31)
[2023-12-11 04:18] VITALS: BP 137/70; PULSE 76; RESP 18; TEMP 36.8; O2SAT 96
[2023-12-11 06:47] LABS: Hematocrit 34.8 % (37.0-47.0); Hemoglobin 11.1 g/dL (12.0-15.0); Mean Corpuscular HGB Conc 31.9 g/dl (32-36); Mean Corpuscular Hemoglobin 29.1 pg (26-34); Mean Corpuscular Volume 91.1 fl (80-100); Mean Platelet Volume 10.3 fl (7.4-10.4); Platelet Count Result 270 k/mm3 (150-375); Red Blood Count 3.82 M/mm3 (4.2-5.4); Red Cell Distribution Width 13.2 % (11.5-14.5); White Blood Count 7.4 K/mm3 (4.5-10.0)
[2023-12-11 06:49] LABS: Alanine Aminotransferase 18 U/L (6-35); Albumin Level 3.8 g/dL (3.5-5.1); Alkaline Phosphatase 74 U/L (38-126); Anion Gap 10 mmol/L (4-12); Aspartate Amino Transferase 36 U/L (14-36); Bilirubin,Total 0.6 mg/dL (0.2-1.3); Blood Urea Nitrogen 13 mg/dL (7-17); Calcium 8.8 mg/dL (8.4-10.2); Carbon Dioxide 25 mmol/L (22-30); Chloride 96 mmol/L (98-107); Estimated CRCL calculation 51 ml/min; Estimated Glomerular Filt Rate > 60; Glucose 95 mg/dL (65-110); Potassium 3.7 mmol/L (3.4-5.0); Sodium 131 mmol/L (137-145)
[2023-12-11] MEDS: PRAVASTATIN SODIUM 20 MG TABLET 40 MG PO (08:53)
[2023-12-11] MEDS: LOSARTAN POTASSIUM 100 MG TABLET PO (08:53)
[2023-12-11] MEDS: amLODIPine BESYLATE 5 MG TABLET PO (08:53)
[2023-12-11] MEDS: busPIRone HCL 5 MG TABLET 15 MG PO ×2 (08:53→16:59)
[2023-12-11 08:54] VITALS: PULSE 76
[2023-12-11] MEDS: carvediloL 12.5 MG TABLET 25 MG PO ×2 (08:54→20:20)
[2023-12-11] MEDS: ASPIRIN 81 MG ENTERIC TABLET PO (08:54)
[2023-12-11] MEDS: FUROSEMIDE 20 MG TABLET PO (08:54)
[2023-12-11 08:55] VITALS: PULSE 76; RESP 18; O2SAT 96
[2023-12-11] MEDS: HOME MED (Brexpiprazole [Rexulti] 1 mg tablet) 1 EACH PO (08:55)
[2023-12-11] MEDS: AMOXICILLIN/CLAVULANATE K 875-125 MG TAB 1 TABLET PO ×2 (08:55→20:21)
[2023-12-11] MEDS: RIVAROXABAN 20 MG TABLET PO (08:55)
[2023-12-11] MEDS: traMADol HCL (*CRX) 50 MG TABLET PO ×2 (10:41→20:25)
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
[2023-12-11] MEDS: polyethylene glycoL 3350 17 GM POWD.PACK PO (12:29)
[2023-12-11 14:00] VITALS: BP 144/72; PULSE 75; RESP 18; TEMP 36.8; O2SAT 96
[2023-12-11 20:20] VITALS: PULSE 74
[2023-12-11] MEDS: LATANOPROST 0.005% OP SOLN 2.5 ML BTL 1 DROP EACH EYE (20:21)
[2023-12-11 22:00] VITALS: BP 160/98; PULSE 84; RESP 18; TEMP 36.4; O2SAT 93
[2023-12-12 06:00] VITALS: BP 109/75; PULSE 77; RESP 18; TEMP 36.7; O2SAT 94
[2023-12-12 06:10] LABS: Hematocrit 34.6 % (37.0-47.0); Hemoglobin 11.3 g/dL (12.0-15.0); Mean Corpuscular HGB Conc 32.7 g/dl (32-36); Mean Corpuscular Hemoglobin 29.1 pg (26-34); Mean Corpuscular Volume 89.2 fl (80-100); Mean Platelet Volume 9.8 fl (7.4-10.4); Platelet Count Result 274 k/mm3 (150-375); Red Blood Count 3.88 M/mm3 (4.2-5.4); Red Cell Distribution Width 13.4 % (11.5-14.5); White Blood Count 7.9 K/mm3 (4.5-10.0)
[2023-12-12 06:23] LABS: Alanine Aminotransferase 19 U/L (6-35); Albumin Level 3.8 g/dL (3.5-5.1); Alkaline Phosphatase 83 U/L (38-126); Anion Gap 9 mmol/L (4-12); Aspartate Amino Transferase 33 U/L (14-36); Bilirubin,Total 0.6 mg/dL (0.2-1.3); Blood Urea Nitrogen 10 mg/dL (7-17); Calcium 9.1 mg/dL (8.4-10.2); Carbon Dioxide 29 mmol/L (22-30); Chloride 94 mmol/L (98-107); Estimated CRCL calculation 46 ml/min; Estimated Glomerular Filt Rate 54; Glucose 90 mg/dL (65-110); Potassium 3.6 mmol/L (3.4-5.0); Sodium 132 mmol/L (137-145)
[2023-12-12 10:08] VITALS: BP 148/73; PULSE 74; O2SAT 96
[2023-12-12] MEDS: busPIRone HCL 5 MG TABLET 15 MG PO ×2 (10:09→17:23)
[2023-12-12] MEDS: LOSARTAN POTASSIUM 100 MG TABLET PO (10:09)
[2023-12-12] MEDS: amLODIPine BESYLATE 5 MG TABLET PO (10:09)
[2023-12-12] MEDS: ASPIRIN 81 MG ENTERIC TABLET PO (10:09)
[2023-12-12] MEDS: PRAVASTATIN SODIUM 20 MG TABLET 40 MG PO (10:10)
[2023-12-12] MEDS: FUROSEMIDE 20 MG TABLET PO (10:10)
[2023-12-12] MEDS: AMOXICILLIN/CLAVULANATE K 875-125 MG TAB 1 TABLET PO ×2 (10:10→20:36)
[2023-12-12] MEDS: HOME MED (Brexpiprazole [Rexulti] 1 mg tablet) 1 EACH PO (10:11)
[2023-12-12 10:12] VITALS: PULSE 73
[2023-12-12] MEDS: carvediloL 12.5 MG TABLET 25 MG PO ×2 (10:12→20:36)
[2023-12-12] MEDS: traMADol HCL (*CRX) 50 MG TABLET PO (11:09)
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
[2023-12-12 14:00] VITALS: BP 138/65; PULSE 75; RESP 12; TEMP 36.4; O2SAT 97
[2023-12-12] MEDS: RIVAROXABAN 20 MG TABLET PO (17:24)
[2023-12-12 19:58] VITALS: PULSE 75; RESP 12; O2SAT 97
[2023-12-12] MEDS: LATANOPROST 0.005% OP SOLN 2.5 ML BTL 1 DROP EACH EYE (20:34)
[2023-12-12 22:00] VITALS: BP 149/73; PULSE 78; RESP 18; TEMP 36.9; O2SAT 97
[2023-12-13 06:00] VITALS: BP 140/58; PULSE 69; RESP 18; TEMP 36.7; O2SAT 96
[2023-12-13 06:19] LABS: Hemoglobin 10.6 g/dL (12.0-15.0); Mean Corpuscular HGB Conc 32.1 g/dl (32-36); Mean Corpuscular Hemoglobin 28.6 pg (26-34); Mean Corpuscular Volume 88.9 fl (80-100); Mean Platelet Volume 10.1 fl (7.4-10.4); Platelet Count Result 262 k/mm3 (150-375); Red Blood Count 3.71 M/mm3 (4.2-5.4); Red Cell Distribution Width 13.3 % (11.5-14.5); White Blood Count 7.9 K/mm3 (4.5-10.0)
[2023-12-13 06:31] LABS: Alanine Aminotransferase 16 U/L (6-35); Albumin Level 3.6 g/dL (3.5-5.1); Alkaline Phosphatase 79 U/L (38-126); Anion Gap 7 mmol/L (4-12); Aspartate Amino Transferase 27 U/L (14-36); Bilirubin,Total 0.5 mg/dL (0.2-1.3); Blood Urea Nitrogen 10 mg/dL (7-17); Calcium 9.2 mg/dL (8.4-10.2); Carbon Dioxide 31 mmol/L (22-30); Chloride 95 mmol/L (98-107); Estimated CRCL calculation 46 ml/min; Estimated Glomerular Filt Rate 54; Glucose 85 mg/dL (65-110); Potassium 3.6 mmol/L (3.4-5.0); Sodium 133 mmol/L (137-145)
--- NOTE | 2023-12-13 10:44 | PCNWS ---
Weekly nutritional screen. Patient is tolerating current diet with fairly adequate intake. No weight loss reported. No nutritional needs at this time.
[2023-12-13] MEDS: busPIRone HCL 5 MG TABLET 15 MG PO ×2 (11:08→17:13)
[2023-12-13] MEDS: LOSARTAN POTASSIUM 100 MG TABLET PO (11:08)
[2023-12-13 11:09] VITALS: PULSE 70
[2023-12-13] MEDS: FUROSEMIDE 20 MG TABLET PO (11:09)
[2023-12-13] MEDS: amLODIPine BESYLATE 5 MG TABLET PO (11:09)
[2023-12-13] MEDS: carvediloL 12.5 MG TABLET 25 MG PO ×2 (11:09→20:23)
[2023-12-13] MEDS: AMOXICILLIN/CLAVULANATE K 875-125 MG TAB 1 TABLET PO (11:09)
[2023-12-13] MEDS: ASPIRIN 81 MG ENTERIC TABLET PO (11:10)
[2023-12-13] MEDS: HOME MED (Brexpiprazole [Rexulti] 1 mg tablet) 1 EACH PO (11:10)
[2023-12-13] MEDS: PRAVASTATIN SODIUM 20 MG TABLET 40 MG PO (11:10)
[2023-12-13] MEDS: ONDANSETRON HCL ODT 4 MG TABLET PO (12:14)
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
[2023-12-13] MEDS: traMADol HCL (*CRX) 50 MG TABLET PO (12:58)
[2023-12-13 14:00] VITALS: BP 118/58; PULSE 77; RESP 20; TEMP 35.8; O2SAT 98
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
[2023-12-13] MEDS: RIVAROXABAN 20 MG TABLET PO (17:13)
[2023-12-13 20:16] VITALS: BP 142/72; PULSE 80; RESP 18; TEMP 36.4; O2SAT 98
[2023-12-13 20:23] VITALS: PULSE 94
[2023-12-14 05:47] VITALS: BP 130/76; PULSE 76; RESP 20; TEMP 36.7; O2SAT 93
[2023-12-14 06:46] LABS: Hematocrit 33.9 % (37.0-47.0); Hemoglobin 10.9 g/dL (12.0-15.0); Mean Corpuscular HGB Conc 32.2 g/dl (32-36); Mean Corpuscular Hemoglobin 28.5 pg (26-34); Mean Corpuscular Volume 88.5 fl (80-100); Mean Platelet Volume 10.2 fl (7.4-10.4); Platelet Count Result 272 k/mm3 (150-375); Red Blood Count 3.83 M/mm3 (4.2-5.4); Red Cell Distribution Width 13.5 % (11.5-14.5); White Blood Count 9.2 K/mm3 (4.5-10.0)
[2023-12-14 06:52] LABS: Alanine Aminotransferase 15 U/L (6-35); Albumin Level 3.7 g/dL (3.5-5.1); Alkaline Phosphatase 78 U/L (38-126); Anion Gap 9 mmol/L (4-12); Aspartate Amino Transferase 26 U/L (14-36); Bilirubin,Total 0.5 mg/dL (0.2-1.3); Blood Urea Nitrogen 10 mg/dL (7-17); Calcium 9.2 mg/dL (8.4-10.2); Carbon Dioxide 29 mmol/L (22-30); Chloride 96 mmol/L (98-107); Estimated CRCL calculation 50 ml/min; Estimated Glomerular Filt Rate 60; Glucose 88 mg/dL (65-110); Potassium 3.3 mmol/L (3.4-5.0); Sodium 134 mmol/L (137-145)
[2023-12-14] MEDS: amLODIPine BESYLATE 5 MG TABLET PO (09:29)
[2023-12-14] MEDS: ASPIRIN 81 MG ENTERIC TABLET PO (09:29)
[2023-12-14] MEDS: busPIRone HCL 5 MG TABLET 15 MG PO (09:30)
[2023-12-14] MEDS: HOME MED (Brexpiprazole [Rexulti] 1 mg tablet) 1 EACH PO (09:30)
[2023-12-14 09:31] VITALS: PULSE 72
[2023-12-14] MEDS: FUROSEMIDE 20 MG TABLET PO (09:31)
[2023-12-14] MEDS: PRAVASTATIN SODIUM 20 MG TABLET 40 MG PO (09:31)
[2023-12-14] MEDS: LOSARTAN POTASSIUM 100 MG TABLET PO (09:31)
[2023-12-14] MEDS: carvediloL 12.5 MG TABLET 25 MG PO (09:31)
[2023-12-14] MEDS: traMADol HCL (*CRX) 50 MG TABLET PO (10:16)
--- NOTE | 2023-12-14 12:25 | PM.IMPN ---
Progress Note: A&P Assessment and Plan (1) Abnormal finding on urinalysis: Code(s): R82.90 - Unspecified abnormal findings in urine Status: Acute Assessment and Plan: 12/14/23 Augmentin completed (2) Aggressive behavior due to dementia: Code(s): F03.918 - Unspecified dementia, unspecified severity, with other behavioral disturbance Status: Acute Assessment and Plan: 12/14/23: Awaiting placement, plan for peer to peer today Case coordination following PT and OT (3) Elevated blood pressure reading with diagnosis of hypertension: Code(s): I10 - Essential (primary) hypertension Status: Acute Assessment and Plan: 12/13/23: Home medication resumed (4) Atrial fibrillation by electrocardiogram: Code(s): I48.91 - Unspecified atrial fibrillation Status: Acute Assessment and Plan: 12/13/23: Home medications continued Time Spent With Patient Time with patient: 15 - 25 minutes Subjective Date/time seen: 12/14/23 12:25 Interval history: Interval history: This is a 77 year old female with a history of Dementia who presented to the hospital on 12/06/23 with aggressive behavior. Patient was found to have UTI and was placed on antibiotics. is no longer able to care for her at home and wanted her placed. Work up in hospital included a Chest x-ray which was negative. Head CT was negative. Initial labs shown a white blood cell count of 12.2, hemoglobin 11.9, sodium 136. UA was obtained and showed 1+ urine blood, 3+ leukocytes, greater than 100 wbc's. Respiratory panel was negative for influenza a and B and COVID. Urine culture was obtained and showed group B Streptococcus isolated on final read. She was transitioned to Augmentin. Subjective: 12/14/23: Labs reviewed, no new complaints today. Awaiting placement. Review of Systems Review of Systems: All systems reviewed & are unremarkable except as noted in HPI and below ROS unobtainable: Yes unobtainable due to medical condition (Dementia) Exam Narrative: General: In no acute distress Cardiac: Normal S1 and S2. No murmur, gallops or friction rubs, peripheral pulses intact. Respiratory: Lungs clear to auscultation, no adventitious lung sounds, currently on room air Gastrointestinal: soft, non-distended, non-tender, normoactive bowel sounds. : voiding without difficulty. Neuro: Alert to voice and oriented x2 Objective Data Vital Signs Vital Signs: Vital Signs - 24 hr 12/13/23 14:00 12/13/23 20:16 12/13/23 20:23 Temperature 96.5 F L 97.6 F Pulse Rate 77 80 94 Respiratory Rate 20 18 Blood Pressure 118/58 L 142/72 H Pulse Oximetry 98 98 Oxygen Delivery 12/13/23 20:00 12/14/23 05:47 12/14/23 09:31 Temperature 98.1 F Pulse Rate 76 72 Respiratory Rate 20 Blood Pressure 130/76 Pulse Oximetry 93 Oxygen Delivery Room Air 12/14/23 09:25 Temperature Pulse Rate Respiratory Rate Blood Pressure Pulse Oximetry Oxygen Delivery Room Air Intake/Output Intake/Output: Intake & Output 12/11/23 12/12/23 12/13/23 12/14/23 23:59 23:59 23:59 23:59 Intake Total 660 1820 480 360 Output Total 1050 5 Balance -390 1815 480 360 Meds/Results Medications: Active Medications Generic Name Dose Route Start Last Admin Trade Name Freq PRN Reason Stop Dose Admin Acetaminophen 650 mg 12/07/23 03:25 12/10/23 18:00 Acetaminophen 325 Mg Tablet PO 650 mg Q6H PRN Administration fever or pain 1-3 Hydrocodone Bitart/Acetaminophen 1 tab 12/08/23 11:08 12/10/23 09:55 Hydrocodone/Acetaminophen (*Crx) 5-325 Mg Tablet PO 1 tab Q6H PRN Administration Pain Rated 4-6 Amlodipine Besylate 5 mg 12/09/23 09:00 12/14/23 09:29 Amlodipine Besylate 5 Mg Tablet PO 5 mg QAM RHEA Administration Aspirin 81 mg 12/07/23 09:00 12/14/23 09:29 Aspirin 81 Mg Enteric Tablet PO 81 mg QAM RHEA Administration Buspirone
--- NOTE | 2023-12-14 14:23 | PM.DS ---
DS: Admitting Diagnosis Discharge Date 12/14/23 Admitting Diagnosis Abnormal findings on urinalysis Aggressive behavior due to dementia Elevated blood pressure reading with diagnosis of hypertension atrial fibrillation DS: Discharge Diagnosis Discharge Diagnosis (1) Abnormal finding on urinalysis: Code(s): R82.90 - Unspecified abnormal findings in urine Status: Acute (2) Aggressive behavior due to dementia: Code(s): F03.918 - Unspecified dementia, unspecified severity, with other behavioral disturbance Status: Acute (3) Elevated blood pressure reading with diagnosis of hypertension: Code(s): I10 - Essential (primary) hypertension Status: Acute (4) Atrial fibrillation by electrocardiogram: Code(s): I48.91 - Unspecified atrial fibrillation Status: Acute DS: Summary Hospital Course Reason for hospitalization: Abnormal findings on urinalysis Aggressive behavior due to dementia Elevated blood pressure reading with diagnosis of hypertension atrial fibrillation Hospital Course: This is a 77 year old female with a history of Dementia who presented to the hospital on 12/06/23 with aggressive behavior. Patient was found to have UTI and was placed on antibiotics. is no longer able to care for her at home and wanted her placed. Work up in hospital included a Chest x-ray which was negative. Head CT was negative. Initial labs shown a white blood cell count of 12.2, hemoglobin 11.9, sodium 136. UA was obtained and showed 1+ urine blood, 3+ leukocytes, greater than 100 wbc's. Respiratory panel was negative for influenza a and B and COVID. Urine culture was obtained and showed group B Streptococcus isolated on final read. She was transitioned to Augmentin and finished her full course while inpatient. She worked with PT and OT. Peer to peer was done today with [employer] insurance and they denied her for SNF. She is stable for discharge home at this time. She will need to follow up with PCP in 1 week. Final diagnosis: Acute UTI Status at Discharge Cognitive/behavioral status at discharge: Alert and oriented x2 Functional status at discharge: independent ambulation Overall status at discharge: patient is progressing back to baseline Time Spent with Patient Time attestation: Total time spent providing and/or coordinating discharge services: Time spent: Greater than 30 minutes Exam Narrative: General: In no acute distress Cardiac: Normal S1 and S2. No murmur, gallops or friction rubs, peripheral pulses intact. Respiratory: Lungs clear to auscultation, no adventitious lung sounds, currently on room air Gastrointestinal: soft, non-distended, non-tender, normoactive bowel sounds. : voiding without difficulty. Neuro: Alert to voice and oriented x2 DS: Data Data Completed and Pending Completed studies during hospitalization: Head CT Chest x-ray Pending studies at discharge: None Labs on day of discharge: Labs from last 24 hours 12/14/23 06:11 WBC 9.2 RBC 3.83 L Hgb 10.9 L Hct 33.9 L MCV 88.5 MCH 28.5 MCHC 32.2 RDW 13.5 Plt Count 272 MPV 10.2 Sodium 134 L Potassium 3.3 L Chloride 96 L Carbon Dioxide 29 Anion Gap 9 BUN 10 Creatinine 0.90 Estim Creat Clear Calc 50 Estimated GFR 60 Glucose 88 Calcium 9.2 Total Bilirubin 0.5 AST 26 ALT 15 Alkaline Phosphatase 78 Total Protein 7.0 Albumin 3.7 Procedures/Treatments: None Discharge Plan Discharge Attending physician on discharge: Vanessa Mcrae Consulting providers: She Wolfe Discharging Clinician: She Wolfe Anticipated Discharge Date/Time: 12/14/23 14:20 Patient Disposition: Home, Self-Care Activity: as tolerated Diet: as tolerated Discharge Instructions: You finished a full course of antibiotics while inpatient for your acute UTI Follow up with primary care doctor next week. Patient Instructions: Heart Failure (GEN), Urinary Tract Inf
== END 2023-12-14 15:03 | disposition home or self-care (01) | DRG 690 ==
LOC: ANHED 23:48 → ANH2MED 12-07 00:13
PROVIDERS: Nurse Practitioner Family; Physician Assistant; Admitting Provider Internal Medicine; Emergency Provider Emergency Medicine; PCP Internal Medicine; Visit Provider Nurse Practitioner Acute Care
DX: N39.0 Urinary tract infection, site not specified (principal); F03.918 Unspecified dementia, unspecified severity, with other behavioral disturbance; I69.351 Hemiplegia and hemiparesis following cerebral infarction affecting right dominant side; B95.1 Streptococcus, group B, as the cause of diseases classified elsewhere; E78.5 Hyperlipidemia, unspecified; I48.91 Unspecified atrial fibrillation; I69.320 Aphasia following cerebral infarction; I10 Essential (primary) hypertension; Z20.822 Contact with and (suspected) exposure to COVID-19; Z90.49 Acquired absence of other specified parts of digestive tract; Z87.891 Personal history of nicotine dependence; Z79.01 Long term (current) use of anticoagulants; Z79.82 Long term (current) use of aspirin
CPT/HCPCS: 36415; 70450; 71045; 80053; 81001; 83735; 84443; 84484; 85025; 85027; 87077; 87086; 87088; 87636; 93005; 96360; 97110; 97161; 97165; 97530; 97535; 99285; A9270; J0696; J2405; J7030

== ENCOUNTER 2024-01-04 18:41 | Observation (INO) | payer MEDICARE, SELFPAY ==
--- NOTE | ~2024-01-04 | CT_ITS ---
EXAMINATION: CTA chest PE protocol DATE: 01/04/2024 21:36 INDICATION: dyspnea, (+) dimer TECHNIQUE: Computed tomography angiography (CTA) of the chest was performed with 100 mL Omnipaque-350 intravenous contrast timed to evaluate the pulmonary arteries. Coronal maximum intensity projection 3D-reconstructions were created by the technologist. The dose-length product (DLP) was 403.46 mGy-cm. Automated exposure control and iterative reconstruction technique were employed. COMPARISON: X-ray chest, same date; CTPA 05/30/2019. FINDINGS: Lung parenchyma and airways: Mild motion artifact in the lungs. Mild septal thickening. Patent airway s. Pleura: Small bilateral pleural fluid collections. Thoracic inlet, axillae and chest wall: Unremarkable. Thoracic aorta: No significant dilation. No dissection. Mediastinum: Dilated central pulmonary arteries as can be seen with pulmonary arterial hypertension. Heart and pericardium: Cardiomegaly. Small pericardial effusion. Coronary artery calcifications: Mild. Upper abdomen: Status post cholecystectomy. Left adrenal adenoma. Bones: No acute osseous finding. Pulmonary arteries: Study quality: Motion artifact, particularly in the lung bases, obscuring subsegm ental arteries in the bilateral lower lobes. No pulmonary emboli detected. IMPRESSION: Motion artifact obscures subsegmental arteries in the bilateral lower lobes. No central, upper lobe, right middle lobe, or segmental lower lobe emboli detected. Mild interstitial edema. Cardiomegaly with small pericardial effusion. Small bilateral pleural effusions. Reviewed, dictated and finalized at location K. IMPRESSION: Motion artifact obscures subsegmental arteries in the bilateral lower lobes. No central, upper lobe, right middle lobe, or segmental lower lobe emboli detecte d. Mild interstitial edema. Cardiomegaly with small pericardial effusion. Small bilateral pleural effusions.
--- NOTE | ~2024-01-04 | XR_ITS ---
EXAMINATION: XR chest 2V Exam Date/Time: 01/04/2024 19:40 CDT HISTORY: SOB Comparison: 12/06/2023, 05/30/2019. RESULT: Lines, tubes, and devices: None. Lungs and pleura: Senescent changes. Minimal streaky bibasilar atelectasis/scar. Otherwise clear. Cardiomediastinal silhouette: Stable. Other: No acute osseous or upper abdominal finding. IMPRESSION: No acute cardiopulmonary process. Reviewed, dictated and finalized at location K.
[2024-01-04 18:44] VITALS: BP 162/50; PULSE 110; RESP 20; TEMP 36.4; O2SAT 100
--- NOTE | 2024-01-04 19:16 | ECG_ITS ---
Test Date: 2024-01-04 19:27:22 Measurements Intervals [place] Rate: 95 P: 0 CT: 0 QRS: 37 QRSD: 98 T: 29 QT: 365 QTc: 460 Interpretive Statements ATRIAL FIBRILLATION VENTRICULAR PREMATURE COMPLEX CONSIDER ANTERIOR INFARCT, AGE INDETERMINATE BORDERLINE ST-T WAVE ABNORMALITY- INFERIOR LEADS BASELINE ARTIFACT- I, II, III, AVR, AVL, AVF, V1-V2, V4-V6 ABNORMAL ECG Compared to ECG 12/08/2023 21:49:35 No significant changes Electronically Signed On 01-04-2024 20:09:40 CDT by Marlon Baca D.O.
[2024-01-04 19:46] LABS: Basophils Absolute Auto 0.1 K/mm3 (0.0-0.1); Basophils Percent Auto 0.6 % (0.2-1.2); Eosinophils Absolute Auto 0.1 K/mm3 (0-0.3); Eosinophils Percent Auto 0.9 % (0-4.4); Hematocrit 37.4 % (37.0-47.0); Hemoglobin 12.3 g/dL (12.0-15.0); Immature Granulocyte Absolute 0.03 K/mm3 (0.00-0.031); Immature Granulocyte Percent A 0.3 % (0-0.5); Lymphocytes Absolute Auto 2.29 K/mm3 (0.9-3.2); Lymphocytes Percent Auto 22.1 % (18.3-44.2); Mean Corpuscular HGB Conc 32.9 g/dl (32-36); Mean Corpuscular Hemoglobin 28.7 pg (26-34); Mean Corpuscular Volume 87.4 fl (80-100); Mean Platelet Volume 9.8 fl (7.4-10.4); Monocytes Absolute Auto 0.7 K/mm3 (0.1-0.6); Monocytes Percent Auto 7.1 % (2.6-8.5); Neutrophils Absolute Auto 7.2 K/mm3 (1.3-6.7); Platelet Count Result 310 k/mm3 (150-375); Red Blood Count 4.28 M/mm3 (4.2-5.4); Red Cell Distribution Width 13.4 % (11.5-14.5); White Blood Count 10.4 K/mm3 (4.5-10.0)
[2024-01-04 19:56] LABS: Alanine Aminotransferase 12 U/L (6-35); Albumin Level 4.6 g/dL (3.5-5.1); Alkaline Phosphatase 107 U/L (38-126); Anion Gap 13 mmol/L (4-12); Aspartate Amino Transferase 21 U/L (14-36); Bilirubin,Total 0.4 mg/dL (0.2-1.3); Blood Urea Nitrogen 6 mg/dL (7-17); Calcium 9.3 mg/dL (8.4-10.2); Carbon Dioxide 24 mmol/L (22-30); Chloride 100 mmol/L (98-107); Estimated CRCL calculation 53 ml/min; Estimated Glomerular Filt Rate > 60; Glucose 89 mg/dL (65-110); Potassium 3.5 mmol/L (3.4-5.0); Sodium 137 mmol/L (137-145)
[2024-01-04 20:02] LABS: D Dimer 1.33 ug/mL (<0.48)
[2024-01-04 20:08] LABS: NT Pro B Type Natriuretic Pept 5990 pg/mL (19.9-100); Troponin I < 0.012 ng/mL (0.000-0.034)
--- NOTE | 2024-01-04 20:21 | ED.SOB ---
HPI - SOB/Dyspnea General Chief Complaint: Shortness of Breath/Dyspnea <Candice Weiner NIRALI DobbsN - Last Filed: 01/04/24 20:28> Stated Complaint: SOB <Candice Weiner DUARTE Dobbs - Last Filed: 01/04/24 20:28> Time Seen by Provider: 01/04/24 19:20 <Candice Weiner NIRALI DobbsN - Last Filed: 01/04/24 20:28> Focused HPI: Patient is a 78-year-old female who presents to the shortness of breath started this morning. She is a poor historian, but her chart indicates a history of dementia. Patient reports her legs have been swollen lately. Otherwise she is unable to report much information. per her chart patient has a history of Anemia, Anxiety, Cerebrovascular accident, Residual aphasia and right-sided weakness, Cognitive impairment, Dementia, Diverticulitis, Fibromyalgia, Hypertension, Kidney stones, and TIA (transient ischemic attack). according to staff patient's is in the waiting room. Patient denies chest pain, back pain, or any other discomfort at this time. GENERAL: Well-appearing, well-nourished, and in no acute distress. HEAD: Normocephalic, atraumatic. CHEST: Clear to auscultation. ?No respiratory distress. HEART: Tachycardia, irregular rhythm. ? NEURO: ?Alert and oriented x2. Patient had to think for few moments but then remembered why she was presenting to the ER. Patient screened in triage and initial orders placed.? ?Additional care and disposition to be based upon?diagnostic testing and treatment. <Candicemeng Dobbs APRN - Last Filed: 01/04/24 20:28> Source: patient <Candice Weiner NIRALI DobbsN - Last Filed: 01/04/24 20:28> Mode of arrival: wheelchair <Candicemeng Dobbs APRN - Last Filed: 01/04/24 20:28> Limitations: dementia <Candicemeng Dobbs APRN - Last Filed: 01/04/24 20:28> History of Present Illness HPI Narrative: Agree with HPI above. Patient is a poor historian overall. Endorses dyspnea and intermittent chest pain. States the chest pain comes and goes but only lasts a couple minutes at a time. When asked about dyspnea gives conflicting answers about whether getting up walking makes the dyspnea worse or better. She cannot tell me about any of her medications. does state that she has had some memory problems and has sounds like she has a developing dementia. <Mt Thomason PA-C - Last Filed: 01/05/24 03:46> Related Data Home Medications: Home Medications Medication Instructions Recorded Confirmed buspirone 15 mg tablet 15 mg PO BID 12/24/21 01/05/24 amlodipine 10 mg tablet 5 mg PO QAM 12/07/23 01/05/24 bimatoprost 0.01 % eye drops 1 drp EACH EYE QHS 12/07/23 01/05/24 (Lumigan) brexpiprazole 0.5 mg tablet 1 mg PO DAILY 12/07/23 01/05/24 (Rexulti) furosemide 20 mg tablet 20 mg PO DAILY 12/07/23 01/05/24 <Candice Dobbs, DISTRICT ADMINISTRATOR - Last Filed: 01/04/24 20:28> Allergies/Adverse Reactions: Allergies Allergy/AdvReac Type Severity Reaction Status Date / Time No Known Allergies Allergy Verified 03/09/23 11:04 <Candice Dobbs, DISTRICT ADMINISTRATOR - Last Filed: 01/04/24 20:28> Review of Systems Review of Systems: All systems as dictated in HPI <Mt Thomason PA-C - Last Filed: 01/05/24 03:46> [facility] Past Medical History Medical History: Medical History Anemia Anxiety Arthritis Cerebrovascular accident Residual aphasia and right-sided weakness. CHF (congestive heart failure) Echocardiogram 2019 EF 55-60%, moderate concentric left ventricular increased wall thickness, grade 1 diastolic dysfunction Chronic back pain Chronic hyponatremia Closed fracture of right hip Dementia Diverticulitis Diverticulosis Dyslipidemia Fibromyalgia GERD (gastroesophageal reflux disease) Glaucoma Bilateral eyes History of blood transfusion HLD (hyperlipidemia) Hypertension Kidney stones Migraines Peripheral neuropathy Shingles Spinal stenosis TIA (transient ischemic attac
--- NOTE | 2024-01-04 21:21 | PC.NURSE ---
Patient taken to CT via w/c from waiting room at this time.
[2024-01-04 21:51] VITALS: PULSE 105
[2024-01-04 21:52] VITALS: BP 199/128; PULSE 107; RESP 18; O2SAT 97
[2024-01-04 21:53] VITALS: O2SAT 95
[2024-01-04] MEDS: FUROSEMIDE INJ 40 MG/4 ML VIAL IV PUSH (22:36)
--- NOTE | 2024-01-04 23:02 | ECG_ITS ---
Test Date: 2024-01-04 23:15:44 Measurements Intervals [place] Rate: 91 P: 0 FL: 0 QRS: 57 QRSD: 102 T: 31 QT: 358 QTc: 443 Interpretive Statements ATRIAL FIBRILLATION DELAYED PRECORDIAL R/S TRANSITION BORDERLINE ST-T WAVE ABNORMALITY- INFERIOR LEADS BASELINE ARTIFACT- I, II, III, AVR, AVL, AVF ABNORMAL ECG Compared to ECG 01/04/2024 19:27:22 Electronically Signed On 01-05-2024 09:16:33 CDT by Marlon Baca D.O.
[2024-01-04 23:24] VITALS: BP 189/111; PULSE 108; RESP 17; O2SAT 95
[2024-01-04 23:52] LABS: Troponin I 0.012 ng/mL (0.000-0.034)
[2024-01-05] VITALS (13 sets, daily range): BP systolic 135–174; BP diastolic 67–106; PULSE 78–104; RESP 14–22; TEMP 36.6–36.8; O2SAT 92–98
--- NOTE | 2024-01-05 | ECHO_ITS ---
Patient Info Name: Karla Green Age: 78 years : 1945 Gender: Female Ht: 65 in Wt: 165 lbs BSA: 1.87 m2 HR: 89 bpm BP: 139 / 82 mmHg Heart Rhythm: Indeterminant Technical Quality: Good Exam Date: 01/05/2024 2:44 PM Exam Location: Echo Lab Patient Status: Inpatient Admit Date: 01/05/2024 Staff Ordering Physician: Holger Martin MD Contract Law Specialist: Dolly Verdugo RDCS Attending Provider: Henna Yang DO Exam Type: CA echo doppler color flow Study Info Indications - CHF Complete two-dimensional, color flow and Doppler transthoracic echocardiogram is performed. Summary 1. Complete two-dimensional, color flow and Doppler transthoracic echocardiogram is performed. 2. The left ventricle is normal size with normal systolic function. LVEF is estimated to be 60-65%. Left Ventricle The left ventricle is normal size with normal systolic function. LVEF is estimated to be 60-65%. Right Ventricle The right ventricle is normal size with normal systolic function. Left Atria Left atrial chamber dimension is normal. Right Atria Right atrial chamber dimension is normal. Aortic Valve The aortic valve is not well visualized on short axis however it opens well. There is no aortic regurgitation. Pulmonic Valve The pulmonic valve is not well visualized. There is no color Doppler evidence of pulmonic valve regurgitation. Mitral Valve The mitral valve leaflets are normal. There is mild mitral regurgitation. Tricuspid Valve The tricuspid valve leaflets are normal. There is trace tricuspid regurgitation. Inferior Vena Cava Inferior vena cava is not well visualized. Aorta The aortic root at the level of the sinus of Valsalva is normal in diameter measuring 2.9 cm. Left Ventricular Outflow Tract Name Value Normal LVOT 2D LVOT Diameter 1.9 cm LVOT Doppler LVOT Peak Gradient 2 mmHg LVOT Mean Gradient 1 mmHg LVOT VTI 10 cm LVOT VTI/AV VTI Ratio 0.4 LVOT Stroke Volume 28 ml LVOT CO 3.1 l/min LVOT CI 1.7 l/min/m2 Pulmonic Valve Name Value Normal PV Doppler PV Peak Gradient 2 mmHg Mitral Valve Name Value Normal MV Doppler MV Decel [place] 497 cm/s2 MV PHT 81 ms MV Area (PHT) 2.7 cm2 4.0-5.0 MV Regurgitation Doppler MR Peak Gradient 123 mmHg MV Diastolic Function
[2024-01-05] MEDS: METOPROLOL TARTRATE INJ 5 MG/5 ML VIAL IV PUSH (00:18)
[2024-01-05] MEDS: NITROGLYCERIN OINTMENT 1 INCH DOSE 0.5 INCH TRANSDERM (01:21)
--- NOTE | 2024-01-05 02:21 | ADMGEN ---
This patient, Karla Green, was admitted to IMU Room 204-01. Patient/family oriented to hospital policies and general routines including ID bracelet, bed and alarms, visiting hours, pain management, procedures, bathroom and other care routines, personal items, smoking policy, room service/diet, and visiting hours. Information on how to activate the Rapid Response Team has been discussed. Patient/Family are encouraged to report perceived risks to care and to ask questions if they do not understand what they are told or what they should do.
--- NOTE | 2024-01-05 03:00 | PM.IMHP ---
H&P: HPI History of Present Illness Date/Time: 01/05/24 03:00 Chief Complaint: Shortness of breath Narrative: 78-year-old female with past medical history of dementia, diastolic heart failure, paroxysmal atrial fibrillation, essential hypertension and recent hospitalization for AFib and UTI presented to the ER from home with shortness of breath. The patient initially had reported shortness of breath but when other providers would ask her about shortness of breath she would deny having shortness of breath. She did seem to have some dyspnea with position changes in the ER. She had initially reported that she was having some chest pain with inspiration. Patient later denied chest pain. The patient was treated with Augmentin for group B strep during her recent hospitalization and completed antibiotic course prior to discharge. she has known AFib that was noted to be in mild AFib RVR. Imaging in the ER demonstrated bilateral pleural effusions and pericardial effusion. Patient's last echocardiogram was in 2019. in the ER patient received 40 mg Lasix and 5 of IV Lopressor due to elevated blood pressures as high as 199/128. Patient's blood pressures did improve after IV Lopressor down to the 170s over 100s. Patient was afebrile. She had a relatively normal white count and negative Troponins. is unclear if the patient had received her home antihypertensives are not as the patient is such a poor historian. Previously the patient had not been taking her medications and had been uncooperative with her . It is unclear if this was continuing since she was discharged home. The patient had been discharged home even the patient's was having difficulty managing her care because insurance stated the patient did not qualify for SNF placement. Source of information obtained completely from past medical records. The patient is only oriented to person at the time of my evaluation. She did knee realize she was at the hospital. When I did ask her what hospital ER at she was able to answer that she was at [facility] but then was confused and stated that she was with her mother. Review of Systems Review of Systems: review of systems is limited due to patient's history of dementia. [facility] Past Medical History Medical History Anemia Anxiety Arthritis Cerebrovascular accident Residual aphasia and right-sided weakness. CHF (congestive heart failure) Echocardiogram 2019 EF 55-60%, moderate concentric left ventricular increased wall thickness, grade 1 diastolic dysfunction Chronic back pain Chronic hyponatremia Closed fracture of right hip Dementia Diverticulitis Diverticulosis Dyslipidemia Fibromyalgia GERD (gastroesophageal reflux disease) Glaucoma Bilateral eyes History of blood transfusion HLD (hyperlipidemia) Hypertension Kidney stones Migraines Peripheral neuropathy Shingles Spinal stenosis TIA (transient ischemic attack) Ulcer UTI (urinary tract infection) Surgical History Surgical History H/O cardiac catheterization History of appendectomy At age 18 History of cardiac catheterization cardiac catheterization done in November [address] Cameron. No significant coronary artery disease was noted, with preserved left ventricular systolic function ejection fraction of 60 to 65%. Some tortuosity and minor luminal irregularities were noted. Left ventricular end-diastolic pressure was elevated 27 millimeters of mercury. History of cholecystectomy History of open reduction and internal fixation (ORIF) procedure (02/2020) Pinning right femoral neck fracture. Family History Family History Mother Parkinsons disease Hypertension Dementia Father Cerebrovascular accident Congestive heart failure Sibling Acute myocardial infarction Mother Yuly
[2024-01-05] MEDS: FUROSEMIDE INJ 40 MG/4 ML VIAL IV PUSH ×2 (09:26→20:29)
--- NOTE | 2024-01-05 13:19 | PC.NURSE ---
This patient, Karla Green, was transferred to [facility] on 01/05/24 at 1309. Personal belongings sent with patient. Report given to JOE Bonds. Appropriate documentation sent with patient.
--- NOTE | 2024-01-05 13:55 | PM.IMPN ---
Progress Note: A&P Assessment and Plan (1) CHF exacerbation: Qualifiers: Heart failure type: diastolic Qualified Code(s): I50.33 - Acute on chronic diastolic (congestive) heart failure Code(s): I50.9 - Heart failure, unspecified Status: Acute (2) Elevated blood pressure reading with diagnosis of hypertension: Code(s): I10 - Essential (primary) hypertension Status: Acute (3) Dementia: Qualifiers: Dementia behavioral or psychological symptom: with agitation Dementia severity: moderate Dementia type: vascular dementia Qualified Code(s): F01.B11 - Vascular dementia, moderate, with agitation Code(s): F03.90 - Unspecified dementia, unspecified severity, without behavioral disturbance, psychotic disturbance, mood disturbance, and anxiety Status: Acute Plan the patient presents with shortness of breath imaging demonstrates mild interstitial edema, small pericardial effusion and small bilateral pleural effusions. Heart failure is likely diastolic in nature there may be some component of high output failure with patient's history of AFib in given her tachycardia. It is unclear if the patient has been taking her home antihypertensives including Coreg losartan and Norvasc as directed. The patient is on long-term Xarelto. Patient's D-dimer was mildly elevated in the ER but CT scanned did not demonstrate large thrombus although imaging was limited due to motion artifact. Thrombus is less likely given patient's prescribed use of Xarelto. Will continue monitor strict I&O's and will place patient on Lasix 40 mg IV daily. Patient is confused and has to be reminded multiple times that she has a pure wick catheter in place. Previously the patient had stops taking her diuretic therapy and stops drinking as much fluid because she did not want to urinate as much. This is why I am more suspicious of a component not M[place]oy to medical therapy. The patient did have markedly elevated blood pressures in the ER. Will resume the patient's home antihypertensives and monitor blood pressures closely. Will provide p.r.n. Lopressor for systolic blood pressures greater than 160. Will continue patient's home Rexulti and BusPar for anxiety. She may benefit from the addition of dementia medications as outpatient after neuro cognitive evaluation. 01/04: Home meds have been restarted. Saturating well on room air. No evidence of a pulmonary embolism in CTA. Cardiomegaly with a small pericardial effusion and small bilateral pleural effusion. Possibly due to the exacerbation of CHF. Ordered echocardiogram. Subjective Date/time seen: 01/05/24 13:55 Interval history: Patient is currently resting well at at room air and saturating well. Patient is oriented AO x4. Currently denies any chest pain palpitation no shortness of present. Exam Narrative: weight 79.5 kg BMI 28.3 Objective Data Vital Signs Vital Signs: Vital Signs - 24 hr 01/04/24 18:44 01/04/24 21:51 01/04/24 21:52 Temperature 97.5 F L Pulse Rate 110 H 105 H 107 H Respiratory Rate 20 18 Blood Pressure 162/50 H 199/128 H Pulse Oximetry 100 97 Oxygen Delivery Room Air 01/04/24 21:53 01/04/24 23:24 01/05/24 00:18 Temperature Pulse Rate 108 H 104 H Respiratory Rate 17 Blood Pressure 189/111 H Pulse Oximetry 95 95 Oxygen Delivery Room Air 01/05/24 01:26 01/05/24 03:20 01/05/24 02:15 Temperature 97.9 F 97.8 F Pulse Rate 102 H 98 98 Respiratory Rate 16 22 H Blood Pressure 174/106 H 164/96 H Pulse Oximetry 95 96 Oxygen Delivery 01/05/24 03:59 01/05/24 05:41 01/05/24 08:30 Temperature 97.8 F Pulse Rate 86 78 Respiratory Rate 16 Blood Pressure 164/96 H Pulse Oximetry 92 95 Oxygen Delivery Room Air 01/05/24 08:00 01/05/24 11:22 01/05/24 08:00 Temperature 98.2 F Pulse Rate 88 89 Respiratory Rate 16 16 Blood Pressure 135/67 139/82 Pulse Oximetry 98 94 Oxygen Del
--- NOTE | 2024-01-05 14:31 | PC.NURSE ---
Home medication rexulti is non-formulary. Spouse is able to bring from home 01/05.
[2024-01-05] MEDS: LOSARTAN POTASSIUM 100 MG TABLET PO (14:32)
[2024-01-05] MEDS: PRAVASTATIN SODIUM 20 MG TABLET 40 MG PO (14:32)
[2024-01-05] MEDS: amLODIPine BESYLATE 5 MG TABLET PO (14:32)
[2024-01-05 15:27] LABS: Alanine Aminotransferase 15 U/L (6-35); Albumin Level 4.8 g/dL (3.5-5.1); Alkaline Phosphatase 119 U/L (38-126); Anion Gap 12 mmol/L (4-12); Aspartate Amino Transferase 27 U/L (14-36); Bilirubin,Total 0.9 mg/dL (0.2-1.3); Blood Urea Nitrogen 9 mg/dL (7-17); Calcium 9.3 mg/dL (8.4-10.2); Carbon Dioxide 31 mmol/L (22-30); Chloride 91 mmol/L (98-107); Estimated CRCL calculation 53 ml/min; Estimated Glomerular Filt Rate > 60; Glucose 112 mg/dL (65-110); Sodium 134 mmol/L (137-145)
[2024-01-05] MEDS: busPIRone HCL 5 MG TABLET 15 MG PO (17:00)
[2024-01-05] MEDS: RIVAROXABAN 20 MG TABLET PO (17:01)
[2024-01-05] MEDS: carvediloL 12.5 MG TABLET 25 MG PO (20:28)
[2024-01-05] MEDS: POTASSIUM CHLORIDE 20 MEQ ER TABLET 40 MEQ PO (20:30)
[2024-01-05] MEDS: LATANOPROST 0.005% OP SOLN 2.5 ML BTL 1 DROP EACH EYE (20:31)
[2024-01-06] VITALS (7 sets, daily range): BP systolic 95–161; BP diastolic 55–91; PULSE 80–90; RESP 12–20; TEMP 36.4–37; O2SAT 95–98
[2024-01-06 05:48] LABS: Hematocrit 39.7 % (37.0-47.0); Hemoglobin 12.9 g/dL (12.0-15.0); Mean Corpuscular HGB Conc 32.5 g/dl (32-36); Mean Corpuscular Volume 86.1 fl (80-100); Mean Platelet Volume 9.9 fl (7.4-10.4); Platelet Count Result 330 k/mm3 (150-375); Red Blood Count 4.61 M/mm3 (4.2-5.4); Red Cell Distribution Width 13.2 % (11.5-14.5); White Blood Count 8.8 K/mm3 (4.5-10.0)
[2024-01-06 05:59] LABS: Alanine Aminotransferase 13 U/L (6-35); Albumin Level 4.2 g/dL (3.5-5.1); Alkaline Phosphatase 116 U/L (38-126); Anion Gap 10 mmol/L (4-12); Aspartate Amino Transferase 25 U/L (14-36); Blood Urea Nitrogen 12 mg/dL (7-17); Calcium 9.1 mg/dL (8.4-10.2); Carbon Dioxide 31 mmol/L (22-30); Chloride 93 mmol/L (98-107); Estimated CRCL calculation 43 ml/min; Estimated Glomerular Filt Rate 53; Glucose 107 mg/dL (65-110); Magnesium 1.9 mg/dL (1.6-2.3); Potassium 3.4 mmol/L (3.4-5.0); Sodium 134 mmol/L (137-145)
[2024-01-06] MEDS: busPIRone HCL 5 MG TABLET 15 MG PO ×2 (08:53→17:37)
[2024-01-06] MEDS: amLODIPine BESYLATE 5 MG TABLET PO (08:53)
[2024-01-06] MEDS: LOSARTAN POTASSIUM 100 MG TABLET PO (08:54)
[2024-01-06] MEDS: PRAVASTATIN SODIUM 20 MG TABLET 40 MG PO (08:54)
[2024-01-06] MEDS: carvediloL 12.5 MG TABLET 25 MG PO ×2 (08:54→20:26)
[2024-01-06] MEDS: FUROSEMIDE INJ 40 MG/4 ML VIAL IV PUSH (08:55)
--- NOTE | 2024-01-06 13:57 | PM.IMPN ---
Progress Note: A&P Assessment and Plan (1) CHF exacerbation: Qualifiers: Heart failure type: diastolic Qualified Code(s): I50.33 - Acute on chronic diastolic (congestive) heart failure Code(s): I50.9 - Heart failure, unspecified Status: Acute (2) Elevated blood pressure reading with diagnosis of hypertension: Code(s): I10 - Essential (primary) hypertension Status: Acute (3) Dementia: Qualifiers: Dementia behavioral or psychological symptom: with agitation Dementia severity: moderate Dementia type: vascular dementia Qualified Code(s): F01.B11 - Vascular dementia, moderate, with agitation Code(s): F03.90 - Unspecified dementia, unspecified severity, without behavioral disturbance, psychotic disturbance, mood disturbance, and anxiety Status: Acute Plan the patient presents with shortness of breath imaging demonstrates mild interstitial edema, small pericardial effusion and small bilateral pleural effusions. Heart failure is likely diastolic in nature there may be some component of high output failure with patient's history of AFib in given her tachycardia. It is unclear if the patient has been taking her home antihypertensives including Coreg losartan and Norvasc as directed. The patient is on long-term Xarelto. Patient's D-dimer was mildly elevated in the ER but CT scanned did not demonstrate large thrombus although imaging was limited due to motion artifact. Thrombus is less likely given patient's prescribed use of Xarelto. Will continue monitor strict I&O's and will place patient on Lasix 40 mg IV daily. Patient is confused and has to be reminded multiple times that she has a pure wick catheter in place. Previously the patient had stops taking her diuretic therapy and stops drinking as much fluid because she did not want to urinate as much. This is why I am more suspicious of a component not [place] to medical therapy. The patient did have markedly elevated blood pressures in the ER. Will resume the patient's home antihypertensives and monitor blood pressures closely. Will provide p.r.n. Lopressor for systolic blood pressures greater than 160. Will continue patient's home Rexulti and BusPar for anxiety. She may benefit from the addition of dementia medications as outpatient after neuro cognitive evaluation. Patient is currently in the baseline. Patient will be continued with the oral Lasix from tomorrow 40 mg. 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 q.d. and do the appropriate labs if necessity. Echocardiogram was performed pending read. Patient has a previous history of remote fractures so her ambulation is difficult. She uses walker or wheelchair for ambulation. Subjective Date/time seen: 01/06/24 13:57 Interval history: Patient is currently in the baseline. Patient will be continued with the oral Lasix from tomorrow 40 mg. 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 q.d. and do the appropriate labs if necessity. Echocardiogram was performed pending read. Patient has a previous history of remote fractures so her ambulation is difficult. She uses walker or wheelchair for ambulation. Review of Systems Review of Systems: review of systems is limited due to patient's history of dementia. Exam Narrative: weight 79.5 kg BMI 28.3 Const: Other: Debilitated, chronically ill, lying in bed in left lateral recumbent position HENMT: Other: No oral pharyngeal erythema, head is normocephalic atraumatic Eyes: Other: Pupils are equal and reactive, lens replacements noted bilaterally, no conjunctival pallor Neck: Other: No obvious JVD, supple, nontender Resp: Other: Decreased breath sounds at the bases, no increased work of breathing, no r
[2024-01-06] MEDS: POTASSIUM CHLORIDE 20 MEQ ER TABLET PO (14:00)
[2024-01-06] MEDS: RIVAROXABAN 20 MG TABLET PO (17:37)
--- NOTE | 2024-01-06 18:18 | PHAR ---
Drug Name: Chacha Ingredients: Brexpiprazole -- 1 MG Color: Light Yellow Shape: Temple Imprint: BRX 1 Form: Oral Tablet
[2024-01-06] MEDS: ACETAMINOPHEN 325 MG TABLET 650 MG PO (20:26)
[2024-01-06] MEDS: LATANOPROST 0.005% OP SOLN 2.5 ML BTL 1 DROP EACH EYE (20:27)
[2024-01-07 01:11] VITALS: BP 138/78; PULSE 80; RESP 18; TEMP 36.8; O2SAT 97
[2024-01-07 04:37] VITALS: BP 136/74; PULSE 84; RESP 18; TEMP 36.8; O2SAT 98
[2024-01-07 05:46] LABS: Hematocrit 38.1 % (37.0-47.0); Hemoglobin 12.1 g/dL (12.0-15.0); Mean Corpuscular HGB Conc 31.8 g/dl (32-36); Mean Corpuscular Hemoglobin 27.4 pg (26-34); Mean Corpuscular Volume 86.4 fl (80-100); Platelet Count Result 312 k/mm3 (150-375); Red Blood Count 4.41 M/mm3 (4.2-5.4); Red Cell Distribution Width 13.3 % (11.5-14.5); White Blood Count 10.5 K/mm3 (4.5-10.0)
[2024-01-07 05:59] LABS: Alanine Aminotransferase 12 U/L (6-35); Alkaline Phosphatase 112 U/L (38-126); Anion Gap 9 mmol/L (4-12); Aspartate Amino Transferase 24 U/L (14-36); Bilirubin,Total 0.9 mg/dL (0.2-1.3); Blood Urea Nitrogen 15 mg/dL (7-17); Calcium 9.2 mg/dL (8.4-10.2); Carbon Dioxide 30 mmol/L (22-30); Chloride 93 mmol/L (98-107); Estimated CRCL calculation 43 ml/min; Estimated Glomerular Filt Rate 53; Glucose 98 mg/dL (65-110); Potassium 3.5 mmol/L (3.4-5.0); Sodium 132 mmol/L (137-145)
[2024-01-07 06:00] VITALS: BP 130/72; PULSE 80; RESP 16; TEMP 36.7; O2SAT 98
[2024-01-07 09:16] VITALS: PULSE 82
[2024-01-07] MEDS: carvediloL 12.5 MG TABLET 25 MG PO (09:16)
[2024-01-07] MEDS: busPIRone HCL 5 MG TABLET 15 MG PO (09:16)
[2024-01-07] MEDS: PRAVASTATIN SODIUM 20 MG TABLET 40 MG PO (09:16)
[2024-01-07] MEDS: FUROSEMIDE 40 MG TABLET PO (09:16)
[2024-01-07] MEDS: amLODIPine BESYLATE 5 MG TABLET PO (09:16)
[2024-01-07] MEDS: LOSARTAN POTASSIUM 100 MG TABLET PO (09:16)
[2024-01-07] MEDS: ACETAMINOPHEN 325 MG TABLET 650 MG PO (10:04)
--- NOTE | 2024-01-07 17:54 | PM.DS ---
DS: Admitting Diagnosis Discharge Date 01/07/24 Admitting Diagnosis Shortness of Breath/Dyspnea DS: Summary Hospital Course Hospital Course: 78-year-old female with past medical history of dementia, diastolic heart failure, paroxysmal atrial fibrillation, essential hypertension and recent hospitalization for AFib and UTI presented to the ER from home with shortness of breath. The patient initially had reported shortness of breath but when other providers would ask her about shortness of breath she would deny having shortness of breath. She did seem to have some dyspnea with position changes in the ER. She had initially reported that she was having some chest pain with inspiration. Patient later denied chest pain. The patient was treated with Augmentin for group B strep during her recent hospitalization and completed antibiotic course prior to discharge. she has known AFib that was noted to be in mild AFib RVR. Imaging in the ER demonstrated bilateral pleural effusions and pericardial effusion. Patient's last echocardiogram was in 2019. in the ER patient received 40 mg Lasix and 5 of IV Lopressor due to elevated blood pressures as high as 199/128. Patient's blood pressures did improve after IV Lopressor down to the 170s over 100s. Patient was afebrile. She had a relatively normal white count and negative Troponins. is unclear if the patient had received her home antihypertensives are not as the patient is such a poor historian. Previously the patient had not been taking her medications and had been uncooperative with her . It is unclear if this was continuing since she was discharged home. The patient had been discharged home even the patient's was having difficulty managing her care because insurance stated the patient did not qualify for SNF placement. 01/04: Home meds have been restarted. Saturating well on room air. No evidence of a pulmonary embolism in CTA. Cardiomegaly with a small pericardial effusion and small bilateral pleural effusion. Possibly due to the exacerbation of CHF. Ordered echocardiogram. 01/05: Patient is currently in the baseline. Patient will be continued with the oral Lasix from tomorrow 40 mg. Patient follows with a [employer] insurance agent and advised to follow-up with the increase in the her home Lasix dose from 20 to 40 mg p.o. q.d. and do the appropriate labs if necessity. Echocardiogram was performed pending read. Patient has a previous history of remote fractures so her ambulation is difficult. She uses walker or wheelchair for ambulation. 01/06: Patient is discharged with lasix 40 mg PO QD which has been increased from 20mg PO QD. Advised to follow up with [employer] insurance agent to continue the increased dosage if necessary.Patient denies any SOB, chest pain or palpitations. Patient ambulation has been decreased due to remote femur fracture which exacerbates her CHF condition. We advised the patient to walk with assistance with walker if possible or sit in chair for few hours. We strongly recommend to follow up with PCP for furtehr care Status at Discharge Cognitive/behavioral status at discharge: Stable Time Spent with Patient Time attestation: Total time spent providing and/or coordinating discharge services:45 mins Exam Narrative: weight 79.5 kg BMI 28.3 Const: Other: Debilitated, chronically ill, lying in bed in left lateral recumbent position HENMT: Other: No oral pharyngeal erythema, head is normocephalic atraumatic Eyes: Other: Pupils are equal and reactive, lens replacements noted bilaterally, no conjunctival pallor Neck: Other: No obvious JVD, supple, nontender Resp: Other: Decreased breath sounds at the bases, no increased work of breathing, no reproducible chest pain to palpation Cardio: Other: Irregularly irregular, no JVD, 2+ bilateral radial and pedal pulses GI: Other: Soft, nontender, nondistended, posit
== END 2024-01-07 12:45 | disposition home or self-care (01) ==
LOC: ANHED 01-05 00:26 → ANHIMU 01-05 03:22 → ANH2MED 01-07 10:24 → ANH3MED 01-08 08:08 → ANHIMU 01-08 08:08
PROVIDERS: Registered Nurse; Student in an Organized Health Care Education/Training Program; Admitting Provider Internal Medicine; Emergency Provider Physician Assistant; PCP Internal Medicine; Visit Provider General Practice
DX: I11.0 Hypertensive heart disease with heart failure (principal); I50.33 Acute on chronic diastolic (congestive) heart failure; J90 Pleural effusion, not elsewhere classified; I31.39 Other pericardial effusion (noninflammatory); R06.02 Shortness of breath; F01.B11 Vascular dementia, moderate, with agitation; R60.0 Localized edema; I48.0 Paroxysmal atrial fibrillation; D64.9 Anemia, unspecified; I69.320 Aphasia following cerebral infarction; I69.351 Hemiplegia and hemiparesis following cerebral infarction affecting right dominant side; M79.7 Fibromyalgia; K21.9 Gastro-esophageal reflux disease without esophagitis; E78.5 Hyperlipidemia, unspecified; H40.9 Unspecified glaucoma; G62.9 Polyneuropathy, unspecified; Z87.891 Personal history of nicotine dependence
CPT/HCPCS: 36415; 71046; 71275; 80053; 83735; 83880; 84484; 85025; 85027; 85380; 93005; 93306; 96374; 96375; 96376; 99285; A9270; G0378; J1940; Q9967

== ENCOUNTER 2024-01-22 15:27 | Outpatient (CLI) | payer MEDICARE, SELFPAY ==
[2024-01-22 16:15] LABS: Anion Gap 14 mmol/L (4-12); Blood Urea Nitrogen 7 mg/dL (7-17); Calcium 9.8 mg/dL (8.4-10.2); Carbon Dioxide 28 mmol/L (22-30); Chloride 95 mmol/L (98-107); Estimated Glomerular Filt Rate > 60; Glucose 109 mg/dL (65-110); Potassium 2.7 mmol/L (3.4-5.0); Sodium 137 mmol/L (137-145)
== END 2024-01-22 15:28 | disposition home or self-care (01) ==
LOC: ANHLAB 15:31
PROVIDERS: PCP Internal Medicine; Visit Provider Internal Medicine Cardiovascular Disease
DX: I50.32 Chronic diastolic (congestive) heart failure (principal)
CPT/HCPCS: 36415; 80048

== ENCOUNTER 2024-01-30 14:17 | Outpatient (CLI) | payer MEDICARE, SELFPAY ==
[2024-01-30 15:44] LABS: Anion Gap 15 mmol/L (4-12); Blood Urea Nitrogen 8 mg/dL (7-17); Calcium 9.6 mg/dL (8.4-10.2); Carbon Dioxide 20 mmol/L (22-30); Chloride 100 mmol/L (98-107); Estimated Glomerular Filt Rate 53; Glucose 114 mg/dL (65-110); Potassium 3.5 mmol/L (3.4-5.0); Sodium 135 mmol/L (137-145)
== END 2024-01-30 14:18 | disposition home or self-care (01) ==
PROVIDERS: PCP Internal Medicine; Visit Provider Internal Medicine Cardiovascular Disease
DX: E87.6 Hypokalemia (principal)
CPT/HCPCS: 36415; 80048

== ENCOUNTER 2024-05-25 17:54 | Emergency (ER) | payer MEDICARE, SELFPAY ==
--- NOTE | ~2024-05-25 | CT_ITS ---
EXAMINATION: CT abdomen pelvis wo con DATE: 05/25/2024 21:34 INDICATION: Constipation. Diffuse abdominal pain. TECHNIQUE: Computed tomography (CT) of the abdomen and pelvis was performed without intravenous contr ast. Automated exposure control and iterative reconstruction technique were employed. The dose-length product was 763.89 mGy-cm. COMPARISON: 11/21/2014 FINDINGS: Trace bilateral pleural effusions. Heart size is normal. Atherosclerotic coronary artery calcificatio n. Very small pericardial effusion. Cholecystectomy clips the gallbladder fossa. Unchanged 1.7 cm cys t versus hemangioma in the left hepatic lobe. Spleen, pancreas, bilateral kidneys and right adrenal g land are normal. 1.8 cm low-attenuation left adrenal adenoma. Moderate amount stool scattered through out the colon. There are few scattered clonic diverticula without adjacent inflammatory stranding to suggest diverticulitis. No bowel obstruction. The appendix is not visualized. No pericecal inflammato ry change to suggest acute appendicitis. Bladder is normal. Age-appropriate uterine atrophy. No free intraperitoneal gas or fluid. No pathologically enlarged abdominal or pelvic lymphadenopathy. Subtroc hanteric fracture of the right femur which is fixed with antegrade intramedullary brad and a pair of i nterlocking femoral neck screws. The tips of the screws appear to project slightly beyond the articul ar cortex at the apex of the right femoral head. The fracture remains nonunited. L5-S1 anterior spina l fusion. IMPRESSION: 1. Moderate amount of colonic stool with 6 similar ball of stool at the rectum. No other acute intra- abdominal/pelvic process. 2. Very small pericardial effusion and trace bilateral pleural effusions. 3. Internally fixed subtrochanteric fracture of the proximal right femur which remains nonunited. Of note the tips of the femoral neck screws project slightly beyond the cortical margins at the apex of the femoral head. Reviewed, dictated and finalized at location A. SYSTEMS ANALYST IMPRESSION: 1. Moderate amount of colonic stool with 6 similar ball of stool at the rectum. No other acute intra-abdominal/pelvic process. 2. Very small pericardial effusion and trace bilateral pleural effusions. 3. Internally fixed subtrochanteric fracture of the proximal right femur which remains nonunited. Of note the tips of the femoral neck screws project slightly beyond the cortical margins at the apex of the femoral head.
--- OUTSIDE RECORDS SUMMARY | 2024-05-25 17:58 | XMS_ITS | Data Portability ---
Author Organization [place] [facility] [employer] Main Office Address [address] [place] [address] Assessment No assessment recorded. Plan of Treatment Reminders Order Date Submit Date Provider Last Modified By Organization Details Last Modified Time Details Appointments None recorded. Lab vitamin D, 25-hydroxy, total, serum 2023 024 [email or web address] [facility], [address], [place], [address], 4 14:26:20 CMP, serum or plasma 2023 024 [email or web address] [facility], [address], [place], [address], 4 14:26:19 lipid panel, serum 2023 024 [email or web address] [facility], [address] , [place], [address], 4 14:26:19 CBC w/ auto diff 2023 024 [facility], [address], [place], [address], 4 14:26:19 T4, free, serum 2023 024 [facility], [address] , [place], [address], 4 14:26:19 TSH, serum or plasma 2023 024 [email or web address] [facility], [address] , [place], [address], 4 14:26:20 lipid panel, serum 2022 023 [facility], [address], [place], [address], 12:12:06 TSH, serum or plasma 2022 023 [email or web address] [facility], [address], [place], [address], 12:12:07 T4, free, serum 2022 023 [facility], [address], [place], [address], 12:12:07 magnesium, serum or plasma 2022 023 [facility], [address], [place], [address], 12:12:07 vitamin B12, serum 2022 023 [id number] [facility], [address], [place], [address], 12:12:07 CBC w/ auto diff 2022 023 [email or web address] [facility], [address], [place], [address], 12:12:06 CMP, serum or plasma 2022 023 [id number] [facility], [address], [place], [address], 12:12:07 vitamin B12, serum 2022 023 [email or web address] [facility], [address], [place], [address], 10:37:14 lipid panel, serum 2022 023 [email or web address] [facility], [address], [place], [address], 3 10:37:13 CMP, serum or plasma 2022 023 [id number] [facility], [address], [place], [address], 3 10:37:13 TSH, serum or plasma 2022 023 [facility], [address], [place], [address], 3 10:37:13 T4, free, serum 2022 023 [facility], [address], [place], [address], 3 10:37:14 CBC w/ auto diff 2022 023 [email or web address] [facility], [address], [place], [address], 3 10:37:13 Referral None recorded. Procedures None recorded. Surgeries None recorded. Imaging None recorded. Medication Orders brexpiprazo le 0.5 mg tablet 2023 024 [email or web address] [facility] [id number] [facility], [address], [place], [address], 16:32:22 Patient TargetsNo targets recorded. Patient Instructions Encounter Date Encounter Id Patient Instructions Last Modified By Organization Details Last Modified Time 07/21/2022 [id number] Follow-up hypertension -hyperlipidemia -mild cognitive impairment -previous CVA. Continue on current Rx. Will check blood work consisting of CBC, thyroid, lipid, B12 and CMP. Will check a mammogram and Cologuard test. Continue on current Rx and follow-up in six months Mammogram [email or web address] Not available 07/21/2022 15:52:35 01/19/2023 [id number] dementia rating scale-2* [email or web address] Not available 01/19/2023 16:08:02 alcohol misuse* [email or web address] Not available 01/19/2023 16:08:02 depression screening* [email or web address] Not available 01/19/2023 16:08:02 Timed Up and Go test (TUG)* [email or web address] Not available 01/19/2023 16:08:02 multi-dimensiona health assessment questionnaire* Not available 01/19/2023 16:08:01 Personalized Hea lth Plan and Screening Recommendations Advance Directives - Do you have one? Yes Advance Directives - Do we have your advance directive on file in your health record? No, please bring in a copy at your earliest convenience Primary Prevention/Interven tion (prevents or decreases the chance of common diseases from occurring) Smoking Risk: Non Smoker Alcohol Misuse Screening: Negative Weight: Appropriate Physical activity: Need more exercise/physical activity Nutrition: Good Average Fall Risk (screened today): Low Intermediate Refer to attached handout Preventing Falls: After your Visit Recommend regular use of cane or walker Vaccines Pneumococcal: Influenza: Ordered Recommended today Recommended today, but you have declined Chronic Disease Risks Stroke: Low Risk Intermediate Risk I have no recommendations Act yesy diagnosis, Continue current treatment plan Heart Attack: Low risk Intermediate Risk I have no recommendations Act yesy diagnosis, Continue current treatment plan Clogging of the Arteries: Low risk Intermediate Risk I have no recommendations Act yesy diagnosis, Continue current treatment plan Diabetes: Low Risk I have no recommendations Secondary Prevention/Interven tion (detects treatable diseases before they may cause symptoms, disability, or ) Breast Cancer Screening with mammogram: Your next mammogram: Ordered Recommended today Recommended today, but you have declined Cervical/Uterine/Ov cristal Cancer Screening: No screening necessary Osteoporosis Screening: Date Screening Last Performed: Colon Cancer Screening: Colonoscopy In: Ordered Recomme nded Recommended today, but you have declined Date Screening Last Performed: ___2003 Eye Disease Screening: Dementia Risk: Low I have no recommendations Depression Screening: Negative [email or web address] Not available 01/19/2023 16:02:25 Medicare [facility] evaluation risk assessment stable. Does need blood work in the form of CBC, CMP, lipid, thyroid and B12 level. Is overdue on her mammogram. Continue on current Rx follow-up in Six months. Because of her mild cognitive impairment offered her to see a another neurologist. The family does not wish to do anything at this time. Standard immunizations of RSV, COVID, influenza and shingles as recommended Portions of the record may have been created with voice recognition software. Occasional wrong-word or s ound-a-like substitutions may have occurred due to the inherent limitations of voice recognition software. Read the chart carefully and recognize, using context, where substitutions have occurred. Next Appt: 6 Months Approximate Date: 07/18/2023 [email or web address] Not available 01/19/2023 16:07:32 07/31/2023 [id number] Status post CVA, hypertension, hyperlipidemia, GERD as well as minimal cognitive impairment. Will continue on current Rx check blood work in the form of CBC, CMP, lipid, thyroid and vitamin-D level. Continue on current Rx follow-up in six months. FDA recommendations of a influenza, RSV, COVID, pneumococcal immunizations strongly advised. Next Appointment: 6 Months Approximate Date: 01/27/2024 Portions of the record may have been created with voice recognition software. Occasional wrong-word or s ound-a-like substitutions may have occurred due to the inherent limitations of voice recognition software. Read the chart carefully and recognize, using context, where substitutions have occurred. [email or web address] Not available 07/31/2023 15:55:36 11/06/2023 [id number] Progressive cognitive decline, essential hypertension, hyperlipidemia history of diverticulosis of the colon. Will need a set up with Neurology and let them decide what further testing may be done at this time. Has had previous CT scans and MRIs. Was seen for short time by Dr. Estes several years ago. Will place on some BREXPIPRAZOLE 5 mg daily for a week and then 1 mg brexdaily for week and then increased to mg. Additional Orders and/or Directives: 1. needs to be set up with Neurology for evaluation of dementia. Will include reports on the previous CT scan and MRIs that were done by Dr. Estes. Next Appointment: 6 Weeks Approximate Date: 12/18/2023 Portions of the record may have been created with voice recognition software. Occasional wrong-word or s ound-a-like substitutions may have occurred due to the inherent limitations of voice recognition software. Read the chart carefully and recognize, using context, where substitutions have occurred. [email or web address] Not available 11/06/2023 15:47:35 01/29/2024 [id number] dementia rating scale-2* [email or web address] Not available 01/29/2024 16:09:10 alcohol misuse* [email or web address] Not available 01/29/2024 16:09:10 depression screening* Not available 01/29/2024 16:09:11 Timed Up and Go test (TUG)* [email or web address] Not available 01/29/2024 16:09:10 multi-dimensiona l health assessment questionnaire* Not available 01/29/2024 16:09:10 Personalized Hea lt Plan and Screening Recommendations Advance Directives - Do you have one? Yes Advance Directives - Do we have your advance directive on file in your health record? No, please bring in a copy at your earliest convenience Primary Prevention/Interven tion (prevents or decreases the chance of common diseases from occurring) Smoking Risk: Non Smoker Alcohol Misuse Screening: Negative Weight: Appropriate Overwei ght Physical activity: Need more exercise/physical activity Nutrition: Good Average Fall Risk (screened today): Low Intermediate Refer to attached handout Preventing Falls: After your Visit Recommend regular use of cane or walker Vaccines Pneumococcal: Ordered Recommended today Recommended today, but you have declined No further needed Influenza: Your next one in the fall of this year Chronic Disease Risks Stroke: Low Risk Intermediate Risk I have no recommendations Act yesy diagnosis, Continue current treatment plan Heart Attack: Low risk Intermediate Risk I have no recommendations Act yesy diagnosis, Continue current treatment plan Clogging of the Arteries: Low risk Intermediate Risk I have no recommendations Act yesy diagnosis, Continue current treatment plan Diabetes: Low Risk I have no recommendations Secondary Prevention/Interven tion (detects treatable diseases before they may cause symptoms, disability, or ) Breast Cancer Screening with mammogram: Your next mammogram: Ordered Recommended today Recommended today, but you have declined Cervical/Uterine/Ov cristal Cancer Screening: No screening necessary Osteoporosis Screening: Your next DEXA in: Ordered Recomme nded today Recommended today, but you have declined Date Screening Last Performed: Colon Cancer Screening: Colonoscopy In: Ordered Recomme nded Recommended today, but you have declined Date Screening Last Performed: ___2004__ Eye Disease Screening: Dementia Risk: Low I have no recommendations Depression Screening: Negative [email or web address] Not available 01/29/2024 15:59:37 Medicare [facility] evaluation risk assessment stable. Refusing other screening studies including bone density scan DEXA scan and colonoscopy. Medically stable otherwise. Will continue on current Rx. Scheduled to see Cardiology again next week. Will continue on current Rx was given a flu shot today. Will follow-up in four months. Follow Up: 4 Months Approximate Date: 05/28/2024 Portions of the record may have been created with voice recognition software. Occasional wrong-word or s ound-a-like substitutions may have occurred due to the inherent limitations of voice recognition software. Read the chart carefully and recognize, using context, where substitutions have occurred. [email or web address] Not available 01/29/2024 16:08:07 Reason for Referral None Reported. Results Created Date Observation Date Name Description Value Unit Range Abnormal Flag Note LastModifiedBy Organization Detail LastModifiedTime 07/21/19 24 07/21/2023 COLOG UARD cologuard result Cancel led - Order d not applic able Not Available [facility] (Cologuard Orders Only) [address], [place], [address], 07/21/2023 08:47:19 07/29/19 23 07/28/2022 CT, brain , w/o contr ast No observ ation record ed. [address], [address], 08/09/2022 14:31:33 07/29/19 23 07/28/2022 XR, hip + pelvi s, bilat eral No observ ation record ed. [address] [place] [address], [address], 08/09/2022 14:32:25 07/29/19 23 07/28/2022 CT, lumba r spine , w/o contr ast No observ ation record ed. [address], [address], 08/09/2022 14:32:52 07/30/19 23 07/28/2022 XR, chest No observ ation record ed. [address], [place], [address], 08/09/2022 14:33:10 07/30/19 23 07/28/2022 CT, hip, w/o contr ast No observ ation record ed. [address], [place], [address], 08/09/2022 14:39:48 08/01/19 23 07/30/2022 MRI, hip, w/o contr ast No observ ation record ed. [address], [place], [address], 07/31/2022 08:26:36 08/01/19 23 07/31/2022 XR, ankle No observ ation record ed. [address], [place], [address], 08/09/2022 15:23:02 08/01/19 23 07/31/2022 XR, ankle No observ ation record ed. [address], [place], [address], 08/09/2022 15:23:18 08/04/19 23 08/03/2022 XR, hip + pelvi s, unila teral No observ ation record ed. [address], [place], [address], 08/09/2022 15:49:54 08/04/19 23 08/03/2022 XR, chest , 2 view No observ ation record ed. [address], [place], [address], 08/03/2022 16:21:10 08/05/19 23 08/04/2022 XR, hip, unila teral No observ ation record ed. [address], [place], [address], 08/04/2022 17:10:09 12/06/19 24 12/06/2023 XR, chest , 1 view No observ ation record ed. [address] [facility], [place], [address], 12/07/2023 08:01:45 12/06/19 24 12/06/2023 CT, brain , w/o contr ast No observ ation record ed. [address], [place], [address], 12/07/2023 08:02:53 01/04/20 24 01/04/2024 XR, chest No observ ation record ed. [address] [facility], [place], [address], 01/05/2024 11:25:47 01/04/20 24 01/04/2024 CT, angio gram, chest , w/ contr ast No observ ation record ed. [address] [facility], [place], [address], 01/05/2024 11:27:27 01/07/20 24 01/05/2024 , echo ardio gram No observ ation record ed. [address] [facility], [place], [address], 01/08/2024 07:54:21 Result Notes None recorded. 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 256860896 Active 2021 Not Available [employer] 3 15:25:20 Gastroesophag eal reflux disease 981846815 Active Not Available [facility] 3 15:25:20 Pure hypercholeste rolemia 307947041 Active Not Available [facility] 3 15:25:20 Low back pain 119423528 Active Not Available [facility] 3 15:25:20 Vitamin D deficiency 49362913 Active Not Available [facility] 3 15:25:20 Chronic pain syndrome 675600737 Active 2017 Not Available [facility] 3 15:25:20 Neuropathy 581622021 Active Not Available [facility] 3 15:25:20 Memory impairment 986765481 Active Not Available [facility] 3 15:25:20 Functional diarrhea 41070048 Active Not Available [facility] 3 15:25:20 Essential hypertension 52067093 Active 2021 Not Available [facility] 3 15:25:20 Herniation of nucleus pulposus 00511255 Active Not Available [facility] 3 15:25:20 Primary fibromyalgia syndrome 35306763 Active Not Available [facility] 3 15:25:20 Dementia 34141776 Active 2023 Rashida Quiñones MD [address] [facility], [place] [address], [place], [address] , [place] 4 15:33:35 Congestive heart failure 69615721 Active 2023 Rashida Quiñones MD [address], [facility] [address], [place], [address] , [place] 4 16:03:38 Problem Notes None recorded. Procedures Surgical History Date Name Laterality Status Provider Name and Address Organization Details Recorded Time 4 Medicare Wellness CPT Code, subsequent completed JOE Lanier [facility] [employer] 01/29/2024 15:52:17 3 Medicare Wellness CPT Code, subsequent completed JOE Lanier [facility] [employer] 01/19/2023 15:55:53 Imaging Results Imaging Date Name Status LastModified by Organization Details LastModified Time 07/28/2022 CT, brain, w/o contrast completed [address], [place], [address], 08/09/2022 14:31:33 07/28/2022 XR, hip + pelvis, bilateral completed [address], [place], [address], 08/09/2022 14:32:25 07/28/2022 CT, lumbar spine, w/o contrast completed [address], [place], [address], 08/09/2022 14:32:52 07/28/2022 XR, chest completed [address], [place], [address], 08/09/2022 14:33:10 07/28/2022 CT, hip, w/o contrast completed [address], [place], [address], 08/09/2022 14:39:48 07/30/2022 MRI, hip, w/o contrast completed [address], [place], [address], 07/31/2022 08:26:36 07/31/2022 XR, ankle completed [address], [place], [address], 08/09/2022 15:23:02 07/31/2022 XR, ankle completed [address], [place], [address], 08/09/2022 15:23:18 08/03/2022 XR, hip + pelvis, unilateral completed [address], [place], [address], 08/09/2022 15:49:54 08/03/2022 XR, chest, 2 view completed [address], [address], 08/03/2022 16:21:10 08/04/2022 XR, hip, unilateral completed [address], [address], 08/04/2022 17:10:09 12/06/2023 XR, chest, 1 view completed [address], [address], 12/07/2023 08:01:45 12/06/2023 CT, brain, w/o contrast completed [address], [address], 12/07/2023 08:02:53 01/04/2024 XR, chest completed [address] [address], [place], [address], 01/05/2024 11:25:47 01/04/2024 CT, angiogram, chest, w/ contrast completed [address], [address], 01/05/2024 11:27:27 01/05/2024 US, echocardiogram completed [address], [address], 01/08/2024 07:54:21 Procedure Notes None recorded. Medical Equipment None Reported. Allergies Allergen ID Allergen Name Allergen Category Reaction Reaction Severity Criticality Documentation Date Start Date Code Code System Note Provider Name and Address Organization Details Recorded Time 00138 Zocor medicatio n myalgias (muscle pain) Not available Not available 06/07/2022 78883 3 RxNorm Not Available [employer] 15:28:37 18563 Livalo medicatio n myalgias (muscle pain) Not available Not available 06/07/2022 77922 2 RxNorm Not Available [facility] 3 15:28:37 74109 lisinopri l medicatio n cough Not available Not available 06/07/2022 53024 RxNorm Not Available [facility] 3 15:28:37 62037 Lipitor medicatio n myalgias (muscle pain) Not available Not available 06/07/2022 37539 5 RxNorm Not Available [facility] 3 15:28:37 62243 Cipro medicatio n Not available Not available Not available 06/07/2022 22551 3 RxNorm Not Available [facility] 3 15:28:38 Medications Name Sig Start Date Stop Date Status Note LastModified by Organization Details LastModified Time amoxicill in 500 mg capsule Take 1 capsule every 8 hours by oral route. active Not Available Not Available No t Available furosemid e 40 mg tablet TAKE 1 TABLET BY MOUTH EVERY DAY active Not Available Not Available No t Available Lopressor 50 mg tablet Take 1 tablet 3 times a day by oral route. 11/05 completed Not Available Not Available Not Available amiloride 5 mg-hydroc hlorothia zide 50 mg tablet TAKE ONE TABLET BY MOUTH ONCE DAILY 06/25 completed Not Available Not Available Not Available carvedilo l 12.5 mg tablet TAKE 2 TABLETS BY MOUTH TWICE A DAY active Not Available Not Available No t Available azithromy lyly 250 mg tablet TAKE 2 TABLETS BY MOUTH TODAY, THEN TAKE 1 TABLET DAILY FOR 4 DAYS 01/04 completed Not Available Not Available Not Available pravastat in 40 mg tablet TAKE 1 TABLET BY MOUTH EVERY DAY 2023 active Not Available Not Available Not Avai lable ofloxacin 0.3 % eye drops INSTILL 1 DROP IN EYE THREE TIMES DAILY STARTING 2 DAYS BEFORE SURGERY, CONTINUI NG FOR 1 WEEK AFTER 07/30 completed Not Available Not Available Not Available hydrochlo rothiazid e 50 mg tablet TAKE ONE TABLET BY MOUTH ONCE DAILY WITH AMILORID E 5MG 06/09 completed Not Available Not Available Not Available hydrocodo ne 5 mg-acetam inophen 325 mg tablet TAKE 1 TABLET BY MOUTH EVERY 8 HOURS NEEDED FOR PAIN 07/30 completed Not Available Not Available Not Available metoprolo l succinate ER 100 mg tablet,ex tended release 24 hr TAKE 1 TABLET BY MOUTH EVERY DAY 03/17 completed Not Available Not Available Not Available clopidogr el 75 mg tablet TAKE 1 TABLET BY MOUTH EVERY DAY 07/30 completed Not Available Not Available Not Available amlodipin e 5 mg tablet TAKE 1 TABLET BY MOUTH EVERY DAY 2024 active Not Available Not Available Not Avai lable aspirin 81 mg tablet,de layed release Take 1 tablet every day by oral route. 05/11 completed pt states it causes indigest ion issues* Not Available Not Available Not Available tramadol 50 mg tablet TAKE 1 TABLET BY MOUTH EVERY 6 HOURS NEEDED FOR PAIN active Not Available Not Available No t Available amoxicill in 500 mg tablet TAKE 1 TABLET BY MOUTH EVERY 6 HOURS UNTIL GONE 07/26 completed Not Available Not Available Not Available ketorolac 0.5 % eye drops 03/17 completed Not Available Not Available Not Available alprazola m 0.5 mg tablet TAKE 1 TABLET BY MOUTH BEFORE BED AND 1 TABLET ONE HOUR PRIOR TO APPOINTM ENT 11/25 completed Not Available Not Available Not Available amiloride 5 mg tablet TAKE ONE TABLET BY MOUTH ONCE DAILY WITH HYDROCHL OROTHIAZ KLEBER 50MG 06/09 completed Not Available Not Available Not Available prednisol one acetate 1 % eye drops,kandace pension 07/30 completed Not Available Not Available Not Available aspirin 325 mg tablet,de layed release TAKE 1 TABLET BY MOUTH EVERY DAY IN THE MORNING 11/05 completed Not Available Not Available Not Available amlodipin e 10 mg tablet TAKE 1 TABLET BY MOUTH EVERY DAY 01/19 completed Not Available Not Available Not Available hydrocodo ne 7.5 mg-acetam inophen 325 mg tablet one three times a day for fibromya lgia and herniage d nucleus pulposus 06/09 completed Name First Name Date of Date Filled Label Name Strength Metric Quantity Days Supply Payment Method Pharmacy Name/ City Prescrib er Name [facility] 1944 0 ALPRAZOL AM 0.5MG 90 [facility] RASHIDA PRESTON MD [facility] 1944 0 HYDROCOD ONE BITARTRA TE-ACETA MINOPHE 7.5MG-32 5MG 90 30 [facility] RASHIDA PRESTON MD [facility] 1944 0 ALPRAZOL AM 0.5MG 90 30 [facility] / [facility] RASHIDA QUIÑONES MD [facility] 1944 04/03/20 19 HYDROCOD ONE BITARTRA TE-ACETA MINOPHE 7.5MG-32 5MG 90 30 [facility] e [facility] / [facility] RASHIDA QUIÑONES MD [facility] 1944 03/21/20 19 ALPRAZOL AM 0.5MG 90 30 [facility] e [facility] / [facility] RASHIDA QUIÑONES MD [facility] 1944 03/05/20 19 HYDROCOD ONE BITARTRA TE-ACETA MINOPHE 7.5MG-32 5MG 90 30 [facility] e [facility] / [facility] 1945 02/20/20 19 ALPRAZOL AM 0.5MG 90 30 [facility] / [facility] RASHIDA QUIÑONES MD [facility] 1945 02/03/20 19 HYDROCOD ONE BITARTRA TE-ACETA MINOPHE 7.5MG-32 5MG 90 30 [facility] / [facility] Not Available Not Available Not Available cephalexi n 500 mg capsule TAKE 1 CAPSULE BY MOUTH EVERY 12 HOURS FOR 7 DAYS 07/30 completed Not Available Not Available Not Available Effexor XR 150 mg capsule,e xtended release ONCE DAILY 05/05 completed Not Available Not Available Not Available losartan 25 mg tablet TAKE 1 TABLET (25 MG TOTAL) BY MOUTH DAILY. 03/17 completed Not Available Not Available Not Available Micardis 40 mg tablet once daily active Not Available Not Available No t Available docusate sodium 100 mg capsule TAKE 1 CAPSULE BY MOUTH TWICE A DAY active Not Available Not Available No t Available gabapenti n 300 mg capsule TAKE 1 CAPSULE BY MOUTH THREE TIMES A DAY 07/30 /2024 completed Not Available Not Available Not Available hydrochlo rothiazid e 25 mg tablet TAKE ONE TABLET BY MOUTH ONCE DAILY 06/25 completed Not Available Not Available Not Available furosemid e 20 mg tablet TAKE 1 TABLET BY MOUTH EVERY DAY active Not Available Not Available No t Available Micardis 20 mg tablet once daily active Not Available Not Available No t Available Vitamin D2 1,250 mcg (50,000 unit) capsule Take 1 capsule every week by oral route. active Not Available Not Available No t Available ondansetr on 4 mg disintegr ating tablet DISSOLVE 1 TABLET ON THE TONGUE EVERY 8 HOURS NEEDED FOR NAUSEA AND VOMITING 07/30 completed Not Available Not Available Not Available cefdinir 300 mg capsule Take 1 capsule every 12 hours by oral route. active Not Available Not Available No t Available losartan 100 mg tablet TAKE 1 TABLET BY MOUTH EVERY DAY active Not Available Not Available No t Available docusate sodium 100 mg tablet Take 1 tablet every day by oral route. 03/20 completed Not Available Not Available Not Available buspirone 15 mg tablet TAKE 1 TABLET BY MOUTH TWICE A DAY active Not Available Not Available No t Available Bactrim DS 800 mg-160 mg tablet Take 1 tablet every 12 hours by oral route for 5 days. 05/11 completed Not Available Not Available Not Available olmesarta n 20 mg tablet Take 1 tablet every day by oral route. 06/25 completed Not Available Not Available Not Available Benicar 40 mg tablet once daily 06/25 completed Not Available Not Available Not Available Lexapro 10 mg tablet Take 1 tablet every day by oral route. active Not Available Not Available No t Available Restasis 0.05 % eye drops in a dropperet te INSTILL 1 DROP INTO AFFECTED EYE(S) BY OPHTHALM IC ROUTE EVERY 12 HOURS 2021 active Not Available Not Available Not Avai lable Xanax XR 0.5 mg tablet,ex tended release one three times a day active Not Available Not Available No t Available Klor-Con M20 mEq tablet,ex tended release TAKE 1 TABLET BY MOUTH EVERY DAY active Not Available Not Available No t Available metoprolo l tartrate 25 mg tablet Take 1 tablet twice a day by oral route. 10/19 completed Not Available Not Available Not Available Lyrica 150 mg capsule one twice a day active Not Available Not Available No t Available Voltaren 1 % topical gel APPLY 2 GRAM TO THE AFFECTED AREA(S) BY TOPICAL ROUTE 4 TIMES PER DAY 11/04 completed Not Available Not Available Not Available B-12 DOTS 500 mcg tablet Take 1 tablet every day by oral route. 2013 active Not Available Not Available Not Avai lable Lumigan 0.01 % eye drops INSTILL 1 DROP INTO BOTH EYES AT BEDTIME active Not Available Not Available No t Available Viibryd 40 mg tablet Take 1 tablet every day by oral route. active Not Available Not Available No t Available Xarelto 20 mg tablet TAKE 1 TABLET BY MOUTH EVERY DAY WITH DINNER active Not Available Not Available No t Available Rexulti 1 mg tablet TAKE 1 TABLET BY MOUTH EVERY DAY active Not Available Not Available No t Available Rexulti 0.5 mg tablet TAKE ONE TABLET BY MOUTH DAILY FOR A WEEK THEN TWO TABLETS DAILY AND THEN CALL FOR A NEW SCRIPT 01/20 completed Not Available Not Available Not Available Repatha SureClick 140 mg/mL subcutane ous pen injector Inject 1 mL every 2 weeks by subcutan eous route. 11/05 completed Not Available Not Available Not Available Vitals Date Recorded Body height Body weight Body mass index (BMI) Body temperature Heart rate Oxygen saturation Oxygen saturation in Arterial blood by Pulse oximetry Systolic blood pressure Diastolic blood pressure Provider Name and Address Organization Details Last Updated DateTime 3 168.91 cm 87770.1 8 g 29.6 kg/m2 97.3 [degF] 91 /min 98 % 98 % 130 mm[Hg] 88 mm[Hg] Emeli Beavers MA [facility] 3 15:40:40 Date Recorded Body height Body mass index (BMI) Body weight Heart rate Body temperature Oxygen saturation Oxygen saturation in Arterial blood by Pulse oximetry Systolic blood pressure Diastolic blood pressure Provider Name and Address Organization Details Last Updated DateTime 3 168.91 cm 26.7 kg/m2 48576.5 2 g 87 /min 97 [degF] 96 % 96 % 138 mm[Hg] 80 mm[Hg] Emily Elias [facility] 3 15:47:28 Date Recorded Pain severity - 0-10 verbal numeric rating [Score] - Reported Provider Name and Address Organization Details Last Updated DateTime 01/19/2023 0 Gretel Del Rio RN [facility] [employer] [facility] 01/19/2023 15:56:02 Date Recorded Body height Body mass index (BMI) Body weight Heart rate Body temperature Oxygen saturation Oxygen saturation in Arterial blood by Pulse oximetry Systolic blood pressure Diastolic blood pressure Provider Name and Address Organization Details Last Updated DateTime 4 168.91 cm 27.7 kg/m2 45664.0 7 g 75 /min 97 [degF] 98 % 98 % 160 mm[Hg] 80 mm[Hg] Emily Jada [facility] [employer] [facility] 4 15:36:32 Date Recorded Body height Body mass index (BMI) Body weight Heart rate Body temperature Oxygen saturation Oxygen saturation in Arterial blood by Pulse oximetry Systolic blood pressure Diastolic blood pressure Provider Name and Address Organization Details Last Updated DateTime 4 168.91 cm 28.1 kg/m2 87433.8 5 g 100 /min 97.9 [degF] 98 % 98 % 140 mm[Hg] 82 mm[Hg] TAMERA Almazan [facility] [employer] [facility] 4 15:24:22 Date Recorded Body height Body weight Heart rate Body temperature Oxygen saturation Oxygen saturation in Arterial blood by Pulse oximetry Systolic blood pressure Diastolic blood pressure Provider Name and Address Organization Details Last Updated DateTime 4 168.91 cm 27752.8 5 g 75 /min 97 [degF] 98 % 98 % 108 mm[Hg] 68 mm[Hg] TAMERA Almazan [facility] 4 15:41:26 Date Recorded Pain severity - 0-10 verbal numeric rating [Score] - Reported Provider Name and Address Organization Details Last Updated DateTime 01/29/2024 0 Gretel Del Rio RN [facility] [employer] [facility] 01/29/2024 15:52:34 Social History Question Answer Notes LastModified by Organizat ion Details LastModified Time Tobacco Smoking Status Former Smoker Not Available [facility] 06/07/2022 15:22:56 Do You Have An Advance Directive? Yes [id number] Information not available 06/07/2022 What Is Your Level Of Alcohol Consumption? None [id number].[id number] Information not available 06/07/2022 Are You Blind Or Do You Have Difficulty Seeing? No MIGRATION.21582 54350 Information not available 06/07/2022 Are You Deaf Or Do You Have Serious Difficulty Hearing? No MIGRATION.[id number] Information not available 06/07/2022 What Type Of Diet Are You Following? REGULAR MIGRATION.52798 86338 Information not available 06/07/2022 Have There Been Any Changes To Your Family Or Social Situation? No [email or web address] Information not available 01/19/2023 What Is The Fluoride Status Of Your Home? Fluoridated MIGRATION.22520 21613 Information not available 06/07/2022 When Did You Quit Smoking? 16+yearssincelastc igarette MIGRATION.86691 11182 Information not available 06/07/2022 Where Do You Live? Located within [facility] MIGRATION.68004 56735 Information not available 06/07/2022 Are You Able To Care For Yourself? Yes [email or web address] Information not available 01/19/2023 Are You Blind Or Do Yo Have Difficulty Seeing? No [email or web address] Information not available 01/19/2023 Are You Deaf Or Do You Have Serious Difficulty Hearing? No [email or web address] Information not available 01/19/2023 Live Alone Of With Others? With Others [email or web address] Information not available 01/19/2023 Do You Have A Medical Power Of Salvage Cutter? Yes [email or web address] Information not available 01/19/2023 What Was The Date Of Your Most Recent Tobacco Screening? 01/29/2024 [email or web address] Information not available 01/29/2024 Do You Have Any Pets? Yes [email or web address] Information not available 01/29/2024 What Is Your Relationship Status? MIGRATION.39404 [id number] Information not available 06/07/2022 Do You Use Your Seat Belt Or Car Seat Routinely? Yes [email or web address] Information not available 01/19/2023 Do You Have Smoke And Carbon Monoxide Detectors In Your Home? Yes MIGRATION.47818 69011 Information not available 06/07/2022 Are You Passively Exposed To Smoke? No Information not available 01/19/2023 Are There Any Smokers In Your House? No [email or web address] Information not available 01/19/2023 Do You Use Sunscreen Routinely? Yes MIGRATION.92385 91696 Information not available 06/07/2022 Sex: Unknown Functional Status Question Answer Note LastModified by Organizat ion Details LastModified Time Do you have difficulty walking or climbing stairs? Yes MIGRATION.84691 24342 Information not available 06/07/2022 Do you have transportation difficulties? No MIGRATION.78619 68198 Information not available 06/07/2022 Are you able to walk? YESASSIST holds on to mandujano & furniture [email or web address] Information not available 01/19/2023 Do you have difficulty doing errands alone? No [email or web address] Information not available 01/29/2024 Are you able to care for yourself? Yes MIGRATION.03315 75831 Information not available 06/07/2022 Do you have difficulty dressing or bathing? No [email or web address] Information not available 01/29/2024 What is your exercise level? None [email or web address] Information not available 01/19/2023 Mental Status Question Answer Note LastModified by Organizat ion Details LastModified Time Do you have difficulty concentrating, remembering or making decisions? Yes [id number] Information not available 06/07/2022 Family History Nothing Reported Notes:Mother 97 hx of HTN and uterine cancer Father 71 from DM + HTN + CVA Sisters Two One of CVA and one living with HTN Brothers Four Three with HTN and two with DM. One in good health. Two from CVA Medical History Condition Response NERVE DISEASE N BLINDNESS N RHEUMATIC FEVER N KIDNEY STONES N BLADDER PROBLEMS N MRSA N OTHER # 1 N POLIO N LUNG DISEASE/DISORDER N RADIATION / CHEMOTHERAPY N COPD N Other # 2 N BLOOD DISEASES N SURGERY N EAR OR HEARING PROBLEMS N MUMPS N DEPRESSION (INCLUDING POST ) N BOWEL PROBLEMS N STROKE/TIA N ULCERS N BENIGN PROSTATIC HYPERPLASIA N MEASLES N MYOCARDIAL INFARCTION N OBESITY N GERD/NAUSEA Y ANEURYSM N URINARY/BLADDER/KIDNEY PROBLEMS N CORONARY ARTERY DISEASE (CAD) N ADDICTION CONCERNS N Impotence N ENDOMETRIOSIS N USE OF BLOOD THINNERS N SKIN PROBLEMS N GASTROINTESTINAL DISORDER N PERIPHERAL VASCULAR DISEASE N MUSCLE,JOINT OR BONE PROBLEMS Y GASTROINTESTINAL BLEEDING N BLOOD CLOTS N ASTHMA N CATARACTS N ERECTILE DYSFUNCTION N VARICOSITIES N GI PROBLEMS N Low Testosterone N INFERTILITY N AIDS/HIV N CHEMOTHERAPY / RADIATION N LIVER DISEASE N MALE HYPOGONADISM N HYPERTENSION Y Deficiency Y ANXIETY DISORDER Y BLOOD TRANSFUSION N ANEMIA/BLOOD DISORDER N CHRONIC EAR INFECTIONS N BRONCHITIS N TUBERCULOSIS N GLAUCOMA N FOOT PROBLEM N DIVERTICULITIS Y SLEEP APNEA N CHICKENPOX N INFECTIOUS DISEASE N PROSTATE N HEART ARRHYTHMIA N INSOMNIA N HIGH CHOLESTEROL / HYPERLIPIDEMIA Y EYE PROBLEMS N HYPERTHYROIDISM N NEUROLOGICAL PROBLEMS Y EDEMA N CHRONIC PAIN SYNDROME Y HYPOTHYROIDISM N CAROTID BLOCKAGE N CONSTIPATION N BACK / NECK PROBLEMS Y HAVE YOU BEEN HOSPITALIZED OR SEEN IN [facility] IN THE PAST YEAR ? N ATHEROSCLEROSIS N BREAST PROBLEMS N DIALYSIS N ECZEMA N OSTEOPOROSIS N ARTHRITIS N NO SIGNIFICANT PAST MEDICAL HISTORY N APPENDICITIS N DIABETES, TYPE N BAD TEETH N ENT N HEARTBURN / REFLUX N AUTISM SPECTRUM DISORDER (ASD) N HEPATITIS / LIVER DISEASE N GOUT N SLEEP DISORDER N ALZHEIMER'S DISEASE N Brain Problems N DEMENTIA N HERPES N SEIZURES/EPILEPSY N HEADACHES/MIGRAINES N VASCULAR DISEASE N PACEMAKER N Blood Disorder N DIZZINESS N HEART DISEASE/HEART PROBLEMS N KIDNEY DISEASE N MULTIPLE SCLEROSIS N CANCER: SPECIFY N CARDIAC ARRHYTHMIA N ATRIAL FIBRILLATION N Gall Stones N PULMONARY EMBOLISM N AUTOIMMUNE DISEASE N Gynecological History Statement/Question Response Date of Last Mammogram 11/29/2020 Date of Last Colonoscopy Most Recent Bone Density Obstetrics History GPAL:G 0 P 0 0 0 0 Immunizations Vaccine Type Date Status Note Provider Nam e and Address Organization Details Recorded Time Influenza, high-dose, trivalent, PF 4 completed Rashida Quiñones MD [address] [facility], [place] [address], [place], [address], [facility] [employer] 01/29/2024 16:09:11 influenza, unspecified formulation 2 completed Not Available [facility] 06/07/2022 15:28:29 COVID-19, mRNA, LNP-S, PF, 30 mcg/0.3 mL dose 1 completed Not Available [facility] 06/07/2022 15:28:30 Influenza, split virus, quadrivalent, preservative 1 completed Not Available [facility] 06/07/2022 15:28:30 SARS-COV-2 (COVID-19) vaccine, UNSPECIFIED 1 completed Not Available [facility] 06/07/2022 15:28:30 SARS-COV-2 (COVID-19) vaccine, UNSPECIFIED 1 completed Not Available [facility] 06/07/2022 15:28:30 pneumococcal polysaccharide PPV23 2 completed Not Available [facility] 06/07/2022 15:28:30 Pneumococcal conjugate PCV 13 6 completed Not Available [facility] 06/07/2022 15:28:30 Past Encounters Encounter ID Performer Location Encounter Start Date Encounter Closed Date Diagnosis/Indication Diagnosis SNOMED-CT Code Diagnosis ICD10 Code Diagnosis Note [id number] [facility] [place] [address] [facility] [address] , [place] [address] 06/25/2020 00:00:00 06/25/2020 16:26:20 [id number] [facility] [place] [address] [place] [address] y , [place] [address] 10/29/2020 00:00:00 10/29/2020 15:55:13 [id number] [facility] [place] [address] [place] [address] y , [place] [address] 01/04/2021 00:00:00 01/04/2021 15:14:06 [id number] [facility] [place] [address] [facility] [address] , [place] [address] 02/25/2021 00:00:00 07/01/2021 15:42:13 [id number] [facility] [place] [address] [place] [address] [place] [address] 07/01/2021 00:00:00 07/01/2021 16:00:37 [id number] [facility] [place] [address] [place] [address] y , [place] [address] 07/26/2021 00:00:00 07/26/2021 15:48:52 [id number] [facility] [place] [address] [place] [address] [address] [place] [address] 11/04/2021 00:00:00 11/04/2021 16:21:55 [id number] [facility] Internal [facility] [place] [address] [place] [address] y , [place] [address] 03/17/2022 00:00:00 03/17/2022 16:02:38 [id number] Rashida Quiñones MD [facility] Internal [facility] [place] [address] [place] [address] y , [place] [address] 07/21/2022 15:17:54 07/21/2022 16:11:30 Essential hypertension 11807547 I10 Pure hypercholesterolemia 107328371 E78.00 Minimal co gnitive impairment 829783653 G31.84 CVA - cere brovascular accident due to cerebral artery occlusion 230986747 I63.50 [id number] Rashida Quiñones MD [facility] Internal [facility] [address] [place] [address] y , [place] [address] 01/19/2023 15:15:21 01/19/2023 16:24:50 Adult health examination 072831895 Z00.00 Screening for disorder 523565401 Z13.9 Gastroesop hageal reflux disease 919141567 K21.9 Memory impairment 857045 006 R41.3 Pure hypercholesterolemia 091879768 E78.00 Essential hypertension 38805017 I10 CVA - cere brovascular accident due to cerebral artery occlusion 935885436 I63.50 [id number] Rashida Quiñones MD [facility] Internal [facility] [address] [place] [address] [place] [address] 07/31/2023 15:25:34 07/31/2023 15:59:13 CVA - cerebrovascular accident due to cerebral artery occlusion 171402706 I63.50 Essential hypertension 04649967 I10 Gastroesop hageal reflux disease 614608063 K21.9 Pure hypercholesterolemia 965543827 E78.00 Minimal co gnitive impairment 109445695 G31.84 Vitamin D deficiency 347 23986 E55.9 [id number] Rashida Quiñones MD [facility] [place] [address] [facility] [place] [address] 11/06/2023 15:12:50 11/06/2023 16:40:30 Essential hypertension 23793447 I10 Pure hypercholesterolemia 962748992 E78.00 Diverticul itis of colon 846796802 K57.32 Dementia 69109881 F03.90 [id number] Rashida Quiñones MD [facility] [place] [address] [facility] [place] [address] 01/29/2024 15:33:09 01/29/2024 16:21:45 Adult health examination 894235702 Z00.00 Screening for disorder 648958255 Z13.9 Essential hypertension 96235785 I10 Congestive heart failure 52418629 I50.9 Pure hypercholesterolemia 270278218 E78.00 Dementia 94759512 F03.90 Administra tion of influenza vaccine 51566326 Z23 Health Concerns Section Related Observation LastModified by Organization Detai ls LastModified Time None Recorded Concern Status LastModified by Organization Details LastModified Time None Recorded Advance Directives Directive Y: Payers Encounter Date Sequence Insurance Name Policy Number Policy Palacios Covered Member ID Palacios Member ID Guarantor Name 07/21/2022 1 [employer] (MEDICARE REPLACEMENT PPO) [id number] 1 Karla Bear Mikkit [id number] Karla Bear Norma 01/19/2023 1 [employer] (MEDICARE REPLACEMENT PPO) [id number] 1 Karla Bear Mikkit [id number] Karla Bear Norma 07/31/2023 1 [employer] (MEDICARE REPLACEMENT PPO) [id number] 1 Karla Baer Mikkit [id number] Karla Bear Mikkit 11/06/2023 1 [employer] (MEDICARE REPLACEMENT PPO) [id number] 1 Karla Bear Mikkit [id number] [facility] 01/29/2024 1 [employer] (MEDICARE REPLACEMENT PPO) [id number] 1 Karla Bear Mikkit [id number] Karla Bear Norma Notes Date Note Type Note Provider Name and Address Organization Details Recorded Time 3 text/htm l [facility]: [facility] ( [facility]22 [facility] 1945 Age: 76 There has been approximately a 15.5 lb weight gain since 03/17/2022. This represents approximately a 9.1% change in weight. Weight change attributable to lifestyle changes. Vital Signs:Blood Pressure: Sitting Rt. Arm 130/88Pulse: Sitting 91 /min and RegularRespirations: 12Height 66.5 in or 1.7 mWeight 186 lb or 84.4 kgBMI 29.6Temperature: 97.3 F or 36.3 CPulse Oximetry: 98 % at rest on no oxygen Chief Complaint: Addressed in HPI Problems or conditions discussed in the HPI were the only ones reviewed during the encounter.Only social and family history addressed in the HPI were reviewed during this encounter. Attendant(s): Constitutional and Systemic Symptoms: none Medication Reconciliation: from medication list. History of Present Illness #1. Essential Hypertension: Stage: Stage I Interval Neurological Complaints no headaches, dizziness, weakness, visual changes, ataxia, aphasia and apraxia. No shortness of breath, orthopnea or cardiovascular symptoms. No other symptoms related to end organ damage. Pressure has been under excellent control. Currently normal. No other end organ symptoms or findings. Therapy reviewed regarding management of hypertension and includes salt restriction and Coreg, Losartan Potassium and Norvasc. #2. Type II Hypercholesterolaemia: Currently taking medication and tolerating well. No interval complaints of any muscle pain or arthralgia. No significant liver changes with medications. Last lipid panel: fair control. Therapy reviewed regarding treatment of cholesterol management and include diet and Pravachol and Repatha. #3. Minimal cognitive impairment. corroborates the history of some mild cerebral vascular changes secondary to memory. Has been stable as not demonstrate any progressive decline in cognitive functioning.: #4. Hx of CVA. No new or progression of any neurological defects. No additional or progression of any headaches, dizziness weakness, aphasia, ataxia, visual or other neurological symptoms. Current medications: ASA and XareltoMedication List Reviewed and Reconciled 3Buspar 15 MG (TABLET - ORAL) One Twice A DayAspirin 81 MG TABLET One Daily For Vascular ProtectionGabapentin 300 MG CAPSULE One TidLosartan Potassium 100 MG TABLET Once DailyRestasis DailyPravachol 40 MG Once DailyCoreg 12.5 MG TABLET, FILM COATED One Four Times A DayNorvasc 10 MG TABLET Once DailyDocusate Sodium And Senna 100 MG BidLumigan 0.01% (SOLUTION/DROPS - OPHTHALMIC) Each Eye DailyRepatha 140 MG/ ML (INJECTABLE - INJECTION) Every Other WeekXarelto 20 MG TABLET, FILM COATED One DailyADRs List Reviewed 07/21/2022Lipitor Muscle CrampsZocor Muscle CrampsLisinopril CoughLivalo Muscle CrampsVaccination and Wggrlcfmhhat4793-21 Zdsngvpsi4329-74 Pneumovax 770269-44 Covid Hognyb4294-92 Prevnar 13Surgical HistoryLap Cholecystectomy, Colon Resection, AppendectomyPreventative Testing Confirmed by Our Whqrlgu1402/08/2022 DEXA SCAN (OSTEOPOROSIS FEMORAL NECK)07/11/2021 ALBUMIN 4.7 G/DL11/29/2020 MAMMOGRAM / LETTER PPPNPPKSZWVLO78/04/2004 COLONOSCOPY 06/10/2013Social HistoryQuit smoking 15 years ago. Smoked up to one pack daily for 10 years. 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 One in good health. Two from CVA Rashida Quiñones MD [address] [facility] [facility] [address], [place], [address], [facility] [employer] 07/21/2022 15:52:52 3 text/htm l [facility] Sunday ( 01.19.2023 ): 1945 Age: 77 There has been approximately a 18 lb weight loss since 07/21/2022. This represents approximately a 9.7% change in weight. Weight change attributable to lifestyle changes. Vital Signs:Blood Pressure: Sitting Rt. Arm 138/80Pulse: Sitting 87 /min and RegularRespiratory Rate: 12Height 66.5 in or 1.7 mWeight 168 lb or 76.2 kgBMI 26.7Temperature: 97 F or 36.1 CPulse Oximetry: 96 % at rest on no oxygen Chief Complaint: Addressed in HPI Problems or conditions discussed in the HPI were the only ones reviewed during the encounter.Only social and family history addressed in the HPI were reviewed during this encounter. A significant, separate E/M service was performed to evaluate the current and new problems. Attendant(s): HusbandConstitutional and Systemic Symptoms:none Medication Reconciliation: from medication list. AnnotationsCT brain from 07/28/2022 demonstrated no acute changes.CT lumbar spine from 07/28/2022 demonstrated severe facet hypertrophy at most levels. No fractures or other dislocation or destructive process noted.CT scan of the hip from 07/28/2022 demonstrated possible nondisplaced fracture of the lesser trochanter of the right femur. Suspected oblique fracture of the proximal femoral neckMRI of the hip from 07/29/2022 demonstrates a nondisplaced inter trochanteric fracture of the proximal right femur moderate arthritis Other right and mild arthritis of the left hip. History of Present Illness Reviewed the findings of the preventative health visit. Addressed all areas with the patient, patient's family or caregivers. Preventative examinations and testing immunizations - vaccinations, colonic neoplasm screening and mammograms all reviewed and ordered where patient was amenable to the recommendations. Cognitive function demonstrated MCI. Depression addressed and where necessary medications were adjusted or instituted. End of life and living will briefly discussed with patient and where these can be filled out and legally executed. Other blood and imaging studies were ordered if considered necessary. Other recommendations may be found in the encounter note. #1. Essential Hypertension: Stage: Stage I Interval Neurological Complaints no headaches, dizziness, weakness, visual changes, ataxia, aphasia and apraxia. No shortness of breath, orthopnea or cardiovascular symptoms. No other symptoms related to end organ damage. Pressure has been under excellent control. Currently transient elevated. No other end organ symptoms or findings. Therapy reviewed regarding management of hypertension and includes salt restriction and Coreg, Losartan Potassium and Norvasc. #2. Type II Hypercholesterolaemia: Currently taking medication and tolerating well. No interval complaints of any muscle pain or arthralgia. No significant liver changes with medications. Last lipid panel: fair control. Therapy reviewed regarding treatment of cholesterol management and include diet and Repatha. #3. Hx of esophageal reflux currently stable. Hx of Complications: none The severity, duration and intensity of symptoms have improved. Frequency: most meals Treatment consists medications taken on intermittent basis. Current therapy includes no medication. There has been no nausea. No change in he frequency or intensity of symptoms. Has had no melena. Has had no hematemesis. Discuss the possibility of trying to reduce the frequency of the use of any PPI inhibitors or H2 antagonist to see if symptoms can be controlled with last intensive therapy #4. Hx of CVA. No new or progression of any neurological defects. No additional or progression of any headaches, dizziness weakness, aphasia, ataxia, visual or other neurological symptoms. Current medications: XareltoMedication List Reviewed and Reconciled 01/19/2023uspar 15 MG (TABLET - ORAL) One Twice A DayGabapentin 300 MG CAPSULE One TidLosartan Potassium 100 MG TABLET Once DailyRestasis DailyPravachol 40 MG Once DailyCoreg 12.5 MG TABLET, FILM COATED One Four Times A DayNorvasc 5 MG TABLET Once DailyDocusate Sodium And Senna 100 MG BidLumigan 0.01% (SOLUTION/DROPS - OPHTHALMIC) Each Eye DailyAspirin 81 MG TABLET Once DailyLasix 20 MG TABLET Once DailyRepatha 140 MG/ ML (INJECTABLE - INJECTION) Every Other WeekXarelto 20 MG TABLET, FILM COATED One DailyADRs List Reviewed 01/19/2023Lipitor Muscle CrampsZocor Muscle CrampsLisinopril CoughLivalo Muscle CrampsVaccination and Rcknxblybgqn0544-33 Mglfiqtsc8348-25 Delimkelk9121-99 Covid Tbjsgw5644-75 Prevnar 13 GcSurgical HistoryLap Cholecystectomy, Colon Resection, AppendectomyPreventative Testing Confirmed by Our Wpvgwuy6102/08/2022 DEXA SCAN (OSTEOPOROSIS FEMORAL NECK)07/11/2021 ALBUMIN 4.7 G/DL N011/29/2020 MAMMOGRAM / LETTER BPODTNPUOYMQY34/04/2004 COLONOSCOPY 06/10/2013Social HistoryQuit smoking 15 years ago. Smoked up to one pack daily for 10 years. 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 One in good health. Two from CVA Rashida Quiñones MD [address] [facility], [address], [place], [address], [place] [facility] [employer] [facility] 01/19/2023 16:08:07 4 text/htm l Patient Name: Karla Lott Of Service: Sunday ( 07.31.2023 ): 1945 Age: 77 There has been approximately a 6 lb weight gain since 01/19/2023. This represents approximately a 3.6% change in weight. Weight change attributable to lifestyle changes. Vital Signs:Blood Pressure: Sitting Rt. Arm 160/80Pulse: Sitting 75 /min and RegularRespiratory Rate: 12Height 65.5 in or 1.7 mWeight 174 lb or 78.9 kgBMI 28.5Temperature: 97 F or 36.1 CPulse Oximetry: 98 % at rest on no oxygen Chief Complaint: Addressed in HPI Problems or conditions discussed in the HPI were the only ones reviewed during the encounter.Only social and family history addressed in the HPI were reviewed during this encounter. Attendant(s): HusbandConstitutional and Systemic Symptoms:none Medication Reconciliation: from medication list. AnnotationsCT brain from 07/28/2022 demonstrated no acute changes.CT lumbar spine from 07/28/2022 demonstrated severe facet hypertrophy at most levels. No fractures or other dislocation or destructive process noted.CT scan of the hip from 07/28/2022 demonstrated possible nondisplaced fracture of the lesser trochanter of the right femur. Suspected oblique fracture of the proximal femoral neckMRI of the hip from 07/29/2022 demonstrates a nondisplaced inter trochanteric fracture of the proximal right femur moderate arthritis Other right and mild arthritis of the left hip. History of Present Illness #1. Follow-up for residual CVA. Clinically stable. No new neurological abnormalities are noted. Is able to ambulate with the assistance of a walker. No interval complaints any further decline in cognitive functioning. Mainly short-term memory. Is able to function around the house and has no problems caring for her.: #2. Essential Hypertension: Stage: Stage I Interval Neurological Complaints no headaches, dizziness, weakness, visual changes, ataxia, aphasia and apraxia. No shortness of breath, orthopnea or cardiovascular symptoms. No other symptoms related to end organ damage. Pressure has been under excellent control. Currently normal. No other end organ symptoms or findings. Therapy reviewed regarding management of hypertension and includes salt restriction and Coreg, Lasix, Losartan Potassium and Norvasc. #3. Type II Hypercholesterolaemia: Currently taking medication and tolerating well. No interval complaints of any muscle pain or arthralgia. No significant liver changes with medications. Last lipid panel: fair control. Therapy reviewed regarding treatment of cholesterol management and include diet and Pravachol and Repatha. #4. Hx of esophageal reflux currently stable. Hx of Complications: none The severity, duration and intensity of symptoms have improved. Frequency: infrequent Treatment consists medications taken on no regular basis. Current therapy includes no medication. There has been no nausea, eructation, vomiting, hematemesis, dysphagia, velopharyngeal insufficiency and odynophagia. No change in he frequency or intensity of symptoms. Has had no melena. Has had no . Discussed use of H2 antagonists NA. #5. Hx of dementia. Currently stable. There has been no clinical change in cognitive functions. Performance of activities of daily living has remained unchanged. Currently taking no medication Mini-Cog Score: Mild Cognitive Impairment Active Medication ListBuspar 15 MG (TABLET - ORAL) One Twice A DayGabapentin 300 MG CAPSULE One TidLosartan Potassium 100 MG TABLET Once DailyRestasis DailyPravachol 40 MG Once DailyCoreg 12.5 MG TABLET, FILM COATED One Four Times A DayNorvasc 5 MG TABLET Once DailyDocusate Sodium And Senna 100 MG BidLumigan 0.01% (SOLUTION/DROPS - OPHTHALMIC) Each Eye DailyAspirin 81 MG TABLET Once DailyLasix 20 MG TABLET Once DailyRepatha 140 MG/ ML (INJECTABLE - INJECTION) Every Other WeekXarelto 20 MG TABLET, FILM COATED One DailyUltram 50 MG One Twice A Day As Needed Adverse Drug Reactions ReviewedLipitor Muscle CrampsZocor Muscle CrampsLisinopril CoughLivalo Muscle Cramps Vaccination and Rmmoonvmhmmp5098-18 Ikbhxtngd9252-06 Sebtujdob5177-64 Covid Watqvz5383-14 Prevnar 13 Gc Surgical Dgzvcsd5217-79 Lap Neufcmjhfwptdjt6116-50 Colon Ytecwldkm9612-53 Appendectomy Preventative Hyazjqi1402/08/2022 DEXA SCAN (OSTEOPOROSIS FEMORAL NECK)07/11/2021 ALBUMIN 4.7 G/DL N08 MAMMOGRAM / [id number]/04/2004 COLONOSCOPY 06/10/2013 Social HistoryQuit smoking 15 years ago. Smoked up to one pack daily for 10 years. 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 One in good health. Two from CVA Rashida Quiñones MD [address] [facility], [facility] [address], [place], [address], [facility] [employer] 07/31/2023 15:56:01 4 text/htm l [facility]: [facility] ( 11.06.2023 ): 1945 Age: 77 There has been approximately a 3 lb weight gain since 07/31/2023. This represents approximately a 1.7% change in weight. Weight change attributable to lifestyle changes. Vital Signs:Blood Pressure: Sitting Rt. Arm 140/82Pulse: Sitting 100 /min and RegularRespiratory Rate: 14Height 65.5 in or 1.7 mWeight 177 lb or 80.3 kgBMI 29.0Temperature: 97.9 F or 36.6 CPulse Oximetry: 98 % at rest on no oxygen Chief Complaint: Addressed in HPI Problems or conditions discussed in the HPI were the only ones reviewed during the encounter.Only social and family history addressed in the HPI were reviewed during this encounter. Attendant(s): HusbandConstitutional and Systemic Symptoms:none Medication Reconciliation: from medication list. AnnotationsCT brain from 07/28/2022 demonstrated no acute changes.CT lumbar spine from 07/28/2022 demonstrated severe facet hypertrophy at most levels. No fractures or other dislocation or destructive process noted.CT scan of the hip from 07/28/2022 demonstrated possible nondisplaced fracture of the lesser trochanter of the right femur. Suspected oblique fracture of the proximal femoral neckMRI of the hip from 07/29/2022 demonstrates a nondisplaced inter trochanteric fracture of the proximal right femur moderate arthritis Other right and mild arthritis of the left hip. History of Present Illness #1. Decline in cognitive functioning associated with anxiety and outburst of anger at times. This has actually been going on for a number of years. The patient was seen by Neurology several years ago. Had MRI as well as other studies performed which did not demonstrate any specific etiology and most likely represented Alzheimer's. Having more behavior problems and anything else. Needs to be set up with Neurology. Place on some medications see there is any improvement possibly in controlling some of her behavior.: #2. Essential Hypertension: Stage: Stage I Interval Neurological Complaints no headaches. No shortness of breath, orthopnea or cardiovascular symptoms. No other symptoms related to end organ damage. Pressure has been under excellent control. Currently well controlled. No other end organ symptoms or findings. Therapy reviewed regarding management of hypertension and includes salt restriction and Coreg, Losartan Potassium and Norvasc. #3. Type II Hypercholesterolaemia: Currently taking medication and tolerating well. No interval complaints of any muscle pain or arthralgia. No significant liver changes with medications. Last lipid panel: Fair control but stop the Repatha because of a number reasons including expense etc... Therapy reviewed regarding treatment of cholesterol management and include diet. #4. Hx of diverticulitis. No interval complaints of pain, fever, chills or other constitutional symptoms. There has been no change in bowel habits or frequency. No change in the caliber of the stool. Active Medication ListBuspar 15 MG (TABLET - ORAL) One Twice A DayLosartan Potassium 100 MG TABLET Once DailyRestasis DailyPravachol 40 MG Once DailyCoreg 12.5 MG TABLET, FILM COATED One Four Times A DayNorvasc 5 MG TABLET Once DailyDocusate Sodium And Senna 100 MG BidLumigan 0.01% (SOLUTION/DROPS - OPHTHALMIC) Each Eye DailyLasix 20 MG TABLET Once DailyXarelto 20 MG TABLET, FILM COATED One DailyUltram 50 MG One Twice A Day As Needed Adverse Drug Reactions ReviewedLipitor Muscle CrampsZocor Muscle CrampsLisinopril CoughLivalo Muscle Cramps Vaccination and Tbtudbgcpmel2796-34 Alchcowtw8143-83 Ebbqddsoc2486-80 Covid Pugzgo9785-22 Prevnar 13 Gc Surgical Fgeoutv9134-15 Lap Rpwhnkhertfsdsj5404-56 Colon Yihrfyunr1349-26 Appendectomy Preventative Qzcnbmg6602/08/2022 DEXA SCAN (OSTEOPOROSIS FEMORAL NECK)07/11/2021 ALBUMIN 4.7 G/DL N011/29/2020 MAMMOGRAM / JWZMBGLOLDISI63/04/2004 COLONOSCOPY 06/10/2013 Social HistoryQuit smoking 15 years ago. Smoked up to one pack daily for 10 years. 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 One in good health. Two from CVA Rashida Quiñones MD [address] [place] [address], [facility] [address], [place], [address], [facility] [employer] 11/06/2023 15:47:57 4 text/htm l [facility] Of Service: Sunday ( 01.29.2024 ): 1945 Age: 78 Vital Signs:Blood Pressure: Sitting Rt. Arm 108/68Pulse: Sitting 75 /min and RegularRespiratory Rate: 16Height 65.5 in or 1.7 mWeight 177 lb or 80.3 kgBMI 29.0Temperature: 97 F or 36.1 CPulse Oximetry: 98 % at rest on no oxygen Chief Complaint: Addressed in HPI Problems or conditions discussed in the HPI were the only ones reviewed during the encounter.Only social and family history addressed in the HPI were reviewed during this encounter. A significant, separate E/M service was performed to evaluate the current and new problems. Attendant(s): HusbandConstitutional and Systemic Symptoms:from medication list Medication Reconciliation: immunizations - vaccinations, mammograms and DEXA Scan. AnnotationsCT brain from 07/28/2022 demonstrated no acute changes.CT lumbar spine from 07/28/2022 demonstrated severe facet hypertrophy at most levels. No fractures or other dislocation or destructive process noted.CT scan of the hip from 07/28/2022 demonstrated possible nondisplaced fracture of the lesser trochanter of the right femur. Suspected oblique fracture of the proximal femoral neckMRI of the hip from 07/29/2022 demonstrates a nondisplaced inter trochanteric fracture of the proximal right femur moderate arthritis Other right and mild arthritis of the left hip. History of Present Illness Reviewed the findings of the preventative health visit. Addressed all areas with the patient, patient's family or caregivers. Preventative examinations and testing demonstrated MCI all reviewed and ordered where patient was amenable to the recommendations. Cognitive function Stage I. Depression addressed and where necessary medications were adjusted or instituted. End of life and living will briefly discussed with patient and where these can be filled out and legally executed. Other blood and imaging studies were ordered if considered necessary. Other recommendations may be found in the encounter note. #1. Essential Hypertension: Stage: no headaches, dizziness, weakness, visual changes, ataxia, aphasia and apraxia Interval Neurological Complaints excellent. No shortness of breath, orthopnea or cardiovascular symptoms. No other symptoms related to end organ damage. Pressure has been under normal control. Currently salt restriction and Losartan Potassium and Norvasc. No other end organ symptoms or findings. Therapy reviewed regarding management of hypertension and includes chronic HFpEF. #2. Hx of cardiac decompensation currently stable. Primary etiology of the heart failure is II Slight - Mild limitations with mild exertion but none at rest. There has been no change in shortness of breath, orthopnea, chest pain or exercise capacity. There has been no unexpected weight gain or additional peripheral edema. There has been no increase swelling in the legs or other signs of cardiac decompensation. Currently functioning at a NYHA Class C: Structural heart disease with some symptoms. Heart failure stage: Type II Hypercholesterolaemia #3. taking medication and tolerating well: Currently No. fair control interval complaints of any muscle pain or arthralgia. No significant liver changes with medications. Last lipid panel: diet and Pravachol. Therapy reviewed regarding treatment of cholesterol management and include Brexpiprazole. #4. Hx of dementia. Currently stable. There has been no clinical change in cognitive functions. Performance of activities of daily living has remained unchanged. Currently taking Mild Cognitive Impairment Mini-Cog Score: Mild Cognitive Impairment Active Medication ListBuspar 15 MG (TABLET - ORAL) One Twice A DayLosartan Potassium 100 MG TABLET Once DailyRestasis DailyBrexpiprazole 1 MG TABLET One DailyPravachol 40 MG Once DailyCoreg 25 MG TABLET, FILM COATED One BidNorvasc 10 MG TABLET Once DailyDocusate Sodium And Senna 100 MG BidLumigan 0.01% (SOLUTION/DROPS - OPHTHALMIC) Each Eye DailyLasix 40 MG TABLET Once DailyXarelto 20 MG TABLET, FILM COATED One DailyUltram 50 MG One Twice A Day As NeededAspirin 81 MG TABLET One DailyKlor-con 1500 MG TABLET, EXTENDED RELEASE One Daily Adverse Drug Reactions ReviewedLipitor Muscle CrampsZocor Muscle CrampsLisinopril CoughLivalo Muscle Cramps Vaccination and Immunization( ) 2021-10 PNEUMOVAX( ) 2024-01 INFLUENZA( ) 2015-04 PREVNAR 13 GC(X) 2021-01 COVID [facility] Uqbvnvm4565-11 Lap Dpjqtvpwtbyuvrl2138-00 Colon Ytnrmbuut6605-29 Appendectomy Preventative Testing( ) 02/08/2022 DEXA Scan (Osteoporosis Femoral Neck)( ) 07/11/2021 Albumin 4.7 G/DL N(X) 11/29/2020 Mammogram 11/29/2022( ) 05/28/2014 Ophthalmology(X) 06/11/2003 Colonoscopy 06/10/2013 Social HistoryQuit smoking 15 years ago. Smoked up to one pack daily for 10 years. 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 One in good health. Two from CVA Active Medication ListBuspar 15 MG (TABLET - ORAL) One Twice A DayLosartan Potassium 100 MG TABLET Once DailyRestasis DailyBrexpiprazole 1 MG TABLET One DailyPravachol 40 MG Once DailyCoreg 25 MG TABLET, FILM COATED One BidNorvasc 10 MG TABLET Once DailyDocusate Sodium And Senna 100 MG BidLumigan 0.01% (SOLUTION/DROPS - OPHTHALMIC) Each Eye DailyLasix 40 MG TABLET Once DailyXarelto 20 MG TABLET, FILM COATED One DailyUltram 50 MG One Twice A Day As NeededAspirin 81 MG TABLET One DailyKlor-con 1500 MG TABLET, EXTENDED RELEASE One Daily Adverse Drug Reactions ReviewedLipitor Muscle CrampsZocor Muscle CrampsLisinopril CoughLivalo Muscle Cramps Vaccination and Immunization( ) 2021-10 PNEUMOVAX( ) 2024-01 INFLUENZA( ) 2015-04 PREVNAR 13 GC(X) 2021-01 COVID [facility] Sbuyhmq9691-40 Lap Zqctpyzkdlpwcbg0404-76 Colon Neiaxewor2233-55 Appendectomy Preventative Testing( ) 02/08/2022 DEXA Scan (Osteoporosis Femoral Neck)( ) 07/11/2021 Albumin 4.7 G/DL N(X) 11/29/2020 Mammogram 11/29/2022( ) 05/28/2014 Ophthalmology(X) 06/11/2003 Colonoscopy 06/10/2013 Social HistoryQuit smoking 15 years ago. Smoked up to one pack daily for 10 years. 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 One in good health. Two from CVA Rashida Quiñones MD [address] [facility], [facility] [address], [place], [address], [place] [employer] 01/29/2024 16:09:16 OBGyn Episode No OBEpisode recorded.
--- OUTSIDE RECORDS SUMMARY | 2024-05-25 17:58 | XMS_ITS | Clinical Summary ---
[facility] Address [address] [place] [address] Attn: Epic Prelude ADT CONNER KEATING [address] Care Team Providers Care Well Testing Operator Name Role Phone Unavailable Primary Care Provider Unavailabl e Medications evolocumab (Repatha SureClick) 140 mg/mL Pen Injector INJECT 1 ML (140 MG) UNDER THE SKIN EVERY 2 WEEKS 2 mL 10 12/25/2022 6:23 PM CDT 06/19/2022 Active Social History Tobacco Use Types Packs/Day Years Used Date Smoking Tobacco: Never Assessed Comments Unknown Sex and Gender Information Value Date Recorded Sex Assigned at Not on file Legal Sex Female 3:27 PM CDT Gender Identity Not on file Sexual Orientation Not on file Plan of Treatment Health Maintenance Due Date Last Done Comments DTAP/TDAP/TD VACCINES (1 - Tdap) [birth year]14/1964 PNEUMOCOCCAL VACCINE 65+ YEARS (1 of 1 - PCV) 12/13/18 95 ZOSTER VACCINE (1 of 2) 1994 OSTEOPOROSIS SCREENING 2009 RSV VACCINE (60+ or ) (1 - 1-dose 75+ series) 12/14/2019 INFLUENZA VACCINE (#1) 2023 Insurance RX AETNA Medicare Part D RX AETNA Medicare Part D
--- OUTSIDE RECORDS SUMMARY | 2024-05-25 17:58 | XMS_ITS | Clinical Summary ---
Author Organization [facility] [employer] Address [facility] [facility] [facility] [place] [address] Care Team Providers Care Fac Engineer Name Role Phone Ta Quiñones MD Primary Care Provider [phone] Source Comments [employer],non-owned Affiliates and Associated Physician Practices is amultiple site organization consisting of ambulatory clinics and hospital sitesin [place], [place], [place] and [place]. This disclosure is being madepursuant to the Care Everywhere program and may not contain all information available regarding this patient. Last updated 17.[employer] Allergies Active Allergy Reactions Criticality Noted Date Comments Jv Inhibitors Swelling 03/18/2013 screaming at night Medications * Be aware that medications may not be up to date on this document. Alwaysverify current medications with the patient. Medication Sig Dispensed Refills Start Date End Date Status amiloride-hydrochloro thiazide (MODURETIC) 5-50 MG tablet daily with breakfast. Active ALPRAZolam (XANAX) 0.5 MG tablet 3 times daily. Active hydrocodone-acetamino phen 7.5-325 MG/15ML solution q 6 hrs prn Active diclofenac sodium (VOLTAREN) 50 MG tablet TBEC Take 1 Tab by mouth 2 times daily. 60 Tab 2 01/06/2013 Active olmesartan (BENICAR) 40 MG tablet Take 40 mg by mouth once daily. Active diclofenac sodium (VOLTAREN) 1 % gel Apply 4 g to affected area 4 times daily. 1 Tube 0 04/30/2013 Active lidocaine (LIDODERM) 5 % patch Apply 1 Patch to skin once daily. 5 Patch 04/30/2013 Active lidocaine (LIDODERM) 5 % patch Apply 1 Patch to skin once daily. 30 Patch 5 05/21/2013 Active Active Problems Problem Noted Date Diagnosed Date Sacroiliitis, not elsewhere classified 4 Thoracic or lumbosacral neur itis or radiculitis, unspecified 04/30/2013 Other symptoms referable to back 01/27/2013 HTN (hypertension) 07/26/2012 Anxiety 07/26/2012 Degeneration of lumbar or lumbosacral interverte bral disc 07/26/2012 Social History Tobacco Use Types Packs/Day Years Used Date Smoking Tobacco: Former Alcohol Use Standard Drinks/Week Comments Yes 0 (1 standard drink = 0.6 oz pur e alcohol) Sex and Gender Information Value Date Recorded Sex Assigned at Not on file Gender Identity Not on file Sexual Orientation Not on file Last Filed Vital Signs Vital Sign Reading Time Taken Comments Blood Pressure 160/94 05/21/2013 1:45 PM [facility] Pulse 106 05/21/2013 1:45 PM [facility] Temperature 36.4 C (97.5 F) 05/21/2013 1:20 PM [facility] Respiratory Rate 13 05/21/2013 1:45 PM [facility] Oxygen Saturation 99% 05/21/2013 1:45 PM [facility] Inhaled Oxygen Concentration - - Weight 72.6 kg (160 lb) 05/21/2013 1:20 PM [facility] Height 167.6 cm (5' 6 ) 05/21/2013 1:20 PM [facility] Body Mass Index 25.82 05/21/2013 1:20 PM [facility] Plan of Treatment Health Maintenance Due Date Last Done Comments BONE DENSITY TESTING 1944 DTAP/TDAP/TD VACCINES (1 - Tdap) 12/14/1963 PNEUMOCOCCAL VACCINE 50+ (1 of 1 - PCV) 1994 ZOSTER VACCINE (1 of 2) 1994 Respiratory Syncytial Virus (RSV) Vaccine Pt: or over 60 yrs (1 - 1-dose 75+ series) 12/14/2019 COVID-19 VACCINE ( - 2023-2 5 season) 2023 INFLUENZA VACCINE (#1) 2023 DEPRESSION SCREENING 04/09/2024 HEPATITIS B VACCINE Aged Out No longe r eligible based on patient's age to complete this topic HIB VACCINE Aged Out No longer eligi ble based on patient's age to complete this topic HPV VACCINE Aged Out No longer eligi ble based on patient's age to complete this topic MENINGOCOCCAL (Group B) VACCINE Aged Out No longer eligible based on patient's age to complete this topic MENINGOCOCCAL VACCINE Aged Out No leobardo orin eligible based on patient's age to complete this topic Insurance Payer Benefit Plan / Group Subscriber ID Effect yesy Dates Phone Address Type [facility] MEDICARE ADV [employer] MEDIC[employer] SOLUTIONS PFFS [id number] 05/10/2013-Pres ent [address] [address] [place] [address] Medicare -Managed Care Care Teams Fac Engineer Relationship Specialty Start Date End Date Ta Quiñones MD [address] [place] [id number] PCP - General Internal Medicine 02/12/13
--- OUTSIDE RECORDS SUMMARY | 2024-05-25 17:58 | XMS_ITS | Referral Summary ---
Author Organization [facility] Address [facility] [facility] [facility] [place] [address] Care Team Providers Care Elevator Tender Name Role Phone Ta Quiñones MD Primary Care Provider [phone] Source Comments [facility],non-owned Affiliates and Associated Physician Practices is amultiple site organization consisting of ambulatory clinics and hospital sitesin [place], [place], [place] and [place]. This disclosure is being madepursuant to the Care Everywhere program and may not contain all information available regarding this patient. Last updated 17.[employer] [facility] Allergies Active Allergy Reactions Criticality Noted Date [...] Comments Blood Pressure 160/94 05/21/2013 1:45 PM [employer] Pulse 106 05/21/2013 1:45 PM [employer] Temperature 36.4 C (97.5 F) 05/21/2013 1:20 PM [employer] Respiratory Rate 13 05/21/2013 1:45 PM [employer] Oxygen Saturation 99% 05/21/2013 1:45 PM [employer] Inhaled Oxygen Concentration - - Weight 72.6 kg (160 lb) 05/21/2013 1:20 PM [employer] Height 167.6 cm (5' 6 ) 05/21/2013 1:20 PM [employer] Body Mass Index 25.82 05/21/2013 1:20 PM [employer] Plan of Treatment Not on file Insurance Payer Benefit Plan / Group Subscriber ID Effect yesy Dates Phone Address Type [facility] MANAGED MEDICARE ADV [employer] [facility] MED[facility] SOLUTIONS PFFS [id number] 05/10/2013-Pres ent [address] [address] [place] [address] Medicare -Managed Care Care Teams Elevator Tender Relationship Specialty Start Date End Date Ta Quiñones MD [address] [place] [address] [address] [place] [address] PCP - General Internal Medicine 02/12/13
--- OUTSIDE RECORDS SUMMARY | 2024-05-25 17:58 | XMS_ITS | Continuity of Care Document ---
Author Organization [facility] Address [address] [place] [address] Phone Care Team Providers Care Franchise Field Consultant Name Role Phone [facility] Unavailable Unavail able Taryn Betts Unavailable Unavailable Procedures Procedure Date Progressive Lens, Hi Index Frames Deluxe Lens-Index>1.66Plas;>1.80Glas 8 Anti-reflective Coating Visual Field Examination(s) Eye Exam, New Patient Refraction Advance Directives Directive Yes / No Effective Date File Name No Information Encounters Encounter Description Practice Location Reason(s) For Visit Diagnoses Date Provider Providers Copied on Encounter [facility], [address] [place] [address] [address], [place], [place], [id number], [place] tel:[phone] [facility] No Information 8 [facility]. [address] [facility] [facility], [address], [place], [id number], [place]. tel:[phone] Referring Provider: Lang Cameron, [facility] [address], [address]. tel:[phone] hughes Provider: Taryn Betts, [address] [facility], [place], [address]. tel:[phone] [facility], [address] [place] [address] [address], [place], [place], [id number], tel:[phone] [facility] No Information [address]. [address], [place], [facility], . tel:[phone] Referring Provider: Adebayo Little, [address] [place] [address] [address], [place], [place], [facility]. tel:[phone] [facility], [address], [place], [place], [id number], tel:[phone] [facility] No Information [address]rannatal[address] Villarrealhil. [facility] [facility] [address], [place], [place], [facility], . tel:[phone] Referring Provider: Ta Quiñones, [address] [place] [address], [facility]. tel:[phone] Family History Family Member Type Diagnosis Age At Onset No Information Payers Payer name Insurance type Covered libertarian ID Authorjennifermeng tevinmyrna(s) [employer] Plan CI [id number] Social History Type Description Quantity Date Captured Comments Sex Female Smoking Status No Information Chief Complaint And Reason For Visit No Information Reason For Referral Reason For Referral No Information History Of Present Illness Encounter Date Complaint History Of Prese nt Illness No Information Functional Status Date Functional Assessmen t No Information Instructions Date Instruction Additional Infor mation No Information Assessments Type Assessment Date No Information Patient Care Teams Name Effective Dates (start - stop) Status Members No Information
--- OUTSIDE RECORDS SUMMARY | 2024-05-25 17:58 | XMS_ITS | Patient Health Summary ---
Author Organization [facility] Address [address] [place] [address] Care Team Providers Care Discount Clerk Name Role Phone Ta Quiñones MD Primary Care Provider [phone] Note from [facility],non-owned Affiliates and Associated Physician Practices is amultiple site organization consisting of ambulatory clinics and hospital sitesin [place], [place], [place] and [place]. This disclosure is being madepursuant to the Care Everywhere program and may not contain all information available regarding this patient. Last updated 17.[facility] Allergies * Jv Inhibitors(Swelling) Medications * Be aware that medications may not be up to date on this document. Alwaysverify current medications with the patient. * amiloride-hydrochlorothiazide (MODURETIC) 5-50 MG tablet daily with breakfast. * ALPRAZolam (XANAX) 0.5 MG tablet 3 times daily. * hydrocodone-acetaminophen 7.5-325 MG/15ML solution q 6 hrs prn * diclofenac sodium (VOLTAREN) 50 MG tablet TBEC(Started 01/06/2013) Take 1 Tab by mouth 2 times daily. 2 refills left * olmesartan (BENICAR) 40 MG tablet Take 40 mg by mouth once daily. * diclofenac sodium (VOLTAREN) 1 % gel(Started 04/30/2013) Apply 4 g to affected area 4 times daily. * lidocaine (LIDODERM) 5 % patch(Started 04/30/2013) Apply 1 Patch to skin once daily. * lidocaine (LIDODERM) 5 % patch(Started 05/21/2013) Apply 1 Patch to skin once daily. 5 refills left Active Problems Problem Noted Date Diagnosed Date [...] Comments Blood Pressure 160/94 05/21/2013 1:45 PM AGRICULTURAL EXTENSION AGENT Pulse 106 05/21/2013 1:45 PM AGRICULTURAL EXTENSION AGENT Temperature 36.4 C (97.5 F) 05/21/2013 1:20 PM AGRICULTURAL EXTENSION AGENT Respiratory Rate 13 05/21/2013 1:45 PM AGRICULTURAL EXTENSION AGENT Oxygen Saturation 99% 05/21/2013 1:45 PM AGRICULTURAL EXTENSION AGENT Inhaled Oxygen Concentration - - Weight 72.6 kg (160 lb) 05/21/2013 1:20 PM AGRICULTURAL EXTENSION AGENT Height 167.6 cm (5' 6 ) 05/21/2013 1:20 PM AGRICULTURAL EXTENSION AGENT Body Mass Index 25.82 05/21/2013 1:20 PM AGRICULTURAL EXTENSION AGENT Procedures * PAIN MANAGEMENT PROCEDURE TIME(Performed 05/21/2013) Performed for Pain * PAIN MANAGEMENT PROCEDURE TIME(Performed 04/30/2013) Performed for Pain * PAIN MANAGEMENT PROCEDURE TIME(Performed 03/18/2013) Performed for Pain * PAIN MANAGEMENT PROCEDURE TIME(Performed 02/12/2013) Performed for Pain * PAIN MANAGEMENT PROCEDURE TIME(Performed 01/27/2013) Performed for Pain Results * PAIN MANAGEMENT PROCEDURE TIME (05/21/2013 1:54 PM AGRICULTURAL EXTENSION AGENT) Only the most recent of5 resultswithin the time period is included. Anatomical Region Laterality Modality Radio Fluoroscop y Narrative 05/21/2013 4:40 PM AGRICULTURAL EXTENSION AGENT Didier Brody MD 05/21/2013 4:40 PM Bilateral Sacroiliac Steroid Injection Consent: The patient was identified in the holding area and the operative permit was explained and signed. I have discussed with the patient the risks, benefits, side effects and complications of a fluoroscopically guided sacroiliac steroid injection with catheter. I have answered the patient's questions regarding the procedure and have given the patient the opportunity to refuse the procedure. I also have discussed alternative methods of treatment. The patient stated understanding of the procedure and wished to proceed with the fluoroscopically guided sacroiliac steroid injection. Monitoring: The patient was taken to the fluoroscopic suite and placed on a C-arm table in the prone position. Noninvasive blood pressure, pulse oximetry, and an EKG tracing were used to monitor the patient continuously throughout the procedure. A nurse was in attendance for the duration of the procedure to carefully monitor the patient. Please refer to the nursing record for vital sign documentation and for any doses of sedatives and medications. I was present and gave the order for any medications given to the patient. Preparation: Chloroprep preparation was performed twice, then sterile drapes were applied to the sacrococcygeal region. Procedure: Using fluoroscopic guidance, the sacroiliac joint(s) mentioned above was visualized in the AP oblique direction. A 27 gauge 1.5 inch was then used to inject 1.5 cc of Lidocaine 1% for subcutaneous anesthesia. A 25 gauge 4 inch needle was placed in the inferior aspect of the sacroiliac joint. 0.4 ml of Omnipaque (240mg/cc) was injected and intraarticular spread was confirmed under direct fluoroscopy. There was no evidence of intravascular or epidural spread. A preservative free mixture of 4ml 0.5% Bupivacaine and Decadron 20mg was injected for each site injected. The needle was removed intact. The patient tolerated the procedure well and there were no complications. Recovery: Postprocedure instructions were given to the patient and a follow up appointment was confirmed. The patient was also discharged with information on how to reach the clinic or professor of physical education physician at anytime for questions or complaints. I was present , directed, and participated in this evaluation / procedure. I agree with diagnosis and treatment as stated above. Didier Brody MD 05/21/2013 4:40 PM Procedure Note Didier Brody MD - 05/21/2013 1:52 PM CST Bilateral Sacroiliac Steroid Injection Consent: The patient was identified in the holding area and the operative permitwas explained and signed. I have discussed with the patient the risks,benefits, side effects and complications of a fluoroscopically guidedsacroiliac steroid injection with catheter. I have answered the patient'squestions regarding the procedure and have given the patient theopportunity to refuse the procedure. I also have discussed alternativemethods of treatment. The patient stated understanding of the procedureand wished to proceed with the fluoroscopically guided sacroiliac steroidinjection. Monitoring: The patient was taken to the fluoroscopic suite and placed on a C-armtable in the prone position. Noninvasive blood pressure, pulse oximetry,and an EKG tracing were used to monitor the patient continuouslythroughout the procedure. A nurse was in attendance for the duration ofthe procedure to carefully monitor the patient. Please refer to thenursing record for vital sign documentation and for any doses of sedativesand medications. I was present and gave the order for any medicationsgiven to the patient. Preparation: Chloroprep preparation was performed twice, then sterile drapes wereapplied to the sacrococcygeal region. Procedure: Using fluoroscopic guidance, the sacroiliac joint(s) mentioned above wasvisualized in the AP oblique direction. A 27 gauge 1.5 inch was then usedto inject 1.5 cc of Lidocaine 1% for subcutaneous anesthesia. A 25 gauge 4inch needle was placed in the inferior aspect of the sacroiliac joint.0.4 ml of Omnipaque (240mg/cc) was injected and intraarticular spread wasconfirmed under direct fluoroscopy. There was no evidence ofintravascular or epidural spread. A preservative free mixture of 4ml 0.5%Bupivacaine and Decadron 20mg was injected for each site injected. Theneedle was removed intact. The patient tolerated the procedure well andthere were no complications. Recovery: Postprocedure instructions were given to the patient and a follow upappointment was confirmed. The patient was also discharged withinformation on how to reach the clinic or professor of physical education physician at anytimefor questions or complaints. I was present , directed, and participated in this evaluation /procedure. I agree with diagnosis and treatment as stated above. Didier Brody MD 05/21/20134:40 PM Didier Brody MD [facility] Care Teams Discount Clerk Relationship Specialty Start Date End Date Ta Quiñones MD [facility] [place] [address] PCP - General Internal Medicine 02/12/13
--- OUTSIDE RECORDS SUMMARY | 2024-05-25 17:59 | XMS_ITS | Clinical Summary ---
Author Organization [facility] [place] [address] Address [address] [place] [address] Care Team Providers Care Cold Meat Cook Name Role Phone Ta Quiñones MD Primary Care Provider Allergies Active Allergy Reactions Criticality Noted Date Comments Atorvastatin Muscle pain Medium 02/11/2019 Other reaction(s): Myalgias (Muscle Pain) Ciprofloxacin Unknown 02/11/2019 Lisinopril Cough Low 02/11/2019 Pitavastatin Calcium Muscle pain Medium 02/11/2019 Other reaction(s): Myalgias (Muscle Pain) Simvastatin Muscle pain Medium 02/11/2019 Other reaction(s): Myalgias (Muscle Pain) Medications busPIRone (BUSPAR) 15 mg tablet Take 1 tablet (15 mg total) by mouth 2 (two) times a day 1 Active losartan (COZAAR) 100 mg tablet Take 1 tablet (100 mg total) by mouth daily 30 tablet 2 01/22/20 25 Active amLODIPine (NORVASC) 10 mg tablet Take 1 tablet (10 mg total) by mouth daily 30 tablet 2 01/22/20 25 Active carvediloL (COREG) 25 mg tablet Take 1 tablet (25 mg total) by mouth 2 (two) times a day with meals 60 tablet 2 10/15/20 25 Active pravastatin (PRAVACHOL) 40 mg tablet Take 1 tablet (40 mg total) by mouth daily 30 tablet 11 2 01/22/20 25 Active Lumigan 0.01 % ophthalmic drops INSTILL 1 DROP INTO BOTH EYES AT BEDTIME DIRECTED 2 Active docusate sodium (COLACE) 100 mg capsule Take 1 capsule (100 mg total) by mouth 2 (two) times a day 2 Active gabapentin (NEURONTIN) 300 mg capsule Take 1 capsule (300 mg total) by mouth 3 (three) times a day 3 Active aspirin 81 mg enteric coated tabletIndicatio ns:PAF (paroxysmal atrial fibrillation) (CMS/HCC) (HCC) Take 1 tablet (81 mg total) by mouth daily 30 tablet 11 3 01/22/20 25 Active Repatha SureClick 140 mg/mL pen injector INJECT 1 ML (140 MG) UNDER THE SKIN EVERY 2 WEEKS 2 mL 10 3 Active Additional Information Patient not taking.Reported on 06/29/2023 traMADoL (ULTRAM) 50 mg tablet 3 Active rivaroxaban (Xarelto) 20 mg tabletIndicatio ns:PAF (paroxysmal atrial fibrillation) (CMS/HCC) (HCC) TAKE 1 TABLET BY MOUTH EVERY DAY WITH DINNER 30 tablet 7 4 Active Rexulti 1 mg tablet Take 1 tablet (1 mg total) by mouth daily 4 Active furosemide (LASIX) 40 mg tablet Take 1 tablet (40 mg total) by mouth daily 90 tablet 1 4 Active potassium chloride ER (KLOR-CON) 20 mEq CR tabletIndicatio ns:Hypokalemia Take 1 tablet (20 mEq total) by mouth daily 30 tablet 11 4 01/22/20 25 Active Active Problems Problem Noted Date Diagnosed Date PAF (paroxysmal atrial fibrillation) (CMS/HCC) 0 05/02/2022 History of stroke 05/02/2022 Acute ischemic stroke 02/12/2022 History of COVID-19 03/09/2020 Overview (06/03/2020): Asymptomatic infection Chest tightness 08/20/2019 Chronic diastolic (congestive) heart failure Hypersomnolence 02/11/2019 WALLACE (dyspnea on exertion) 05/24/2017 Epigastric pain 11/15/2016 Elevated left ventricular end-diastolic pressure (LVEDP) 11/15/2016 Pulmonary hypertension 02/15/2016 Overview (07/20/2016): Pulmonary hypertension Cardiovascular function finding 11/25/2015 Overview (07/20/2016): Elevated left ventricular end-diastolic pressure (LVEDP) Memory loss 11/25/2015 Overview (07/20/2016): Memory loss Assessment & Plan (01/20/2021 2:36 PM CDT): Patient has had subjective memory difficulties following COVID. Her laboratory assessment is normal. 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 She does have known cerebrovascular risk factors of hypertension and hypercholesterolemia. She is due to get a lipid profile done by her PCP as indicated by previous orders. I do not see any evidence of clinical dementia at this time. Given the MRI findings, I have suggested that she start an aspirin 81 mg daily for cerebrovascular prophylaxis. I have also suggested that she get a follow-up lipid profile as previously ordered and should also have an echocardiogram and 24 hour Holter via a cardiology referral of her PCPs preference. She will be following up with her PCP to discuss this further. She will follow up with neurology clinic on an as-needed basis. Assessment & Plan (11/23/2020 2:27 PM CDT): Patient has subjective memory loss of several months duration following COVID. However does appear she has a comorbidity with admitted depression. Her neurologic examination at present appears objectively normal. I will obtain an MRI brain, TSH, T4, B12 to investigate any potential neurologic etiologies for her subjective impairment. If unrevealing she may benefit from a mental health evaluation from a depression side of things as well. She will follow up in Neurology Clinic upon completion of testing. Essential hypertension 11/25/2015 Overview (07/20/2016): Essential hypertension Shortness of breath 11/25/2015 Overview (07/20/2016): Shortness of breath Recurrent chest pain 11/25/2015 Overview (07/20/2016): Atypical chest pain Hyperlipidemia LDL goal <130 11/25/2015 Overview (07/20/2016): Hyperlipidemia LDL goal <130 Notalgia 09/12/2013 Immunizations Immunization Administration Dates Next Due Influenza, Quadrivalent, Hig h Dose, Preservative Free, Intrr 02/14/2022 Surgical History Surgery Date Site/Laterality Comments ORIF FEMUR FRACTURE 03/05/2020 Right Medical History Medical History Date Comments Hx Other Medical HTN, , , overwe ight, ?PAT, high cholesterol, dentu; Comments: MAF 11/25/2015 - Depression High cholesterol CHF (congestive heart failur e) (CMS/HCC) ([facility]) Family History Medical History Relation Name Comments No Known Problems Brother 1 Stroke Brother 2 Stroke; Diabetes Brother 3 Hypertension Brother 3 Diabetes Brother 4 Hypertension Brother 4 Diabetes Father Stroke Father Stroke; Alzheimer's disease Mother stroke Mother Diabetes Sister 1 Diabetes Sister 2 Relation Name Status Comments Brother 1 (Age 73) Brother 2 Brother 3 Alive Brother 4 Alive Father (Age 60) Mother Sister 1 Alive Sister 2 Social History Tobacco Use Types Packs/Day Years Used Date Smoking Tobacco: Former Cigarettes Q uit: 11/15/1984 Smokeless Tobacco: Never Tobacco Cessation:Counseling Given: Not Answered Alcohol Use Standard Drinks/Week Comments No 0 (1 standard drink = 0.6 oz pur e alcohol) Personal Safety Answer Date Recorded Getting School Help Needed Not on file 06/23 Comments Unknown Sex and Gender Information Value Date Recorded Sex Assigned at Not on file Legal Sex Female 1:58 AM GLASSIE Gender Identity Female 08/15/2019 2:25 PM CDT Sexual Orientation Not on file Obstetrics History Last Filed Vital Signs Vital Sign Reading Time Taken Comments Blood Pressure 128/72 01/22/2024 3:09 PM CDT Pulse 70 01/22/2024 3:09 PM CDT Temperature 36.5 C (97.7 F) 02/20/2022 7:29 AM GLASSIE Respiratory Rate 18 02/20/2022 7:29 AM GLASSIE Oxygen Saturation 99% 01/22/2024 3:09 PM CDT Inhaled Oxygen Concentration - - Weight 82.1 kg (181 lb) 01/22/2024 3:09 PM CDT Height 170.2 cm (5' 7 ) 01/22/2024 3:09 PM CDT Body Mass Index 28.35 01/22/2024 3:09 PM CDT Plan of Treatment Health Maintenance Due Date Last Done Comments Depression Screening 1945 Hepatitis C Screening 1945 Osteoporosis Screening-Bone Density Scan 1945 DTaP/Tdap/Td Vaccine (1 - Tdap) 12/14/1955 Hepatitis B Screening 1962 Well Visit 65+ 2009 Pneumococcal vaccine 65+ (2 of 2 - PPSV23) 06/18/2015 04/23/2015 Zoster Vaccine (2 of 3) 09/16/2015 07/22/2015 Fall Risk Assessment 02/20/2023 02/20/2022 Influenza Vaccine (#1) 2023 02/14/2022 Insurance T MEDICARE T MEDICARE Advance Directives For more information, please contact: [phone] * Full Code (Latest Code Status on File) Date Activated Date Inactivated Comments 02/12/2022 3:23 PM 02/20/2022 3:27 PM * Full Code Date Activated Date Inactivated Comments 02/12/2022 12:36 PM 02/12/2022 3:23 PM Care Teams Cold Meat Cook Relationship Specialty Start Date End Date Ta Quiñones MD PCP - General 07/07/16
--- OUTSIDE RECORDS SUMMARY | 2024-05-25 17:59 | XMS_ITS | Referral Summary ---
Author Organization [facility] [place] [address] Address [address] [place] [address] Care Team Providers Care Data Management Engineer Name Role Phone Ta Quiñones MD [...] Hig h Dose, Preservative Free, Intrr 02/14/2022 Social History Tobacco Use Types Packs/Day Years [...] on file Legal Sex Female 1:58 AM FOURTH GRADE TEACHER Gender Identity Female 08/15/2019 2:25 PM CDT Sexual Orientation Not on file Last Filed Vital Signs Vital Sign Reading Time Taken Comments Blood Pressure 128/72 01/22/2024 3:09 PM CDT Pulse 70 01/22/2024 3:09 PM CDT Temperature 36.5 C (97.7 F) 02/20/2022 7:29 AM FOURTH GRADE TEACHER Respiratory Rate 18 02/20/2022 7:29 AM FOURTH GRADE TEACHER Oxygen Saturation 99% 01/22/2024 3:09 PM CDT Inhaled Oxygen Concentration - - Weight 82.1 kg (181 lb) 01/22/2024 3:09 PM CDT Height 170.2 cm (5' 7 ) 01/22/2024 3:09 PM CDT Body Mass Index 28.35 01/22/2024 3:09 PM CDT Plan of Treatment Not on file Insurance AETNA MEDICARE AETNA MEDICARE Advance Directives For more information, please contact: [phone] * Full Code (Latest Code Status on File) Date Activated Date Inactivated Comments 02/12/2022 3:23 PM 02/20/2022 3:27 PM * Full Code Date Activated Date Inactivated Comments 02/12/2022 12:36 PM 02/12/2022 3:23 PM Care Teams Data Management Engineer Relationship Specialty Start Date End Date Ta Quiñones MD PCP - General 07/07/16
[2024-05-25 18:31] VITALS: BP 150/87; PULSE 96; RESP 20; TEMP 36.5; O2SAT 99
[2024-05-25 21:10] LABS: Add Urine Microscopic? NO; Appearance Urine Clear (Clear); Bilirubin Urine Negative (Negative); Blood Urine Negative (Negative); Color Urine Yellow (Yellow); Glucose Urine UA Negative (Negative); Ketones Urine Negative (Negative); Leukocyte Esterase Ur Negative LEU/UL (Negative); Nitrate Urine Negative (Negative); Protein Urine Negative (Negative); Specific Grav Ur 1.005 (1.001-1.035); Urobilinogen Urine 0.2 mg/dL (<2.0); pH Urine 6.5 (5.0-9.0)
--- OUTSIDE RECORDS SUMMARY | 2024-05-25 21:11 | XMS_ITS | Patient Health Summary ---
Author Organization [facility] Address [address] [place] [address] Care Team Providers Care Mines Inspector Name Role Phone Ta Quiñones MD Primary Care Provider [phone] Note from [facility],non-owned Affiliates and Associated Physician Practices is amultiple site organization consisting of ambulatory clinics and hospital sitesin [place], [place], [place] and [place]. This disclosure is being madepursuant to the Care Everywhere program and may not contain all information available regarding this patient. Last updated 17.[facility] Allergies * Jv Inhibitors(Swelling) Medications * Be [...] Comments Blood Pressure 160/94 05/21/2013 1:45 PM ELECTRODYNAMICIST Pulse 106 05/21/2013 1:45 PM ELECTRODYNAMICIST Temperature 36.4 C (97.5 F) 05/21/2013 1:20 PM ELECTRODYNAMICIST Respiratory Rate 13 05/21/2013 1:45 PM ELECTRODYNAMICIST Oxygen Saturation 99% 05/21/2013 1:45 PM ELECTRODYNAMICIST Inhaled Oxygen Concentration - - Weight 72.6 kg (160 lb) 05/21/2013 1:20 PM ELECTRODYNAMICIST Height 167.6 cm (5' 6 ) 05/21/2013 1:20 PM ELECTRODYNAMICIST Body Mass Index 25.82 05/21/2013 1:20 PM ELECTRODYNAMICIST Procedures * PAIN MANAGEMENT PROCEDURE TIME(Performed 05/21/2013) Performed for Pain * PAIN MANAGEMENT PROCEDURE TIME(Performed 04/30/2013) Performed for Pain * PAIN MANAGEMENT PROCEDURE TIME(Performed 03/18/2013) Performed for Pain * PAIN MANAGEMENT PROCEDURE TIME(Performed 02/12/2013) Performed for Pain * PAIN MANAGEMENT PROCEDURE TIME(Performed 01/27/2013) Performed for Pain Results * PAIN MANAGEMENT PROCEDURE TIME (05/21/2013 1:54 PM ELECTRODYNAMICIST) Only the most recent of5 resultswithin the time period is included. Anatomical Region Laterality Modality Radio Fluoroscop y Narrative 05/21/2013 4:40 PM ELECTRODYNAMICIST Didier Brody MD 05/21/2013 4:40 PM Bilateral [...] on how to reach the clinic or wagon driver physician at anytime for questions or complaints. [...] on how to reach the clinic or wagon driver physician at anytimefor questions or complaints. I was present , directed, and participated in this evaluation /procedure. I agree with diagnosis and treatment as stated above. Didier Brody MD 05/21/20134:40 PM Didier Brody MD [facility] Care Teams Mines Inspector Relationship Specialty Start Date End Date Ta Quiñones MD [facility] [address] [place] [address] PCP - General Internal Medicine 02/12/13
--- OUTSIDE RECORDS SUMMARY | 2024-05-25 21:11 | XMS_ITS | Clinical Summary ---
Author Organization [facility] Clone Address [facility] [place] [address] Care Team Providers Care Contract Associate Name Role Phone Ta Quiñones MD Primary Care Provider [phone] Source Comments [facility],non-owned Affiliates and Associated Physician Practices is amultiple site organization consisting of ambulatory clinics and hospital sitesin [place], [place], [place] and [place]. This disclosure is being madepursuant to the Care Everywhere program and may not contain all information available regarding this patient. Last updated 17.[facility] Allergies Active Allergy Reactions Criticality Noted Date [...] Comments Blood Pressure 160/94 05/21/2013 1:45 PM HABILITATION ASSISTANT Pulse 106 05/21/2013 1:45 PM HABILITATION ASSISTANT Temperature 36.4 C (97.5 F) 05/21/2013 1:20 PM HABILITATION ASSISTANT Respiratory Rate 13 05/21/2013 1:45 PM HABILITATION ASSISTANT Oxygen Saturation 99% 05/21/2013 1:45 PM HABILITATION ASSISTANT Inhaled Oxygen Concentration - - Weight 72.6 kg (160 lb) 05/21/2013 1:20 PM HABILITATION ASSISTANT Height 167.6 cm (5' 6 ) 05/21/2013 1:20 PM HABILITATION ASSISTANT Body Mass Index 25.82 05/21/2013 1:20 PM HABILITATION ASSISTANT Plan of Treatment Health Maintenance Due Date [...] ID Effect yesy Dates Phone Address Type [facility] MEDIC[facility] ADV [employer] MEDICARE SOLUTIONS PFFS [id number] 05/10/2013-Pres ent [address] [address] [place] [address] Medicare -Managed Care Care Teams Contract Associate Relationship Specialty Start Date End Date Ta Quiñones MD [address] [place] [address] PCP - General Internal Medicine 02/12/13
--- OUTSIDE RECORDS SUMMARY | 2024-05-25 21:11 | XMS_ITS | Referral Summary ---
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 Gender Identity Female 08/15/2019 2:25 PM CDT Sexual Orientation Not on file Last Filed Vital Signs Vital Sign Reading Time Taken Comments Blood Pressure 128/72 01/22/2024 3:09 PM CDT Pulse 70 01/22/2024 3:09 PM CDT Temperature 36.5 C (97.7 F) 02/20/2022 7:29 AM HIGH SCHOOL SOCIAL SCIENCE TEACHER Respiratory Rate 18 02/20/2022 7:29 AM HIGH SCHOOL SOCIAL SCIENCE TEACHER Oxygen Saturation 99% 01/22/2024 3:09 PM CDT Inhaled Oxygen Concentration - - Weight 82.1 kg (181 lb) 01/22/2024 3:09 PM CDT Height 170.2 cm (5' 7 ) 01/22/2024 3:09 PM CDT Body Mass Index 28.35 01/22/2024 3:09 PM CDT Plan of Treatment Not on file Insurance AETNA MEDICARE AETNA MEDICARE Advance Directives For more information, please contact: [phone] * Full Code (Latest Code Status on File) Date Activated Date Inactivated Comments 02/12/2022 3:23 PM 02/20/2022 3:27 PM * Full Code Date Activated Date Inactivated Comments 02/12/2022 12:36 PM 02/12/2022 3:23 PM Care Teams Architecture Consultant Relationship Specialty Start Date End Date Ta Quiñones MD PCP - General 07/07/16
--- OUTSIDE RECORDS SUMMARY | 2024-05-25 21:11 | XMS_ITS | Clinical Summary ---
[facility] Organization [facility] Address [address] [place] [address] Attn: Epic Prelude ADT [place] [address] Care Team Providers Care Dog Licenser Name Role Phone Unavailable Primary Care Provider [...]
--- OUTSIDE RECORDS SUMMARY | 2024-05-25 21:11 | XMS_ITS | Referral Summary ---
Author Organization [facility] Address [facility] [place] [address] Care Team Providers Care Dancing Master Name Role Phone Ta Quiñones MD Primary Care Provider [phone] Source Comments [facility],non-owned Affiliates and Associated Physician Practices is amultiple site organization consisting of ambulatory clinics and hospital sitesin [place], [place], [place] and [place]. This disclosure is being madepursuant to the Care Everywhere program and may not contain all information available regarding this patient. Last updated 17.[email or web address] Allergies Active Allergy Reactions Criticality Noted Date [...] Comments Blood Pressure 160/94 05/21/2013 1:45 PM TAXI PROPRIETOR Pulse 106 05/21/2013 1:45 PM TAXI PROPRIETOR Temperature 36.4 C (97.5 F) 05/21/2013 1:20 PM TAXI PROPRIETOR Respiratory Rate 13 05/21/2013 1:45 PM TAXI PROPRIETOR Oxygen Saturation 99% 05/21/2013 1:45 PM TAXI PROPRIETOR Inhaled Oxygen Concentration - - Weight 72.6 kg (160 lb) 05/21/2013 1:20 PM TAXI PROPRIETOR Height 167.6 cm (5' 6 ) 05/21/2013 1:20 PM TAXI PROPRIETOR Body Mass Index 25.82 05/21/2013 1:20 PM TAXI PROPRIETOR Plan of Treatment Not on file Insurance Payer Benefit Plan / Group Subscriber ID Effect yesy Dates Phone Address Type [facility]IC[facility]V [facility] MEDICARE SOLUTIONS PFFS [id number] 05/10/2013-Pres ent [address] [address] [place] [address] Medicare -Managed Care Care Teams Dancing Master Relationship Specialty Start Date End Date Ta Quiñones MD [address] [place] [address] [address] [place] [address] PCP - General Internal Medicine 02/12/13
--- OUTSIDE RECORDS SUMMARY | 2024-05-25 21:11 | XMS_ITS | Continuity of Care Document ---
Author Organization [facility] Address [address] [place] [address] Phone Care Team Providers Care Corridor Redevelopment Manager Name Role Phone [facility] Unavailable Unavail able Taryn Betts Unavailable Unavailable Procedures Procedure Date Progressive Lens, Hi Index Frames Deluxe Lens-Index>1.66Plas;>1.80Glas 8 Anti-reflective Coating Visual Field Examination(s) Eye Exam, New Patient Refraction Advance Directives Directive Yes / No Effective Date File Name No Information Encounters Encounter Description Practice Location Reason(s) For Visit Diagnoses Date Provider Providers Copied on Encounter [facility], [address] [place] [address] [address], [place], [place], [id number], [place] tel:[phone] [facility] No Information 8 [facility]. [address], [address], [place], [id number], [place]. tel:[phone] Referring Provider: Lang Cameron, [facility] [address], [address]. tel:[phone] hughes Provider: Taryn Betts, [address] [facility], [place], [address]. tel:[phone] [facility], [address] [place] [address] [address], [place], [place], [id number], tel:[phone] [facility] No Information [address]. [address], [place], [facility], . tel:[phone] Referring Provider: Adebayo Little, [address] [place] [address] [address], [place], [place], [facility]. tel:[phone] [facility], [address], [place], [place], [id number], tel:[phone] [facility] No Information [address]arrealhil. [facility] [address], [place], [place], [facility], . tel:[phone] Referring Provider: Ta Quiñones, [address] [place] [address], [facility]. tel:[phone] Family History Family Member Type Diagnosis Age At Onset No Information Payers Payer name Insurance type Covered alliance party ID Authorjennifermeng tevinmyrna(s) [employer] Plan CI [id number] Social History Type Description Quantity Date Captured [...]
--- OUTSIDE RECORDS SUMMARY | 2024-05-25 21:11 | XMS_ITS | Clinical Summary ---
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 Gender Identity Female 08/15/2019 2:25 PM CDT Sexual Orientation Not on file Obstetrics History Last Filed Vital Signs Vital Sign Reading Time Taken Comments Blood Pressure 128/72 01/22/2024 3:09 PM CDT Pulse 70 01/22/2024 3:09 PM CDT Temperature 36.5 C (97.7 F) 02/20/2022 7:29 AM CUSTOMER MANAGER Respiratory Rate 18 02/20/2022 7:29 AM CUSTOMER MANAGER Oxygen Saturation 99% 01/22/2024 3:09 PM CDT [...] Advance Directives For more information, please contact: [phone] * Full Code (Latest Code Status on File) Date Activated Date Inactivated Comments 02/12/2022 3:23 PM 02/20/2022 3:27 PM * Full Code Date Activated Date Inactivated Comments 02/12/2022 12:36 PM 02/12/2022 3:23 PM Care Teams Ell Teacher Relationship Specialty Start Date End Date Ta Quiñones MD PCP - General 07/07/16
--- NOTE | 2024-05-25 21:24 | ED.ABDPAIN ---
HPI - Abdominal Pain General Chief Complaint: Abdominal Pain Stated Complaint: impacted Time Seen by Provider: 05/25/24 21:01 Source: patient Mode of arrival: ambulatory Limitations: no limitations History of Present Illness HPI narrative: This is a 78-year-old female with PMH of dementia, fibromyalgia, HTN, TIA who presents to the ED for chief complaint of diffuse abdominal cramping over the past couple of days. Patient states that her bowel movements have been regular, she is not sure when her last bowel movement was. She does feel that she may be ?impacted. Her is bedside and states that this has happened before, multiple years in the past. Patient states that she is still passing gas. Denies nausea, vomiting, fevers, chills, urinary symptoms. Related Data Home Medications ?Medication ?Instructions ?Recorded ?Confirmed ?Last Taken ?Type buspirone 15 mg tablet 15 mg PO BID 12/24/21 01/05/24 Unknown History amlodipine 10 mg tablet 5 mg PO QAM 12/07/23 01/05/24 Unknown History bimatoprost 0.01 % eye drops 1 drp EACH EYE QHS 12/07/23 01/05/24 Unknown History (Krystal) brexpiprazole 0.5 mg tablet 1 mg PO DAILY 12/07/23 01/05/24 Unknown History (Chacha) Allergies Allergy/AdvReac Type Severity Reaction Status Date / Time No Known Allergies Allergy Verified 05/25/24 18:35 Review of Systems Review of Systems: All systems as dictated in HPI [facility] Past Medical History Medical History Anemia Anxiety Arthritis Cerebrovascular accident Residual aphasia and right-sided weakness. CHF (congestive heart failure) Echocardiogram 2019 EF 55-60%, moderate concentric left ventricular increased wall thickness, grade 1 diastolic dysfunction Chronic back pain Chronic hyponatremia Closed fracture of right hip Dementia Diverticulitis Diverticulosis Dyslipidemia Fibromyalgia GERD (gastroesophageal reflux disease) Glaucoma Bilateral eyes History of blood transfusion HLD (hyperlipidemia) Hypertension Kidney stones Migraines Peripheral neuropathy Shingles Spinal stenosis TIA (transient ischemic attack) Ulcer UTI (urinary tract infection) Surgical History Surgical History H/O cardiac catheterization History of appendectomy At age 18 History of cardiac catheterization cardiac catheterization done in November [address] Cameron. No significant coronary artery disease was noted, with preserved left ventricular systolic function ejection fraction of 60 to 65%. Some tortuosity and minor luminal irregularities were noted. Left ventricular end-diastolic pressure was elevated 27 millimeters of mercury. History of cholecystectomy History of open reduction and internal fixation (ORIF) procedure (02/2020) Pinning right femoral neck fracture. Family History Family History Mother Parkinsons disease Hypertension Dementia Father Cerebrovascular accident Congestive heart failure Sibling Acute myocardial infarction Mother Parkinsons disease Dementia Hypertension Father Congestive heart failure Cerebrovascular accident Sibling Acute myocardial infarction Social History Social History Social History: Surrogate medical decision maker: Jovani Green, spouse. Code status: Full code. Smoking packs per day: 0.5 Smoking cigarettes per day: 10.0 Years smoked: 10 Smoking pack-years: 5.00 Smoking status: Former smoker Tobacco type: cigarettes Second hand tobacco smoke exposure: No Smoking end date: 04/09/84 Alcohol intake: never Substance use: never Substance use type: does not use Do You Feel Safe in your Home?: Yes Lack of Transportation: No Lack of Food: Never True Current Housing: I Have Housing Concerned About Future Housing: No Difficulty Paying Gas/Electric Bills: No Difficulty Paying for Meds: No Currently Unemployed: No Education: Master's Degree or Higher Difficulty w/ Childcare or Family Care: No Living arrangements: with family Additional living arrangements comments: Lives with spouse. 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 Gender identity (if verbalized by the patient): Female Spiritual care concerns: No Agree to blood products: Yes Exam Narrative: GENERAL: Well-appearing, well-nourished, and in no acute distress. HEAD: Normocephalic, atraumatic. EYES: PERRLA and EOMI. ENT: Nares clear, no rhinorrhea or epistaxis. Mucous membranes moist. Oropharynx without tonsillar hypertrophy exudate or other lesions. NECK: Supple. No adenopathy or masses. CHEST: No respiratory distress. Clear to auscultation. No wheezes rales or rhonchi HEART: Regular rate and rhythm. No murmur heard. Normal peripheral pulses. ABDOMEN: Soft, nontender, nondistended, normal active bowel sounds. MSK: Normal range of motion. No edema. SKIN: Warm, dry, no rash. NEURO: Alert and oriented x4. No focal deficits. PSYCH: Normal mood and affect. Course Vital Signs Vital signs: Vital Signs Temperature 97.7 F 05/25/24 18:31 Pulse Rate 96 05/25/24 18:31 Respiratory Rate 20 05/25/24 18:31 Blood Pressure 150/87 H 05/25/24 18:31 Pulse Oximetry 99 05/25/24 18:31 Oxygen Delivery Room Air 05/25/24 18:31 Temperature 97.7 F 05/25/24 18:31 Pulse Rate 89 05/25/24 23:01 Respiratory Rate 20 05/25/24 23:01 Blood Pressure 147/87 H 05/25/24 23:01 Pulse Oximetry 99 05/25/24 23:01 Oxygen Delivery Room Air 05/25/24 18:31 MDM - Abdominal Pain MDM Narrative Medical decision making narrative: This is a 78-year-old female with mild dementia who presents to the ED for chief complaint of constipation. Vitals are normal. Exam is benign. No evidence of acute abdomen. She is resting comfortably. She is accompanied by her . CT abdomen pelvis without contrast: IMPRESSION: 1. Moderate amount of colonic stool with 6 similar ball of stool at the rectum. No other acute intra-abdominal/pelvic process. 2. Very small pericardial effusion and trace bilateral pleural effusions. 3. Internally fixed subtrochanteric fracture of the proximal right femur which remains nonunited. Of note the tips of the femoral neck screws project slightly beyond the cortical margins at the apex of the femoral head. Offered further workup with laboratory studies and offered treatment with enema. However patient is declining enema treatment. She would like to go home and try MiraLax and Colace treatment for this constipation. Patient will be discharged in stable condition. Supportive measures discussed and return precautions given. Patient is understanding and agreeable with plan for discharge with PCP follow-up. Lab Data Labs: Lab Results 05/25/24 Range/Units 20:59 Urine Color Yellow (Yellow) Urine Appearance Clear (Clear) Urine pH 6.5 (5.0-9.0) Ur Specific [place] 1.005 (1.001-1.035) Urine Protein Negative (Negative) mg/dL Urine Glucose (UA) Negative (Negative) mg/dL Urine Ketones Negative (Negative) mg/dL Ur Blood (Man) Negative (Negative) Urine Nitrate Negative (Negative) Urine Bilirubin Negative (Negative) Urine Urobilinogen 0.2 (<2.0) mg/dL Leukocyte Esterase Rfl Negative (Negative) JORY/UL Influenza A (RT-PCR) Negative (Negative) Influenza B (RT-PCR) Negative (Negative) RSV (RT-PCR) Negative (Negative) SARS-CoV-2 RNA (RT-PCR) Negative (Negative) Imaging Data Radiologist's impression: ITS Impressions Abdomen/Pelvis CT 05/25/24 21:35 IMPRESSION: 1. Moderate amount of colonic stool with 6 similar ball of stool at the rectum. No other acute intra-abdominal/pelvic process. 2. Very small pericardial effusion and trace bilateral pleural effusions. 3. Internally fixed subtrochanteric fracture of the proximal right femur which remains nonunited. Of note the tips of the femoral neck screws project slightly beyond the cortical margins at the apex of the femoral head. Discharge Plan Discharge Clinical Impression: Constipation Patient Disposition: Home, Self-Care Condition: Stable Instructions: Antibiotic Form Additional Instructions: Your exam today shows constipation. Please take MiraLax and Colace. Follow-up with PCP on this issue. If you have any new or worsening symptoms please return to the ER for further evaluation. Patient Language: German Prescriptions: New docusate sodium [Colace] 100 mg capsule 100 mg PO BID Qty: 30 0RF polyethylene glycol 3350 [Miralax] 17 gram/dose powder 17 g PO BID Qty: 119 0RF No Action acetaminophen [Mapap (acetaminophen)] 325 mg Tablet 650 mg PO Q6H PRN (Reason: fever or pain) Qty: 90 0RF Lumigan 0.01 % drops 1 drp EACH EYE QHS Rexulti 0.5 mg tablet 1 mg PO DAILY amlodipine 10 mg tablet 5 mg PO QAM buspirone 15 mg tablet 15 mg PO BID Xarelto 20 mg tablet 20 mg PO DAILY Qty: 30 0RF Rx Instructions: must administer with evening meal furosemide 40 mg Tablet 40 mg PO DAILY Qty: 30 0RF carvedilol [Coreg] 12.5 mg Tablet 25 mg PO Q12HR Qty: 60 0RF pravastatin 20 mg Tablet 40 mg PO DAILY Qty: 30 0RF losartan 100 mg Tablet 100 mg PO DAILY Qty: 30 0RF Follow-up/Referrals: Ishmael,Ta Andrade MD [Primary Care Provider] - Time of Disposition: 22:36
[2024-05-25 21:30] VITALS: BP 146/83; PULSE 93; RESP 18; O2SAT 98
[2024-05-25 21:41] LABS: Influenza A QL RT-PCR Negative (Negative); Influenza B QL RT-PCR Negative (Negative); RSV RNA, RT-PCR Negative (Negative); SARS-CoV-2 RNA PCR Negative (Negative)
--- NOTE | 2024-05-25 23:00 | PC.NURSE ---
pt refused blood and soap bernadette enema. EDP made aware
[2024-05-25 23:01] VITALS: BP 147/87; PULSE 89; RESP 20; O2SAT 99
== END 2024-05-25 23:03 | disposition home or self-care (01) ==
PROVIDERS: Emergency Medicine; Emergency Provider Physician Assistant; PCP Internal Medicine
DX: K59.00 Constipation, unspecified (principal); F03.90 Unspecified dementia, unspecified severity, without behavioral disturbance, psychotic disturbance, mood disturbance, and anxiety; I50.9 Heart failure, unspecified; I11.0 Hypertensive heart disease with heart failure; E87.1 Hypo-osmolality and hyponatremia; E78.5 Hyperlipidemia, unspecified; K21.9 Gastro-esophageal reflux disease without esophagitis; G62.9 Polyneuropathy, unspecified; M79.7 Fibromyalgia; M19.90 Unspecified osteoarthritis, unspecified site; F41.9 Anxiety disorder, unspecified; Z87.442 Personal history of urinary calculi; Z86.73 Personal history of transient ischemic attack (TIA), and cerebral infarction without residual deficits; Z87.440 Personal history of urinary (tract) infections; Z87.891 Personal history of nicotine dependence; Z90.49 Acquired absence of other specified parts of digestive tract; Z79.01 Long term (current) use of anticoagulants; Z79.899 Other long term (current) drug therapy
CPT/HCPCS: 74176; 81003; 87637; 99284

== ENCOUNTER 2024-05-27 16:38 | Emergency (ER) | payer MEDICARE, SELFPAY ==
--- NOTE | ~2024-05-27 | XR_ITS ---
EXAM: XR abdomen/kub 1V DATE: 05/27/2024 18:55 HISTORY: constipation . COMPARISON: CT abdomen pelvis 05/25/2024. FINDINGS: Cholecystectomy clips. Senescent changes in the lungs. Moderate volume of colonic feces. T he rectum is distended to 6.4 cm by formed stool. Otherwise normal bowel gas pattern. No organomegaly . No abnormal abdominal calcification. Partially visualized right femoral neck fixation hardware, the tips of the screws project slightly beyond the femoral head cortex is noted in the prior CT. IMPRESSION: Moderate volume of colonic feces. Possible fecal impaction. Reviewed, dictated and finalized at location K. R CARE TECHNICIAN
--- OUTSIDE RECORDS SUMMARY | 2024-05-27 16:41 | XMS_ITS | Clinical Summary ---
Author Organization [facility] Address [facility] [facility] [place] [address] Care Team Providers Care Embedded Nurse Name Role Phone Ta Quiñones MD Primary Care Provider [phone] Source Comments [employer] [facility],non-owned Affiliates and Associated Physician Practices is amultiple site organization consisting of ambulatory clinics and hospital sitesin [place], [place], [place] and [place]. This disclosure is being madepursuant to the Care Everywhere program and may not contain all information available regarding this patient. Last updated 17.[employer] Allergies Active Allergy Reactions Criticality Noted Date [...] Comments Blood Pressure 160/94 05/21/2013 1:45 PM MANAGER PORTABLE Pulse 106 05/21/2013 1:45 PM MANAGER PORTABLE Temperature 36.4 C (97.5 F) 05/21/2013 1:20 PM MANAGER PORTABLE Respiratory Rate 13 05/21/2013 1:45 PM MANAGER PORTABLE Oxygen Saturation 99% 05/21/2013 1:45 PM MANAGER PORTABLE Inhaled Oxygen Concentration - - Weight 72.6 kg (160 lb) 05/21/2013 1:20 PM MANAGER PORTABLE Height 167.6 cm (5' 6 ) 05/21/2013 1:20 PM MANAGER PORTABLE Body Mass Index 25.82 05/21/2013 1:20 PM MANAGER PORTABLE Plan of Treatment Health Maintenance Due Date [...] ID Effect yesy Dates Phone Address Type [facility] [employer]V [employer] PFFS [id number] 05/10/2013-Pres ent [address] [address] [place] [address] Medicare -Managed Care Care Teams Embedded Nurse Relationship Specialty Start Date End Date Ta Quiñones MD [address] [place] [phone] PCP - General Internal Medicine 02/12/13
--- OUTSIDE RECORDS SUMMARY | 2024-05-27 16:41 | XMS_ITS | Data Portability ---
Author Organization [place] [facility], Main Office Address [address] [place] [address] Assessment No assessment recorded. Plan of Treatment Reminders Order Date Submit Date Provider Last Modified By Organization Details Last Modified Time Details Appointments None recorded. Lab vitamin D, 25-hydroxy, total, serum 2023 024 [id number] [facility], [address], [place], [address], 4 14:26:20 CMP, serum or plasma 2023 024 [id number] [facility], [address], [place], [address], 4 14:26:19 lipid panel, serum 2023 024 [id number] [facility], [address] , [place], [address], 4 14:26:19 CBC w/ auto diff 2023 024 [id number] [facility], [address], [place], [address], 4 14:26:19 T4, free, serum 2023 024 [id number] [facility], [address] , [place], [address], 4 14:26:19 TSH, serum or plasma 2023 024 [facility], [address] , [place], [address], 4 14:26:20 lipid panel, serum 2022 023 [email or web address] [facility], [address], [place], [address], 12:12:06 TSH, serum or plasma 2022 023 [id number] [facility], [address], [place], [address], 12:12:07 T4, free, serum 2022 023 [id number] [facility], [address], [place], [address], 12:12:07 magnesium, serum or plasma 2022 023 [email or web address] [facility], [address], [place], [address], 12:12:07 vitamin B12, serum 2022 023 [id number] [facility], [address], [place], [address], 12:12:07 CBC w/ auto diff 2022 023 [id number] [facility], [address], [place], [address], 12:12:06 CMP, serum or plasma 2022 023 [id number] [facility], [address], [place], [address], 12:12:07 vitamin B12, serum 2022 023 [id number] [facility], [address], [place], [address], 10:37:14 lipid panel, serum 2022 023 [id number] [facility], [address], [place], [address], 3 10:37:13 CMP, serum or plasma 2022 023 [id number] [facility], [address], [place], [address], 3 10:37:13 TSH, serum or plasma 2022 023 [email or web address] [facility], [address], [place], [address], 3 10:37:13 T4, free, serum 2022 023 [id number] [facility], [address], [place], [address], 3 10:37:14 CBC w/ auto diff 2022 023 [id number] [facility], [address], [place], [address], 3 10:37:13 Referral None recorded. Procedures None recorded. Surgeries None recorded. Imaging None recorded. Medication Orders brexpiprazo le 0.5 mg tablet 2023 024 [email or web address] [id number] [facility], [address], [place], [address], 16:32:22 Patient TargetsNo targets recorded. Patient Instructions Encounter Date Encounter Id Patient Instructions Last Modified By Organization Details Last Modified Time 07/21/2022 [id number] Follow-up hypertension -hyperlipidemia -mild cognitive impairment -previous CVA. Continue on current Rx. Will check blood work consisting of CBC, thyroid, lipid, B12 and CMP. Will check a mammogram and Cologuard test. Continue on current Rx and follow-up in six months Mammogram Cologuard [email or web address] Not available 07/21/2022 15:52:35 01/19/2023 [id number] dementia rating scale-2* [email or web address] Not available 01/19/2023 16:08:02 alcohol misuse* [email or web address] Not available 01/19/2023 16:08:02 depression screening* [email or web address] Not available 01/19/2023 16:08:02 Timed Up and Go test (TUG)* [email or web address] Not available 01/19/2023 16:08:02 multi-dimensiona health assessment questionnaire* [email or web address] Not available 01/19/2023 16:08:01 Personalized Hea lth [...] I have no recommendations Depression Screening: Negative [email or web address] Not available 01/19/2023 16:02:25 [facility] stable. Does need [...] with voice recognition software. Occasional wrong-word or ootex-o-iqid substitutions may have occurred due to the inherent limitations of voice recognition software. Read the chart carefully and recognize, using context, where substitutions have occurred. Next Appt: 6 Months Approximate Date: 07/18/2023 Not available 01/19/2023 16:07:32 07/31/2023 [id number] Status post CVA, hypertension, hyperlipidemia, GERD as [...] with voice recognition software. Occasional wrong-word or ayowu-x-jwwr substitutions may have occurred due to the inherent limitations of voice recognition software. Read the chart carefully and recognize, using context, where substitutions have occurred. [email or web address] Not available 07/31/2023 15:55:36 11/06/2023 [id number] Progressive cognitive decline, essential hypertension, hyperlipidemia history [...] with voice recognition software. Occasional wrong-word or cducb-z-ccmb substitutions may have occurred due to the inherent limitations of voice recognition software. Read the chart carefully and recognize, using context, where substitutions have occurred. [email or web address] Not available 11/06/2023 15:47:35 01/29/2024 [id number] dementia rating scale-2* [email or web address] Not available 01/29/2024 16:09:10 alcohol misuse* [email or web address] Not available 01/29/2024 16:09:10 depression screening* [email or web address] Not available 01/29/2024 16:09:11 Timed Up and Go test (TUG)* [email or web address] Not available 01/29/2024 16:09:10 multi-dimensiona l health assessment questionnaire* [email or web address] Not available 01/29/2024 16:09:10 Personalized Hea lt [...] I have no recommendations Depression Screening: Negative [email or web address] Not available 01/29/2024 15:59:37 Medicare [facility] [...] with voice recognition software. Occasional wrong-word or nonwn-u-wqtv substitutions may have occurred due to the inherent limitations of voice recognition software. Read the chart carefully and recognize, using context, where substitutions have occurred. [email or web address] Not available 01/29/2024 16:08:07 Reason for Referral None Reported. Results Created Date Observation Date Name Description Value Unit Range Abnormal Flag Note LastModifiedBy Organization Detail LastModifiedTime 07/21/19 24 07/21/2023 COLOG UARD cologuard result Cancel led - Order d not applic able Not Available [facility] (Cologuard Orders Only) [address], [place], [address], 07/21/2023 08:47:19 07/29/19 23 07/28/2022 CT, brain , w/o contr ast No observ ation record ed. [address], [address], 08/09/2022 14:31:33 07/29/19 23 07/28/2022 XR, hip + pelvi s, bilat eral No observ ation record ed. [address], [address], 08/09/2022 14:32:25 07/29/19 23 07/28/2022 CT, lumba r spine , w/o contr ast No observ ation record ed. [address], [address], 08/09/2022 14:32:52 07/30/19 23 07/28/2022 XR, chest No observ ation record ed. [address] [address], [place], [address], 08/09/2022 14:33:10 07/30/19 23 07/28/2022 CT, hip, w/o contr ast No observ ation record ed. [address], [place], [address], 08/09/2022 14:39:48 08/01/19 23 07/30/2022 MRI, hip, w/o contr ast No observ ation record ed. [address], [place], [address], 07/31/2022 08:26:36 08/01/19 23 07/31/2022 XR, ankle No observ ation record ed. [address], [place], [address], 08/09/2022 15:23:02 08/01/19 23 07/31/2022 XR, ankle No observ ation record ed. [address], [place], [address], 08/09/2022 15:23:18 08/04/19 23 08/03/2022 XR, hip + pelvi s, unila teral No observ ation record ed. [address], [place], [address], 08/09/2022 15:49:54 08/04/19 23 08/03/2022 XR, chest , 2 view No observ ation record ed. [address], [place], [address], 08/03/2022 16:21:10 08/05/19 23 08/04/2022 XR, hip, unila teral No observ ation record ed. [address], [place], [address], 08/04/2022 17:10:09 12/06/19 24 12/06/2023 XR, chest , 1 view No observ ation record ed. [address] [facility], [place], [address], 12/07/2023 08:01:45 12/06/19 24 12/06/2023 CT, brain , w/o contr ast No observ ation record ed. [address] [facility], [place], [address], 12/07/2023 08:02:53 01/04/20 24 01/04/2024 XR, chest No observ ation record ed. [address] [address], [place], [address], 01/05/2024 11:25:47 01/04/20 24 01/04/2024 CT, angio gram, chest , w/ contr ast No observ ation record ed. [address] [facility], [place], [address], 01/05/2024 11:27:27 01/07/20 24 01/05/2024 , [facility] ardio gram No observ ation record ed. [address] [address], [place], [address], 01/08/2024 07:54:21 05/25/19 25 05/25/2024 CT, abdom en + pelvi s, w/o contr ast No observ ation record ed. [address] [address], [place], [address], 05/26/2024 06:48:44 Result Notes None recorded. Problems Name Problem SNOMED Code Status Onset Date Resolution Date Notes Provider Name and Address Organization Details Recorded Time Renewal of prescription Active 2021 Not Available [facility] 3 15:25:19 Diverticuliti s of colon 897271726 Active Not Available [facility] 3 15:25:19 Senile osteoporosis 71224624 Active 2021 Not Available [facility] 3 15:25:19 Anxiety disorder 243014757 Active Not Available [facility] 3 15:25:19 CVA - cerebrovascul ar accident due to cerebral artery occlusion 935091075 Active 2021 Not Available [facility] 3 15:25:20 Gastroesophag eal reflux disease 311613626 Active Not Available [facility] 3 15:25:20 Pure hypercholeste rolemia 276767634 Active Not Available [facility] 3 15:25:20 Low back pain 100079334 Active Not Available [facility] 3 15:25:20 Vitamin D deficiency 25699330 Active Not Available [facility] 3 15:25:20 Chronic pain syndrome 578484659 Active 2017 Not Available [facility] 3 15:25:20 Neuropathy 116315189 Active Not Available [facility] 3 15:25:20 Memory impairment 457430107 Active Not Available [facility] 3 15:25:20 Functional diarrhea 12519089 Active Not Available [facility] 3 15:25:20 Essential hypertension 70335281 Active 2021 Not Available [facility] 3 15:25:20 Herniation of nucleus pulposus 59373651 Active Not Available [facility] 3 15:25:20 Primary fibromyalgia syndrome 08066166 Active Not Available [facility] 3 15:25:20 Dementia 32160780 Active 2023 Rashida Quiñones MD [address], [place], [address] , [employer] 4 15:33:35 Congestive heart failure 91017663 Active 2023 Rashida Quiñones MD [address], [place], [address] , [employer] [facility] 4 16:03:38 Problem Notes None recorded. Procedures Surgical History Date Name Laterality Status Provider Name and Address Organization Details Recorded Time 4 Medicare Wellness CPT Code, subsequent completed Gretel Del Rio RN [facility] 01/29/2024 15:52:17 3 Medicare Wellness CPT Code, subsequent completed Gretel Del Rio RN [facility] 01/19/2023 15:55:53 Imaging Results Imaging Date Name Status LastModified by Organization Details LastModified Time 07/28/2022 CT, brain, w/o contrast completed [address] [place] [address], [address], 08/09/2022 14:31:33 07/28/2022 XR, hip + pelvis, bilateral completed [address], [address], 08/09/2022 14:32:25 07/28/2022 CT, lumbar spine, w/o contrast completed [address] [place] [address], [address], 08/09/2022 14:32:52 07/28/2022 XR, chest completed [address] [place] [address], [address], 08/09/2022 14:33:10 07/28/2022 CT, hip, w/o contrast completed [address], [address], 08/09/2022 14:39:48 07/30/2022 MRI, hip, w/o contrast completed [address] [place] [address], [address], 07/31/2022 08:26:36 07/31/2022 XR, ankle completed [address] [place] [address], [address], 08/09/2022 15:23:02 07/31/2022 XR, ankle completed [address] [place] [address], [address], 08/09/2022 15:23:18 08/03/2022 XR, hip + pelvis, unilateral completed [address] [address], [place], [address], 08/09/2022 15:49:54 08/03/2022 XR, chest, 2 view completed [address] [address], [place], [address], 08/03/2022 16:21:10 08/04/2022 XR, hip, unilateral completed [address] [address], [place], [address], 08/04/2022 17:10:09 12/06/2023 XR, chest, 1 view completed [address] [address], [place], [address], 12/07/2023 08:01:45 12/06/2023 CT, brain, w/o contrast completed [address] [address], [place], [address], 12/07/2023 08:02:53 01/04/2024 XR, chest completed [address] [address], [place], [address], 01/05/2024 11:25:47 01/04/2024 CT, angiogram, chest, w/ contrast completed [address] [address], [place], [address], 01/05/2024 11:27:27 01/05/2024 US, echocardiogram completed [address] [address], [place], [address], 01/08/2024 07:54:21 05/25/2024 CT, abdomen + pelvis, w/o contrast completed [address] [address], [place], [address], 05/26/2024 06:48:44 Procedure Notes None recorded. Medical Equipment None Reported. Allergies Allergen ID Allergen Name Allergen Category Reaction Reaction Severity Criticality Documentation Date Start Date Code Code System Note Provider Name and Address Organization Details Recorded Time 65005 Zocor medicatio n myalgias (muscle pain) Not available Not available 06/07/2022 06060 3 RxNorm Not Available [facility] 3 15:28:37 22541 Livalo medicatio n myalgias (muscle pain) Not available Not available 06/07/2022 88249 2 RxNorm Not Available [facility] 3 15:28:37 04955 lisinopri l medicatio n cough Not available Not available 06/07/2022 19569 RxNorm Not Available [facility] 3 15:28:37 68151 Lipitor medicatio n myalgias (muscle pain) Not available Not available 06/07/2022 37364 5 RxNorm Not Available [facility] 3 15:28:37 10679 Cipro medicatio n Not available Not available Not available 06/07/2022 06949 3 RxNorm Not Available [facility] 3 15:28:38 Medications Name Sig Start [...] Method Pharmacy Name/ City Prescrib er Name [facility] 1945 0 ALPRAZOL AM 0.5MG 90 30 [facility] RASHIDA CHUN MD [facility] 1944 0 HYDROCOD ONE BITARTRA TE-ACETA MINOPHE 7.5MG-32 5MG 90 30 [facility] / RASHIDA CHUN MD [facility] 1944 0 ALPRAZOL AM 0.5MG 90 30 [facility] RASHIDA CHUN MD [facility] 1944 04/03/20 19 HYDROCOD ONE BITARTRA TE-ACETA MINOPHE 7.5MG-32 5MG 90 30 [facility] / RASHIDA CHUN MD [facility] 1944 03/21/20 19 ALPRAZOL AM 0.5MG 90 30 [facility] 03/05/20 19 HYDROCOD ONE BITARTRA TE-ACETA MINOPHE 7.5MG-32 5MG 90 30 [facility] 02/20/20 19 ALPRAZOL AM 0.5MG 90 30 [facility] RASHIDA CHUN MD [facility] 1944 02/03/20 19 HYDROCOD ONE BITARTRA TE-ACETA MINOPHE 7.5MG-32 5MG 90 30 [facility] Not Available Not Available Not Available cephalexi [...] CAPSULE BY MOUTH THREE TIMES A DAY 11/05 completed Not Available Not Available Not [...] Not Available Not Available Not Avai lable Rexulti 0.5 mg tablet TAKE ONE TABLET [...] Details Last Updated DateTime 3 168.91 cm 51289.1 8 g 29.6 kg/m2 97.3 [degF] 91 /min 98 % 98 % 130 mm[Hg] 88 mm[Hg] Emeli Beavers MA [facility] 3 15:40:40 Date Recorded Body height Body mass index (BMI) Body weight Heart rate Body temperature Oxygen saturation Oxygen saturation in Arterial blood by Pulse oximetry Systolic blood pressure Diastolic blood pressure Provider Name and Address Organization Details Last Updated DateTime 3 168.91 cm 26.7 kg/m2 78002.5 2 g 87 /min 97 [degF] 96 % 96 % 138 mm[Hg] 80 mm[Hg] Emily Elias [facility] 3 15:47:28 Date Recorded Pain severity - 0-10 verbal numeric rating [Score] - Reported Provider Name and Address Organization Details Last Updated DateTime 01/19/2023 0 Gretel Del Rio RN [facility] 01/19/2023 15:56:02 Date Recorded Body height Body mass index (BMI) Body weight Heart rate Body temperature Oxygen saturation Oxygen saturation in Arterial blood by Pulse oximetry Systolic blood pressure Diastolic blood pressure Provider Name and Address Organization Details Last Updated DateTime 4 168.91 cm 27.7 kg/m2 81287.0 7 g 75 /min 97 [degF] 98 % 98 % 160 mm[Hg] 80 mm[Hg] Emily Elias [facility] 4 15:36:32 Date Recorded Body height Body mass index (BMI) Body weight Heart rate Body temperature Oxygen saturation Oxygen saturation in Arterial blood by Pulse oximetry Systolic blood pressure Diastolic blood pressure Provider Name and Address Organization Details Last Updated DateTime 4 168.91 cm 28.1 kg/m2 49742.8 5 g 100 /min 97.9 [degF] 98 % 98 % 140 mm[Hg] 82 mm[Hg] TAMERA Almazan [facility] 4 15:24:22 Date Recorded Body height Body weight Heart rate Body temperature Oxygen saturation Oxygen saturation in Arterial blood by Pulse oximetry Systolic blood pressure Diastolic blood pressure Provider Name and Address Organization Details Last Updated DateTime 4 168.91 cm 68556.8 5 g 75 /min 97 [degF] 98 % 98 % 108 mm[Hg] 68 mm[Hg] TAMERA Almazan [place] [facility] 15:41:26 Date Recorded Pain severity - 0-10 verbal numeric rating [Score] - Reported Provider Name and Address Organization Details Last Updated DateTime 01/29/2024 0 Gretel Del Rio RN [place] [facility] 01/29/2024 15:52:34 Social History Question Answer Notes LastModified by Organizat ion Details LastModified Time Tobacco Smoking Status Former Smoker Not Available [facility] 06/07/2022 15:22:56 Do You Have An Advance Directive? Yes MIGRATION.12111 [id number] Information not available 06/07/2022 What Is Your Level Of Alcohol Consumption? None MIGRATION.87461 21031 Information not available 06/07/2022 Are You Blind Or Do You Have Difficulty Seeing? No MIGRATION.95421 77246 Information not available 06/07/2022 Are You Deaf Or Do You Have Serious Difficulty Hearing? No MIGRATION.04682 99642 Information not available 06/07/2022 What Type Of Diet Are You Following? REGULAR MIGRATION.29721 41389 Information not available 06/07/2022 Have There Been Any Changes To Your Family Or Social Situation? No [email or web address] Information not available 01/19/2023 What Is The Fluoride Status Of Your Home? Fluoridated MIGRATION.36889 28196 Information not available 06/07/2022 When Did You Quit Smoking? 16+yearssincelastc igarette MIGRATION.13582 97843 Information not available 06/07/2022 Where Do You Live? [facility] MIGRATION.16245 06316 Information not available 06/07/2022 Are You Able To Care For Yourself? Yes [email or web address] Information not available 01/19/2023 Are You Blind Or Do Yo Have Difficulty Seeing? No [email or web address] Information not available 01/19/2023 Are You Deaf Or Do You Have Serious Difficulty Hearing? No [email or web address] Information not available 01/19/2023 Live Alone Of With Others? With Others [email or web address] Information not available 01/19/2023 Do You Have A Medical Power Of Maritime Pilot? Yes [email or web address] Information not available 01/19/2023 What Was The Date Of Your Most Recent Tobacco Screening? 01/29/2024 [email or web address] Information not available 01/29/2024 Do You Have Any Pets? Yes [email or web address] Information not available 01/29/2024 What Is Your Relationship Status? MIGRATION.14667 38708 Information not available 06/07/2022 Do You Use Your Seat Belt Or Car Seat Routinely? Yes [email or web address] Information not available 01/19/2023 Do You Have Smoke And Carbon Monoxide Detectors In Your Home? Yes MIGRATION.03126 09435 Information not available 06/07/2022 Are You Passively Exposed To Smoke? No [email or web address] Information not available 01/19/2023 Are There Any Smokers In Your House? No [email or web address] Information not available 01/19/2023 Do You Use Sunscreen Routinely? Yes MIGRATION.88280 18949 Information not available 06/07/2022 Sex: Unknown Functional Status Question Answer Note LastModified by Organizat ion Details LastModified Time Do you have difficulty walking or climbing stairs? Yes MIGRATION.82736 03529 Information not available 06/07/2022 Do you have transportation difficulties? No MIGRATION.40938 90213 Information not available 06/07/2022 Are you able to walk? YESASSIST holds on to mandujano & furniture Information not available 01/19/2023 Do you have difficulty doing errands alone? No [email or web address] Information not available 01/29/2024 Are you able to care for yourself? Yes MIGRATION.05915 40725 Information not available 06/07/2022 Do you have difficulty dressing or bathing? No [email or web address] Information not available 01/29/2024 What is your exercise level? None [email or web address] Information not available 01/19/2023 Mental Status Question Answer Note LastModified by Organizat ion Details LastModified Time Do you have difficulty concentrating, remembering or making decisions? Yes [id number] 6 Information not available 06/07/2022 Family History [...] EAR OR HEARING PROBLEMS N MUMPS N BOWEL PROBLEMS N DEPRESSION (INCLUDING POST ) N STROKE/TIA N ULCERS N BENIGN PROSTATIC HYPERPLASIA N MEASLES N MYOCARDIAL INFARCTION N OBESITY N GERD/NAUSEA Y ANEURYSM N URINARY/BLADDER/KIDNEY PROBLEMS N CORONARY ARTERY DISEASE (CAD) N ADDICTION CONCERNS N ENDOMETRIOSIS N Impotence N USE OF BLOOD THINNERS N SKIN [...] APNEA N CHICKENPOX N INFECTIOUS DISEASE N HEART ARRHYTHMIA N PROSTATE N INSOMNIA N HIGH CHOLESTEROL / HYPERLIPIDEMIA Y HYPERTHYROIDISM N EYE PROBLEMS N NEUROLOGICAL PROBLEMS Y EDEMA N CHRONIC PAIN SYNDROME Y HYPOTHYROIDISM N CAROTID BLOCKAGE N CONSTIPATION N BACK / NECK PROBLEMS Y HAVE YOU BEEN HOSPITALIZED OR SEEN IN [facility] IN THE PAST YEAR ? N ATHEROSCLEROSIS N BREAST PROBLEMS N DIALYSIS N ECZEMA N OSTEOPOROSIS N ARTHRITIS N NO SIGNIFICANT PAST MEDICAL HISTORY N APPENDICITIS N DIABETES, TYPE N BAD TEETH N ENT N HEARTBURN / REFLUX N AUTISM SPECTRUM DISORDER (ASD) N HEPATITIS / LIVER DISEASE N GOUT N SLEEP DISORDER N ALZHEIMER'S DISEASE N Brain Problems N HERPES N DEMENTIA N HEADACHES/MIGRAINES N SEIZURES/EPILEPSY N VASCULAR DISEASE N PACEMAKER N Blood Disorder N DIZZINESS N HEART DISEASE/HEART PROBLEMS N KIDNEY DISEASE N MULTIPLE SCLEROSIS N CARDIAC ARRHYTHMIA N CANCER: SPECIFY N ATRIAL FIBRILLATION N Gall Stones N [...] PF 4 completed Rashida Quiñones MD [address] [facility] [facility] [address], [place], [address], [facility] 01/29/2024 16:09:11 influenza, unspecified formulation 2 completed Not Available [facility] 06/07/2022 15:28:29 COVID-19, mRNA, LNP-S, PF, 30 mcg/0.3 mL dose 1 completed Not Available [facility] 06/07/2022 15:28:30 Influenza, split virus, quadrivalent, preservative 1 completed Not Available [facility] 06/07/2022 15:28:30 SARS-COV-2 (COVID-19) vaccine, UNSPECIFIED 1 completed Not Available [facility] 06/07/2022 15:28:30 SARS-COV-2 (COVID-19) vaccine, UNSPECIFIED 1 completed Not Available [facility] 06/07/2022 15:28:30 pneumococcal polysaccharide PPV23 2 completed Not Available [facility] 06/07/2022 15:28:30 Pneumococcal conjugate PCV 13 6 completed Not Available [facility] 06/07/2022 15:28:30 Past Encounters Encounter ID Performer Location Encounter Start Date Encounter Closed Date Diagnosis/Indication Diagnosis SNOMED-CT Code Diagnosis ICD10 Code Diagnosis Note [id number] [facility] [place] [address] [place] [id number] 06/25/2020 00:00:00 06/25/2020 16:26:20 [id number] [facility] [place] [address] [place] [id number] 10/29/2020 00:00:00 10/29/2020 15:55:13 [id number] [facility] [place] [address] [place] [id number] 01/04/2021 00:00:00 01/04/2021 15:14:06 [id number] [facility] [place] [address] [place] [id number] 02/25/2021 00:00:00 07/01/2021 15:42:13 [id number] [facility] [place] [address] [place] [address] y , [place] [id number] 07/01/2021 00:00:00 07/01/2021 16:00:37 [id number] [facility] [place] [address] [place] [address] y , [place] [id number] 07/26/2021 00:00:00 07/26/2021 15:48:52 [id number] [facility] [place] [address] [place] [address] y , [place] [id number] 11/04/2021 00:00:00 11/04/2021 16:21:55 [id number] [facility] [place] [address] [place] [address] y , [place] [id number] 03/17/2022 00:00:00 03/17/2022 16:02:38 [id number] Rashida Quiñones MD [facility] [place] [address] [place] [address] y , [place] [id number] 07/21/2022 15:17:54 07/21/2022 16:11:30 Essential hypertension 85678678 I10 Pure hypercholesterolemia 696529895 E78.00 Minimal co gnitive impairment 032316654 G31.84 CVA - cere brovascular accident due to cerebral artery occlusion 717026591 I63.50 [id number] Rashida Quiñones MD [facility] [place] [address] [place] [address] y , [place] [id number] 01/19/2023 15:15:21 01/19/2023 16:24:50 Adult health examination 785092184 Z00.00 Screening for disorder 800560261 Z13.9 Gastroesop hageal reflux disease 918328923 K21.9 Memory impairment 905671 006 R41.3 Pure hypercholesterolemia 475678087 E78.00 Essential hypertension 11103292 I10 CVA - cere brovascular accident due to cerebral artery occlusion 616980218 I63.50 [id number] Rashida Quiñones MD [facility] [place] [address] [place] [address] [place] [id number] 07/31/2023 15:25:34 07/31/2023 15:59:13 CVA - cerebrovascular accident due to cerebral artery occlusion 839798982 I63.50 Essential hypertension 19788424 I10 Gastroesop hageal reflux disease 171135730 K21.9 Pure hypercholesterolemia 780662766 E78.00 Minimal co gnitive impairment 500917843 G31.84 Vitamin D deficiency 347 96407 E55.9 [id number] Rashida Quiñones MD [facility] [place] [address] [facility] [place] [id number] 11/06/2023 15:12:50 11/06/2023 16:40:30 Essential hypertension 61546802 I10 Pure hypercholesterolemia 493952047 E78.00 Diverticul itis of colon 717603804 K57.32 Dementia 35227163 F03.90 [id number] Rashida Quiñones MD [facility] [place] [address] [place] [address] [place] [id number] 01/29/2024 15:33:09 01/29/2024 16:21:45 Adult health examination 148129934 Z00.00 Screening for disorder 593313366 Z13.9 Essential hypertension 92471020 I10 Congestive heart failure 39880657 I50.9 Pure hypercholesterolemia 548256750 E78.00 Dementia 39032754 F03.90 Administra tion of influenza vaccine 19287923 Z23 Health Concerns Section Related Observation LastModified by Organization Detai ls LastModified Time None Recorded Concern Status LastModified by Organization Details LastModified Time None Recorded Advance Directives Directive Y: Payers Encounter Date Sequence Insurance Name Policy Number Policy Palacios Covered Member ID Palacios Member ID Guarantor Name 07/21/2022 1 [employer] (MEDICARE REPLACEMENT PPO) [id number] 1 Karla Green [id number] Karla Green 01/19/2023 1 [employer] (MEDICARE REPLACEMENT PPO) [id number] 1 Karla Green [id number] Karla Green 07/31/2023 1 [employer] (MEDICARE REPLACEMENT PPO) [id number] 1 Karla Patlandt [id number] Karla Green 11/06/2023 1 [employer] (MEDICARE REPLACEMENT PPO) [id number] 1 Karla Kayet [id number] Karla Green 01/29/2024 1 [employer] (MEDICARE REPLACEMENT PPO) [id number] 1 Karla Kayet [id number] Karla Green Notes Date Note Type Note Provider Name and Address Organization Details Recorded Time 3 text/htm l Patient Name: Karla GreenDate Of Service: Sunday ( 07.21.2022 ): 1945 [...] ASA and XareltoMedication List Reviewed and Reconciled 07/21/2022uspar 15 MG (TABLET - ORAL) One Twice [...] CrampsZocor Muscle CrampsLisinopril CoughLivalo Muscle CrampsVaccination and Ozjwrvlcnfbd6248-42 Gikqbzjel6078-69 Pneumovax 325985-04 Covid Veewxg3184-75 Prevnar 13Surgical HistoryLap Cholecystectomy, Colon Resection, AppendectomyPreventative Testing Confirmed by Our Qnaeshs1202/08/2022 DEXA SCAN (OSTEOPOROSIS FEMORAL NECK)07/11/2021 ALBUMIN 4.7 G/DL11/29/2020 MAMMOGRAM / LETTER FMOLICDPBJXHL92/04/2004 COLONOSCOPY 06/10/2013Social HistoryQuit smoking 15 years ago. Smoked up to one pack daily for 10 years. 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 One in good health. Two from CVA Rashida Quiñones MD [address] [facility], [facility] [address], [place], [address], [facility] [place] 07/21/2022 15:52:52 3 text/htm l [facility]: Sunday ( 01.19.2023 ): 1945 [...] CrampsZocor Muscle CrampsLisinopril CoughLivalo Muscle CrampsVaccination and Gbpskdpmuynj6269-62 Gmrgsxyoz4998-61 Idrnjjras9842-24 Covid Mratjc5710-61 Prevnar 13 GcSurgical HistoryLap Cholecystectomy, Colon Resection, AppendectomyPreventative Testing Confirmed by Our Vwzlyjp7102/08/2022 DEXA SCAN (OSTEOPOROSIS FEMORAL NECK)07/11/2021 ALBUMIN 4.7 G/DL N011/29/2020 MAMMOGRAM 202/ LETTER BABORLFWIPRQH45/04/2004 COLONOSCOPY 06/10/2013Social HistoryQuit smoking 15 years ago. Smoked up to one pack daily for 10 years. 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 One in good health. Two from CVA Rashida Quiñones MD [address] [facility], [facility] [address], [place], [address], [facility] 01/19/2023 16:08:07 4 text/htm l Patient Name: [facility] Of Service: Sunday ( 07.31.2023 ): 1945 [...] Muscle CrampsLisinopril CoughLivalo Muscle Cramps Vaccination and Xetxpxqwiibn8343-61 Qnpddhgit2513-25 Eefnbzlex7698-48 Covid Gktjfh9498-48 Prevnar 13 Surgical Losbtoc6350-34 Lap Pfthkrzoipryhpp6293-99 Colon Uhvwfmyro2342-01 Appendectomy Preventative Eqfupux4802/08/2022 DEXA SCAN (OSTEOPOROSIS FEMORAL NECK)07/11/2021 ALBUMIN 4.7 G/DL N011/29/2020 MAMMOGRAM VJSPRCFGAGSJY10/04/2004 COLONOSCOPY 06/10/2013 Social HistoryQuit smoking 15 years ago. Smoked up to one pack daily for 10 years. 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 One in good health. Two from CVA Rashida Quiñones MD [address] [facility], [facility] [address], [place], [address], [facility] 07/31/2023 15:56:01 4 text/htm l Patient Name: [facility] Of Service: Sunday ( 11.06.2023 ): 1945 [...] Muscle CrampsLisinopril CoughLivalo Muscle Cramps Vaccination and Gsywduvnvgvt0263-22 Qnfwtsyfy3226-52 Tkdtrlxvy5403-70 Covid Fanzpu2211-44 Prevnar 13 Gc Surgical Dkeextd4223-20 Lap Huxmyuftlosawxv6203-19 Colon Ecpmhhbhx8364-14 Appendectomy Preventative Ondhicw3202/08/2022 DEXA SCAN (OSTEOPOROSIS FEMORAL NECK)07/11/2021 ALBUMIN 4.7 G/DL N011/29/2020 MAMMOGRAM MJIRPWHIQHRVO39/04/2004 COLONOSCOPY 06/10/2013 Social HistoryQuit smoking 15 years ago. Smoked up to one pack daily for 10 years. 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 One in good health. Two from CVA Rashida Quiñones MD [address] [place] [address], [place] [address], [place], [address], [facility] 11/06/2023 15:47:57 4 text/htm l [facility] Service: Sunday ( 01.29.2024 ): 1945 [...] CoughLivalo Muscle Cramps Vaccination and Immunization( ) 2021- PNEUMOVAX( ) 2024-01 INFLUENZA( ) 2015-04 PREVNAR 13 GC(X) 2021-01 COVID [facility] Hokbeqm3776-54 Lap Gagdddfpwxrxdpe8213-49 Colon Tfzivxaot4147-64 Appendectomy Preventative Testing( ) 02/08/2022 DEXA Scan (Osteoporosis Femoral Neck)( ) 07/11/2021 Albumin 4.7 G/DL N(X) 11/29/2020 Mammogram 11/29/2022( ) 05/28/2014 Ophthalmology(X) 06/11/2003 Colonoscopy 06/10/2013 Social HistoryQuit smoking 15 years ago. Smoked up to one pack daily for 10 years. 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 Smoked up to one pack daily for 10 years. 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 One in good health. Two from CVA Rashida Quiñones MD [address] [facility], [facility] [address], [place], [address], [place] [facility] [place] 01/29/2024 16:09:16 OBGyn Episode No OBEpisode recorded.
--- OUTSIDE RECORDS SUMMARY | 2024-05-27 16:41 | XMS_ITS | Continuity of Care Document ---
Author Organization [facility] Address [address] [place] [address] Phone Care Team Providers Care Mate Ship Name Role Phone [facility] Unavailable Unavail able Taryn Betts Unavailable Unavailable Procedures Procedure Date Progressive Lens, Hi Index Frames Deluxe Lens-Index>1.66Plas;>1.80Glas 8 Anti-reflective Coating Visual Field Examination(s) Eye Exam, New Patient Refraction Advance Directives Directive Yes / No Effective Date File Name No Information Encounters Encounter Description Practice Location Reason(s) For Visit Diagnoses Date Provider Providers Copied on Encounter [facility], [address] [place] [address] [address], [place], [place], [id number], [place] tel:[phone] [facility] No Information 8 [facility]. [address] [facility], [address], [place], [address], [place]. tel:[phone] Referring Provider: Lang Cameron, [facility] [address], [address]. tel:[phone] hughes Provider: Taryn Betts, [address] [facility], [place], [address]. tel:[phone] [facility], [address] [place] [address] [address], [place], [place], [address], tel:[phone] [facility] No Information [address] Blaise Fiore. [address] [facility] [address], [place], [facility], . tel:[phone] Referring Provider: Adebayo Little, [address] [place] [address] [address], [place], [place], [facility]. tel:[phone] [facility], [address], [place], [place], [address], tel:[phone] [facility] No Information [address] Kamrannatalie Villarrealhil. [facility] [address], [place], [place], [facility], . tel:[phone] Referring Provider: Ta Quiñones, [address] [place] [address], [facility]. tel:[phone] Family History Family Member Type Diagnosis Age At Onset No Information Payers Payer name Insurance type Covered alliance party ID Authorjennifermeng tevinmyrna(s) [employer] Plan CI [id number] Social History Type Description Quantity Date Captured [...]
--- OUTSIDE RECORDS SUMMARY | 2024-05-27 16:41 | XMS_ITS | Clinical Summary ---
Author Organization [facility] [address] Address [address] [place] [address] Care Team Providers Care Catheter Finisher And Inspector Name Role Phone Ta Quiñones MD [...] cholesterol CHF (congestive heart failur e) (CMS/HCC) ([facility]) Family History Medical History Relation [...] on file Legal Sex Female 1:58 AM HAND SCRAPER Gender Identity Female 08/15/2019 2:25 PM CDT Sexual Orientation Not on file Obstetrics History Last Filed Vital Signs Vital Sign Reading Time Taken Comments Blood Pressure 128/72 01/22/2024 3:09 PM CDT Pulse 70 01/22/2024 3:09 PM CDT Temperature 36.5 C (97.7 F) 02/20/2022 7:29 AM HAND SCRAPER Respiratory Rate 18 02/20/2022 7:29 AM HAND SCRAPER Oxygen Saturation 99% 01/22/2024 3:09 PM CDT [...] Advance Directives For more information, please contact: [phone] * Full Code (Latest Code Status on File) Date Activated Date Inactivated Comments 02/12/2022 3:23 PM 02/20/2022 3:27 PM * Full Code Date Activated Date Inactivated Comments 02/12/2022 12:36 PM 02/12/2022 3:23 PM Care Teams Catheter Finisher And Inspector Relationship Specialty Start Date End Date Ta Quiñones MD PCP - General 07/07/16
--- OUTSIDE RECORDS SUMMARY | 2024-05-27 16:41 | XMS_ITS | Referral Summary ---
Author Organization [facility] [address] Address [address] [place] [address] Care Team Providers Care Drug And Alcohol Counsellor Name Role Phone Ta Quiñones MD Primary [...] on file Legal Sex Female 1:58 AM RESERVATION CLERK Gender Identity Female 08/15/2019 2:25 PM CDT Sexual Orientation Not on file Last Filed Vital Signs Vital Sign Reading Time Taken Comments Blood Pressure 128/72 01/22/2024 3:09 PM CDT Pulse 70 01/22/2024 3:09 PM CDT Temperature 36.5 C (97.7 F) 02/20/2022 7:29 AM RESERVATION CLERK Respiratory Rate 18 02/20/2022 7:29 AM RESERVATION CLERK Oxygen Saturation 99% 01/22/2024 3:09 PM CDT Inhaled Oxygen Concentration - - Weight 82.1 kg (181 lb) 01/22/2024 3:09 PM CDT Height 170.2 cm (5' 7 ) 01/22/2024 3:09 PM CDT Body Mass Index 28.35 01/22/2024 3:09 PM CDT Plan of Treatment Not on file Insurance AETNA MEDICARE AETNA MEDICARE Advance Directives For more information, please contact: [phone] * Full Code (Latest Code Status on File) Date Activated Date Inactivated Comments 02/12/2022 3:23 PM 02/20/2022 3:27 PM * Full Code Date Activated Date Inactivated Comments 02/12/2022 12:36 PM 02/12/2022 3:23 PM Care Teams Drug And Alcohol Counsellor Relationship Specialty Start Date End Date Ta Quiñones MD PCP - General 07/07/16
--- OUTSIDE RECORDS SUMMARY | 2024-05-27 16:41 | XMS_ITS | Clinical Summary ---
Author Organization [facility] Address [address] [place] [address] Attn: Epic Prelude ADT [place] [address] Care Team Providers Care Restaurant Line Server Name Role Phone Unavailable Primary Care Provider [...]
--- OUTSIDE RECORDS SUMMARY | 2024-05-27 16:41 | XMS_ITS | Patient Health Summary ---
Author Organization [facility] Address [address] [place] [address] Care Team Providers Care Scientific Glass Blower Name Role Phone Ta Quiñones MD Primary Care Provider [phone] Note from [facility],non-owned Affiliates and Associated Physician Practices is amultiple site organization consisting of ambulatory clinics and hospital sitesin [place], [place], [place] and [place]. This disclosure is being madepursuant to the Care Everywhere program and may not contain all information available regarding this patient. Last updated 17.[facility] Allergies * Jv Inhibitors(Swelling) Medications * [...] Comments Blood Pressure 160/94 05/21/2013 1:45 PM LABORER ADJUSTABLE STEEL JOIST Pulse 106 05/21/2013 1:45 PM LABORER ADJUSTABLE STEEL JOIST Temperature 36.4 C (97.5 F) 05/21/2013 1:20 PM LABORER ADJUSTABLE STEEL JOIST Respiratory Rate 13 05/21/2013 1:45 PM LABORER ADJUSTABLE STEEL JOIST Oxygen Saturation 99% 05/21/2013 1:45 PM LABORER ADJUSTABLE STEEL JOIST Inhaled Oxygen Concentration - - Weight 72.6 kg (160 lb) 05/21/2013 1:20 PM LABORER ADJUSTABLE STEEL JOIST Height 167.6 cm (5' 6 ) 05/21/2013 1:20 PM LABORER ADJUSTABLE STEEL JOIST Body Mass Index 25.82 05/21/2013 1:20 PM LABORER ADJUSTABLE STEEL JOIST Procedures * PAIN MANAGEMENT PROCEDURE TIME(Performed 05/21/2013) Performed for Pain * PAIN MANAGEMENT PROCEDURE TIME(Performed 04/30/2013) Performed for Pain * PAIN MANAGEMENT PROCEDURE TIME(Performed 03/18/2013) Performed for Pain * PAIN MANAGEMENT PROCEDURE TIME(Performed 02/12/2013) Performed for Pain * PAIN MANAGEMENT PROCEDURE TIME(Performed 01/27/2013) Performed for Pain Results * PAIN MANAGEMENT PROCEDURE TIME (05/21/2013 1:54 PM LABORER ADJUSTABLE STEEL JOIST) Only the most recent of5 resultswithin the time period is included. Anatomical Region Laterality Modality Radio Fluoroscop y Narrative 05/21/2013 4:40 PM LABORER ADJUSTABLE STEEL JOIST Didier Brody MD 05/21/2013 4:40 PM Bilateral [...] on how to reach the clinic or implementation consultant physician at anytime for questions or complaints. [...] on how to reach the clinic or implementation consultant physician at anytimefor questions or complaints. I was present , directed, and participated in this evaluation /procedure. I agree with diagnosis and treatment as stated above. Didier Brody MD 05/21/20134:40 PM Didier Brody MD [facility] Care Teams Scientific Glass Blower Relationship Specialty Start Date End Date Ta Quiñones MD [facility] [address] [place] [address] PCP - General Internal Medicine 02/12/13
--- OUTSIDE RECORDS SUMMARY | 2024-05-27 16:41 | XMS_ITS | Referral Summary ---
Author Organization [facility] Address [facility] [place] [address] Care Team Providers Care Bearing Maker Name Role Phone Ta Quiñones MD Primary Care Provider [phone] Source Comments [facility],non-owned Affiliates and Associated Physician Practices is amultiple site organization consisting of ambulatory clinics and hospital sitesin [place], [place], [place] and [place]. This disclosure is being madepursuant to the Care Everywhere program and may not contain all information available regarding this patient. Last updated 17.[employer] [facility] Allergies Active Allergy Reactions Criticality Noted Date [...] Comments Blood Pressure 160/94 05/21/2013 1:45 PM ALLERGIST IMMUNOLOGIST Pulse 106 05/21/2013 1:45 PM ALLERGIST IMMUNOLOGIST Temperature 36.4 C (97.5 F) 05/21/2013 1:20 PM ALLERGIST IMMUNOLOGIST Respiratory Rate 13 05/21/2013 1:45 PM ALLERGIST IMMUNOLOGIST Oxygen Saturation 99% 05/21/2013 1:45 PM ALLERGIST IMMUNOLOGIST Inhaled Oxygen Concentration - - Weight 72.6 kg (160 lb) 05/21/2013 1:20 PM ALLERGIST IMMUNOLOGIST Height 167.6 cm (5' 6 ) 05/21/2013 1:20 PM ALLERGIST IMMUNOLOGIST Body Mass Index 25.82 05/21/2013 1:20 PM ALLERGIST IMMUNOLOGIST Plan of Treatment Not on file Insurance Payer Benefit Plan / Group Subscriber ID Effect yesy Dates Phone Address Type [facility] MANAGED MEDICARE ADV [facility] PFFS [id number] 05/10/2013-Pres [place] [address] [address] [place] [address] Medicare -Managed Care Care Teams Bearing Maker Relationship Specialty Start Date End Date Ta Quiñones MD [address] [place] [address] [address] [place] [address] PCP - General Internal Medicine 02/12/13
[2024-05-27 16:42] VITALS: BP 174/76; PULSE 75; RESP 16; TEMP 36.4; O2SAT 100
[2024-05-27 17:30] VITALS: BP 155/77; PULSE 75; RESP 18; TEMP 36.4; O2SAT 99
--- NOTE | 2024-05-27 18:00 | ED.GENADULT ---
HPI - General Adult General Chief complaint: Unspecified Stated complaint: rectal pain Time Seen by Provider: 05/27/24 17:25 Source: patient Mode of arrival: ambulatory Limitations: no limitations History of Present Illness HPI narrative: Patient is a 78 y/o female with PMH of dementia, fibromyalgia, HTN, TIA, who presents to the ED with c/o rectal pain. Patient was seen in the ED here on 05/[address] scan of the abdomen performed which showed moderate stool burden with rectal stool ball. Enema was offered, however patient declined at that time. Patient was given prescriptions for Colace and MiraLax. Has been taking these as prescribed and has had a few small bowel movements. reports patient has been complaining of pain and burning to her rectum since yesterday. Brought back for further evaluation. Has not taken anything for pain. History of hemorrhoids, has not tried anything for this. Denies abdominal pain, nausea, vomiting, fevers, rectal bleeding, difficulty urinating. Related Data Home Medications ?Medication ?Instructions ?Recorded ?Confirmed ?Last Taken ?Type buspirone 15 mg tablet 15 mg PO BID 12/24/21 05/27/24 05/27/24 History amlodipine 10 mg tablet 5 mg PO QAM 12/07/23 05/27/24 05/27/24 History bimatoprost 0.01 % eye drops 1 drp EACH EYE QHS 12/07/23 05/27/24 05/27/24 History (Krystal) brexpiprazole 0.5 mg tablet 1 mg PO DAILY 12/07/23 05/27/24 05/27/24 History (Chacha) aspirin 81 mg tablet,delayed 81 mg PO DAILY 05/27/24 05/27/24 05/26/24 History release (Adult Aspirin Regimen) furosemide 40 mg tablet 20 mg PO DAILY 05/27/24 05/27/24 05/27/24 History Allergies Allergy/AdvReac Type Severity Reaction Status Date / Time No Known Allergies Allergy Verified 05/27/24 17:31 Review of Systems Review of Systems: All systems reviewed & are unremarkable except as noted in HPI. All systems reviewed & are unremarkable except as noted in HPI and below PMFSH Past Medical History Medical History Chronic hyponatremia Glaucoma Bilateral eyes Peripheral neuropathy GERD (gastroesophageal reflux disease) Migraines Closed fracture of right hip CHF (congestive heart failure) Echocardiogram 2019 EF 55-60%, moderate concentric left ventricular increased wall thickness, grade 1 diastolic dysfunction History of blood transfusion Shingles Anemia Anxiety Fibromyalgia Arthritis UTI (urinary tract infection) Ulcer Diverticulitis Diverticulosis HLD (hyperlipidemia) TIA (transient ischemic attack) Kidney stones Spinal stenosis Dementia Chronic back pain Cerebrovascular accident Residual aphasia and right-sided weakness. Dyslipidemia Hypertension Surgical History Surgical History History of cardiac catheterization cardiac catheterization done in November [address] Cameron. No significant coronary artery disease was noted, with preserved left ventricular systolic function ejection fraction of 60 to 65%. Some tortuosity and minor luminal irregularities were noted. Left ventricular end-diastolic pressure was elevated 27 millimeters of mercury. History of cholecystectomy H/O cardiac catheterization History of open reduction and internal fixation (ORIF) procedure (02/2020) Pinning right femoral neck fracture. History of appendectomy At age 18 Family History Family History Mother Parkinsons disease Hypertension Dementia Father Cerebrovascular accident Congestive heart failure Sibling Acute myocardial infarction Mother Parkinsons disease Dementia Hypertension Father Congestive heart failure Cerebrovascular accident Sibling Acute myocardial infarction Social History Social History Social History: Surrogate medical decision maker: Jovani Kayeanika, spouse. Code status: Full code. Smoking packs per day: 0.5 Smoking cigarettes per day: 10.0 Years smoked: 10 Smoking pack-years: 5.00 Smoking status: Former smoker Tobacco type: cigarettes Second hand tobacco smoke exposure: No Smoking end date: 04/09/84 Alcohol intake: never Substance use: never Substance use type: does not use Do You Feel Safe in your Home?: Yes Lack of Transportation: No Lack of Food: Never True Current Housing: I Have Housing Concerned About Future Housing: No Difficulty Paying Gas/Electric Bills: No Difficulty Paying for Meds: No Currently Unemployed: No Education: Master's Degree or Higher Difficulty w/ Childcare or Family Care: No Living arrangements: with family Additional living arrangements comments: Lives with spouse. 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 Gender identity (if verbalized by the patient): Female Spiritual care concerns: No Agree to blood products: Yes Exam Narrative: GENERAL: Well appearing, well-nourished, non-toxic, in no acute distress. HEAD: Normocephalic, atraumatic. RESPIRATORY: Airway patent, respirations nonlabored. Clear to auscultation bilaterally, no rales, rhonchi, wheezing. CARDIOVASCULAR: Regular rate and rhythm without murmurs, rubs, or gallops. ABDOMINAL: Soft, no tenderness throughout abdomen, nondistended. Normoactive BS. RECTUM: Anus is stretched and dilated by firm stool ball. Focal TTP. Some external hemorrhoids, no evidence of thrombosis. MUSCULOSKELETAL: Moves all extremities. No gross deformities. SKIN: Warm, dry, normal color. NEURO: Alert, intermittently confused. Speech clear. No ataxic movements. PSYCHIATRIC: Appropriate mood and affect. Normal interaction. Course Vital Signs Vital signs: Vital Signs Temperature 97.5 F L 05/27/24 16:42 Pulse Rate 75 05/27/24 16:42 Respiratory Rate 16 05/27/24 16:42 Blood Pressure 174/76 H 05/27/24 16:42 Pulse Oximetry 100 05/27/24 16:42 Oxygen Delivery Room Air 05/27/24 16:42 Temperature 97.5 F L 05/27/24 17:30 Pulse Rate 75 05/27/24 17:30 Respiratory Rate 18 05/27/24 17:30 Blood Pressure 155/77 H 05/27/24 17:30 Pulse Oximetry 99 05/27/24 17:30 Oxygen Delivery Room Air 05/27/24 16:42 Medical Decision Making [facility] Narrative Medical decision making narrative: Patient presented to ED with rectal pain/burning, recent constipation. Has been taking MiraLax Colace without improvement. Vital signs are stable upon arrival. Patient is in no acute distress. No evidence of surgical abdomen on exam. Imaging reviewed from 05/25 showing moderate volume stool burden with stool ball. KUB obtained today and still showing fecal impaction, moderate stool burden. No free air or obstruction. Exam consistent with fecal impaction. Some external hemorrhoids but no evidence of thrombosis. Digital disimpaction performed at bedside by myself with ED nurse and watch repair technician present as button maker and installer. Patient tolerated this well. Feeling much better. She states she is ready to go home at this time. Discussed continued constipation management. Recommended f/u with pcp for further evaluation. Given strict return precautions. D/C in stable condition. Differential Diagnosis Differential Diagnosis: Rectal pain, anal fissure, hemorrhoids, constipation, bowel obstruction, bowel perforation Medical Records Medical records reviewed: Yes I reviewed the external patient's medical records. Vital Signs Vital Signs: Vital Signs Temperature 97.5 F L 05/27/24 16:42 Pulse Rate 75 05/27/24 16:42 Respiratory Rate 16 05/27/24 16:42 Blood Pressure 174/76 H 05/27/24 16:42 Pulse Oximetry 100 05/27/24 16:42 Oxygen Delivery Room Air 05/27/24 16:42 Temperature 97.5 F L 05/27/24 17:30 Pulse Rate 75 05/27/24 17:30 Respiratory Rate 18 05/27/24 17:30 Blood Pressure 155/77 H 05/27/24 17:30 Pulse Oximetry 99 05/27/24 17:30 Oxygen Delivery Room Air 05/27/24 16:42 Imaging Data Attestation: I personally reviewed and interpreted this imaging study as follows: Radiologist's impression: ITS Impressions Abdomen X-Ray 05/27/24 19:01 IMPRESSION: Moderate volume of colonic feces. Possible fecal impaction. Discharge Plan Discharge Clinical Impression: Fecal impaction Constipation Qualifiers: Constipation type: unspecified constipation type Qualified Code(s): K59.00 - Constipation, unspecified Patient Disposition: Home, Self-Care Condition: Stable Instructions: Antibiotic Form, Constipation (ED), High Fiber Diet (ED) Additional Instructions: Continue MiraLax and Colace for constipation. You may take MiraLax twice daily. Stay well hydrated. You may use [id number] hydrocortisone cream for hemorrhoids as needed. Follow-up with your primary care doctor for further evaluation. Return to the ED if you experience worsening or severe pain, abdominal pain, unable to keep down food or drink, fevers, rectal bleeding, or any other symptoms of concern. Patient Language: Nicaraguan Prescriptions: No Action Lumigan 0.01 % drops 1 drp EACH EYE QHS Rexulti 0.5 mg tablet 1 mg PO DAILY amlodipine 10 mg tablet 5 mg PO QAM docusate sodium [Colace] 100 mg capsule 100 mg PO BID Qty: 30 0RF polyethylene glycol 3350 [Miralax] 17 gram/dose powder 17 g PO BID Qty: 119 0RF aspirin [Adult Aspirin Regimen] 81 mg tablet,delayed release (DR/EC) 81 mg PO DAILY furosemide 40 mg Tablet 20 mg PO DAILY buspirone 15 mg tablet 15 mg PO BID Xarelto 20 mg tablet 20 mg PO DAILY Qty: 30 0RF Rx Instructions: must administer with evening meal carvedilol [Coreg] 12.5 mg Tablet 25 mg PO Q12HR Qty: 60 0RF pravastatin 20 mg Tablet 40 mg PO DAILY Qty: 30 0RF losartan 100 mg Tablet 100 mg PO DAILY Qty: 30 0RF Follow-up/Referrals: Ishmael,Ta Andrade MD [Primary Care Provider] - Time of Disposition: 19:41
--- OUTSIDE RECORDS SUMMARY | 2024-05-27 18:16 | XMS_ITS | Continuity of Care Document ---
Author Organization [facility] Address [address] [place] [address] Phone Care Team Providers Care Marketing And Outreach Coordinator Name Role Phone [facility] Unavailable Unavail able Taryn Betts Unavailable Unavailable Procedures Procedure Date Progressive Lens, Hi Index Frames Deluxe Lens-Index>1.66Plas;>1.80Glas 8 Anti-reflective Coating Visual Field Examination(s) Eye Exam, New Patient Refraction Advance Directives Directive Yes / No Effective Date File Name No Information Encounters Encounter Description Practice Location Reason(s) For Visit Diagnoses Date Provider Providers Copied on Encounter [facility], [address] [place] [address] [address], [place], [place], [id number], [place] tel:[phone] [facility] No Information 8 [facility]. [address] [facility] [address], [address], [place], [id number], [place]. tel:[phone] Referring Provider: Lang Cameron, [facility] [address], [address]. tel:[phone] hughes Provider: Taryn Betts, [address] [facility], [place], [address]. tel:[phone] [facility], [address] [place] [address] [address], [place], [place], [id number], tel:[phone] [facility] No Information [address]. [address], [address], [place], [facility], . tel:[phone] Referring Provider: Adebayo Little, [address] [place] [address] [address], [place], [place], [facility]. tel:[phone] [facility], [address], [place], [place], [address], tel:[phone] [facility] No Information [address]. [facility], [place], [place], [facility], . tel:[phone] Referring Provider: Ta Quiñones, [address] [place] [address], [facility]. tel:[phone] Family History Family Member Type Diagnosis Age At Onset No Information Payers Payer name Insurance type Covered alliance party ID Authorjennifermeng tevinmyrna(s) [employer] Vision Plan CI [id number] Social History Type Description Quantity Date Captured [...]
--- OUTSIDE RECORDS SUMMARY | 2024-05-27 18:16 | XMS_ITS | Patient Health Summary ---
Author Organization [facility] Address [address] [place] [address] Care Team Providers Care Joint Finisher Name Role Phone Ta Quiñones MD Primary Care Provider [phone] Note from [facility],non-owned Affiliates and Associated Physician Practices is amultiple site organization consisting of ambulatory clinics and hospital sitesin [place], [place], [place] and [place]. This disclosure is being madepursuant to the Care Everywhere program and may not contain all information available regarding this patient. Last updated 17.[facility] Allergies * Jv Inhibitors(Swelling) Medications * Be [...] Comments Blood Pressure 160/94 05/21/2013 1:45 PM TRUCK BODY BUILDER APPRENTICE Pulse 106 05/21/2013 1:45 PM TRUCK BODY BUILDER APPRENTICE Temperature 36.4 C (97.5 F) 05/21/2013 1:20 PM TRUCK BODY BUILDER APPRENTICE Respiratory Rate 13 05/21/2013 1:45 PM TRUCK BODY BUILDER APPRENTICE Oxygen Saturation 99% 05/21/2013 1:45 PM TRUCK BODY BUILDER APPRENTICE Inhaled Oxygen Concentration - - Weight 72.6 kg (160 lb) 05/21/2013 1:20 PM TRUCK BODY BUILDER APPRENTICE Height 167.6 cm (5' 6 ) 05/21/2013 1:20 PM TRUCK BODY BUILDER APPRENTICE Body Mass Index 25.82 05/21/2013 1:20 PM TRUCK BODY BUILDER APPRENTICE Procedures * PAIN MANAGEMENT PROCEDURE TIME(Performed 05/21/2013) Performed for Pain * PAIN MANAGEMENT PROCEDURE TIME(Performed 04/30/2013) Performed for Pain * PAIN MANAGEMENT PROCEDURE TIME(Performed 03/18/2013) Performed for Pain * PAIN MANAGEMENT PROCEDURE TIME(Performed 02/12/2013) Performed for Pain * PAIN MANAGEMENT PROCEDURE TIME(Performed 01/27/2013) Performed for Pain Results * PAIN MANAGEMENT PROCEDURE TIME (05/21/2013 1:54 PM TRUCK BODY BUILDER APPRENTICE) Only the most recent of5 resultswithin the time period is included. Anatomical Region Laterality Modality Radio Fluoroscop y Narrative 05/21/2013 4:40 PM TRUCK BODY BUILDER APPRENTICE Didier Brody MD 05/21/2013 4:40 PM Bilateral [...] on how to reach the clinic or consumer science teacher physician at anytime for questions or complaints. [...] on how to reach the clinic or consumer science teacher physician at anytimefor questions or complaints. I was present , directed, and participated in this evaluation /procedure. I agree with diagnosis and treatment as stated above. Didier Brody MD 05/21/20134:40 PM Didier Brody MD [facility]NOSTIC IM[facility] Care Teams Joint Finisher Relationship Specialty Start Date End Date Ta Quiñones MD [facility] [place] [address] PCP - General Internal Medicine 02/12/13
--- OUTSIDE RECORDS SUMMARY | 2024-05-27 18:16 | XMS_ITS | Clinical Summary ---
Author Organization [facility] [address] Address [address] [place] [address] Care Team Providers Care Wash Helper Name Role Phone Ta Quiñones MD Primary [...] cholesterol CHF (congestive heart failur e) (CMS/HCC) ([facility]) Family History Medical History Relation Name Comments [...] on file Legal Sex Female 1:58 AM ASSOCIATE DEAN OF STUDENTS Gender Identity Female 08/15/2019 2:25 PM CDT Sexual Orientation Not on file Obstetrics History Last Filed Vital Signs Vital Sign Reading Time Taken Comments Blood Pressure 128/72 01/22/2024 3:09 PM CDT Pulse 70 01/22/2024 3:09 PM CDT Temperature 36.5 C (97.7 F) 02/20/2022 7:29 AM ASSOCIATE DEAN OF STUDENTS Respiratory Rate 18 02/20/2022 7:29 AM ASSOCIATE DEAN OF STUDENTS Oxygen Saturation 99% 01/22/2024 3:09 PM CDT [...] Advance Directives For more information, please contact: [phone] * Full Code (Latest Code Status on File) Date Activated Date Inactivated Comments 02/12/2022 3:23 PM 02/20/2022 3:27 PM * Full Code Date Activated Date Inactivated Comments 02/12/2022 12:36 PM 02/12/2022 3:23 PM Care Teams Wash Helper Relationship Specialty Start Date End Date Ta Quiñones MD PCP - General 07/07/16
--- OUTSIDE RECORDS SUMMARY | 2024-05-27 18:16 | XMS_ITS | Clinical Summary ---
Author Organization [facility] Address [address] [place] [address] Attn: Epic Prelude ADT [place] [address] Care Team Providers Care Electric Cutter Operator Name Role Phone Unavailable Primary Care [...]
--- OUTSIDE RECORDS SUMMARY | 2024-05-27 18:16 | XMS_ITS | Clinical Summary ---
Author Organization [facility] Address [facility] [address] Care Team Providers Care Ict Business Development Manager Name Role Phone Ta Quiñones MD Primary Care Provider [phone] Source Comments uMentioned [facility],non-owned Affiliates and Associated Physician Practices is amultiple site organization consisting of ambulatory clinics and hospital sitesin [place], [place], [place] and [place]. This disclosure is being madepursuant to the Care Everywhere program and may not contain all information available regarding this patient. Last updated 17.[facility] Allergies Active Allergy Reactions Criticality Noted Date [...] Comments Blood Pressure 160/94 05/21/2013 1:45 PM SHRIMP PEELER Pulse 106 05/21/2013 1:45 PM SHRIMP PEELER Temperature 36.4 C (97.5 F) 05/21/2013 1:20 PM SHRIMP PEELER Respiratory Rate 13 05/21/2013 1:45 PM SHRIMP PEELER Oxygen Saturation 99% 05/21/2013 1:45 PM SHRIMP PEELER Inhaled Oxygen Concentration - - Weight 72.6 kg (160 lb) 05/21/2013 1:20 PM SHRIMP PEELER Height 167.6 cm (5' 6 ) 05/21/2013 1:20 PM SHRIMP PEELER Body Mass Index 25.82 05/21/2013 1:20 PM SHRIMP PEELER Plan of Treatment Health Maintenance Due Date [...] ID Effect yesy Dates Phone Address Type [facility] MEDICARE ADV [employer] MEDICARE SOLUTIONS PFFS [id number] 05/10/2013-Pres ent [address] [address] [place] [address] Medicare -Managed Care Care Teams Ict Business Development Manager Relationship Specialty Start Date End Date Ta Quiñones MD [address] [place] [address] PCP - General Internal Medicine 02/12/13
--- OUTSIDE RECORDS SUMMARY | 2024-05-27 18:16 | XMS_ITS | Referral Summary ---
Author Organization [facility] Address [facility] [facility] [place] [address] Care Team Providers Care Glass Sander Belt Name Role Phone Ta Quiñones MD Primary Care Provider [phone] Source Comments [facility],non-owned Affiliates and Associated Physician Practices is amultiple site organization consisting of ambulatory clinics and hospital sitesin [place], [place], [place] and [place]. This disclosure is being madepursuant to the Care Everywhere program and may not contain all information available regarding this patient. Last updated 17.[employer] [facility] Allergies Active Allergy Reactions Criticality Noted Date [...] Comments Blood Pressure 160/94 05/21/2013 1:45 PM INHALATION THERAPY AIDE Pulse 106 05/21/2013 1:45 PM INHALATION THERAPY AIDE Temperature 36.4 C (97.5 F) 05/21/2013 1:20 PM INHALATION THERAPY AIDE Respiratory Rate 13 05/21/2013 1:45 PM INHALATION THERAPY AIDE Oxygen Saturation 99% 05/21/2013 1:45 PM INHALATION THERAPY AIDE Inhaled Oxygen Concentration - - Weight 72.6 kg (160 lb) 05/21/2013 1:20 PM INHALATION THERAPY AIDE Height 167.6 cm (5' 6 ) 05/21/2013 1:20 PM INHALATION THERAPY AIDE Body Mass Index 25.82 05/21/2013 1:20 PM INHALATION THERAPY AIDE Plan of Treatment Not on file Insurance Payer Benefit Plan / Group Subscriber ID Effect yesy Dates Phone Address Type [facility]ED MEDICARE [facility]V [facility] SOLUT[facility] PFFS [id number] 05/10/2013-Pres ent [address] [address] [place] [address] Medicare -Managed Care Care Teams Glass Sander Belt Relationship Specialty Start Date End Date Ta Quiñones MD [address] [place] [address] [address] [place] [address] PCP - General Internal Medicine 02/12/13
--- OUTSIDE RECORDS SUMMARY | 2024-05-27 18:16 | XMS_ITS | Referral Summary ---
Author Organization [facility] [address] Address [address] [place] [address] Care Team Providers Care Rainbow Trout Farm Manager Name Role Phone Ta Quiñones MD [...] on file Legal Sex Female 1:58 AM OPERATING COST CLERK Gender Identity Female 08/15/2019 2:25 PM CDT Sexual Orientation Not on file Last Filed Vital Signs Vital Sign Reading Time Taken Comments Blood Pressure 128/72 01/22/2024 3:09 PM CDT Pulse 70 01/22/2024 3:09 PM CDT Temperature 36.5 C (97.7 F) 02/20/2022 7:29 AM OPERATING COST CLERK Respiratory Rate 18 02/20/2022 7:29 AM OPERATING COST CLERK Oxygen Saturation 99% 01/22/2024 3:09 PM CDT Inhaled Oxygen Concentration - - Weight 82.1 kg (181 lb) 01/22/2024 3:09 PM CDT Height 170.2 cm (5' 7 ) 01/22/2024 3:09 PM CDT Body Mass Index 28.35 01/22/2024 3:09 PM CDT Plan of Treatment Not on file Insurance [employer] MEDICARE AETNA MEDICARE Advance Directives For more information, please contact: [phone] * Full Code (Latest Code Status on File) Date Activated Date Inactivated Comments 02/12/2022 3:23 PM 02/20/2022 3:27 PM * Full Code Date Activated Date Inactivated Comments 02/12/2022 12:36 PM 02/12/2022 3:23 PM Care Teams Rainbow Trout Farm Manager Relationship Specialty Start Date End Date Ta Quiñones MD PCP - General 07/07/16
[2024-05-27] MEDS: ACETAMINOPHEN 500 MG TABLET 1000 MG PO (18:42)
== END 2024-05-27 19:45 | disposition home or self-care (01) ==
PROVIDERS: Emergency Provider Physician Assistant; PCP Internal Medicine
DX: K59.00 Constipation, unspecified (principal); K21.9 Gastro-esophageal reflux disease without esophagitis; I11.0 Hypertensive heart disease with heart failure; I50.9 Heart failure, unspecified; D64.9 Anemia, unspecified; F41.9 Anxiety disorder, unspecified; Z87.440 Personal history of urinary (tract) infections; E78.5 Hyperlipidemia, unspecified; Z87.442 Personal history of urinary calculi; F03.90 Unspecified dementia, unspecified severity, without behavioral disturbance, psychotic disturbance, mood disturbance, and anxiety; I69.951 Hemiplegia and hemiparesis following unspecified cerebrovascular disease affecting right dominant side
CPT/HCPCS: 74018; 99283; A9270